=== PATIENT | female | born 1940 | race Caucasian/White ===

== ENCOUNTER → 2017-08-01 | Outpatient (CLI) | payer OTHER, MEDICARE ==
[~2017-08-01] MED LIST: ALPR-411 PO; AMB10 PO; FLUO10CA48 PO
--- NOTE | 2017-08-01 13:37 | DIAGNOSTIC IMAGING REPORT ---
L-SPINE MIN 4 VIEWS ROUTINE CLINICAL HISTORY: BACK PAIN COMPARISON STUDY: None FINDINGS: There are postsurgical changes of discectomies and interbody fusions at the L2-3, L3-4, and L4-5 levels. There is a grade 1 spondylolisthesis of L4 and L5. There is posterior pedicle screw fixation at the L2-3 level. No acute fractures are visualized. Posterior laminectomy defects are visualized. There is no pathologic bowel dilatation. There are surgical clips within the right upper quadrant consistent with a prior cholecystectomy. There are moderate degenerative changes within the lower thoracic spine. IMPRESSION: Postsurgical and degenerative change. No acute fractures identified. No destructive lesions are visualized on conventional radiographic imaging Electronically signed by: Ian Marte M.D. 08/01/2017 1:36 PM Dictated Date/Time: 08/01/2017 1:34 PM
== END | disposition home or self-care (01) ==
LOC: C.RADPV 13:13
PROVIDERS: ATTEND Family Medicine
DX: M54.9 Dorsalgia, unspecified (principal)

== ENCOUNTER → 2017-11-20 | Outpatient (CLI) | payer OTHER, MEDICARE ==
[~2017-11-20] MED LIST changes: -AMB10 PO; -FLUO10CA48 PO; +FLUT0.15 INTNAS; +GLC/500 PO; +OMEG10007 PO; +TRAM-453 PO; +TURMERIC PO
[2017-11-20 13:16] LABS: HEMATOCRIT 29.8 % (37-47); HEMOGLOBIN 9.5 g/dL (12.0-16.0)
== END | disposition home or self-care (01) ==
LOC: C.LABPVFM 09:49
PROVIDERS: ATTEND Orthopaedic Surgery Orthopaedic Surgery of the Spine
DX: M48.062 Spinal stenosis, lumbar region with neurogenic claudication (principal)

== ENCOUNTER 2020-03-31 06:29 | Inpatient (IN) ==
--- NOTE | 2020-03-16 13:53 | PAT Medication Instructions ---
Medication Instructions Date of Service March 16, 2020 Home Medications cyclobenzaprine 10 mg PO HS metformin 1,000 mg PO BID sertraline 50 mg PO HS insulin glargine [Basaglar KwikPen U-100 Insulin] 10 unit SUBCUT 1500 DO NOT take the morning of surgery metformin 1,000 mg PO BID Take evening before surgery cyclobenzaprine 10 mg PO HS metformin 1,000 mg PO BID sertraline 50 mg PO HS insulin glargine [Basaglar KwikPen U-100 Insulin] 10 unit SUBCUT 1500 Other Notes If you have any questions please call us at [phone] or [phone] or [phone] or [phone]
--- NOTE | 2020-03-17 11:08 | Anesthesiology Consultation ---
Date of Service March 17, 2020 Assessment & Plan (1) Encounter for pre-operative examination: - Per assessment on 03/17: Travel screen negative. No known COVID-19 positive contacts or current COVID-19 related symptoms. Surgeon arranging preop COVID testing. Awaiting results. - S/P Hardware removal L2-L3, decompression T12-L2, L5-S1, T10-S1 iliac bolts: 11/13/17: Grade view 1 with cricoid pressure, MAC#3, ETT 7.0 at [facility] - Check BSG AM DOS Chart Review Chart Review: Acceptable Risk for Surgery and Patient seen in Pre Admission Testing Teaching & Discussion Pre-Anesthesia Teaching/Discussion Notes: Instructed NPO after midnight before surgery,except medications with 15 cc of water. Medication instructions provided according to the PAT guidelines. History Surgery Operation Date: 03/31/20 07:45 Proposed Procedures p T8-T10 Decompression and Fusion, Spinal Cord Monitoring - Uri Sanford, Height/Weight Height: 5 ft 4 in Weight: 102.8 kg Allergies Allergy/AdvReac Type Severity Reaction Status Date / Time pseudoephedrine Allergy Intermediate hand, feet Verified 03/09/20 14:01 edema, skin peeling/redness hydromorphone AdvReac Severe delirium Verified 03/09/20 14:01 ketorolac [From Toradol] AdvReac delirium Verified 03/09/20 14:01 Medications Home Medications Medication Instructions Recorded Confirmed Last Taken cyclobenzaprine 10 mg PO HS 01/12/20 03/09/20 Unknown metformin 1,000 mg PO BID 01/12/20 03/09/20 Unknown sertraline 50 mg PO HS 01/12/20 03/09/20 Unknown insulin glargine [Basaglar KwikPen 10 unit SUBCUT 1500 03/09/20 03/09/20 Unknown U-100 Insulin] Past Medical History Medical History Anemia post-op several years ago Anxiety and depression Degenerative disc disease Diabetes IDDM Hx of pancreatitis 3+ years ago Obesity Osteoarthritis Exercise / Class Metabolic Activity III < 4 Walking/Shop/Light housework Past Family History Family History Mother Family history of diabetes mellitus Past Surgical History Surgical History Fusion of spine LUMBAR (TOTAL OF 3 SURGERIES), Hardware removal L2-L3, decompression T12-L2, L5-S1, T10-S1 iliac bolts: 11/13/17: Grade view 1 with cricoid pressure, MAC#3, ETT 7.0 at [facility] H/O knee surgery PARTIAL RIGHT KNEE REPLACEMENT History of cataract surgery BL History of colonoscopy History of herniorrhaphy UMBILICAL History of hysterectomy History of total knee replacement LEFT [place] teeth removed Past Anesthesia History No Family Hx of Anesthesia Complications and Other (post-op delirium after 2018 lumbar fusion (no similar issues with other surgeries/anesthesia)) History of PONV No Hx of PONV and No Hx of Motion Sickness Social History Smoking Status: Never smoker Do You Dip or Chew Tobacco: No Hx Alcohol Use: Yes Alcohol type: beer, wine and hard liquor alcohol intake frequency: a few times a month Hx Substance Use: No Review of Systems Patient denies chest pain, shortness of breath, fever, chills, cough, wheezing, palpitations. Physical Exam Vital Signs VITALS BP 150/88 P 90 TEMP 98.4 SP02 96%RA RESP 16 PHYSICAL Full neck and c-spine range of motion. Full TMJ range of motion. TMD 3 finger breaths Mallampati Score 3 Dentition: intact, several caps (including upper front) Lungs: clear throughout to auscultation Cardiac: regular rate and rhythm, no murmurs noted Spine: normal Carotid arteries: negative bruit Extremities: no edema Testing Laboratory Results 03/17/20 12:46 03/17/20 11:26 PT 10.7 Seconds (9.0-12.0) 03/17/20 12:46 INR 1.0 (0.9-1.1) 03/17/20 12:46 APTT 28.2 Seconds (21.0-31.0) 03/17/20 12:46 Hemoglobin A1c 7.6 % (4.5-5.6) H 03/17/20 12:46 Blood Type O Positive 03/17/20 12:46 Antibody Screen NEGATIVE 03/17/20 12:46 Electrocardiogram Date: 01/14/20 SR with first degree AVB at 81bpm. LAFB. NS STA. Chest X-Ray Date: 01/14/20 FINDINGS: The cardiac and mediastinal contours are normal. There is no evidence of focal pulmonary consolidation. There is no evidence of failure. No pleural effusions are visualized.[Postsurgical changes are present within the thoracolumbar spine. IMPRESSION: No active disease in the chest.
[2020-03-17 14:16] LABS: Estimated Average Glucose 171 mg/dl; Hemoglobin A1C 7.6 % (4.5-5.6)
[2020-03-17 14:17] LABS: Partial Thromboplastin Time 28.2 Seconds (21.0-31.0); Prothrombin Time 10.7 Seconds (9.0-12.0)
[2020-03-17 14:19] LABS: BUN Creatinine Ratio 17.3 (10-20); Calcium 9.9 mg/dl (8.5-10.1); Creatinine Clr Calc Pharmacy 67.1 ml/min
[2020-03-17 14:22] LABS: Basophils # (auto) 0.01 K/uL (0-0.2); Basophils % (auto) 0.2 %; Eosinophils # (auto) 0.09 K/uL (0-0.5); Eosinophils % (auto) 1.6 %; Hematocrit (blood only) 37.4 % (37-47); Immature Granulocytes # (auto) 0.01 K/uL (0.00-0.02); Immature Granulocytes % (auto) 0.2 %; Lymphocytes # (auto) 1.42 K/uL (1.2-3.4); Lymphocytes % (auto) 24.8 %; Mean Corpuscular Hemoglobin 29.2 pg (25-34); Mean Corpuscular Hgb Conc 32.1 g/dL (32-36); Mean Platelet Volume 11.2 fL (7.4-10.4); Monocytes # (auto) 0.31 K/uL (0.11-0.59); Monocytes % (auto) 5.4 %; Neutrophils # (auto) 3.89 K/uL (1.4-6.5); Neutrophils % (auto) 67.8 %; Platelet Count 182 K/uL (130-400); RDW Coefficient of Variation 14.4 % (11.5-14.5); RDW Standard Deviation 47.6 fL (36.4-46.3); Red Blood Count 4.11 M/uL (4.2-5.4); White Blood Count 5.73 K/uL (4.8-10.8)
[2020-03-19 18:12] LABS: Appearance Urine Clear (Clear); Bacteria Urine Automated Negative (Negative); Bilirubin Urine Negative (Negative); Blood Urine Negative (Negative); Color Urine Yellow; Epithelial Cell Urine Auto >30 /lpf (0-5); Glucose Urine UA Negative (Negative); Ketones Urine Negative (Negative); Leukocyte Esterase Urine 2+ (Negative); Nitrite Urine Negative (Negative); Protein Urine Negative (Negative); RBC Urine Automated 0-4 /hpf (0-4); Urobilinogen Urine Negative (Negative); WBC Urine Automated >30 /hpf (0-5)
[~2020-03-31 06:29] MED LIST changes: +ACETAMINOPHEN 500 MG TAB PO SCH; -ALPR-411 PO; +CeleBREX 200 MG CAP PO SCH; -FLUT0.15 INTNAS; +GABAPENTIN 300 MG CAP PO SCH; -GLC/500 PO; +LR 15ML/HR IV SCH; -OMEG10007 PO; -TRAM-453 PO; -TURMERIC PO; +ceFAZolin 2000MG 2,000 MG/15 ML SYR IV SCH
[2020-03-31] MEDS ORDERED: LIDOCAINE HCL 2% 2 ML VIAL/AMP(20MG/ML) INFIL ONE (06:37)
[2020-03-31] MEDS ORDERED: PROPOFOL IV EMULSION 10 MG/ML 20 ML VIAL IV ONE (06:37)
[2020-03-31] MEDS ORDERED: DEXAMETHASONE SOD INJ 4 MG/ML VIAL ONE (06:37)
[2020-03-31] MEDS ORDERED: ONDANSETRON INJ 2 MG/ML 2 ML VIAL ONE (06:37)
[2020-03-31] MEDS ORDERED: ROCURONIUM BROMIDE 10 MG/ML 5 ML VIAL IV ONE (06:37)
[2020-03-31] MEDS ORDERED: HYDROmorphone INJ 2 MG/ML SYR/VIAL ONE (06:38)
[2020-03-31] MEDS ORDERED: MIDAZOLAM HCL 1 MG/ML 2ML VIAL ONE (06:38)
[2020-03-31] MEDS ORDERED: KETAMINE 50 MG/5 ML SYRINGE ONE (06:42)
[2020-03-31] MEDS ORDERED: fentaNYL citrate 100 MCG/2 ML VIAL ONE ×2 (06:42→08:22)
[2020-03-31] MEDS ORDERED: BACITRACIN INJ 50,000 UNIT VIAL ONE (07:01)
[2020-03-31] MEDS ORDERED: BUPIVACAINE/EPINEPHRINE 0.5% MPF 1:200,000 30 ML VIAL ONE (07:34)
--- NOTE | 2020-03-31 07:42 | History & Physical Bridge Note ---
Date of Service March 31, 2020 History & Physical Bridge Note I have examined the patient, reviewed the History & Physical and in the interval since the performance of the History & Physical I have noted the following changes of clinical significance: no changes noted
--- NOTE | 2020-03-31 07:44 | History & Physical Report ---
Date of Service March 31, 2020 Assessment & Plan (1) Myelopathy 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 of thoracic region: Admission and Anticipated Discharge Date Admission Date: T8-T10 decompression fusion History of Present Illness Chief Complaint: Chronic back and leg pain Primary Care Provider: Bruce Dumont This is a 79-year-old female known to me the presents with worsening symptoms of myelopathy consistent with thoracic spinal stenosis. She is here for surgical invention. Allergies Allergy/AdvReac Type Severity Reaction Status Date / Time pseudoephedrine Allergy Intermediate hand, feet Verified 03/31/20 06:59 edema, skin peeling/redness hydromorphone AdvReac Severe delirium Verified 03/31/20 06:59 ketorolac [From Toradol] AdvReac delirium Verified 03/31/20 06:59 Home Medications Medication Instructions Recorded Confirmed Type cyclobenzaprine 10 mg PO HS 01/12/20 03/31/20 History metformin 1,000 mg PO BID 01/12/20 03/31/20 History sertraline 50 mg PO HS 01/12/20 03/31/20 History insulin glargine [Basaglar KwikPen 10 unit SUBCUT 1500 03/09/20 03/31/20 History U-100 Insulin] Past Med/Surg History Medical History Anemia post-op several years ago Anxiety and depression Degenerative disc disease Diabetes IDDM Hx of pancreatitis 3+ years ago Obesity Osteoarthritis Surgical History Fusion of spine LUMBAR (TOTAL OF 3 SURGERIES), Hardware removal L2-L3, decompression T12-L2, L5-S1, T10-S1 iliac bolts: 11/13/17: Grade view 1 with cricoid pressure, MAC#3, ETT 7.0 at [facility] H/O knee surgery PARTIAL RIGHT KNEE REPLACEMENT History of cataract surgery BL History of colonoscopy History of herniorrhaphy UMBILICAL History of hysterectomy History of total knee replacement LEFT [place] teeth removed Family History Mother Family history of diabetes mellitus Social History Smoking Status: Never smoker Second Hand Exposure: Yes (as a child); Do You Dip or Chew Tobacco: No; Hx Alcohol Use: Yes Alcohol type: beer, wine and hard liquor Hx Substance Use: No Preferred Language: Nigerien Communication Ability: Effective Instructor Painting Required: No Beliefs That Will Affect Care: None Current Living Situation: Spouse Feels Safe at Home: Yes Safety Concerns: Feels Safe At This Time Assistive Devices: Cane and Glasses Assistive Devices Comment: cane prn Physical Exam Physical Exam: Patient is alert and oriented Heart regular rate and rhythm Lungs clear to auscultation Results & Data ([facility]) Vital Signs (Past 12 Hours) Vital Signs Temp Pulse Resp BP Pulse Ox 03/31/20 06:56 37.4 C 100 H 20 163/110 H 97 03/31/20 06:50 185/134 H
[2020-03-31] MEDS ORDERED: PHENYLEPHRINE 100MCG/ML 5ML SYR IV PRN (07:47)
[2020-03-31] MEDS ORDERED: fentaNYL citrate 100 MCG/2 ML VIAL IV PRN (07:47)
[2020-03-31] MEDS ORDERED: ONDANSETRON INJ 2 MG/ML 2 ML VIAL IV PRN ×2 (07:47→11:10)
[2020-03-31] MEDS ORDERED: ePHEDrine sulfate 50 MG/ML SYR ONE (08:14)
[2020-03-31] MEDS ORDERED: PHENYLEPHRINE 100MCG/ML 5ML SYR ONE (08:14)
[2020-03-31] MEDS ORDERED: FLOSEAL HEMOSTATIC MATRIX 10ML TOP ONE (09:52)
[2020-03-31] MEDS ORDERED: NEOSTIGMINE METHYLSULFATE 1 MG/ML 10ML VIAL ONE (09:55)
[2020-03-31] MEDS ORDERED: GLYCOPYRROLATE 0.2 MG/ML VIAL ONE (09:55)
--- NOTE | 2020-03-31 10:01 | Operative Report ---
Post Operative Report Pre & Post Diagnosis Operation Date: 03/31/20 07:45 Pre-Op Diagnosis: Other Spondylosis with Myelopathy, Thoracic Post-Op Diagnosis: Other Spondylosis with Myelopathy, Thoracic I identified the patient and participated in the time-out.: Yes Procedure Operation Date: 03/31/20 07:45 Actual Procedures #1 thoracic decompression T8-T9 T9-T10. #2 posterior spinal fusion T8-T10 11. #3 placement posterior segmental instrumentation including globus shepherds hooks T8-T10. #4 placement locally harvested morselized autograft and posterior gutters. #5 placement infuse collagen sponge bone master graft in the posterior lateral gutters. Surgeon Uri Sanford, DO Retail Associate Gema Arriaza Estimated Blood Loss 150 Findings See Below The patient is 5 foot 4 just tall weighing over 103 kg with a BMI in excess of 39. Patient's body habitus did create increased technical difficulty adding at least 50% increase to the operative time. Specimens None Indications This is a 79-year-old female known to me the presents with above-mentioned diagnosis subsequently here for surgical intervention. Description of Procedure Patient was met with identified informed consent obtained. Patient was then taken to the operative suite underwent patient placed in a prone position the [facility] frame. All bony prominences well-padded eyes inspected to ensure no external pressure placed upon the. This point the thoracolumbar spine was prepped and draped no sterile fashion. Sharp dissection with the assistance of Bovie cautery performed down to and exposing the lamina and transverse processes of T8-T9-T10 and instrumentation at the 11 T12. I then performed a complete laminectomy of T9 and T8 addressing severe central lateral recess stenosis. Pedicle screws were then placed in T8-T9-T10 bilaterally with assistance of fluoroscopy and attached to the pre-existing instrumentation by way of globus shepherds hooks. All instrumentation was locked into place. The transverse processes and remaining lamina of T8 T9-T10-T11 and then burred to subcortical bleeding bone. Infuse collagen sponge mass graft local autograft was placed in the posterior gutters. 15 round MARY drain inserted. The incision was then closed with 1 Vicryl to fascia 2-0 Vicryl subcutaneously and 4 Monocryl for final skin closure. Steri-Strip sterile dressings placed. Patient will continue PACU stable condition we please note spinal cord biting visualized at the procedure no changes noted. Lastly Gema Arriaza was present at the entire surgery involved in patient positioning complex portions of the surgery and final skin closure. I attest to the content of the Intraoperative Record and any orders documented therein. Any exceptions are noted below.
--- NOTE | 2020-03-31 10:15 | Fluoroscopy Report ---
FL thoracic spine 2V HISTORY: 79 years-old Female T8-T10 DECOMP/FUSION COMPARISON: MRI thoracic spine 04/18/2019 TECHNIQUE: 2 spot fluoroscopic images of the thoracic spine were obtained utilizing 43.4 seconds fluo roscopy time FINDINGS: Posterior interbody hal and screw fusion of the thoracic spine is noted within the inferior extent of the hardware outside the [id number], exact numbering of the vertebral segments indeterminate seco ndary to magnified images. There is likely new hardware at what appears to be T8-T10. The imaged hard armstrong appears intact. There is satisfactory alignment of the vertebral bodies with multilevel disc spa ce narrowing and spondylitic spurring. IMPRESSION: Fluoroscopic assistance as above. Please see operative report for further details. ACT 112: Negative or not required by law. The above report was generated using voice recognition software. It may contain grammatical, syntax o r spelling errors. Electronically signed by: Gato Morgan M.D. 03/31/2020 10:13 AM
[2020-03-31] MEDS ORDERED: diphenhydrAMINE Capsule 25 MG CAP PO PRN (11:10)
[2020-03-31] MEDS ORDERED: PROMETHAZINE HCL 12.5 MG in SODIUM CHLORIDE 0.9% 50 ML IV PRN (11:10)
[2020-03-31] MEDS ORDERED: FAMOTIDINE 20 MG TAB PO PRN (11:10)
[2020-03-31] MEDS ORDERED: MoRPHine SULFATE 4 MG/ML 1 ML CARP\\VIAL IV PRN (11:10)
[2020-03-31] MEDS ORDERED: hydrOXYzine HCl 25 MG TAB PO PRN (11:10)
[2020-03-31] MEDS ORDERED: SOD PHOSPHATE/SOD BIPHOSPHATE ENEMA 132 ML BTL PR PRN (11:10)
[2020-03-31] MEDS ORDERED: ONDANSETRON 4 MG OD TAB PO PRN (11:10)
[2020-03-31] MEDS ORDERED: LORazepam 0.5 MG TAB PO PRN (11:10)
[2020-03-31] MEDS ORDERED: DO NOT ADMINISTER FLU VACCINE PRN (11:10)
[2020-03-31] MEDS ORDERED: bisacodyL 10 MG SUPP PR PRN (11:10)
[2020-03-31] MEDS ORDERED: MAGNESIUM HYDROXIDE SUSP 30 ML UDC PO PRN (11:10)
[2020-03-31] MEDS ORDERED: METOCLOPRAMIDE HCL INJ 5 MG/ML 2 ML VIAL IV PRN (11:10)
[2020-03-31] MEDS ORDERED: LORazepam 0.5 MG/1 ML VIAL IV PRN (11:10)
[2020-03-31] MEDS ORDERED: DO NOT ADMINISTER PNEUMOCOCCAL VACCINE PRN (11:10)
[2020-03-31] MEDS ORDERED: ALUMINUM/MAGNESIUM SUSP 30 ML UDC PO PRN (11:10)
[2020-03-31] MEDS ORDERED: NALOXONE HCL 0.4 MG/1 ML VIAL/CARP IV PRN (11:10)
[2020-03-31] MEDS ORDERED: LARYING-O-JET KIT (LTA) ONE (11:16)
[2020-03-31] MEDS ORDERED: PHARMACY GLYCEMIC MGMT CONSULT PRN (11:52)
[2020-03-31] MEDS: MoRPHine SULFATE 2 MG/ML CARP IV PRN ×2 (11:56→16:03)
[2020-03-31] MEDS: SODIUM CHLORIDE 0.9% 1000ML 1,000 ML IV SCH ×2 (11:56→21:42)
[2020-03-31] MEDS ORDERED: CARBOHYDRATES FOR HYPOGLYCEMIA PO PRN (12:00)
[2020-03-31] MEDS ORDERED: GLUCOSE 40% GEL 15 GM TUBE PO PRN (12:00)
[2020-03-31] MEDS ORDERED: DEXTROSE 50% 50 ML SYRINGE IV PRN (12:00)
[2020-03-31] MEDS ORDERED: GLUCAGON FOR INJ 1 MG VIAL IM PRN (12:00)
[2020-03-31] MEDS ORDERED: GLUCOSE 10 TABS/TUBE PO PRN (12:00)
[2020-03-31] MEDS ORDERED: INSULIN GLARGINE SOLOSTAR 100 UNITS/ML 3 ML PEN SC ONE (12:00)
[2020-03-31] MEDS: INSULIN ASPART 100 UNITS/ML 3 ML PEN SC SCH ×3 (12:50→21:30)
[2020-03-31] MEDS: oxyCODONE HCL IR 5 MG TAB (IMMEDIATE RELEASE) PO PRN (12:54)
[2020-03-31] MEDS: ACETAMINOPHEN 1,000 MG/100 ML VIAL IV PRN (13:32)
--- NOTE | 2020-03-31 14:49 | Consultation ---
Date of Consultation March 31, 2020 Assessment & Plan (1) Myelopathy 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 of thoracic region: s/p thoracic decompression T8-T9 T9-T10 and posterior spinal fusion T8- T10. Pain management, DVT proph, dispo per Dr Sanford's team. (2) Diabetes: Pharmacy was consulted by the primary orthopedic team for management. (3) Obesity: borderline morbid obesity with BMI 39 (4) DVT prophylaxis: SCDs chemical means contraindicated due to spinal surgery will f/u on CBC, BMP in am maintain bowel regimen History of Present Illness Requesting Physician: Herbie Sanford DO Reason for Consultation: post-op medical management Attending Physician: Uri Sanford DO History of Present Illness 79yo female with h/o 3 prior back surgeries, T2DM, and obesity who presented for decompression-fusion procedure of lower thoracic spine today by Dr Sanford. I saw her post-op on the orthopedic floor. She c/o back pain/soreness. No dyspnea, chest pain or abd pain. Tolerated small amount of lunch w/o nausea or emesis. Prior to surgery she only was having weakness of her legs and left leg pain. Otherwise she had been in her usual state of health. Checks sugars once daily at home. Recently they were <150. During my visit she asked to have O2 removed. 10 min after removing it sats were 92% or greater. Allergies Allergy/AdvReac Type Severity Reaction Status Date / Time pseudoephedrine Allergy Intermediate hand, feet Verified 03/31/20 06:59 edema, skin peeling/redness hydromorphone AdvReac Severe delirium Verified 03/31/20 06:59 ketorolac [From Toradol] AdvReac delirium Verified 03/31/20 06:59 Home Medications Medication Instructions Recorded Confirmed Type cyclobenzaprine 10 mg PO HS 01/12/20 03/31/20 History metformin 1,000 mg PO BID 01/12/20 03/31/20 History sertraline 50 mg PO HS 01/12/20 03/31/20 History insulin glargine [Basaglar KwikPen 10 unit SUBCUT 1500 03/09/20 03/31/20 History U-100 Insulin] oxycodone 5 mg PO Q6H PRN #30 tab 03/31/20 Rx Patient History Medical History (Updated 04/01/20 @ 07:53 by Magdiel Rodriguez) Anemia post-op several years ago Anxiety and depression Degenerative disc disease Diabetes IDDM Hx of pancreatitis 3+ years ago Obesity Obesity Osteoarthritis Surgical History Fusion of spine LUMBAR (TOTAL OF 3 SURGERIES), Hardware removal L2-L3, decompression T12-L2, L5-S1, T10-S1 iliac bolts: 11/13/17: Grade view 1 with cricoid pressure, MAC#3, ETT 7.0 at [facility] H/O knee surgery PARTIAL RIGHT KNEE REPLACEMENT History of cataract surgery BL History of colonoscopy History of herniorrhaphy UMBILICAL History of hysterectomy History of total knee replacement LEFT [place] teeth removed Family History Mother Family history of diabetes mellitus Father Family history of diabetes mellitus Pancreatic cancer Social History (Updated 03/31/20 @ 14:48 by Magdiel Rodriguez) Smoking Status: Never smoker Second Hand Exposure: Yes (as a child); Do You Dip or Chew Tobacco: No; Hx Alcohol Use: Yes Alcohol type: beer, wine and hard liquor Hx Substance Use: No Preferred Language: Armenian Communication Ability: Effective Plating Tank Operator Required: No Beliefs That Will Affect Care: None marital status: Current Living Situation: Spouse Current Living Situation Comment: Kiah Katz current occupational status: 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 [employer] How many Children do You have: 4 Feels Safe at Home: Yes Safety Concerns: Feels Safe At This Time Assistive Devices: None Assistive Devices Comment: cane prn Review of Systems Constitutional: no fever and no chills Eyes: no worsening vision Ear, Nose, Mouth, Throat: no loss of taste or smell Respiratory: no cough and no dyspnea Cardiovascular: no chest pain Gastrointestinal: no abdominal pain and no nausea Genitourinary: no dysuria Musculoskeletal: + back pain Integumentary: no rash Neurologic: + radiating pain (Left leg pre-op) Psychiatric: no depression Endocrine: takes insulin and metformin for DM Hematologic / Lymphatic: no easy bruising Physical Exam Constitutional: well developed, well nourished and + obese; no acute distress Eyes: PERRL ENMT: external ear and nose normal, oropharynx normal Neck: trachea midline, no thyromegaly Respiratory: normal respiratory effort, lungs clear to auscultation Auscultation: + diminished lung sounds (Bases) Cardiovascular: Rate/Rhythm: regular rate and regular rhythm Heart Sounds: normal S1 and normal S2; no murmur Extremities: + edema (<1+ b/l ) Gastrointestinal (Abdomen): Inspection/Auscultation: + abdomen distended Percussion/Palpation: abdomen nontender and no hepatosplenomegaly Musculoskeletal: drain in place - thoracic spine region Skin: no rashes, warm and dry Neurologic: moves all extremities Psychiatric: A+Ox3, euthymic affect Lymphatic: no cervical lymphadenopathy Results & Data ([facility]) Vital Signs (Past 12 Hours) Vital Signs Temp Pulse Pulse Resp BP Pulse Ox 03/31/20 13:23 84 18 163/87 H 100 03/31/20 12:18 36.8 C 78 18 155/86 H 98 03/31/20 11:40 36.8 C 79 20 162/87 H 98 03/31/20 11:16 36.3 C L 73 18 172/97 H 98 03/31/20 10:55 72 15 162/93 H 100 03/31/20 10:45 36.5 C 70 17 164/86 H 99 03/31/20 10:35 74 12 154/86 H 96 03/31/20 10:25 65 12 148/85 H 100 03/31/20 10:17 36.4 C L 71 16 163/79 H 99 03/31/20 06:56 37.4 C 100 H 20 163/110 H 97 03/31/20 06:50 185/134 H PG Care Time/CCT Total # of Minutes Spent Total Time Spent with Patient: Total time spent is greater than 50% in coordination of care (as documented) at patient's floor/unit and/or counseling patient: Coding Level of Care Code 28885 Subseq Hosp Care Lvl 2 Diagnoses Myelopathy 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 of thoracic region M48.04; G99.2 Diabetes E11.9 Obesity E66.9 DVT prophylaxis Z29.9
--- NOTE | 2020-03-31 14:50 | Pharmacy Report ---
Glycemic Control Consultation - Date of Service March 31, 2020 - Scope Scope: Glycemic Pharmacist consulted for glycemic control and to write orders per [facility] inpatient glycemic control protocol. - Objective Weight: 103.5 kg Accuchecks BSG (last 24hrs): 03/31/20 03/31/20 06:50 10:26 POC Glucose 121 H 180 H HbA1c: Hemoglobin A1c 7.6 % (4.5-5.6) H 03/17/20 12:46 - Recent Pertinent Medications Outpatient Anti-diabetic Regimen: * Basaglar 10 units daily * A1c = 7.6% on 03/17/20 Risk Factors for Insulin Resistance: * Steroids: Decadron 8 mg IV x 1 today AM * Infection: Ancef 2 gm IV Q8h x 2 doses * IVF: NS @ 100 ml/hr * Recent Surgery: Spinal decompression + fusion today * Diet: Clear liquid - Assessment & Plan Assessment & Plan: ASSESSMENT: * 79 y/o F admitted for spinal surgery. Patient with Type 2 diabetes managed at home with Basaglar insulin and Metformin oral meds. * Oral agents are not recommended for inpatient use d/t drug interactions, changing PO intake, and difficulty titrating for acute hyper/hypoglycemia. ADA recommends re-initiating outpatient oral agents 1-2 days prior to discharge if/when appropriate if they were held on admission. * Will hold oral agents for admission and utilize SQ basal bolus insulin regimen which is the recommended regimen for inpatient glycemic control. * Will initiate weight based insulin dosing and titrate based on BSG trends. * Since patient received Decadron 8 mg IV x 1 preop, I ordered 25 units of Lantus x 1 around noon today based on weight and stress factor of 3 to prevent steroid induced hyperglycemia. Patient normally takes Basaglar insulin 10 units daily in the afternoon. Last dose of this was yesterday afternoon. * Novolog dose ordered based on wt and stress factor of 3. PLAN FOR INPATIENT GLYCEMIC CONTROL: * Holding outpatient oral diabetes medications * Basal insulin * Lantus 25 units SQ x 1 * Bolus insulin * NovoLog per scale ACHS or Q6hrs while NPO * Goal Range: Low 110 mg/dL - High 140 mg/dL * Correction Factor: 15 mg/dL/unit * Nutritional / Prandial insulin per carb ratio of 1 unit per 6 grams CHO consumed * Please note that the plan above was derived based on current level of insulin resistance and hospital stress. These recommendations are appropriate for inpatient admission only. Plan of care upon discharge will need to be reassessed to avoid potential outpatient hypo/hyperglycemia. Thank you.
[2020-03-31] MEDS: ceFAZolin 2000MG 2,000 MG/15 ML SYR IV SCH (16:07)
--- NOTE | 2020-03-31 16:12 | Anesthesiology Progress Note ---
Date of Service March 31, 2020 Anesthesia Post Procedure Vital Signs Vital Signs: Temp Pulse Pulse Pulse Resp BP Pulse Ox 03/31/20 15:56 36.4 C L 83 16 146/80 H 95 03/31/20 13:23 84 18 163/87 H 100 03/31/20 12:18 36.8 C 78 18 155/86 H 98 03/31/20 11:40 36.8 C 79 20 162/87 H 98 03/31/20 11:16 36.3 C L 73 18 172/97 H 98 03/31/20 10:55 72 15 162/93 H 100 03/31/20 10:45 36.5 C 70 17 164/86 H 99 03/31/20 10:35 74 12 154/86 H 96 03/31/20 10:25 65 12 148/85 H 100 03/31/20 10:17 36.4 C L 71 16 163/79 H 99 03/31/20 06:56 37.4 C 100 H 20 163/110 H 97 03/31/20 06:50 185/134 H Pain Intensity Back: Pain Intensity: 3 Transfer of Care Handoff Completed per policy Notes Mental Status: alert / awake / arousable and participated in evaluation Patient Amnestic to Procedure: Yes Nausea / Vomiting: adequately controlled Pain: adequately controlled Airway Patency, RR, SpO2: stable & adequate BP & HR: stable & adequate Hydration State: stable & adequate Anesthetic Complications: no major complications apparent and Pt Satisfied with anesthetic care
[2020-03-31] MEDS: DOCUSATE SODIUM/SENNA 50/8.6MG TAB PO SCH (21:44)
[2020-03-31] MEDS: SERTRALINE HCL 50 MG TABLET PO SCH (21:44)
[2020-03-31] MEDS: CYCLOBENZAPRINE HCL 10 MG TAB PO SCH (21:44)
[2020-04-01] MEDS: INSULIN ASPART 100 UNITS/ML 3 ML PEN SC SCH ×6 (00:25→21:11)
[2020-04-01] MEDS: ceFAZolin 2000MG 2,000 MG/15 ML SYR IV SCH (00:27)
[2020-04-01] MEDS: POLYETHYLENE (MIRALAX) 17 GM PACK PO SCH ×4 (05:53→23:45)
[2020-04-01 06:07] LABS: Hematocrit (blood only) 29.2 % (37-47); Hemoglobin 9.5 g/dL (12.0-16.0); Immature Granulocytes # (auto) 0.02 K/uL (0.00-0.02); Immature Granulocytes % (auto) 0.2 %; Lymphocytes # (auto) 1.26 K/uL (1.2-3.4); Lymphocytes % (auto) 13.6 %; Mean Corpuscular Hemoglobin 29.6 pg (25-34); Mean Corpuscular Hgb Conc 32.5 g/dL (32-36); Mean Platelet Volume 9.5 fL (7.4-10.4); Monocytes # (auto) 0.69 K/uL (0.11-0.59); Monocytes % (auto) 7.4 %; Neutrophils % (auto) 78.8 %; Platelet Count 185 K/uL (130-400); RDW Coefficient of Variation 14.6 % (11.5-14.5); RDW Standard Deviation 48.8 fL (36.4-46.3); Red Blood Count 3.21 M/uL (4.2-5.4); White Blood Count 9.27 K/uL (4.8-10.8)
[2020-04-01 06:33] LABS: Calcium 9.1 mg/dl (8.5-10.1); Creatinine Clr Calc Pharmacy 75.6 ml/min; Est GFR (African American) 92.1; Est GFR (Non-African American) 79.4
[2020-04-01] MEDS ORDERED: INSULIN GLARGINE SOLOSTAR 100 UNITS/ML 3 ML PEN SC SCH (09:00)
--- NOTE | 2020-04-01 09:59 | Orthopedic Progress Note ---
Date of Service April 01, 2020 Assessment & Plan (1) Myelopathy 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 of thoracic region: Admission and Anticipated Discharge Date Admission Date: March 31, 2020 Patient will continue physical therapy monitor MARY operatively discharge home next few days. Subjective Patient's back pain is controlled leg symptoms improved. Physical Exam Physical Exam: Patient is in the chair at the bedside has good strength testing. Results & Data ([facility]) Vital Signs (Past 12 Hours) Vital Signs Temp Pulse Resp BP Pulse Ox 04/01/20 07:23 36.6 C 81 18 152/82 H 94 04/01/20 03:27 36.4 C L 75 16 134/81 92 03/31/20 23:00 36.4 C L 77 16 136/80 93
[2020-04-01] MEDS ORDERED: DEXAMETHASONE SOD PHOSPHATE 8 MG in SYRINGE 0 ML IV ONE (10:45)
[2020-04-01] MEDS: oxyCODONE HCL IR 5 MG TAB (IMMEDIATE RELEASE) PO PRN ×3 (10:48→21:28)
--- NOTE | 2020-04-01 10:50 | Pharmacy Report ---
Pharmacy Glycemic Short Note 2 - Date of Service April 01, 2020 - Glycemic Short BSG Results (Last 24 hours): 03/31/20 03/31/20 03/31/20 17:10 20:33 23:54 Glucose POC Glucose 266 H 251 H 177 H 04/01/20 04/01/20 04/01/20 04:21 05:47 08:05 Glucose 98 POC Glucose 112 H 101 H Outpatient Anti-diabetic Regimen: * Basaglar 10 units daily * A1c = 7.6% on 03/17/20 Risk Factors for Insulin Resistance: * Steroids: Decadron 8 mg IV x 1 03/31 AM, none 04/01, then 8 mg IV qAM staring 04/02 * Recent Surgery: POD 1 s/p spinal decompression + fusion today * Diet: T2DM ASSESSMENT: 04/01 * Steroids ordered to continue starting tomorrow (confirmed w Nathalia Carballo PA-C who spoke w Dr. Sanford - Dr. Sanford does not want steroids today) * AM fasting BSG good at 101 mg/dL. Lantus dose decreased slightly as anticipate effects of steroids yesterday to wear off. Tomorrow, will likely need to be adjusted again (and possibly use both Lantus and NPH) once steroids resume * Steroid effects dissipating and lunch BSG slightly low at 93 mg/dL. Will loosen Novolog parameters for now. However, will tighten back starting tomorrow when steroids resume 03/31 * 79 y/o F admitted for spinal surgery. Patient with Type 2 diabetes managed at home with Basaglar insulin and Metformin oral meds. * Oral agents are not recommended for inpatient use d/t drug interactions, changing PO intake, and difficulty titrating for acute hyper/hypoglycemia. ADA recommends re-initiating outpatient oral agents 1-2 days prior to discharge if/when appropriate if they were held on admission. * Will hold oral agents for admission and utilize SQ basal bolus insulin regimen which is the recommended regimen for inpatient glycemic control. * Will initiate weight based insulin dosing and titrate based on BSG trends. * Since patient received Decadron 8 mg IV x 1 preop, I ordered 25 units of Lantus x 1 around noon today based on weight and stress factor of 3 to prevent steroid induced hyperglycemia. Patient normally takes Basaglar insulin 10 units daily in the afternoon. Last dose of this was yesterday afternoon. * Novolog dose ordered based on wt and stress factor of 3. PLAN FOR INPATIENT GLYCEMIC CONTROL: * Hold outpatient oral diabetes medications * Basal insulin * Lantus 20 units SQ x1 this AM. Ongoing to be assessed tomorrow * Bolus insulin * NovoLog per scale ACHS or Q6hrs while NPO * Goal Range: Low 110 mg/dL - High 140 mg/dL * Correction Factor: 20 mg/dL/unit today, then tighten to 15 mg/dL/unit tomorrow * CHO ratio: 7 gCHO/unit today, then tighten to 6 gCHO/unit tomorrow
--- NOTE | 2020-04-01 11:28 | Hospitalist Progress Note ---
Date of Service April 01, 2020 Assessment & Plan (1) Myelopathy 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 of thoracic region: * POD #1 s/p thoracic decompression T8-T9 T9-T10 and posterior spinal fusion T8-T10. * H/h dropped to 9.5/29.2 -- acute blood loss from surgery and dilutional from IVF. EBL [id number]. Drain output 430cc. * Pain management, DVT proph, dispo per Dr Sanford's team. * CBC in AM (2) Diabetes: * Pharmacy was consulted by the primary orthopedic team for management. * On metformin 1000mg BID and Insulin 10U daily [employer] with reduction in A1c from 11 to 7.6 from December 2019 * Plans for dexamethasone starting tomorrow per Dr. Sanford * Continue to monitor (3) Obesity: * borderline morbid obesity with BMI 39 (4) DVT prophylaxis: * SCDs * chemical means contraindicated due to spinal surgery Plans for d/c on Sunday Thank you for allowing hospitalist service to participate in the care of Ms Martinez. Hospitalist service will sign off but chart check. Please call with any questions/concerns. Admission and Anticipated Discharge Date Admission Date: March 31, 2020 Subjective Patient evaluated this morning. Was up with therapy and having some pain following but manageable with current ordered medications. This is her fourth back surgery, all performed by Dr. Sanford. She has been eating/drinking without difficulty. Passing gas but no BM yet. Tentative discharge planned for Sunday per her discussion with Dr. Sanford. Review of Systems Review of Systems: All systems reviewed & are unremarkable except as noted in HPI & below Physical Exam Constitutional: well developed, well nourished and + obese; no acute distress Eyes: PERRL ENMT: external ear and nose normal, oropharynx normal Neck: trachea midline, no thyromegaly Respiratory: normal respiratory effort, lungs clear to auscultation Auscultation: + diminished lung sounds (Bases) Cardiovascular: Rate/Rhythm: regular rate and regular rhythm Heart Sounds: normal S1 and normal S2; no murmur Extremities: + edema (trace b/lLE) Gastrointestinal (Abdomen): Inspection/Auscultation: + abdomen distended Percussion/Palpation: abdomen nontender and no hepatosplenomegaly Musculoskeletal: drain in place - thoracic spine region Skin: no rashes, warm and dry Neurologic: moves all extremities Psychiatric: A+Ox3, euthymic affect Lymphatic: no cervical lymphadenopathy Results & Data Results & Data ([facility]) Vital Signs (Past 12 Hours) Vital Signs Temp Pulse Resp BP Pulse Ox 04/01/20 07:23 36.6 C 81 18 152/82 H 94 04/01/20 03:27 36.4 C L 75 16 134/81 92 Laboratory Results 04/01/20 04/01/20 04/01/20 Range/Units 08:05 05:47 05:47 WBC 9.27 (4.8-10.8) K/uL RBC 3.21 L (4.2-5.4) M/uL Hgb 9.5 L (12.0-16.0) g/dL Hct 29.2 L (37-47) % MCV 91.0 (80-100) fL MCH 29.6 (25-34) pg MCHC 32.5 (32-36) g/dL RDW Std Deviation 48.8 H (36.4-46.3) fL RDW Coeff of Jc 14.6 H (11.5-14.5) % Plt Count 185 (130-400) K/uL MPV 9.5 (7.4-10.4) fL Immature Gran % (Auto) 0.2 % Neut % (Auto) 78.8 % Lymph % (Auto) 13.6 % Glascock % (Auto) 7.4 % Eos % (Auto) 0.0 % Baso % (Auto) 0.0 % Neut # (Auto) 7.30 H (1.4-6.5) K/uL Lymph # (Auto) 1.26 (1.2-3.4) K/uL Glascock # (Auto) 0.69 H (0.11-0.59) K/uL Eos # (Auto) 0.00 (0-0.5) K/uL Baso # (Auto) 0.00 (0-0.2) K/uL Immature Gran # (Auto) 0.02 (0.00-0.02) K/uL Sodium 143 (136-145) mmol/L Potassium 4.0 (3.5-5.1) mmol/L Chloride 111 H (98-107) mmol/L Carbon Dioxide 28 (21-32) mmol/L Anion Gap 3.0 (3-11) BUN 15 (7-18) mg/dl Creatinine 0.73 (0.6-1.2) mg/dl Est Cr Clr Drug Dosing 75.6 ml/min Est GFR ( Amer) 92.1 Est GFR (Non-Af Amer) 79.4 BUN/Creatinine Ratio 21.0 H (10-20) Glucose 98 (70-99) mg/dl POC Glucose 101 H (70-99) mg/dl Calcium 9.1 (8.5-10.1) mg/dl 04/01/20 03/31/20 03/31/20 Range/Units 04:21 23:54 20:33 WBC (4.8-10.8) K/uL RBC (4.2-5.4) M/uL Hgb (12.0-16.0) g/dL Hct (37-47) % MCV (80-100) fL MCH (25-34) pg MCHC (32-36) g/dL RDW Std Deviation (36.4-46.3) fL RDW Coeff of Jc (11.5-14.5) % Plt Count (130-400) K/uL MPV (7.4-10.4) fL Immature Gran % (Auto) % Neut % (Auto) % Lymph % (Auto) % Glascock % (Auto) % Eos % (Auto) % Baso % (Auto) % Neut # (Auto) (1.4-6.5) K/uL Lymph # (Auto) (1.2-3.4) K/uL Glascock # (Auto) (0.11-0.59) K/uL Eos # (Auto) (0-0.5) K/uL Baso # (Auto) (0-0.2) K/uL Immature Gran # (Auto) (0.00-0.02) K/uL Sodium (136-145) mmol/L Potassium (3.5-5.1) mmol/L Chloride (98-107) mmol/L Carbon Dioxide (21-32) mmol/L Anion Gap (3-11) BUN (7-18) mg/dl Creatinine (0.6-1.2) mg/dl Est Cr Clr Drug Dosing ml/min Est GFR ( Amer) Est GFR (Non-Af Amer) BUN/Creatinine Ratio (10-20) Glucose (70-99) mg/dl POC Glucose 112 H 177 H 251 H (70-99) mg/dl Calcium (8.5-10.1) mg/dl 03/31/20 Range/Units 17:10 WBC (4.8-10.8) K/uL RBC (4.2-5.4) M/uL Hgb (12.0-16.0) g/dL Hct (37-47) % MCV (80-100) fL MCH (25-34) pg MCHC (32-36) g/dL RDW Std Deviation (36.4-46.3) fL RDW Coeff of Jc (11.5-14.5) % Plt Count (130-400) K/uL MPV (7.4-10.4) fL Immature Gran % (Auto) % Neut % (Auto) % Lymph % (Auto) % Glascock % (Auto) % Eos % (Auto) % Baso % (Auto) % Neut # (Auto) (1.4-6.5) K/uL Lymph # (Auto) (1.2-3.4) K/uL Glascock # (Auto) (0.11-0.59) K/uL Eos # (Auto) (0-0.5) K/uL Baso # (Auto) (0-0.2) K/uL Immature Gran # (Auto) (0.00-0.02) K/uL Sodium (136-145) mmol/L Potassium (3.5-5.1) mmol/L Chloride (98-107) mmol/L Carbon Dioxide (21-32) mmol/L Anion Gap (3-11) BUN (7-18) mg/dl Creatinine (0.6-1.2) mg/dl Est Cr Clr Drug Dosing ml/min Est GFR ( Amer) Est GFR (Non-Af Amer) BUN/Creatinine Ratio (10-20) Glucose (70-99) mg/dl POC Glucose 266 H (70-99) mg/dl Calcium (8.5-10.1) mg/dl PG Care Time/CCT Total # of Minutes Spent Total Time Spent with Patient: Total time spent is greater than 50% in coordination of care (as documented) at patient's floor/unit and/or counseling patient: Coding Level of Care Code 44120 Subseq Hosp Care Lvl 2 Diagnoses Myelopathy 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 of thoracic region M48.04; G99.2 Diabetes E11.9 Obesity E66.9 DVT prophylaxis Z29.9
[2020-04-01] MEDS: ACETAMINOPHEN 1,000 MG/100 ML VIAL IV PRN (11:45)
[2020-04-01] MEDS: ACETAMINOPHEN 500 MG TAB PO PRN (19:57)
[2020-04-01] MEDS: SERTRALINE HCL 50 MG TABLET PO SCH (19:58)
[2020-04-01] MEDS: CYCLOBENZAPRINE HCL 10 MG TAB PO SCH (19:58)
[2020-04-01] MEDS: DOCUSATE SODIUM/SENNA 50/8.6MG TAB PO SCH (19:58)
[2020-04-02] MEDS: oxyCODONE HCL IR 5 MG TAB (IMMEDIATE RELEASE) PO PRN ×2 (05:38→14:02)
[2020-04-02] MEDS: POLYETHYLENE (MIRALAX) 17 GM PACK PO SCH ×2 (05:39→13:26)
[2020-04-02 06:10] LABS: Hematocrit (blood only) 33.3 % (37-47); Hemoglobin 10.5 g/dL (12.0-16.0); Mean Corpuscular Hemoglobin 29.1 pg (25-34); Mean Corpuscular Hgb Conc 31.5 g/dL (32-36); Mean Corpuscular Volume 92.2 fL (80-100); Mean Platelet Volume 9.6 fL (7.4-10.4); Platelet Count 182 K/uL (130-400); RDW Coefficient of Variation 14.9 % (11.5-14.5); RDW Standard Deviation 50.9 fL (36.4-46.3); Red Blood Count 3.61 M/uL (4.2-5.4); White Blood Count 8.08 K/uL (4.8-10.8)
[2020-04-02 06:37] LABS: BUN Creatinine Ratio 20.6 (10-20); Calcium 9.4 mg/dl (8.5-10.1); Creatinine Clr Calc Pharmacy 63.4 ml/min; Est GFR (African American) 74.5; Est GFR (Non-African American) 64.3; Potassium 3.8 mmol/L (3.5-5.1)
[2020-04-02] MEDS: ACETAMINOPHEN 500 MG TAB PO PRN (07:45)
[2020-04-02] MEDS: INSULIN ASPART 100 UNITS/ML 3 ML PEN SC SCH ×2 (07:49→12:58)
[2020-04-02] MEDS ORDERED: INSULIN GLARGINE SOLOSTAR 100 UNITS/ML 3 ML PEN SC SCH (09:00)
[2020-04-02] MEDS ORDERED: DEXAMETHASONE SOD PHOSPHATE 8 MG in SYRINGE 0 ML IV SCH (09:00)
--- NOTE | 2020-04-02 10:45 | Pharmacy Report ---
Pharmacy Glycemic Short Note 2 - Date of Service April 02, 2020 - Glycemic Short BSG Results (Last 24 hours): 04/01/20 04/01/20 04/01/20 12:10 17:23 20:38 Glucose POC Glucose 93 77 113 H 04/02/20 04/02/20 05:57 06:27 Glucose 100 H POC Glucose 109 H Outpatient Anti-diabetic Regimen: * Basaglar 10 units daily * A1c = 7.6% on 03/17/20 Risk Factors for Insulin Resistance: * Steroids: Decadron 8 mg IV x 1 03/31 AM, none 04/01, then 8 mg IV qAM staring 04/02 * Recent Surgery: POD 2 s/p spinal decompression + fusion * Diet: T2DM ASSESSMENT: 04/02 * BSG's on the low side yesterday, but no hypoglycemic episodes noted. However, patient now resuming dexamethasone today so anticipate increased insulin resistance * Will therefore initiate NPH this AM (to be given with dexamethasone) as this will help to prevent post-prandial spikes in BSG * OK to continue Lantus as well, but will reduce dose by 50% (to home Basaglar dose) to prevent AM fasting hypoglycemia * Will slightly tighten Novolog parameters due to steroid initiation 04/01 * Steroids ordered to continue starting tomorrow (confirmed w Nathalia Carballo PA-C who spoke w Dr. Sanford - Dr. Sanford does not want steroids today) * AM fasting BSG good at 101 mg/dL. Lantus dose decreased slightly as anticipate effects of steroids yesterday to wear off. Tomorrow, will likely need to be adjusted again (and possibly use both Lantus and NPH) once steroids resume * Steroid effects dissipating and lunch BSG slightly low at 93 mg/dL. Will loosen Novolog parameters for now. However, will tighten back starting tomorrow when steroids resume 03/31 * 79 y/o F admitted for spinal surgery. Patient with Type 2 diabetes managed at home with Basaglar insulin and Metformin oral meds. * Oral agents are not recommended for inpatient use d/t drug interactions, changing PO intake, and difficulty titrating for acute hyper/hypoglycemia. ADA recommends re-initiating outpatient oral agents 1-2 days prior to discharge if/when appropriate if they were held on admission. * Will hold oral agents for admission and utilize SQ basal bolus insulin regimen which is the recommended regimen for inpatient glycemic control. * Will initiate weight based insulin dosing and titrate based on BSG trends. * Since patient received Decadron 8 mg IV x 1 preop, I ordered 25 units of Lantus x 1 around noon today based on weight and stress factor of 3 to prevent steroid induced hyperglycemia. Patient normally takes Basaglar insulin 10 units daily in the afternoon. Last dose of this was yesterday afternoon. * Novolog dose ordered based on wt and stress factor of 3. PLAN FOR INPATIENT GLYCEMIC CONTROL: * Hold outpatient oral diabetes medications * Basal insulin * Lantus 0-10 units SC qAM, based on BSG * Insulin NPH 20-30 units SC qAM, based on BSG * Bolus insulin * NovoLog per scale ACHS or Q6hrs while NPO * Goal Range: Low 110 mg/dL - High 140 mg/dL * Correction Factor: 15 mg/dL/unit * CHO ratio: 6 gCHO/unit
--- NOTE | 2020-04-02 10:54 | Discharge Summary ---
Date of Service April 02, 2020 Admission HPI Per Admitting Provider This is a 79-year-old female known to me the presents with worsening symptoms of myelopathy consistent with thoracic spinal stenosis. She is here for surgical invention. Principal Diagnosis Thoracic spinal stenosis with myelopathy Discharge Data Allergies Allergy/AdvReac Type Severity Reaction Status Date / Time pseudoephedrine Allergy Intermediate hand, feet Verified 03/31/20 06:59 edema, skin peeling/redness hydromorphone AdvReac Severe delirium Verified 03/31/20 06:59 ketorolac [From Toradol] AdvReac delirium Verified 03/31/20 06:59 Consultations 03/31/20 11:10 Consult Case Management - Discharge Planning Routine Consult Hospitalist Routine Procedures Performed Operation Date: 03/31/20 07:45 Actual Procedures p T8-T10 Decompression and Fusion, Spinal Cord Monitoring(Not Applicable) - Uri Sanford DO Ordered Studies 03/31/20 07:45 FL fluoroscopy <1hr Routine FL thoracic spine 2V Routine Hospital Course (1) Myelopathy 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 of thoracic region: Patient went thoracic decompression fusion tolerated this well was taken to the orthopedic floor postoperatively. Postop day 1 she was up and ambulating leg symptoms improved progressed the postop day #2. MARY drain decreasing appropriately. Strength intact. Subsequently discharged home. Discharge orders and instructions found in chart for further review. Total Time Total Time Spent Total Time Spent (In Minutes): 20 minutes Discharge Plan Discharge Items Patient Disposition: Home - Self-Care Reason For Visit: Other Spondylosis with Myelopathy, Thoracic Discharge Diagnosis: Thoracic spinal stenosis with myelopathy Activity: As commented below Non-emergency contact: Primary Care Provider Call non-emergency contact if: you have any medication questions Follow-up/Referrals: Bruce Dumont [Primary Care Provider] - Diet: Regular Addtl Attending Provider Instructions: ACTIVITY RECOMMENDATIONS: SELF CARE INSTRUCTIONS AFTER THORACIC/LUMBAR FUSIONS 1. You may walk to your tolerance. It is good exercise for your legs and back. Expect some back and intermittent leg aches and pains. 2. You may perform "counter-top" level activities (make a sandwich, stephen with a project, etc.). 3. No bending or lifting of more than 10 pounds or back twisting of any nature (roll like a log when turning in bed). 4. You may ride in a car for 20-30 minutes at a time. No driving until after your first visit with your doctor. 5. Frequent changes of position and restricting sitting to 30 minutes at a time will help limit the amount of back spasms and stiffness you may experience. 6. You may discontinue the use of ambulatory aids (cane, crutches, etc.) once your strength and confidence allow. 7. You may cleaner industrial the shower and let water strike your incision when you arrive home at least once daily. Do not take a tub bath, sit in a hot tub or go into a swimming pool until after your first recheck in the office. SPECIAL CARE INSTRUCTIONS: VERY IMPORTANT TO READ AND REVIEW A. Your surgical incision has been closed with a cosmetic suture under the skin that will dissolve in about 6 weeks. In 14 days, you can use a pair of clean scissors and cut the suture that is left outside of the skin at the ends of your incision. 1. The small skin tapes can be removed 7 days after surgery if they have not fallen off by that point. 2. You may keep the wound open to air as much as possible to promote healing after post-op day number 5 unless told otherwise by your doctor. 3. If you think the wound looks like it is becoming infected (redness or worsening drainage) and/or you are experiencing fever, chill or worsening back pain and muscle spasms, contact the office so that we may evaluate you as soon as possible. B. Complications are uncommon, but please contact us if you have any signs or symptoms of: 1. wound infection (fever higher than 102.5 degrees F, redness, separation of wound, drainage, or increasing pain from the incision) 2. blood clots in legs (pain, swelling, redness and warmth in legs) 3. urinary tract infection (fever higher than 102.5 degrees F, burning upon urination or increased frequency of urination) 4. nerve problems (inability to walk on your toes or heels, numbness, loss of bowel or bladder control) 5. any other symptoms that concern you C. Please call the office at if you have any concerns or questions about your operation or recovery. D. No smoking! Smoking drastically decreases the chance of a solid fusion. E. Do not take any anti-inflammatory medications (Indocin, Advil, Motrin, Aspirin, Naprosyn, etc.) as these may inhibit the chance of a solid fusion. Tylenol is okay to take for pain. MANAGING PAIN AFTER SPINAL SURGERY 1. Narcotic medication is intended for short-term use and will be provided for surgical pain. Surgical pain usually lasts for a period of 4-6 weeks. Narcotic medication includes Percocet, Vicodin, Darvocet, Tylenol #3 or Lortab. 2. Longer-term pain is more appropriately treated with non-narcotic medication such as Tylenol ES. 3. Muscle spasm is not appropriately treated with narcotics. Muscle relaxers such as Soma, Flexeril or Skelaxin can be used along with Tylenol ES. 4. Remember that we all live with some "aches and pains". This is not unusual or uncommon after an injury or as we get older. a. Back pain is expected and may include muscle spasms for 4 to 6 weeks after surgery. The pain should gradually improve. If the pain worsens for no apparent reason, please contact the office. b. Intermittent leg pain may also be experienced and should not be concerned about unless it worsens for no apparent reason. If so, please contact the office. 5. We will provide appropriate medication within the normal guidelines of their prescribed use. We will also be very cautious and aware of potential abuse and extended duration of patients' medication needs. a. Pain medications are for your comfort and to assist with sleep and rest so that the tissue can heal. They are not provided in order to return to normal activity and should not be used through the day. To do so or worsening pain at night can result from ongoing tissue damage and development of tolerance to the prescribed medicine. 6. Please allow 2-3 days to process refills. Prescriptions will not be mailed but must be picked up at the office. FOLLOW UP VISIT: Keep your scheduled follow-up appointment. Any questions, please call the office at . Pending Studies at Discharge: No Stand-Alone Forms: [employer], Smoking Cessation Medications and DC Order Prescriptions: New oxycodone 5 mg tablet 5 mg PO Q6H PRN (Reason: pain, severe) Qty: 30 RF: 0 Continued cyclobenzaprine 10 mg Tablet 10 mg PO HS RF: 0 metformin 500 mg Tablet 1,000 mg PO BID RF: 0 sertraline 50 mg Tablet 50 mg PO HS RF: 0 Basaglar KwikPen U-100 Insulin 100 unit/mL (3 mL) Insulin Pen 10 unit SUBCUT 1500 RF: 0 Discharge Orders: Discharge Order (Routine); Ordered 04/02/20 Ordered By: Uri Wilkins/Other Patient Handouts: Managing Type 2 Diabetes Admission Data Admit Date/Time: 03/31/20 10:21 Attending Provider: Uri Sanford Admit Provider: Uri Sanford Primary Care Provider: Bruce Dumont Other Providers: Trevor Vaca
[2020-04-03] MEDS ORDERED: INSULIN HUMAN NPH SC SCH ×2 (07:30)
== END 2020-04-02 14:35 | disposition home or self-care (01) | DRG 460 ==
LOC: ASU 06:29 → 3E 10:21

== ENCOUNTER 2021-06-09 08:07 | Inpatient (IN) ==
--- NOTE | 2021-06-09 08:40 | Emergency Department Note ---
History of Present Illness General Chief complaint: Weakness Stated complaint: C6 SPINAL COMPRESSION, UNABLE TO AMBULATE Time Seen by Provider: 06/09/21 08:25 Source: patient and family Mode of arrival: wheelchair Limitations: no limitations History of Present Illness Provider complaint: lower extremity weakness Onset (ago): unknown Maximum Pain Intensity: 7 This is a 81-year-old female presents emergency department complaining of worsening weakness and increased difficulty with ambulation. Patient has a history of back problems does follow with Dr. Sanford. She states she was originally scheduled to have surgery in January however this has been canceled and delayed due to Covid restrictions multiple times and her symptoms have continued to worsen. Patient states she has both upper and lower extremity weakness bilaterally however the lower extremities are worse. She does note altered sensation but has difficulty describing it. She denies any abdominal pain, fevers or chills, change in bowel or bladder function, or overt paresthesias. Patient states while she had been ambulating independently over the last several months she has now been using a walker and describes that she now has a shuffling gait as she can no longer lift her legs to take a full step. She is having increased difficulty getting up from a seated position. Pt seen during a time of high acuity and national emergency pandemic while wearing PPE. Home Medications Medication Instructions Recorded Confirmed Type metformin 500 mg tablet 500 mg PO QPM 01/12/20 06/09/21 History sertraline 50 mg tablet 50 mg PO HS 01/12/20 06/09/21 History insulin glargine 100 unit/mL (3 10 unit SUBCUT QAM 03/09/20 06/09/21 History mL) subcutaneous pen (Basaglar KwikPen U-100 Insulin) hydroxyzine HCl 10 mg tablet 10 mg PO TID PRN 06/09/21 06/09/21 History Allergies Allergy/AdvReac Type Severity Reaction Status Date / Time pseudoephedrine Allergy Intermediate hand, feet Verified 06/09/21 09:22 edema, skin peeling/redness hydromorphone AdvReac Severe delirium Verified 06/09/21 09:22 ketorolac [From Toradol] AdvReac Mild delirium Verified 06/09/21 09:22 Past Med/Surg History Medical History Anemia post-op several years ago per pt Anxiety and depression Pt reports stable and controlled, follows with PCP Degenerative disc disease Diabetes IDDM, A1c 7.1% 04/01/2021 Hx of pancreatitis 3+ years ago Obesity Osteoarthritis Surgical History Fusion of spine LUMBAR (TOTAL OF 3 SURGERIES), Hardware removal L2-L3, decompression T12-L2, L5-S1, T8-T10: Grade 1 view, Salazar#2, ETT#7.5 at [facility] T10-S1 iliac bolts: 11/13/17: Grade view 1 with cricoid pressure, MAC#3, ETT 7.0 at [facility]. No issues with either per both anesthesia postop progress notes. H/O knee surgery partial right knee replacement > 20 yrs ago History of appendectomy History of cataract surgery BL History of cholecystectomy History of colonoscopy History of herniorrhaphy UMBILICAL History of hysterectomy with bilateral oophorectomy History of total knee replacement LEFT [place] teeth removed Family History Mother Family history of diabetes mellitus Father Family history of diabetes mellitus Pancreatic cancer Social History Smoking Status: Former smoker Second Hand Exposure: No; Hx Alcohol Use: Yes Alcohol type: beer, wine and hard liquor Hx Substance Use: No Preferred Language: Mohawk Communication Ability: Effective Herd Tester Required: No Beliefs That Will Affect Care: None marital status: Current Living Situation: Spouse Current Living Situation Comment: Kiah Katz current occupational status: 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 [employer] How many Children do You have: 3 Other Information That Helps Us Care for You: No Feels Safe at Home: Yes Assistive Devices: Cane and Walker Review of Systems A total of 10 systems reviewed and were otherwise negative All systems reviewed & are unremarkable except as noted in HPI & below Physical Exam Vital Signs Vital Signs - 24 hr 06/09/21 08:16 06/09/21 10:20 06/09/21 11:33 Temperature 36.6 C Temperature Source Temporal Artery Scan Pulse Rate 76 Pulse Rate [Left Finger] 68 70 Pulse Rhythm Regular Pulse Rhythm [Left Finger] Regular Regular Pulse Strength Normal Pulse Strength [Left Finger] Normal Normal Respiratory Rate 20 20 17 Respiratory Effort / Characteristics Non-Labored Spontaneous Non-Labored Spontaneous Non-Labored Spontaneous Respiratory Depth Normal Normal Normal Respiratory Pattern Regular Regular Regular Blood Pressure 192/78 H Blood Pressure [Right Arm] 185/96 H Blood Pressure Mean 116 Blood Pressure Mean [Right Arm] 125 Blood Pressure Position Sitting Blood Pressure Position [Right Arm] Sitting Lying Pulse Oximetry 97 95 95 Oxygen Delivery Method Room Air Room Air Room Air Sepsis Recent Fever Within 48 Hours No Sepsis New/Unexplained Change in Mental Status No Sepsis Action Taken by Nursing No Action Required 06/09/21 11:35 Temperature Temperature Source Pulse Rate Pulse Rate [Left Finger] 73 Pulse Rhythm Pulse Rhythm [Left Finger] Regular Pulse Strength Pulse Strength [Left Finger] Normal Respiratory Rate 18 Respiratory Effort / Characteristics Non-Labored Spontaneous Respiratory Depth Normal Respiratory Pattern Blood Pressure Blood Pressure [Right Arm] 173/93 H Blood Pressure Mean Blood Pressure Mean [Right Arm] 119 Blood Pressure Position Blood Pressure Position [Right Arm] Sitting Pulse Oximetry 95 Oxygen Delivery Method Room Air Sepsis Recent Fever Within 48 Hours Sepsis New/Unexplained Change in Mental Status Sepsis Action Taken by Nursing GENERAL: alert, well appearing, well nourished, no distress, non-toxic EYE EXAM: normal conjunctiva, PERRL and EOM's grossly intact OROPHARYNX: no exudate, no erythema, lips, buccal mucosa, and tongue normal and mucous membranes are moist NECK: supple, no nuchal rigidity, no adenopathy, non-tender LUNGS: Clear to auscultation. Normal chest wall mechanics, no w/r/r HEART: no murmurs, S1 normal and S2 normal ABDOMEN: abdomen soft, non-tender, normo-active bowel sounds, no masses, no rebound or guarding. BACK: Back is symmetrical on inspection and there is no deformity, no midline tenderness, no CVA tenderness. SKIN: no rashes and no bruising UPPER EXTREMITIES: upper extremities are grossly normal. FROM, nml pulses b/l. LOWER EXTREMITIES: No pitting edema. FROM, nml pulses b/l. NEURO EXAM: Normal sensorium, cranial nerves II-XII grossly intact, normal speech, no gross weakness of arms, no gross weakness of legs however the easily fatigue Gross sensation intact. Course Course 0848: DIscussed with JESSICA Ribeiro with Dr. Sanford. Administered Medications Sodium Chloride (Nss 1000ml) 1,000 mls @ 75 mls/hr IV .[id number] SALTY Stop: 07/09/21 08:59 Last Admin: 06/09/21 11:37 Dose: 75 mls/hr Documented by: [id number] Discontinued Medications Metoprolol Tartrate (Metoprolol Tartrate 25 Mg Tab) 25 mg PO NOW STA Stop: 06/09/21 14:11 Last Admin: 06/09/21 14:19 Dose: 25 mg Documented by: [id number] Medical Decision Making Differential Diagnosis Differential Diagnosis includes but is not limited to dehydration, stroke, anemia, hypoglycemia, hyponatremia, hypernatremia, urinary tract infection, pneumonia, bronchitis, sepsis, gastroenteritis, additional abdominal pathology, metabolic abnormalities and infections. Medical Records Attestation: I reviewed the patient's medical records. Home Medications Current Medication List: was personally reviewed by me Laboratory Data Attestation: I reviewed the patient's lab results. Result diagrams: 06/09/21 08:30 06/09/21 08:30 Lab Results 06/09/21 06/09/21 06/09/21 Range/Units 08:30 08:30 08:30 WBC 5.75 (4.8-10.8) K/uL RBC 4.23 (4.2-5.4) M/uL Hgb 12.2 (12.0-16.0) g/dL Hct 37.8 (37-47) % MCV 89.4 (80-100) fL MCH 28.8 (25-34) pg MCHC 32.3 (32-36) g/dL RDW Std Deviation 47.3 H (36.4-46.3) fL RDW Coeff of Jc 14.6 H (11.5-14.5) % Plt Count 206 (130-400) K/uL MPV 10.4 (7.4-10.4) fL Immature Gran % (Auto) 0.2 % Neut % (Auto) 70.2 % Lymph % (Auto) 22.6 % [place] % (Auto) 5.0 % Eos % (Auto) 1.7 % Baso % (Auto) 0.3 % Neut # (Auto) 4.03 (1.4-6.5) K/uL Lymph # (Auto) 1.30 (1.2-3.4) K/uL [place] # (Auto) 0.29 (0.11-0.59) K/uL Eos # (Auto) 0.10 (0-0.5) K/uL Baso # (Auto) 0.02 (0-0.2) K/uL Immature Gran # (Auto) 0.01 (0.00-0.02) K/uL PT 9.9 (9.0-12.0) Seconds INR 1.0 (0.9-1.1) Sodium 140 (136-145) mmol/L Potassium 4.5 (3.5-5.1) mmol/L Chloride 105 (98-107) mmol/L Carbon Dioxide 29 (21-32) mmol/L Anion Gap 6 (3-11) BUN 18 (6-23) mg/dl Creatinine 0.78 (0.6-1.2) mg/dl Est Cr Clr Drug Dosing 65.2 ml/min Est GFR ( Amer) 83.8 ml/min Est GFR (Non-Af Amer) 72.3 ml/min BUN/Creatinine Ratio 23.1 H (10-20) Glucose 155 H (70-99(Fasting)) mg/dl Calcium 9.8 (8.5-10.1) mg/dl Total Bilirubin 0.4 (0.2-1.0) mg/dl AST 16 (13-39) U/L ALT 12 (7-52) U/L Alkaline Phosphatase 93 (34-104) U/L Total Protein 6.9 (6.0-8.3) gm/dl Albumin 3.8 (3.4-5.0) gm/dl Globulin 3.1 (2.5-4.0) gm/dl Albumin/Globulin Ratio 1.2 (0.9-2) SARS-CoV-2, RNA, NAAT (NEGATIVE) 06/09/21 Range/Units 09:08 WBC (4.8-10.8) K/uL RBC (4.2-5.4) M/uL Hgb (12.0-16.0) g/dL Hct (37-47) % MCV (80-100) fL MCH (25-34) pg MCHC (32-36) g/dL RDW Std Deviation (36.4-46.3) fL RDW Coeff of Jc (11.5-14.5) % Plt Count (130-400) K/uL MPV (7.4-10.4) fL Immature Gran % (Auto) % Neut % (Auto) % Lymph % (Auto) % [place] % (Auto) % Eos % (Auto) % Baso % (Auto) % Neut # (Auto) (1.4-6.5) K/uL Lymph # (Auto) (1.2-3.4) K/uL [place] # (Auto) (0.11-0.59) K/uL Eos # (Auto) (0-0.5) K/uL Baso # (Auto) (0-0.2) K/uL Immature Gran # (Auto) (0.00-0.02) K/uL PT (9.0-12.0) Seconds INR (0.9-1.1) Sodium (136-145) mmol/L Potassium (3.5-5.1) mmol/L Chloride (98-107) mmol/L Carbon Dioxide (21-32) mmol/L Anion Gap (3-11) BUN (6-23) mg/dl Creatinine (0.6-1.2) mg/dl Est Cr Clr Drug Dosing ml/min Est GFR ( Amer) ml/min Est GFR (Non-Af Amer) ml/min BUN/Creatinine Ratio (10-20) Glucose (70-99(Fasting)) mg/dl Calcium (8.5-10.1) mg/dl Total Bilirubin (0.2-1.0) mg/dl AST (13-39) U/L ALT (7-52) U/L Alkaline Phosphatase (34-104) U/L Total Protein (6.0-8.3) gm/dl Albumin (3.4-5.0) gm/dl Globulin (2.5-4.0) gm/dl Albumin/Globulin Ratio (0.9-2) SARS-CoV-2, RNA, NAAT NEGATIVE (NEGATIVE) MDM Narrative This is a 81-year-old female with extensive history and multiple surgeries by Dr. Sanford who presents due to concern for worsening extremity weakness and inability to safely ambulate and difficulty performing ADLs. Case discussed with Dr. Sanford's PA, Gema who states they were aware of the patient and her worsening symptoms. They will admit the patient for additional evaluation and possible intervention. Basic labs drawn and sent as well as Covid swab. Patient was hemodynamically stable. Based on slowly evolving symptoms I do not suspect acute cauda equina, epidural abscess or hematoma, acute discitis, or acute vascular pathology. An order was placed for continuous cardiac monitoring. The monitor shows a rate of _70_ with _normal sinus_ rhythm. Impression & Plan Bilateral leg weakness, Bilateral arm weakness Discharge Plan Visit Data Chief Complaint: Weakness Stated Complaint: C6 SPINAL COMPRESSION, UNABLE TO AMBULATE ED Provider: Sailaja Shelley Discharge Problem: Bilateral leg weakness, Bilateral arm weakness Patient Disposition: Admitted As Inpatient Discharge Instructions Interventions: ED Discharge Assessment Last Done: 06/09/21 14:26
[2021-06-09] MEDS ORDERED: oxyCODONE HCL IR 5 MG TAB (IMMEDIATE RELEASE) PO PRN (08:49)
[2021-06-09] MEDS ORDERED: METOCLOPRAMIDE HCL INJ 5 MG/ML 2 ML VIAL IV PRN (08:49)
[2021-06-09] MEDS ORDERED: PHARMACY GLYCEMIC MGMT CONSULT PRN (08:49)
[2021-06-09] MEDS ORDERED: ACETAMINOPHEN 500 MG TAB PO PRN (08:49)
[2021-06-09] MEDS ORDERED: HYDROmorphone INJ 0.5 MG/0.5 ML SYR IV PRN (08:49)
[2021-06-09] MEDS ORDERED: HYDROmorphone INJ 1 MG/ML SYRINGE IV PRN (08:49)
[2021-06-09] MEDS ORDERED: ONDANSETRON 4 MG OD TAB PO PRN (08:49)
[2021-06-09] MEDS ORDERED: NALOXONE HCL 0.4 MG/1 ML VIAL/CARP IV PRN (08:49)
[2021-06-09] MEDS ORDERED: LORazepam 0.5 MG TAB PO PRN (08:49)
[2021-06-09] MEDS ORDERED: ONDANSETRON INJ 2 MG/ML 2 ML VIAL IV PRN (08:49)
[2021-06-09] MEDS ORDERED: ACETAMINOPHEN 1,000 MG/100 ML VIAL IV PRN (08:49)
[2021-06-09] MEDS ORDERED: LORazepam 0.5 MG/1 ML VIAL IV PRN (08:49)
[2021-06-09] MEDS ORDERED: traMADol HCL 50 MG TABLET PO PRN (08:49)
[2021-06-09] MEDS ORDERED: PROMETHAZINE HCL 12.5 MG in SODIUM CHLORIDE 0.9% 50 ML IV PRN (08:49)
[2021-06-09 09:22] LABS: Basophils # (auto) 0.02 K/uL (0-0.2); Basophils % (auto) 0.3 %; Eosinophils % (auto) 1.7 %; Hematocrit (blood only) 37.8 % (37-47); Hemoglobin 12.2 g/dL (12.0-16.0); Immature Granulocytes # (auto) 0.01 K/uL (0.00-0.02); Immature Granulocytes % (auto) 0.2 %; Lymphocytes % (auto) 22.6 %; Mean Corpuscular Hemoglobin 28.8 pg (25-34); Mean Corpuscular Hgb Conc 32.3 g/dL (32-36); Mean Corpuscular Volume 89.4 fL (80-100); Mean Platelet Volume 10.4 fL (7.4-10.4); Monocytes # (auto) 0.29 K/uL (0.11-0.59); Neutrophils # (auto) 4.03 K/uL (1.4-6.5); Neutrophils % (auto) 70.2 %; Platelet Count 206 K/uL (130-400); RDW Coefficient of Variation 14.6 % (11.5-14.5); RDW Standard Deviation 47.3 fL (36.4-46.3); Red Blood Count 4.23 M/uL (4.2-5.4); White Blood Count 5.75 K/uL (4.8-10.8)
[2021-06-09 09:35] LABS: Prothrombin Time 9.9 Seconds (9.0-12.0)
[2021-06-09 09:53] LABS: Albumin Globulin Ratio 1.2 (0.9-2); Albumin Level 3.8 gm/dl (3.4-5.0); BUN Creatinine Ratio 23.1 (10-20); Bilirubin,Total 0.4 mg/dl (0.2-1.0); Calcium 9.8 mg/dl (8.5-10.1); Creatinine Clr Calc Pharmacy 65.2 ml/min; Est GFR (African American) 83.8 ml/min; Est GFR (Non-African American) 72.3 ml/min; Globulin 3.1 gm/dl (2.5-4.0); Potassium 4.5 mmol/L (3.5-5.1); Total Protein 6.9 gm/dl (6.0-8.3)
[2021-06-09] MEDS: SODIUM CHLORIDE 0.9% 1000ML 1,000 ML IV SCH (11:37)
--- NOTE | 2021-06-09 11:44 | History & Physical Report ---
Date of Service June 09, 2021 Assessment & Plan (1) Cervical myelopathy with cervical radiculopathy: Plan: Patient presents to the ER and is being admitted to Dr. Sanford service. She is progressively declining over the past couple weeks with worsening right upper extremity weakness and progressive balance changes. Will make her n.p.o. after midnight. Plan is to proceed with C6 corpectomy tomorrow morning by Dr. Sanford. All questions have been answered in detail. She reports that she saw her family physician for preoperative clearance at the end of March History of Present Illness Chief Complaint: Right greater than left upper extremity weakness and numbness with loss of balance Primary Care Provider: Bruce Dumont Is a 81-year-old female well-known to us. She presents to the ER with a progressively worsening complaint of upper extremity weakness with associated loss of balance. This is been ongoing since at least January but she has declined over the past several weeks. Her reports initially she started ambulating with him at her side. This is then progressed to a cane and now for the past few weeks she has been requiring a walker for assistance. She denies upper extremity pain but notes progressively worsening right greater than left upper extremity weakness and paresthesias. Denies bowel bladder changes. Allergies Allergy/AdvReac Type Severity Reaction Status Date / Time pseudoephedrine Allergy Intermediate hand, feet Verified 06/09/21 09:22 edema, skin peeling/redness hydromorphone AdvReac Severe delirium Verified 06/09/21 09:22 ketorolac [From Toradol] AdvReac Mild delirium Verified 06/09/21 09:22 Home Medications Medication Instructions Recorded Confirmed Type metformin 500 mg tablet 500 mg PO QPM 01/12/20 06/09/21 History sertraline 50 mg tablet 50 mg PO HS 01/12/20 06/09/21 History insulin glargine 100 unit/mL (3 10 unit SUBCUT QAM 03/09/20 06/09/21 History mL) subcutaneous pen (Basaglar KwikPen U-100 Insulin) hydroxyzine HCl 10 mg tablet 10 mg PO TID PRN 06/09/21 06/09/21 History Past Med/Surg History Medical History Anemia post-op several years ago per pt Anxiety and depression Pt reports stable and controlled, follows with PCP Degenerative disc disease Diabetes IDDM, A1c 7.1% 04/01/2021 Hx of pancreatitis 3+ years ago Obesity Osteoarthritis Surgical History Fusion of spine LUMBAR (TOTAL OF 3 SURGERIES), Hardware removal L2-L3, decompression T12-L2, L5-S1, T8-T10: Grade 1 view, Salazar#2, ETT#7.5 at [facility] T10-S1 iliac bolts: 11/13/17: Grade view 1 with cricoid pressure, MAC#3, ETT 7.0 at [facility]. No issues with either per both anesthesia postop progress notes. H/O knee surgery partial right knee replacement > 20 yrs ago History of appendectomy History of cataract surgery BL History of cholecystectomy History of colonoscopy History of herniorrhaphy UMBILICAL History of hysterectomy with bilateral oophorectomy History of total knee replacement LEFT [place] teeth removed Family History Mother Family history of diabetes mellitus Father Family history of diabetes mellitus Pancreatic cancer Social History Smoking Status: Former smoker Second Hand Exposure: No; Hx Alcohol Use: Yes Alcohol type: wine Hx Substance Use: No Preferred Language: Kuwaiti Communication Ability: Effective Title Clerk Automobile Required: No Beliefs That Will Affect Care: None marital status: Current Living Situation: Spouse Current Living Situation Comment: [place] current occupational status: 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 [employer] How many Children do You have: 4 Feels Safe at Home: Yes Assistive Devices: Cane and Glasses Review of Systems Review of Systems: All systems reviewed & are unremarkable except as noted in HPI & below Physical Exam Physical Exam: Seen in the ER in conjunction with her No acute distress She has positive Kandice sign bilaterally [place] weakness over the right deltoid and tricep Strength is otherwise 5 5 bilateral finger intrinsics, wrist extensors, wrist flexors, biceps bilaterally Limited range of motion of the cervical spine which reproduces pain Constitutional: well developed Eyes: normal visual agustin by confrontation ENMT: external ear and nose normal, oropharynx normal Neck: normal visual inspection Respiratory: normal respiratory effort and + respiratory distress Cardiovascular: Extremities: normal capillary refill Gastrointestinal (Abdomen): Inspection/Auscultation: abdomen normal to inspection Musculoskeletal: Spine: + limited cervical ROM Extremities: extremities normal to inspection and + abnormal strength Skin: normal turgor Neurologic: normal touch/pain/proprioception, moves all extremities and + focal motor deficit Psychiatric: A+Ox3, euthymic affect Eye Contact: good eye contact Results & Data Results & Data ([facility]) Vital Signs (Past 12 Hours) Vital Signs Temp Pulse Pulse Resp BP BP Pulse Ox 06/09/21 11:35 173/93 H 06/09/21 11:33 70 17 95 06/09/21 10:20 68 20 185/96 H 95 06/09/21 08:16 36.6 C 76 20 192/78 H 97 Code Status & VTE Plan VTE Prophylaxis Plan VTE Prophylaxis will be ordered: Yes
[2021-06-09] MEDS ORDERED: MoRPHine SULFATE 2 MG/ML CARP IV PRN (11:45)
[2021-06-09] MEDS ORDERED: METOPROLOL TARTRATE 25 MG TAB PO STA (14:10)
[2021-06-09] MEDS ORDERED: DEXTROSE 50% 50 ML SYRINGE IV PRN ×2 (14:47→15:00)
[2021-06-09] MEDS ORDERED: hydrOXYzine HCl 10 MG TAB PO PRN (14:53)
[2021-06-09] MEDS ORDERED: hydrALAZINE HCL 20 MG/ML VIAL IV PRN (14:58)
[2021-06-09] MEDS ORDERED: GLUCAGON FOR INJ 1 MG VIAL IM PRN (15:00)
[2021-06-09] MEDS ORDERED: GLUCOSE 10 TABS/TUBE PO PRN (15:00)
[2021-06-09] MEDS ORDERED: CARBOHYDRATES FOR HYPOGLYCEMIA PO PRN (15:00)
[2021-06-09] MEDS ORDERED: GLUCOSE 40% GEL 15 GM TUBE PO PRN (15:00)
[2021-06-09] MEDS ORDERED: INSULIN GLARGINE SOLOSTAR 100 UNITS/ML 3 ML PEN SQ ONE (15:00)
--- NOTE | 2021-06-09 15:06 | Pharmacy Report ---
Pharmacy Glycemic Short Note 2 - Date of Service June 09, 2021 - Glycemic Short BSG Results (Last 24 hours): 06/09/21 06/09/21 08:30 13:30 Glucose 155 H POC Glucose 155 H OUTPATIENT ANTIDIABETIC REGIMEN: * Lantus 10 units SC daily * Metformin 500 mg PO qPM * HbA1c: 7.1% (04/01/21) ASSESSMENT: * BC is a 81 year old female with cervical myelopathy w/ cervical radiculopathy admitted due to worsening right upper extremity weakness and numbness * Scheduled for C6 corpectomy tomorrow, NPO after midnight * Patient with reasonably well-controlled diabetes as an outpatient, based on A1c * Confirmed that patient did not administer Lantus this morning prior to ED. Will err on side of caution and give slightly reduced dose of Lantus today in light of NPO for surgery tomorrow PLAN FOR INPATIENT GLYCEMIC CONTROL: * Hold outpatient oral diabetes medications * Basal insulin * Lantus 8 units SC x 1 today * Bolus insulin * NovoLog per scale ACHS or Q6hrs while NPO * Goal Range: Low 110 mg/dL - High 140 mg/dL * Correction Factor: 25 mg/dL/unit * Nutritional / Prandial insulin per carb ratio of 1 unit per 8 grams CHO consumed PLAN FOR DISCHARGE: * HbA1c is reasonable for patient based on age, continue current home regimen at time of discharge
--- NOTE | 2021-06-09 15:44 | Hospitalist Consultation ---
Date of Consultation June 09, 2021 Assessment & Plan (1) Cervical myelopathy with cervical radiculopathy: Planned C6 corpectomy- chronic - Per primary service orthopaedics - Pain control per primary orthopaedics- tiered appropriate and does have rescue Narcan available. - IVF per orthopaedics - ABX per orthopaedics - VTE chemoprophylaxis per orthopaedics (2) Elevated blood pressure reading with diagnosis of hypertension: Follow while in house - Likely anxiety related at this time however does need controlled - Start with Metoprolol tartrate 25mg PO BID - follow HR - Monitor in conjunction with her pain medications/anxiety/antispasmodic medications - Hydralazine 5mg IV q3 prn for SBP >180 and/or DBP>100 - If becomes unable to control- transfer to monitored unit where able to monitor closer and have other agents available (3) Diabetes: HGB A1c last was 8.4% - Currently 1/2 dose of her basal insulin in the morning (5units) - sliding scale aspart insulin currently CF 20 with carb ration 1:12 - this likley will need to be adjusted depending on stress of surgery/steroid use - follow in AM - does have hypoglycemia protocol ordered (4) Anxiety: Anxiety with depression per chart review - Continue Sertraline - Previously patient was on Xanax as outpatient 2017ish - does have low dose ativan prn Supervising Physician Co-Signing Physician Notes Attending Attestation and Consult Note - Pt seen/examined, chart reviewed, care plan d/w HONEY [place]. I agree with the godinez components of his documentation. 81yo female with T2DM who was admitted earlier today with progressive weakness 2nd to cervical spine disease leading to myelopathy. During her ER stay her BPs have been noted to be very high. She denies any h/o pre-HTN or HTN. She has never been treated for HTN. Denies any recent chest pain or dyspnea. I ordered metoprolol tartrate 25mg po x 1 with good response to such. During my assessment she denies pain but is feeling anxious about her circumstances and need for surgery. PMH/PSH/allergies/meds/sochx/famhx - reviewed vitals - BPs very high, afebrile gen - NAD neck - no JVD mouth - MMM heart - RRR, s1 s2 lungs - CTA b/l abd - soft NT ext - no edema labs reviewed EKG reviewed A/P: Elevated blood pressure without formal dx of HTN. In light of the need for surgery, and given the severity of the readings, BP control is needed. Thus, will continue with metoprolol 25mg BID. Adjust the metoprolol as needed and ideally we aim for SBPs of 140-150 prior to surgery. Fortunately she is not symptomatic from the elevated blood pressures. Given the blood pressures and her pre-existing T2DM she is at least moderate cardiopulmonary risk for her upcoming surgery. Magdiel Rodriguez MD History of Present Illness Reason for Consultation: medical managment HTN Requesting Physician: Dr. Sanford Attending Physician: Uri Sanford DO History of Present Illness 81 YOF with past medical history of: Obesity, DMII (on insulin/Metformin), Depression, Lumbar spine fusion, lower extremity weakness with radiculopathy, elevated blood pressures without diagnosis of HTN. Patient is admitted under the orthopaedics service for plan of undergoing C6 corpectomy 06/10/21. The patient had her medical clearance performed by her PCP in April 19. Patient denies any changes to her cardio/pulmonary system, is limited in her activity secondary to her leg weakness. Her blood pressure was elevated throughout the admission process with SBP >190 up to 210s. Her review shows that she is normally in the 120-140 range, and during her previous hospitalization for her previous back surgery she was also noted to be in the 160-180 range. Patient denies any pain or discomfort leading to elevation in her BP, but does endorse some anxiety. Patient was given 25mg Lopressor tartrate with decrease in her BP to 170 range. Would like to keep her BP controlled through the preoperative and postoperative phase so will follow her BPs in conjunction with her pain medications, antianxiety medications, and muscle relaxers. Plan: Will start Metoprolol 25mg PO BID Hydralazine 5mg IV q3 PRN SBP >180 and/or DBP >100 Discontinued her Metformin Placed her Basal insulin dose to 50% (5units QAM) while she is NPO Aspart sliding scale with CF 20 and ratio 1:12 Allergies Allergy/AdvReac Type Severity Reaction Status Date / Time pseudoephedrine Allergy Intermediate hand, feet Verified 06/09/21 09:22 edema, skin peeling/redness hydromorphone AdvReac Severe delirium Verified 06/09/21 09:22 ketorolac [From Toradol] AdvReac Mild delirium Verified 06/09/21 09:22 Home Medications Medication Instructions Recorded Confirmed Type metformin 500 mg tablet 500 mg PO QPM 01/12/20 06/09/21 History sertraline 50 mg tablet 50 mg PO HS 01/12/20 06/09/21 History insulin glargine 100 unit/mL (3 10 unit SUBCUT QAM 03/09/20 06/09/21 History mL) subcutaneous pen (Basaglar KwikPen U-100 Insulin) hydroxyzine HCl 10 mg tablet 10 mg PO TID PRN 06/09/21 06/09/21 History Patient History Medical History Anemia post-op several years ago per pt Anxiety and depression Pt reports stable and controlled, follows with PCP Degenerative disc disease Diabetes IDDM, A1c 7.1% 04/01/2021 Hx of pancreatitis 3+ years ago Obesity Osteoarthritis Surgical History Fusion of spine LUMBAR (TOTAL OF 3 SURGERIES), Hardware removal L2-L3, decompression T12-L2, L5-S1, T8-T10: Grade 1 view, Salazar#2, ETT#7.5 at [facility] T10-S1 iliac bolts: 11/13/17: Grade view 1 with cricoid pressure, MAC#3, ETT 7.0 at [facility]. No issues with either per both anesthesia postop progress notes. H/O knee surgery partial right knee replacement > 20 yrs ago History of appendectomy History of cataract surgery BL History of cholecystectomy History of colonoscopy History of herniorrhaphy UMBILICAL History of hysterectomy with bilateral oophorectomy History of total knee replacement LEFT [place] teeth removed Family History Mother Family history of diabetes mellitus Father Family history of diabetes mellitus Pancreatic cancer Social History Smoking Status: Former smoker Second Hand Exposure: No; Hx Alcohol Use: Yes Alcohol type: beer, wine and hard liquor Hx Substance Use: No Preferred Language: Iranian Communication Ability: Effective 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 Required: No Beliefs That Will Affect Care: None marital status: Current Living Situation: Spouse Current Living Situation Comment: Kiah Katz current occupational status: 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 How many Children do You have: 3 Other Information That Helps Us Care for You: No Feels Safe at Home: Yes Assistive Devices: Cane and Walker Review of Systems Review of Systems: REVIEW OF SYSTEMS: Constitutional: No fever, sweats or chills Eyes: No diplopia, no worsening or blurred vision ENT: (+) bridge to front teeth, normal hearing, no trouble swallowing Respiratory: No cough, sputum, dyspnea at rest or on exertion Cardiovascular: No chest pain, tightness or palpitations Abdomen: No pain, nausea, vomiting, diarrhea or constipation Musculoskeletal: (+) neck and lower back joint pain, lower leg weakness, NO calf pain, swelling Neurologic: (+) bilateral leg weakness, or balance problems, NO numbness or tingling Psychiatric: (+) anxiety/depression Skin: No rash or itch Physical Exam Physical Exam: PHYSICAL EXAM: General: awake, alert, no apparent distress Head: Normocephalic, atraumatic ENT: PERRL, EOMI, no pharyngeal exudate, mucous membranes moist Neuro: AAO x 3, speech clear and appropriate, strength intact bilaterally 5/5 upper extremity, 4/5 right lower, 5/5 left lower, sensation intact and equal in upper and lower dermatomes Chest: equal rise and fall of the chest, no accessory muscle use, no heaves or thrills, Clear to auscultation, on room air, Cardiac: Regular rate and rhythm, NSR on ECG, skin warm dry, cap refill <3 seconds, peripheral pulses +2 no JVD, no murmur, trace lower extremity edema GI: NABS x 4 quadrants, soft, nontender to palpation, no rebound, guarding or tenderness : Spontaneously voiding, no pain or burning with urination, no CVA tenderness, Extremities: Normal inspection, no peripheral edema or erythema, calfs nontender to palpation Psych: Normal mood and affect Skin: no rash or erythema Results & Data Results & Data ([facility]) Vital Signs (Past 12 Hours) Vital Signs Temp Pulse Pulse Resp BP BP Pulse Ox 06/09/21 14:10 70 18 179/88 H 98 06/09/21 13:47 79 16 210/94 H 99 06/09/21 13:35 72 18 212/105 H 99 06/09/21 11:35 73 18 173/93 H 95 06/09/21 11:33 70 17 95 06/09/21 10:20 68 20 185/96 H 95 06/09/21 08:16 36.6 C 76 20 192/78 H 97 Laboratory Results Abnormal lab results 06/09/21 06/09/21 06/09/21 Range/Units 08:30 08:30 13:30 RDW Std Deviation 47.3 H (36.4-46.3) fL RDW Coeff of Jc 14.6 H (11.5-14.5) % BUN/Creatinine Ratio 23.1 H (10-20) Glucose 155 H (70-99(Fasting)) mg/dl POC Glucose 155 H (70-99) mg/dl Diagnostic Findings None performed on admission to review Medications Administered Home Medications metformin 500 mg tablet 500 mg PO QPM 01/12/20 [History Confirmed 06/09/21] sertraline 50 mg tablet 50 mg PO HS 01/12/20 [History Confirmed 06/09/21] insulin glargine 100 unit/mL (3 mL) subcutaneous pen (Basaglar KwikPen U-100 Insulin) 10 unit SUBCUT QAM 03/09/20 [History Confirmed 06/09/21] hydroxyzine HCl 10 mg tablet 10 mg PO TID PRN 06/09/21 [History Confirmed 06/09/21] Active Medications Acetaminophen (Acetaminophen 500 Mg Tab) 1,000 mg PO Q8H PRN PRN Reason: MILD Pain Scale 1,2,3 & Pre PT Stop: 07/09/21 08:48 Cyclobenzaprine HCl (Cyclobenzaprine Hcl 10 Mg Tab) 10 mg PO HS SALTY Stop: 07/09/21 20:59 Dextrose (Dextrose 50% 50 Ml Syringe) 25 - 50 ml IV UD PRN; Protocol PRN Reason: Hypoglycemia Protocol Stop: 07/09/21 14:59 Glucagon (Glucagon For Inj 1 Mg Vial) 1 mg IM UD PRN; Protocol PRN Reason: Hypoglycemia Protocol Stop: 07/09/21 14:59 Glucose (Glucose 40% Gel 15 Gm Tube) 15 - 30 gm PO UD PRN; Protocol PRN Reason: Hypoglycemia Protocol Stop: 07/09/21 14:59 Glucose (Glucose 10 Tabs/Tube) 4 - 8 tabs PO UD PRN; Protocol PRN Reason: Hypoglycemia Protocol Stop: 07/09/21 14:59 Hydralazine HCl (Hydralazine Hcl 20 Mg/Ml Vial) 5 mg IV Q3H PRN PRN Reason: SBP >180 and/or DBP >100 Stop: 07/09/21 14:57 Hydromorphone HCl (Hydromorphone Inj 0.5 Mg/0.5 Ml Syr) 0.5 mg IV Q3H PRN PRN Reason: MOD pain (scale 4-6) & Pre PT Stop: 06/23/21 08:48 Hydromorphone HCl (Hydromorphone Inj 1 Mg/Ml Syringe) 1 mg IV Q3H PRN PRN Reason: severe pain (scale 7-10) Stop: 06/23/21 08:48 Hydroxyzine HCl (Hydroxyzine Hcl 10 Mg Tab) 10 mg PO TID PRN PRN Reason: Anxiety Stop: 07/09/21 14:52 Cefazolin Sodium (Ancef 2000mg) 2,000 mg in 15 mls @ 3.75 mls/min IV PREOP SALTY; Protocol Stop: 06/11/21 05:59 Sodium Chloride (Nss 1000ml) 1,000 mls @ 75 mls/hr IV .[id number] SALTY Stop: 07/09/21 08:59 Last Admin: 06/09/21 11:37 Dose: 75 mls/hr Documented by: Promethazine HCl 12.5 mg/ (Sodium Chloride) 50.5 mls @ 202 mls/hr IV Q6H PRN PRN Reason: Nausea &/or Vomiting Stop: 07/09/21 08:48 Acetaminophen (Ofirmev) 1,000 mg in 100 mls @ 400 mls/hr IV Q8H PRN PRN Reason: Pain Rating 1-3 & Pre PT Stop: 06/10/21 08:50 Lorazepam (Ativan) 0.5 mg in 1 mls @ 1 mls/min IV Q8H PRN PRN Reason: Sedation/Anxiety Stop: 07/09/21 08:48 Insulin Aspart (Insulin Aspart Per Unit) 0 units SC ACHS SALTY Stop: 06/09/21 21:01 Insulin Aspart (Insulin Aspart Per Unit) 0 units SC Q6 SALTY Stop: 06/10/21 06:01 Lorazepam (Lorazepam 0.5 Mg Tab) 0.5 mg PO Q8H PRN PRN Reason: sedation/anxiety Stop: 07/09/21 08:48 Metoclopramide HCl (Metoclopramide Hcl Inj 5 Mg/Ml 2 Ml Vial) 10 mg IV Q6H PRN PRN Reason: Nausea &/or Vomiting Stop: 07/09/21 08:48 Metoprolol Tartrate (Metoprolol Tartrate 25 Mg Tab) 25 mg PO BID [facility] Stop: 07/09/21 20:59 Miscellaneous (Carbohydrates For Hypoglycemia ) 15 - 30 gm PO UD PRN PRN Reason: Hypoglycemia Treatment Stop: 07/09/21 14:59 Miscellaneous Information (Pharmacy Glycemic Mgmt Consult) 1 ea N/A UD PRN PRN Reason: Consult Stop: 07/09/21 08:48 Morphine Sulfate (Morphine Sulfate 2 Mg/Ml Carp) 1 mg IV Q3H PRN PRN Reason: Pain Stop: 06/23/21 11:44 Naloxone HCl (Naloxone Hcl 0.4 Mg/1 Ml Vial/Carp) 0.1 mg IV Q5M PRN PRN Reason: Oversedation/respiratory dep Stop: 07/09/21 08:48 Ondansetron HCl (Ondansetron Inj 2 Mg/Ml 2 Ml Vial) 4 mg IV Q6H PRN PRN Reason: Nausea &/or Vomiting Stop: 07/09/21 08:48 Ondansetron HCl (Ondansetron 4 Mg Od Tab) 4 mg PO Q6H PRN PRN Reason: Nausea Stop: 07/09/21 08:48 Oxycodone HCl (Oxycodone Hcl Ir 5 Mg Tab (Immediate Release)) 5 - 10 mg PO Q4H PRN PRN Reason: mod to severe pain Stop: 06/23/21 08:48 Sertraline HCl (Sertraline Hcl 50 Mg Tablet) 50 mg PO HS [facility] Stop: 07/09/21 20:59 Tramadol HCl (Tramadol Hcl 50 Mg Tablet) 50 - 100 mg PO Q4H PRN PRN Reason: Moderate-Severe pain & Pre PT Stop: 07/09/21 08:48 Sodium Chloride (Nss 1000ml) 1,000 mls @ 75 mls/hr IV .[id number] SALTY Stop: 07/09/21 08:59 Last Admin: 06/09/21 11:37 Dose: 75 mls/hr Documented by: [id number] Discontinued Medications Metoprolol Tartrate (Metoprolol Tartrate 25 Mg Tab) 25 mg PO NOW STA Stop: 06/09/21 14:11 Last Admin: 06/09/21 14:19 Dose: 25 mg Documented by: [id number] ECG Additional Comments: Normal sinus rhythm Left anterior fascicular block Septal infarct , age undetermined Abnormal ECG - No dynamic changes noted when compared to 01/17 PG Care Time/CCT Total # of Minutes Spent Total Time Spent with Patient: Total time spent is greater than 50% in coordination of care (as documented) at patient's floor/unit and/or counseling patient: Coding Level of Care Code 51289 Office/OBS Consult Lvl 3 Diagnoses Cervical myelopathy with cervical radiculopathy G95.9; M54.12 Elevated blood pressure reading with diagnosis of hypertension I10 Diabetes E11.9 Anxiety F41.9
[2021-06-09] MEDS: INSULIN ASPART PER UNIT SC SCH ×2 (17:22→20:51)
[2021-06-09] MEDS: CYCLOBENZAPRINE HCL 10 MG TAB PO SCH (21:15)
[2021-06-09] MEDS: METOPROLOL TARTRATE 25 MG TAB PO SCH (21:15)
[2021-06-09] MEDS: SERTRALINE HCL 50 MG TABLET PO SCH (21:15)
[2021-06-10] MEDS: SODIUM CHLORIDE 0.9% 1000ML 1,000 ML IV SCH ×3 (03:18→16:15)
[2021-06-10] MEDS: INSULIN ASPART PER UNIT SC SCH ×6 (05:38→23:49)
[2021-06-10] MEDS ORDERED: ceFAZolin 2000MG 2,000 MG/15 ML SYR IV SCH (06:00)
[2021-06-10] MEDS ORDERED: hydroCHLOROthiazide 25 MG TAB PO STA (07:31)
--- NOTE | 2021-06-10 07:36 | Hospitalist Progress Note ---
Date of Service June 10, 2021 Assessment & Plan (1) Cervical myelopathy with cervical radiculopathy: Plan: Most recently had thoracic decompression T8-T9 T9-T10 and posterior spinal fusion T8-T10 with Dr. Sanford on 03/31/2020 (was her 4th back surgery) s/p #1 anterior cervical corpectomy with bilateral foraminotomies C6. #2 intracervical arthrodesis C5-C7. #3 placement of 23 mm peek cage C5-C7. #4 placement locally harvested morselized autograft combined with I factor in the interbody cage. #5 application of villafana plate and screws from C5-C7 with Dr Sanford. EBL 100cc Cervical collar in place Pre-op h/h 12.2/37.8, monitor CBC in AM/MARY output --Plan of care per primary service, pain control, PT/OT, bowel regimen BPs had been running high, also could be component of anxiety, but was started on metoprolol 25mg BID, which will be continued. * BP still slightly elevated this morning and was going to give 12.5mg HCTZ, but patient having some pain and also anxious about procedure --> asked RN to call OR, anesthesia to have RN hold meds and can give IV if needed prior to procedure * --> given labetalol x 2 in PACU, BP remains elevated but in 8-01/07 pain reported with BP 175/89 * Hydralazine available prn but will also continue the metoprolol 25mg BID and monitor IVF/abx per primary service, DVT prophylaxis Labs in Am (2) HTN (hypertension) with goal to be determined: Plan: Not on BP meds at home Started metoprolol 25mg BID -- continued - Monitor in conjunction with her pain medications/anxiety/antispasmodic medications - If becomes unable to control- transfer to monitored unit where able to monitor closer and have other agents available Elevated currently post-op from pain, 175/89 - Hydralazine 5mg IV q3 prn for SBP >180 and/or DBP>100 (3) Diabetes: Plan: HGB A1c last was 8.4% (had gone from 11 --> 7.6 last admission) Pharmacy consulted for glycemic management as patient likely to be getting steroids with surgery/stress --> POC BSG this AM 143 Monitor (4) Anxiety: Plan: Anxiety with depression per chart review - Continue Sertraline - Previously patient was on Xanax as outpatient 2018ish - does have low dose ativan prn Plan: DVT prophylaxis -- SCDs/renata marye, chemical contraindicated in setting of back surgery hospitalist service will follow along Admission and Anticipated Discharge Date Admission Date: June 09, 2021 Subjective Patient evaluated this afternoon, doing alright. Having a bit of discomfort and thinks she would like something for pain. Confirmed dilaudid causes delirium and last time she got that and patient note they thought she had a stroke and was seeing snow on the ceiling. Asked RN to administer dose of morphine. BP up but no CP/SOB and discussed will treat pain first and then re-assess BP. She had received labetalol in PACU, BP came down, then back up, given labetalol again 13:15. Currently BP 175/89. No fever, chills, chest pain, shortness of breath. Still with numbness/tingling in arms but able to follow commands/squeeze hands, answer questions appropriately but still a little groggy from anesthesia. Mouth dry as well, no need for anything for sore throat but has yet to eat since returning from surgery. No abdominal pain, nausea, vomiting or dysuria at this time. Review of Systems Review of Systems: All systems reviewed & are unremarkable except as noted in HPI & below Physical Exam Physical Exam: PHYSICAL EXAM: WD, WN obese female sitting up in hospital bed, mild discomfort noted, [place] at bedside Head atraumatic, normocephalic ENT: cervical collar in place, expected swelling, no stridor, drain with scant bloody drainage, no crepitus Resp: CTA, diminshed in the bases, on 3L NC post-operatively, no cough/tachypnea CV: RRR, no m/r/g, on room air, pulses palpable GI: +BS, soft, nontender MSK/Neuro: AOx3, pleasant and cooperative groggy from anesthesia, answering questions appropriately/following commands. NVI with slight decreased sensation to light touch UE, 4/5 strength RLL, 5/5 LLE Skin: warm, dry Results & Data Results & Data ([facility]) Vital Signs (Past 12 Hours) Vital Signs Temp Pulse Resp BP Pulse Ox 06/10/21 05:34 36.3 C L 57 L 14 178/82 H 94 06/09/21 22:30 36.7 C 59 L 16 175/91 H 93 06/09/21 21:14 73 168/79 H Laboratory Results 06/10/21 06/09/21 06/09/21 Range/Units 05:35 20:31 17:04 WBC (4.8-10.8) K/uL RBC (4.2-5.4) M/uL Hgb (12.0-16.0) g/dL Hct (37-47) % MCV (80-100) fL MCH (25-34) pg MCHC (32-36) g/dL RDW Std Deviation (36.4-46.3) fL RDW Coeff of Jc (11.5-14.5) % Plt Count (130-400) K/uL MPV (7.4-10.4) fL Immature Gran % (Auto) % Neut % (Auto) % Lymph % (Auto) % Hall % (Auto) % Eos % (Auto) % Baso % (Auto) % Neut # (Auto) (1.4-6.5) K/uL Lymph # (Auto) (1.2-3.4) K/uL Hall # (Auto) (0.11-0.59) K/uL Eos # (Auto) (0-0.5) K/uL Baso # (Auto) (0-0.2) K/uL Immature Gran # (Auto) (0.00-0.02) K/uL PT (9.0-12.0) Seconds INR (0.9-1.1) Sodium (136-145) mmol/L Potassium (3.5-5.1) mmol/L Chloride (98-107) mmol/L Carbon Dioxide (21-32) mmol/L Anion Gap (3-11) BUN (6-23) mg/dl Creatinine (0.6-1.2) mg/dl Est Cr Clr Drug Dosing ml/min Est GFR ( Amer) ml/min Est GFR (Non-Af Amer) ml/min BUN/Creatinine Ratio (10-20) Glucose (70-99(Fasting)) mg/dl POC Glucose 143 H 110 H 140 H (70-99) mg/dl Calcium (8.5-10.1) mg/dl Total Bilirubin (0.2-1.0) mg/dl AST (13-39) U/L ALT (7-52) U/L Alkaline Phosphatase (34-104) U/L Total Protein (6.0-8.3) gm/dl Albumin (3.4-5.0) gm/dl Globulin (2.5-4.0) gm/dl Albumin/Globulin Ratio (0.9-2) SARS-CoV-2, RNA, NAAT (NEGATIVE) 06/09/21 06/09/21 06/09/21 Range/Units 13:30 09:08 08:30 WBC (4.8-10.8) K/uL RBC (4.2-5.4) M/uL Hgb (12.0-16.0) g/dL Hct (37-47) % MCV (80-100) fL MCH (25-34) pg MCHC (32-36) g/dL RDW Std Deviation (36.4-46.3) fL RDW Coeff of Jc (11.5-14.5) % Plt Count (130-400) K/uL MPV (7.4-10.4) fL Immature Gran % (Auto) % Neut % (Auto) % Lymph % (Auto) % Hall % (Auto) % Eos % (Auto) % Baso % (Auto) % Neut # (Auto) (1.4-6.5) K/uL Lymph # (Auto) (1.2-3.4) K/uL Hall # (Auto) (0.11-0.59) K/uL Eos # (Auto) (0-0.5) K/uL Baso # (Auto) (0-0.2) K/uL Immature Gran # (Auto) (0.00-0.02) K/uL PT (9.0-12.0) Seconds INR (0.9-1.1) Sodium 140 (136-145) mmol/L Potassium 4.5 (3.5-5.1) mmol/L Chloride 105 (98-107) mmol/L Carbon Dioxide 29 (21-32) mmol/L Anion Gap 6 (3-11) BUN 18 (6-23) mg/dl Creatinine 0.78 (0.6-1.2) mg/dl Est Cr Clr Drug Dosing 65.2 ml/min Est GFR ( Amer) 83.8 ml/min Est GFR (Non-Af Amer) 72.3 ml/min BUN/Creatinine Ratio 23.1 H (10-20) Glucose 155 H (70-99(Fasting)) mg/dl POC Glucose 155 H (70-99) mg/dl Calcium 9.8 (8.5-10.1) mg/dl Total Bilirubin 0.4 (0.2-1.0) mg/dl AST 16 (13-39) U/L ALT 12 (7-52) U/L Alkaline Phosphatase 93 (34-104) U/L Total Protein 6.9 (6.0-8.3) gm/dl Albumin 3.8 (3.4-5.0) gm/dl Globulin 3.1 (2.5-4.0) gm/dl Albumin/Globulin Ratio 1.2 (0.9-2) SARS-CoV-2, RNA, NAAT NEGATIVE (NEGATIVE) 06/09/21 06/09/21 Range/Units 08:30 08:30 WBC 5.75 (4.8-10.8) K/uL RBC 4.23 (4.2-5.4) M/uL Hgb 12.2 (12.0-16.0) g/dL Hct 37.8 (37-47) % MCV 89.4 (80-100) fL MCH 28.8 (25-34) pg MCHC 32.3 (32-36) g/dL RDW Std Deviation 47.3 H (36.4-46.3) fL RDW Coeff of Jc 14.6 H (11.5-14.5) % Plt Count 206 (130-400) K/uL MPV 10.4 (7.4-10.4) fL Immature Gran % (Auto) 0.2 % Neut % (Auto) 70.2 % Lymph % (Auto) 22.6 % Hall % (Auto) 5.0 % Eos % (Auto) 1.7 % Baso % (Auto) 0.3 % Neut # (Auto) 4.03 (1.4-6.5) K/uL Lymph # (Auto) 1.30 (1.2-3.4) K/uL Hall # (Auto) 0.29 (0.11-0.59) K/uL Eos # (Auto) 0.10 (0-0.5) K/uL Baso # (Auto) 0.02 (0-0.2) K/uL Immature Gran # (Auto) 0.01 (0.00-0.02) K/uL PT 9.9 (9.0-12.0) Seconds INR 1.0 (0.9-1.1) Sodium (136-145) mmol/L Potassium (3.5-5.1) mmol/L Chloride (98-107) mmol/L Carbon Dioxide (21-32) mmol/L Anion Gap (3-11) BUN (6-23) mg/dl Creatinine (0.6-1.2) mg/dl Est Cr Clr Drug Dosing ml/min Est GFR ( Amer) ml/min Est GFR (Non-Af Amer) ml/min BUN/Creatinine Ratio (10-20) Glucose (70-99(Fasting)) mg/dl POC Glucose (70-99) mg/dl Calcium (8.5-10.1) mg/dl Total Bilirubin (0.2-1.0) mg/dl AST (13-39) U/L ALT (7-52) U/L Alkaline Phosphatase (34-104) U/L Total Protein (6.0-8.3) gm/dl Albumin (3.4-5.0) gm/dl Globulin (2.5-4.0) gm/dl Albumin/Globulin Ratio (0.9-2) SARS-CoV-2, RNA, NAAT (NEGATIVE) PG Care Time/CCT Total # of Minutes Spent Total Time Spent with Patient: Total time spent is greater than 50% in coordination of care (as documented) at patient's floor/unit and/or counseling patient: Coding Level of Care Code 42673 Subseq Hosp Care Lvl 2 Diagnoses Cervical myelopathy with cervical radiculopathy G95.9; M54.12 Diabetes E11.9 Anxiety F41.9 HTN (hypertension) with goal to be determined I10
--- NOTE | 2021-06-10 07:54 | History & Physical Bridge Note ---
Date of Service June 10, 2021 History & Physical Bridge Note I have examined the patient, reviewed the History & Physical and in the interval since the performance of the History & Physical I have noted the following changes of clinical significance: Patient continues to present with gross cervical myelopathy and radiculopathy progressive in nature since I am recommending emergent decompression with a C6 corpectomy. This would hopefully prevent progressive deterioration and time with some resolution of her neuro deficit.
[2021-06-10] MEDS ORDERED: INSULIN GLARGINE SOLOSTAR 100 UNITS/ML 3 ML PEN SQ ONE (09:00)
--- NOTE | 2021-06-10 10:24 | Anesthesiology Consultation ---
Date of Service June 10, 2021 Assessment & Plan (1) Encounter for pre-operative examination: Chart Review Chart Review: Acceptable Risk for Surgery and Patient NOT seen in Pre Admission Testing History Surgery Operation Date: 06/10/21 07:00 Proposed Procedures p C6 Corpectomy, Spinal Cord Monitoring - Uri Sanford DO Height/Weight Height: 5 ft 3 in Weight: 120 kg Allergies Allergy/AdvReac Type Severity Reaction Status Date / Time pseudoephedrine Allergy Intermediate hand, feet Verified 06/09/21 09:22 edema, skin peeling/redness hydromorphone AdvReac Severe delirium Verified 06/09/21 09:22 ketorolac [From Toradol] AdvReac Mild delirium Verified 06/09/21 09:22 Medications Home Medications Medication Instructions Recorded Confirmed Last Taken metformin 500 mg tablet 500 mg PO QPM 01/12/20 06/09/21 03/30/20 18:00 sertraline 50 mg tablet 50 mg PO HS 01/12/20 06/09/21 03/29/20 21:00 insulin glargine 100 unit/mL (3 10 unit SUBCUT QAM 03/09/20 06/09/21 03/30/20 14:00 mL) subcutaneous pen (Basaglar KwikPen U-100 Insulin) hydroxyzine HCl 10 mg tablet 10 mg PO TID PRN 06/09/21 06/09/21 Unknown Active Medications Generic Name Dose Route Start Last Admin Trade Name Freq PRN Reason Stop Dose Admin Cyclobenzaprine HCl 10 mg 06/09/21 21:00 06/09/21 21:15 Cyclobenzaprine Hcl 10 Mg Tab PO 07/09/21 20:59 10 mg HS SALTY Administration Sodium Chloride 1,000 mls @ 75 mls/hr 06/09/21 09:00 06/10/21 09:30 Nss 1000ml IV 07/09/21 08:59 0 mls/hr .[id number] SALTY Infusion Insulin Aspart 0 units 06/10/21 06:00 06/10/21 05:38 Insulin Aspart Per Unit SC 07/10/21 05:59 Not Given Q6 SALTY Metoprolol Tartrate 25 mg 06/09/21 21:00 06/09/21 21:15 Metoprolol Tartrate 25 Mg Tab PO 07/09/21 20:59 25 mg BID SALTY Administration Sertraline HCl 50 mg 06/09/21 21:00 06/09/21 21:15 Sertraline Hcl 50 Mg Tablet PO 07/09/21 20:59 50 mg HS SALTY Administration NPO Date Last Intake of Fluids: 06/09/21 Time Last Intake of Fluids: 20:00 Date Last Intake of Solids: 06/09/21 Time Last Intake of Solids: 20:00 Past Medical History Medical History Anemia post-op several years ago per pt Anxiety and depression Pt reports stable and controlled, follows with PCP Bilateral arm weakness Bilateral leg weakness Degenerative disc disease Diabetes IDDM, A1c 7.1% 04/01/2021 Hx of pancreatitis 3+ years ago Obesity Osteoarthritis Past Family History Family History Mother Family history of diabetes mellitus Father Family history of diabetes mellitus Pancreatic cancer Past Surgical History Surgical History Fusion of spine LUMBAR (TOTAL OF 3 SURGERIES), Hardware removal L2-L3, decompression T12-L2, L5-S1, T8-T10: Grade 1 view, Salazar#2, ETT#7.[address] [facility] T10-S1 iliac bolts: 11/13/17: Grade view 1 with cricoid pressure, MAC#3, ETT [address] [facility]. No issues with either per both anesthesia postop progress notes. H/O knee surgery partial right knee replacement > 20 yrs ago History of appendectomy History of cataract surgery BL History of cholecystectomy History of colonoscopy History of herniorrhaphy UMBILICAL History of hysterectomy with bilateral oophorectomy History of total knee replacement LEFT [place] teeth removed Social History Smoking Status: Former smoker Hx Alcohol Use: Yes Alcohol type: beer, wine and hard liquor alcohol intake frequency: holidays/special occasions only Hx Substance Use: No substance use type: does not use Physical Exam Vital Signs Last Vital Signs Temp 36.5 C 06/10/21 09:31 Pulse 59 L 06/10/21 09:31 Resp 18 06/10/21 09:31 BP 194/87 H 06/10/21 09:31 Pulse Ox 96 06/10/21 09:31 Testing Laboratory Results 06/09/21 08:30 06/09/21 08:30 PT 9.9 Seconds (9.0-12.0) 06/09/21 08:30 INR 1.0 (0.9-1.1) 06/09/21 08:30 06/10/21 06/10/21 09:55 05:35 POC Glucose 117 H 143 H Electrocardiogram Date: 06/09/2109-Jun-2021 08:54:44 [facility]-EDSTAT ROUTINE RETRIEVAL Normal sinus rhythm Left anterior fascicular block Septal infarct , age undetermined Abnormal ECG When compared with ECG of 14-APR-2021 11:56, Septal infarct is now Present Chest X-Ray Date: 04/14/21 IMPRESSION: No acute chest disease.
[2021-06-10] MEDS ORDERED: ePHEDrine sulfate 50 MG/ML AMP IV PRN (10:26)
[2021-06-10] MEDS ORDERED: ATROPINE SULFATE 0.1 MG/ML 10ML SYR IV PRN (10:26)
[2021-06-10] MEDS ORDERED: ONDANSETRON INJ 2 MG/ML 2 ML VIAL IV PRN ×2 (10:26→14:28)
[2021-06-10] MEDS ORDERED: fentaNYL citrate 100 MCG/2 ML VIAL IV PRN (10:26)
[2021-06-10] MEDS ORDERED: ceFAZolin 330 MG/ML 1 GM VIAL ONE (10:31)
--- NOTE | 2021-06-10 12:28 | Operative Report ---
Post Operative Report Pre & Post Diagnosis Operation Date: 06/10/21 07:00 Pre-Op Diagnosis: Cervical myelopathy with cervical radiculopathy Post-Op Diagnosis: Cervical myelopathy with cervical radiculopathy I identified the patient and participated in the time-out.: Yes Procedure Operation Date: 06/10/21 07:00 Actual Procedures #1 anterior cervical corpectomy with bilateral foraminotomies C6. #2 intracervical arthrodesis C5-C7. #3 placement of 23 mm peek cage C5-C7. #4 placement locally harvested morselized autograft combined with I factor in the i nterbody cage. #5 application of villafana plate and screws from C5-C7. Surgeon Uri Sanford, Wall Insulation Sprayer Wes Bustamante Estimated Blood Loss 100 Findings Consistent with Post-Op Diagnosis Specimens None Indications Is a 81-year-old female who presents with marked decline in status with advanced cervical myelopathy and radiculopathy affecting both upper extremities and lower extremity balance and ambulation. Description of Procedure Patient met with identified informed consent obtained. Patient was then taken to the operative suite underwent ablation placed in spine position injectable head Blake lateral. All bony prominences well-padded eyes inspected to ensure no external pressure placed upon. This point the anterior cervical spine was prepped and draped in a sterile fashion. With assistance of fluoroscopy identified the C6 vertebral body and a transverse incision was placed along the right anterior aspect of the cervical spine overlying this region. Blunt dissection with the assistance of bipolar electrocautery was performed down to expose the anterior cervical spine from C5 to C7. Self-retaining retractor was placed. I then performed a complete discectomy of C5-C6 out to the uncovertebral's bilaterally followed by C6-C7. I then placed [place] distracting pins in C5 and C7 to distract across the C6 vertebral body. Complete corpectomy was then performed including removal of all posterior annular fibers longitudinal ligament bilateral foraminotomies to address severe stenosis. The endplates were then burred to subcortical bleeding bone and a 23 mm peek cage filled locally harvested morselized autograft and I factor tapped in position. Distracting apparatus was removed and a 5 complete and screws applied with the assistance of fluoroscopy. The incision was then copiously irrigated explored to ensure no damage to surrounding structures remaining bleeding. 10 round MARY drain inserted. The incision was then closed with 2 Vicryl in a fashion of 4 Monocryl for final skin closure. Steri-Strip sterile dressings placed. Patient will continue PACU stable condition. Please note spinal cord monitoring was utilized at the procedure no changes noted. Lastly Wes Bustamante was present at the entire surgery and while the patient positioning complex portions of the surgery and fascial closure. I attest to the content of the Intraoperative Record and any orders documented therein. Any exceptions are noted below.
[2021-06-10] MEDS ORDERED: FLOSEAL HEMOSTATIC MATRIX 10ML TOP ONE (12:29)
[2021-06-10] MEDS ORDERED: LABETALOL HCL IV 5 MG/ML 20ML IV STA (13:13)
--- NOTE | 2021-06-10 14:10 | Anesthesiology Progress Note ---
Date of Service June 10, 2021 Anesthesia Post Procedure Vital Signs Vital Signs: Temp Pulse Pulse Resp BP BP Pulse Ox 06/10/21 14:05 36.6 C 67 15 178/85 H 96 06/10/21 13:55 67 17 177/97 H 93 06/10/21 13:45 69 12 178/89 H 93 06/10/21 13:35 68 18 176/83 H 93 06/10/21 13:25 68 12 181/90 H 93 06/10/21 13:15 72 15 196/91 H 93 06/10/21 13:05 71 12 205/89 H 95 06/10/21 12:55 71 12 187/91 H 95 06/10/21 12:47 36.2 C L 80 18 177/81 H 93 06/10/21 09:31 36.5 C 59 L 18 194/87 H 96 06/10/21 07:41 36.4 C L 60 16 177/81 H 94 06/10/21 05:34 36.3 C L 57 L 14 178/82 H 94 06/09/21 22:30 36.7 C 59 L 16 175/91 H 93 06/09/21 21:14 73 168/79 H 06/09/21 14:59 36.8 C 66 20 175/93 H 96 06/09/21 14:10 70 18 179/88 H 98 Pain Intensity Anterior Neck: Pain Intensity: 4 Transfer of Care Handoff Completed per policy Notes Mental Status: alert / awake / arousable and participated in evaluation Patient Amnestic to Procedure: Yes Nausea / Vomiting: adequately controlled Pain: adequately controlled Airway Patency, RR, SpO2: stable & adequate BP & HR: stable & adequate Hydration State: stable & adequate Anesthetic Complications: no major complications apparent and Pt Satisfied with anesthetic care Notes: The patient is status post C6 corpectomy with Dr. Sanford. She was found to have hypertension on admission. Her blood pressures on the floor have been running in the 170s-200s systolic. She was just recently started on metoprolol on this admission. She received 10mg IV Labetalol on emergence from anesthesia and another 10mg IV labetalol in recovery for SBP 190s. Her BP improved to 176/83. She states her pain is well controlled. She will be transferred to the floor on continuous pulse oximetry for closer monitoring.
[2021-06-10] MEDS ORDERED: MoRPHine SULFATE 4 MG/ML 1 ML CARP\\VIAL IV PRN (14:28)
[2021-06-10] MEDS ORDERED: ACETAMINOPHEN 1,000 MG/100 ML VIAL IV PRN (14:28)
[2021-06-10] MEDS ORDERED: traMADol HCL 50 MG TABLET PO PRN (14:28)
[2021-06-10] MEDS ORDERED: ACETAMINOPHEN 500 MG TAB PO PRN (14:28)
[2021-06-10] MEDS ORDERED: hydrOXYzine HCl 10 MG TAB PO PRN (14:28)
[2021-06-10] MEDS ORDERED: ALUMINUM/MAGNESIUM SUSP 30 ML UDC PO PRN (14:28)
[2021-06-10] MEDS ORDERED: oxyCODONE HCL IR 5 MG TAB (IMMEDIATE RELEASE) PO PRN (14:28)
[2021-06-10] MEDS ORDERED: LORazepam 0.5 MG TAB PO PRN (14:28)
[2021-06-10] MEDS ORDERED: METOCLOPRAMIDE HCL INJ 5 MG/ML 2 ML VIAL IV PRN (14:28)
[2021-06-10] MEDS ORDERED: DO NOT ADMINISTER PNEUMOCOCCAL VACCINE PRN (14:28)
[2021-06-10] MEDS ORDERED: dexAMETHasone 8 MG in SYRINGE 0 ML IV PRN (14:28)
[2021-06-10] MEDS ORDERED: PROMETHAZINE HCL 12.5 MG in SODIUM CHLORIDE 0.9% 50 ML IV PRN (14:28)
[2021-06-10] MEDS ORDERED: MoRPHine SULFATE 2 MG/ML CARP IV PRN (14:28)
[2021-06-10] MEDS ORDERED: DO NOT ADMINISTER FLU VACCINE PRN (14:28)
[2021-06-10] MEDS ORDERED: hydrOXYzine HCl 25 MG TAB PO PRN (14:28)
[2021-06-10] MEDS ORDERED: bisacodyL 10 MG SUPP PR PRN (14:28)
[2021-06-10] MEDS ORDERED: ONDANSETRON 4 MG OD TAB PO PRN (14:28)
[2021-06-10] MEDS ORDERED: RACEPINEPHRINE 2.25% NEBU SOLN 0.5 ML VIAL INH PRN (14:28)
[2021-06-10] MEDS ORDERED: NALOXONE HCL 0.4 MG/1 ML VIAL/CARP IV PRN (14:28)
[2021-06-10] MEDS ORDERED: LORazepam 0.5 MG/1 ML VIAL IV PRN (14:28)
[2021-06-10] MEDS ORDERED: MAGNESIUM HYDROXIDE SUSP 30 ML UDC PO PRN (14:28)
[2021-06-10] MEDS ORDERED: SOD PHOSPHATE/SOD BIPHOSPHATE ENEMA 132 ML BTL PR PRN (14:28)
[2021-06-10] MEDS ORDERED: FAMOTIDINE 20 MG TAB PO PRN (14:28)
[2021-06-10] MEDS ORDERED: diphenhydrAMINE Capsule 25 MG CAP PO PRN (14:28)
--- NOTE | 2021-06-10 14:57 | Pharmacy Report ---
Pharmacy Glycemic Short Note 2 - Date of Service June 10, 2021 - Glycemic Short BSG Results (Last 24 hours): 06/09/21 06/09/21 06/10/21 17:04 20:31 05:35 POC Glucose 140 H 110 H 143 H 06/10/21 06/10/21 09:55 12:50 POC Glucose 117 H 157 H OUTPATIENT ANTIDIABETIC REGIMEN: * Lantus 10 units SC daily * Metformin 500 mg PO qPM * HbA1c: 7.1% (04/01/21) ASSESSMENT: 06/10/21 * Patient's BSGs yesterday were 155-140-110 mg/dL and fasting today is 143 mg/dL. * Patient underwent surgery today and received 8 mg of dexamethasone intraoperatively. She also is scheduled to receive 6 mg IV q8 hours scheduled x 3 doses. * Since patient was NPO this morning, gave Lantus 5 units (half of home dose). Give the remaining 5 units after surgery to complete home dose. * Per admission in 2019, patient is sensitive to steroids. Will give NPH 40 units (assisted between 0.4 units/kg of adjusted and actual body weight). * Novolog weight-based stress of 3 and overnight checks to ensure 24 hour coverage. Background * BC is a 81 year old female with cervical myelopathy w/ cervical radiculopathy admitted due to worsening right upper extremity weakness and numbness * Scheduled for C6 corpectomy tomorrow, NPO after midnight * Patient with reasonably well-controlled diabetes as an outpatient, based on A1c * Confirmed that patient did not administer Lantus this morning prior to ED. Will err on side of caution and give slightly reduced dose of Lantus today in light of NPO for surgery tomorrow PLAN FOR INPATIENT GLYCEMIC CONTROL: * Hold outpatient oral diabetes medications * Basal insulin * Lantus 10 units SC daily * NPH 40 units SQ x 1 * Bolus insulin * NovoLog per scale ACHS or Q6hrs while NPO * Goal Range: Low 110 mg/dL - High 140 mg/dL * Correction Factor: 15 mg/dL/unit * Nutritional / Prandial insulin per carb ratio of 1 unit per 5 grams CHO consumed PLAN FOR DISCHARGE: * HbA1c is reasonable for patient based on age, continue current home regimen at time of discharge
[2021-06-10] MEDS ORDERED: NovoLIN-N (NPH) PER UNIT CHARGE SQ ONE ×2 (15:00→15:15)
[2021-06-10] MEDS ORDERED: INSULIN GLARGINE SOLOSTAR 100 UNITS/ML 3 ML PEN SC ONE (15:00)
[2021-06-10] MEDS: METOPROLOL TARTRATE 25 MG TAB PO SCH ×2 (16:53→21:41)
[2021-06-10] MEDS: dexAMETHasone 6 MG in SYRINGE 0 ML IV SCH ×2 (16:59→23:32)
[2021-06-10] MEDS: ceFAZolin 2000MG 2,000 MG/15 ML SYR IV SCH (17:59)
[2021-06-10] MEDS ORDERED: DOCUSATE SODIUM/SENNA 50/8.6MG TAB PO SCH (21:00)
[2021-06-10] MEDS: CYCLOBENZAPRINE HCL 10 MG TAB PO SCH (21:41)
[2021-06-10] MEDS: SERTRALINE HCL 50 MG TABLET PO SCH (21:41)
--- NOTE | 2021-06-10 23:56 | Electrocardiogram Report ---
Test Reason : Blood Pressure : / mmHG Vent. Rate : 069 BPM Atrial Rate : 069 BPM P-R Int : 200 ms QRS Dur : 102 ms QT Int : 436 ms P-R-T Axes : 070 -60 011 degrees QTc Int : 467 ms Normal sinus rhythm Left anterior fascicular block Abnormal ECG When compared with ECG of 14-APR-2021 11:56, No significant change Confirmed by Zohaib Mckay ([id number]) on 06/10/2021 11:56:36 PM Referred By: REFERRED SELF Confirmed By:Zohaib Mckay
[2021-06-11] MEDS: ceFAZolin 2000MG 2,000 MG/15 ML SYR IV SCH (01:30)
[2021-06-11] MEDS: SODIUM CHLORIDE 0.9% 1000ML 1,000 ML IV SCH (03:19)
[2021-06-11] MEDS: INSULIN ASPART PER UNIT SC SCH ×3 (04:03→12:39)
[2021-06-11] MEDS: POLYETHYLENE (MIRALAX) 17 GM PACK PO SCH ×2 (05:28→12:40)
[2021-06-11] MEDS: dexAMETHasone 6 MG in SYRINGE 0 ML IV SCH (08:29)
[2021-06-11] MEDS: METOPROLOL TARTRATE 25 MG TAB PO SCH (08:32)
--- NOTE | 2021-06-11 08:46 | Hospitalist Progress Note ---
Date of Service June 11, 2021 Assessment & Plan (1) Cervical myelopathy with cervical radiculopathy: Plan: Most recently had thoracic decompression T8-T9 T9-T10 and posterior spinal fusion T8-T10 with Dr. Sanford on 03/31/2020 (was her 4th back surgery) POD1 s/p * #1 anterior cervical corpectomy with bilateral foraminotomies C6. #2 intracervical arthrodesis C5-C7. #3 placement of 23 mm peek cage C5-C7. #4 placement locally harvested morselized autograft combined with I factor in the interbody cage. #5 application of villafana plate and screws from C5-C7 with Dr Sanford. * EBL 100cc * Cervical collar in place * Pre-op h/h 12.2/37.8, monitor CBC this morning -- pending * MARY output 65cc Plan of care per primary service, regarding IVF/abx/pain management/bowel regimen/DVT prophylaxis BPs had been running high, also could be component of anxiety, but was started on metoprolol 25mg BID, which will be continued. * BP still slightly elevated this morning and was going to give 12.5mg HCTZ, but patient having some pain and also anxious about procedure --> asked RN to call OR, anesthesia to have RN hold meds and can give IV if needed prior to procedure * --> given labetalol x 2 in PACU, BP remains elevated but in 8-01/07 pain reported with BP 175/89. given HCTZ 12.5mg x 1 * Hydralazine available prn but will also continue the metoprolol 25mg BID and monitor -- currently BP 158/79 and acceptable -- labs pending from am (2) HTN (hypertension) with goal to be determined: Plan: Not on BP meds at home Started metoprolol 25mg BID -- continued - Monitor in conjunction with her pain medications/anxiety/antispasmodic medications - If becomes unable to control- transfer to monitored unit where able to monitor closer and have other agents available Elevated currently post-op from pain, 175/89 Hydralazine 5mg IV q3 prn for SBP >180 and/or DBP>100 (3) Diabetes: Plan: HGB A1c last was 8.4% (had gone from 11 --> 7.6 last admission) Pharmacy consulted for glycemic management as patient likely to be getting steroids with surgery/stress --> POC BSG this AM 123 Monitor (4) Anxiety: Plan: Anxiety with depression per chart review - Continue Sertraline - Previously patient was on Xanax as outpatient 2018ish - does have low dose ativan prn Plan: DVT prophylaxis -- SCDs/renata hose, chemical contraindicated in setting of back surgery hospitalist service will follow along Admission and Anticipated Discharge Date Admission Date: June 09, 2021 Results & Data Results & Data ([facility]) Vital Signs (Past 12 Hours) Vital Signs Temp Pulse Resp BP Pulse Ox 06/11/21 08:00 36.6 C 74 158/79 H 06/11/21 07:18 75 18 91 06/11/21 05:21 36.6 C 79 14 168/91 H 91 06/11/21 03:30 88 18 99 06/11/21 03:25 36.5 C 86 16 164/76 H 96 06/11/21 01:30 36.7 C 84 16 163/97 H 94 06/11/21 01:00 83 18 96 06/10/21 23:25 36.5 C 88 14 162/84 H 97 06/10/21 21:26 36.6 C 85 16 161/82 H 98 PG Care Time/CCT Total # of Minutes Spent Total Time Spent with Patient: Total time spent is greater than 50% in coordination of care (as documented) at patient's floor/unit and/or counseling patient: Coding Diagnoses Cervical myelopathy with cervical radiculopathy G95.9; M54.12 HTN (hypertension) with goal to be determined I10 Diabetes E11.9 Anxiety F41.9
[2021-06-11] MEDS ORDERED: NovoLIN-N (NPH) PER UNIT CHARGE SQ ONE (09:00)
[2021-06-11] MEDS ORDERED: INSULIN GLARGINE SOLOSTAR 100 UNITS/ML 3 ML PEN SC SCH (09:00)
--- NOTE | 2021-06-11 10:26 | Pharmacy Report ---
Pharmacy Glycemic Short Note 2 - Date of Service June 11, 2021 - Glycemic Short BSG Results (Last 24 hours): 06/10/21 06/10/21 06/10/21 12:50 17:40 20:52 POC Glucose 157 H 233 H 247 H 06/10/21 06/11/21 06/11/21 23:32 03:45 08:14 POC Glucose 230 H 179 H 123 H OUTPATIENT ANTIDIABETIC REGIMEN: * Lantus 10 units SC daily * Metformin 500 mg PO qPM * HbA1c: 7.1% (04/01/21) ASSESSMENT: 06/11/21 * Patient's BSGs yesterday were [phone] and overnight were 230-179 mg/dL. Fasting today is 123 mg/dL. * Patient received 66 units of insulin yesterday with 45 units of basal (10 units of Lantus and 35 units of NPH) and 21 units of bolus. * NPH not given until 1812 yesterday so that was cause of elevated HS BSGs. * Since patient receiving last dose of dexamethasone at 0800 today, give NPH 35 units x 1. Continue Lantus and Novolog. 06/10/21 * Patient's BSGs yesterday were 155-140-110 mg/dL and fasting today is 143 mg/dL. * Patient underwent surgery today and received 8 mg of dexamethasone i ntraoperatively. She also is scheduled to receive 6 mg IV q8 hours scheduled x 3 doses. * Since patient was NPO this morning, gave Lantus 5 units (half of home dose). Give the remaining 5 units after surgery to complete home dose. * Per admission in 2019, patient is sensitive to steroids. Will give NPH 40 units (chcf between 0.4 units/kg of adjusted and actual body weight). * Novolog weight-based stress of 3 and overnight checks to ensure 24 hour coverage. Background * BC is a 81 year old female with cervical myelopathy w/ cervical radiculopathy admitted due to worsening right upper extremity weakness and numbness * Scheduled for C6 corpectomy tomorrow, NPO after midnight * Patient with reasonably well-controlled diabetes as an outpatient, based on A1c * Confirmed that patient did not administer Lantus this morning prior to ED. Will err on side of caution and give slightly reduced dose of Lantus today in light of NPO for surgery tomorrow PLAN FOR INPATIENT GLYCEMIC CONTROL: * Hold outpatient oral diabetes medications * Basal insulin * Lantus 10 units SC daily * NPH 35 units SQ x 1 * Bolus insulin * NovoLog per scale ACHS or Q6hrs while NPO * Goal Range: Low 110 mg/dL - High 140 mg/dL * Correction Factor: 15 mg/dL/unit * Nutritional / Prandial insulin per carb ratio of 1 unit per 5 grams CHO consumed PLAN FOR DISCHARGE: * HbA1c is reasonable for patient based on age, continue current home regimen at time of discharge
--- NOTE | 2021-06-11 10:37 | Discharge Summary ---
Date of Service June 11, 2021 Principal Diagnosis Cervical myelopathy Discharge Data Allergies Allergy/AdvReac Type Severity Reaction Status Date / Time pseudoephedrine Allergy Intermediate hand, feet Verified 06/09/21 09:22 edema, skin peeling/redness hydromorphone AdvReac Severe delirium Verified 06/09/21 09:22 ketorolac [From Toradol] AdvReac Mild delirium Verified 06/09/21 09:22 Consultations 06/09/21 09:04 ED Decision to Admit Stat 06/09/21 11:48 Consult Hospitalist Stat Procedures Performed Operation Date: 06/10/21 07:00 Actual Procedures p C6 Corpectomy, Application of Bone Morphogenetic Protein and iFactor Bone Graft, Spinal Cord Monitoring(Not Applicable) - Uri Sanford DO Hospital Course (1) Cervical myelopathy with cervical radiculopathy: Patient was admitted secondary to worsening cervical myelopathy. She underwent surgery the following day tolerates well was taken to orthopedic floor. Postop day #1 she was swallowing well no hoarseness. Arm symptoms improved. Ambulating well with a walker. MARY drain decreasing appropriately. Subsequently discharged home. Discharge orders instructions found the chart for further review. Total Time Total Time Spent Total Time Spent (In Minutes): 20 minutes Discharge Plan Discharge Items Patient Disposition: Home - Self-Care Reason For Visit: CERVICAL STENOSIS WITH MYELOPATHY Discharge Diagnosis: Cervical spinal stenosis with myelopathy Activity: As commented below Non-emergency contact: Primary Care Provider Call non-emergency contact if: you have any medication questions Follow-up/Referrals: Bruce Dumont [Primary Care Provider] - Diet: Regular Addtl Attending Provider Instructions: ACTIVITY RECOMMENDATIONS: SELF CARE INSTRUCTIONS AFTER CERVICAL FUSIONS 1. No smoking. Smoking drastically decreases the chance of a solid fusion. 2. No bending, lifting more than 5 pounds, or twisting (roll like a log when turning in bed). 3. You may shower 3 days after surgery. Thoroughly dry wound. Do not soak in the tub. 4. Cervical collar: Must be worn at all times including sleeping. You may remove the brace only to bath, eat and if you are sitting in a recliner. 5. Please walk as much as you can for exercise. Gradually increase the distance that you walk as your endurance increases. SPECIAL CARE INSTRUCTIONS: VERY IMPORTANT TO READ AND REVIEW A. Do not take any anti-inflammatory medications (i.e. Indocin, Advil, Aspirin, Naprosyn, Aleve, Motrin, etc.) as these may inhibit the chance of a solid fusion. Tylenol is okay to take. B. Your surgical incision has been closed with a cosmetic suture under the skin that will dissolve in about 6 weeks. In 14 days, you can use a pair of clean scissors and cut the suture that is left outside of the skin at the ends of your incision. C. Complications are uncommon, but please contact us if you have any signs or symptoms of: 1. wound infection (fever higher than 102.5 degrees F, redness, separation of wound, drainage, or increasing pain from the incision) 2. blood clots in legs (pain, swelling, redness and warmth in legs) 3. urinary tract infection (fever higher than 102.5 degrees, burning upon urination or increased frequency of urination) 4. nerve problems (inability to walk on your toes or heels, numbness, loss of bowel or bladder control) 5. any other symptoms that concern you. D. Please call the office at if you have any concerns or questions about your operation or recovery. MANAGING PAIN AFTER SPINAL SURGERY 1. Narcotic medication is intended for short-term use and will be provided for surgical pain. Surgical pain usually lasts for a period of 4-6 weeks. Narcotic medication includes Percocet, Vicodin, Darvocet, Tylenol #3 or Lortab. 2. Longer-term pain is more appropriately treated with non-narcotic medication such as Tylenol ES. 3. Muscle spasm is not appropriately treated with narcotics. Muscle relaxers such as Soma, Flexeril or Skelaxin can be used along with Tylenol ES. 4. Remember that we all live with some "aches and pains". This is not unusual or uncommon after an injury or as we get older. 5. We will provide appropriate medication within the normal guidelines of their prescribed use. We will also be very cautious and aware of potential abuse and extended duration of patients' medication needs. 6. Please allow 2-3 days to process refills. Prescriptions will not be mailed but must be picked up at the office. FOLLOW UP VISIT: Keep your scheduled follow-up appointment. Any questions, please call the office at . Pending Studies at Discharge: No Stand-Alone Forms: My [facility], Smoking Cessation Medications and DC Order Prescriptions: New tramadol 50 mg tablet 50 mg PO Q6H PRN (Reason: pain, moderate) Qty: 20 RF: 0 oxycodone 5 mg tablet 5 mg PO Q6H PRN (Reason: pain, severe) Qty: 20 RF: 0 Continued metformin 500 mg Tablet 500 mg PO QPM RF: 0 sertraline 50 mg Tablet 50 mg PO HS RF: 0 Basaglar KwikPen U-100 Insulin 100 unit/mL (3 mL) Insulin Pen 10 unit SUBCUT QAM RF: 0 hydroxyzine HCl 10 mg tablet 10 mg PO TID PRN (Reason: Anxiety) RF: 0 Discharge Orders: Discharge Order (Routine); Ordered 06/11/21 Ordered By: Uri Sanford Admission Data Admit Date/Time: 06/09/21 11:53 Attending Provider: Uri Sanford Admit Provider: Uri Sanford Primary Care Provider: Bruce Dumont Other Providers: Glenn Pizarro ; Rahel Vidal ; Won Angulo ; Jeff Razo ; Elton Garcia ; [place] V. ; Nathalia Carballo ; Magdiel Rodriguez ; Castro Birch ; Trevor Vaca ; Min Olvera ; Raymundo Murray ; Ritchie Bailey ; Elisabeth Penny ; Flory George ; Arcelia Rodriguez ; Filiberto Lilly ; Cha Griffin ; Karen Meade ; Laureen Acosta ; Frandy Salazar ; Jamie Atwood ; Rupinder Haney ; Yaritza De Los Santos ; Josemanuel Crouch ; Nathalia Foley ; Hayden White ; Ervin Joshua ; Terence Silver ; Magdiel Paniagua ; Monster Gupta ; Radhika Lee ; Court Hamilton ; Pablo Dickinson ; Cha Lino ; Glenn Olson ; Joe Blanchard ; Christianne Villa ; Mona Duvall ; Harlan Kaye Other Interventions: Discharge Summary Assessment (RN) Last Done: 06/11/21 10:14
[2021-06-11 11:15] LABS: Hematocrit (blood only) 36.1 % (37-47); Hemoglobin 11.8 g/dL (12.0-16.0); Mean Corpuscular Hgb Conc 32.7 g/dL (32-36); Mean Corpuscular Volume 88.7 fL (80-100); Mean Platelet Volume 9.8 fL (7.4-10.4); Platelet Count 233 K/uL (130-400); RDW Coefficient of Variation 14.4 % (11.5-14.5); RDW Standard Deviation 47.1 fL (36.4-46.3); Red Blood Count 4.07 M/uL (4.2-5.4); White Blood Count 15.31 K/uL (4.8-10.8)
--- NOTE | 2021-06-11 11:19 | Communication Note ---
Date of Service: June 11, 2021 No medical issues per primary service to address today. BP improved. Did stop by to see patient, no O2, ambulating in the room, pain controlled, tolerated diet this morning. Discussed sent rx for metoprolol 25mg BID for at discharge but to get BP cuff to monitor at home. If low or symptomatic hold and contact PCP but suspect they can transition to s uccinate in follow up vs decrease dose if improvement as outpatient. BP currently 158/79 and no lightheadedness/dizziness reported. Hospitalist service signed off at this time. Updated Dr. Sanford. Plans for d/c this afternoon.
[2021-06-11 11:45] LABS: BUN Creatinine Ratio 23.8 (10-20); Calcium 10.1 mg/dl (8.5-10.1); Creatinine Clr Calc Pharmacy 68.1 ml/min; Est GFR (African American) 76.6 ml/min; Est GFR (Non-African American) 66.1 ml/min; Magnesium 1.7 mg/dl (1.7-2.4); Potassium 4.2 mmol/L (3.5-5.1)
== END 2021-06-11 14:59 | disposition home or self-care (01) | DRG 472 ==
LOC: ED 08:07 → 3W 11:53

== ENCOUNTER 2021-06-13 11:48 | Inpatient (IN) ==
--- NOTE | 2021-06-13 12:58 | Emergency Department Note ---
Impression & Plan Encephalopathy, Acute pain of left shoulder ED Provider Note Name: AARON BRAND Age: 81 Sex: F Arrives Via: Walk-In Informant: Patient ED Provider: Ck Fisher MD Chief Complaint: Confusion Impression: As per impressions above Medical Decision Makin-year-old female with history of diabetes, obesity, hypertension and anxiety/depression arrives for evaluation of worsening confusion since her found her this morning. Patient's course complicated by the fact that she had cervical anterior fusion done 4 days ago and discharged yesterday. Patient was doing well over night though on finding her this morning in her chair he noted the collar had been removed and was across the room but actually velcroed in place. She was complaining of left arm pain but was quite confused. called EMS who brought her for evaluation. On evaluation patient is somewhat encephalopathic though awake and answering some questions. Her dressing appears intact with only mild swelling of the neck consistent with recent anterior fusion. There is no clear evidence of mass-effect and while she periodically is coughing she appears to be tolerating her secretions well. She has no neurologic deficits on examination there was complaining of significant left shoulder pain. Chest x-ray and left shoulder x-rays reveal no acute fractures. A CT of the head and cervical spine is unremarkable other than postoperative changes as expected there is no evidence of a fluid collection at this time. Patient did seem to be slowly waking up and less confused though complaining more and more left shoulder pain. Given small dose of Dilaudid which worked well that she did have some hypoxia with this. She had many repetitive examinations throughout her stay and no evidence that her cervical fusion is developing a hematoma or any swelling that is obstructing her airway at this time. I did review her case with her surgeon who will monitor her if she is admitted and a hospitalist was consulted given she will require further work-up for her encephalopathy. I will note her blood pressure is moderately elevated throughout the stay though this does not seem high enough to be the cause of her encephalopathy. She does not have any clear findings of infection at this time his chest x-ray is without aspiration or pneumonia and there is no clear evidence of UTI. Her abdomen is soft and her incision area does not appear to have any sign of infection at this time either. Prior Medical Record and Triage/Nursing Notes reviewed by Me Additional history obtained from chart Differentials: Infection, hypoglycemia, electrolyte abnormalities, overdose, toxicologic, cardiac sources, intracerebral event, neurologic, trauma, as well as other pathologies. Vital Signs: reviewed and remarkable for HTN Interventions: dilaudid 0.5mg iv Labs:Reviewed and remarkable for no significant abnormalities Imaging:CT head and cervical spine, chest x-ray, shoulder x-rays as per radiologist EKG:Per My Interpretation: Indication Confusion: NSR 68 bpm, qtc 450. No Ectopy. No Ischemia. Compared to EKG 06/09/21, no significant changes. Cardiac/Tele Monitoring: Cardiac Monitoring: An Order was placed for continuous cardiac monitoring. The monitor shows a rate of 60 with a normal sinus rhythm. Consults:Dr Sanford Spine Surg, Dr Olson Hospitalist Plan: Disposition: Hospitalization Condition: fair History of Present Illness:81-year-old female arrives for evaluation of confusion. Patient was admitted on for a Sunday cervical fusion. She was discharged Sunday 2 days ago. She has been staying in the basement where there is a recliner and doing well. Last night she had a dose of her tramadol. This morning her checked on her for breakfast and said she was seemed confused. At some point she had removed her cervical collar and notes he found it across the room. He states patient was very confused this morning but has gradually improved though still not back to her baseline. Patient notes that she is feeling all right other than a little tired. She denies any neck pain sore throat or difficulty swallowing. She states she sometimes coughs up some phlegm. She denies any current headache, neck pain, sore throat, chest pain, shortness of breath, back pain, abdominal pain, nausea, vomiting, urinary/bowel symptoms, leg swelling, rashes, bleeding, bruising or other symptoms. Patient does note that she has a left shoulder soreness anteriorly which is new. It is worse with movement. She is unaware of any falls or injuries. She denies any medications this morning. She is not on any blood thinners currently. Nothing seems to make better or worse. She had no medication prior to arrival. ROS: See above HPI for pertinent positives & negatives. A total of 10 systems reviewed and were otherwise negative. Past Medical History:See Below Past Surgical History:See Below Family History:See Below Social History:See Below Home Medications:See Below Allergies:See Below Vitals:Blood Pressure: 150/83, Pulse 88, RR 18, T 37C, O2 98% on RA Physical Exam: GENERAL: Patient is tired appearing and in minimal distress. HEAD: Abrasion healing with mild bruising over top of head - reportedly happened during surgery per patient NECK: Cervical collar in place. Mild post op swelling lower neck without evidence hematoma nor mass effect. EYES: No scleral icterus, unremarkable pupils. ENT: Mucous membranes moist, no nasal congestion. RESPIRATORY: No dyspnea. Clear to auscultation and equal bilaterally. No wheeze, no rhonchi. CARDIOVASCULAR: Regular rate and rhythm.No murmurs, rubs, gallops appreciated. GASTROINTESTINAL: Abdomen soft, non-tender, no peritonitis.Bowel sounds positive.No masses appreciated. BACK: No midline tenderness, no CVA tenderness EXTREMITIES: TTP over left anterior shoulder. Otherwise normal motion all extremities, no cyanosis, no edema. NEUROLOGIC: Alert and oriented, no acute motor or sensory deficits, no focal weakness, cranial nerves grossly intact. SKIN: No rash, no jaundice, no diaphoresis. PSYCH: Appropriate GCS: 15 ED Course: Times/Reassessments: Multiple reevaluations of patient throughout the day with no clear evidence that she is having airway obstruction. Confusion mildly improving as the day went on however still too confused to go home. Ck Fisher MD Past Med/Surg History Medical History Anemia post-op several years ago per pt Anxiety and depression Pt reports stable and controlled, follows with PCP Bilateral arm weakness Bilateral leg weakness Degenerative disc disease Diabetes IDDM, A1c 7.1% 04/01/2021 Hx of pancreatitis 3+ years ago Obesity Osteoarthritis Surgical History Fusion of spine LUMBAR (TOTAL OF 3 SURGERIES), Hardware removal L2-L3, decompression T12-L2, L5-S1, T8-T10: Grade 1 view, Salazar#2, ETT#7.5 at [facility] T10-S1 iliac bolts: 11/13/17: Grade view 1 with cricoid pressure, MAC#3, ETT 7.0 at [facility]. No issues with either per both anesthesia postop progress notes. H/O knee surgery partial right knee replacement > 20 yrs ago History of appendectomy History of cataract surgery BL History of cholecystectomy History of colonoscopy History of herniorrhaphy UMBILICAL History of hysterectomy with bilateral oophorectomy History of total knee replacement LEFT [place] teeth removed Family History Mother Family history of diabetes mellitus Father Family history of diabetes mellitus Pancreatic cancer Social History Smoking Status: Former smoker Second Hand Exposure: No; Do You Dip or Chew Tobacco: No; Tobacco Cessation Education Requested by Patient: No Hx Alcohol Use: Yes Alcohol type: beer, wine and hard liquor Hx Substance Use: No Preferred Language: Bulgarian Communication Ability: Effective Spectral Scientist Required: No Beliefs That Will Affect Care: None marital status: Current Living Situation: Spouse Current Living Situation Comment: Kiah Katz current occupational status: 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 [place] How many Children do You have: 3 Other Information That Helps Us Care for You: No Feels Safe at Home: Yes Safety Concerns: Feels Safe At This Time Assistive Devices: Walker Allergies Allergies Allergy/AdvReac Type Severity Reaction Status Date / Time pseudoephedrine Allergy Intermediate hand, feet Verified 06/13/21 13:20 edema, skin peeling/redness hydromorphone AdvReac Severe delirium Verified 06/13/21 13:20 ketorolac [From Toradol] AdvReac Mild delirium Verified 06/13/21 13:20 Home Meds Home Medications Medication Instructions Recorded Confirmed metformin 500 mg tablet 500 mg PO QPM 01/12/20 06/13/21 sertraline 50 mg tablet 50 mg PO HS 01/12/20 06/13/21 insulin glargine 100 unit/mL (3 10 unit SUBCUT QAM 03/09/20 06/13/21 mL) subcutaneous pen (Basaglar KwikPen U-100 Insulin) hydroxyzine HCl 10 mg tablet 10 mg PO TID PRN 06/09/21 06/13/21 Previous Rx's Medication Instructions Recorded metoprolol tartrate 25 mg tablet 25 mg PO BID #60 tab 06/11/21 oxycodone 5 mg tablet 5 mg PO Q6H PRN #20 tab 06/11/21 tramadol 50 mg tablet 50 mg PO Q6H PRN #20 tab 06/11/21 Results & Data (ED) Vital Signs Vital Signs - 24 hr 06/13/21 11:48 06/13/21 14:42 06/13/21 15:20 Temperature 37 C Temperature Source Oral Pulse Rate 88 Pulse Rate [Radial] 72 Pulse Rate [Right Finger] 72 72 Respiratory Rate 18 20 18 Respiratory Effort / Characteristics Non-Labored Spontaneous Respiratory Depth Normal Normal Respiratory Pattern Regular Blood Pressure 195/83 H Blood Pressure [Right Arm] 193/103 H 189/78 H Blood Pressure Mean 120 Blood Pressure Mean [Right Arm] 133 115 Blood Pressure Position [Right Arm] Lying Pulse Oximetry 98 95 98 Oxygen Delivery Method Room Air Room Air Sepsis Recent Fever Within 48 Hours No Sepsis New/Unexplained Change in Mental Status N/A Sepsis Action Taken by Nursing No Action Required Laboratory Data Result diagrams: 06/14/21 05:32 06/14/21 05:32 Lab Results 06/13/21 06/13/21 06/13/21 Range/Units 12:50 12:53 12:53 WBC 10.69 (4.8-10.8) K/uL RBC 4.27 (4.2-5.4) M/uL Hgb 12.5 (12.0-16.0) g/dL Hct 38.6 (37-47) % MCV 90.4 (80-100) fL MCH 29.3 (25-34) pg MCHC 32.4 (32-36) g/dL RDW Std Deviation 49.2 H (36.4-46.3) fL RDW Coeff of Jc 14.8 H (11.5-14.5) % Plt Count 232 (130-400) K/uL MPV 10.4 (7.4-10.4) fL Immature Gran % (Auto) 0.2 % Neut % (Auto) 84.8 % Lymph % (Auto) 7.5 % [place] % (Auto) 7.3 % Eos % (Auto) 0.1 % Baso % (Auto) 0.1 % Neut # (Auto) 9.07 H (1.4-6.5) K/uL Lymph # (Auto) 0.80 L (1.2-3.4) K/uL [place] # (Auto) 0.78 H (0.11-0.59) K/uL Eos # (Auto) 0.01 (0-0.5) K/uL Baso # (Auto) 0.01 (0-0.2) K/uL Immature Gran # (Auto) 0.02 (0.00-0.02) K/uL Sodium 134 L (136-145) mmol/L Potassium (3.5-5.1) mmol/L Chloride 98 (98-107) mmol/L Carbon Dioxide 29 (21-32) mmol/L Anion Gap 7 (3-11) BUN 21 (6-23) mg/dl Creatinine 0.69 (0.6-1.2) mg/dl Est Cr Clr Drug Dosing 78.3 ml/min Est GFR ( Amer) 96.0 ml/min Est GFR (Non-Af Amer) 82.8 ml/min BUN/Creatinine Ratio 30.4 H (10-20) Glucose 177 H (70-99(Fasting)) mg/dl Calcium 10.0 (8.5-10.1) mg/dl Total Bilirubin 0.7 (0.2-1.0) mg/dl Direct Bilirubin (0-0.2) mg/dl AST (13-39) U/L ALT 11 (7-52) U/L Alkaline Phosphatase 90 (34-104) U/L Troponin I < 0.03 (0-0.04) ng/ml Total Protein 7.3 (6.0-8.3) gm/dl Albumin 3.8 (3.4-5.0) gm/dl Lipase 144 H (11-82) U/L Urine Color Yellow Urine Appearance Clear (Clear) Urine pH 5.5 (4.5-7.5) Ur Specific [place] 1.014 (1.000-1.030) Urine Protein Negative (Negative) Urine Glucose (UA) Negative (Negative) Urine Ketones 1+ H (Negative) Urine Blood Trace H (Negative) Urine Nitrite Negative (Negative) Urine Bilirubin Negative (Negative) Urine Urobilinogen Negative (Negative) Ur Leukocyte Esterase Negative (Negative) Urine WBC (Auto) 1-5 (0-5) /hpf Urine RBC (Auto) 0-4 (0-4) /hpf U Hyaline Cast (Auto) 1-5 (0-5) /lpf U Epithel Cells (Auto) 10-20 H (0-5) /lpf Urine Bacteria (Auto) Negative (Negative) SARS-CoV-2, RNA, NAAT (NEGATIVE) 06/13/21 06/13/21 Range/Units 14:10 16:13 WBC (4.8-10.8) K/uL RBC (4.2-5.4) M/uL Hgb (12.0-16.0) g/dL Hct (37-47) % MCV (80-100) fL MCH (25-34) pg MCHC (32-36) g/dL RDW Std Deviation (36.4-46.3) fL RDW Coeff of Jc (11.5-14.5) % Plt Count (130-400) K/uL MPV (7.4-10.4) fL Immature Gran % (Auto) % Neut % (Auto) % Lymph % (Auto) % [place] % (Auto) % Eos % (Auto) % Baso % (Auto) % Neut # (Auto) (1.4-6.5) K/uL Lymph # (Auto) (1.2-3.4) K/uL [place] # (Auto) (0.11-0.59) K/uL Eos # (Auto) (0-0.5) K/uL Baso # (Auto) (0-0.2) K/uL Immature Gran # (Auto) (0.00-0.02) K/uL Sodium (136-145) mmol/L Potassium (3.5-5.1) mmol/L Chloride (98-107) mmol/L Carbon Dioxide (21-32) mmol/L Anion Gap (3-11) BUN (6-23) mg/dl Creatinine (0.6-1.2) mg/dl Est Cr Clr Drug Dosing ml/min Est GFR ( Amer) ml/min Est GFR (Non-Af Amer) ml/min BUN/Creatinine Ratio (10-20) Glucose (70-99(Fasting)) mg/dl Calcium (8.5-10.1) mg/dl Total Bilirubin (0.2-1.0) mg/dl Direct Bilirubin (0-0.2) mg/dl AST (13-39) U/L ALT (7-52) U/L Alkaline Phosphatase (34-104) U/L Troponin I (0-0.04) ng/ml Total Protein (6.0-8.3) gm/dl Albumin (3.4-5.0) gm/dl Lipase (11-82) U/L Urine Color Urine Appearance (Clear) Urine pH (4.5-7.5) Ur Specific [place] (1.000-1.030) Urine Protein (Negative) Urine Glucose (UA) (Negative) Urine Ketones (Negative) Urine Blood (Negative) Urine Nitrite (Negative) Urine Bilirubin (Negative) Urine Urobilinogen (Negative) Ur Leukocyte Esterase (Negative) Urine WBC (Auto) (0-5) /hpf Urine RBC (Auto) (0-4) /hpf U Hyaline Cast (Auto) (0-5) /lpf U Epithel Cells (Auto) (0-5) /lpf Urine Bacteria (Auto) (Negative) SARS-CoV-2, RNA, NAAT NEGATIVE (NEGATIVE) Administered Medications Enoxaparin Sodium (Enoxaparin Inj 40 Mg/0.4 Ml Syr) 40 mg SQ Q24H SALTY Stop: 07/13/21 21:59 Last Admin: 06/13/21 22:39 Dose: 40 mg Documented by: [id number] Guaifenesin (Guaifenesin 600 Mg Tabcr) 1,200 mg PO Q12 SALTY Stop: 07/14/21 08:59 Last Admin: 06/14/21 09:08 Dose: 1,200 mg Documented by: [id number] Admin: 06/13/21 22:39 Dose: 1,200 mg Documented by: [id number] Insulin Aspart (Insulin Aspart Per Unit) 0 units SC ACHS SALTY Stop: 07/13/21 21:49 Last Admin: 06/14/21 09:05 Dose: 1 units Documented by: [id number] Cosigned by: [id number] Admin: 06/13/21 22:08 Dose: Not Given Documented by: [id number] Cosigned by: [id number] Insulin Glargine (Insulin Glargine Solostar 100 Units/Ml 3 Ml Pen) 10 units SQ QAM SALTY Stop: 07/14/21 08:59 Last Admin: 06/14/21 09:07 Dose: 10 units Documented by: [id number] Cosigned by: [id number] Metoprolol Tartrate (Metoprolol Tartrate 25 Mg Tab) 25 mg PO BID [facility] Stop: 07/13/21 21:49 Last Admin: 06/14/21 09:10 Dose: 25 mg Documented by: [id number] Admin: 06/13/21 22:40 Dose: 25 mg Documented by: [id number] Sertraline HCl (Sertraline Hcl 50 Mg Tablet) 50 mg PO HS [facility] Stop: 07/13/21 21:49 Last Admin: 06/13/21 22:40 Dose: 50 mg Documented by: [id number] Discontinued Medications Hydromorphone HCl (Hydromorphone Inj 0.5 Mg/0.5 Ml Syr) 0.5 mg IV NOW STA Stop: 06/13/21 15:29 Last Admin: 06/13/21 15:45 Dose: 0.5 mg Documented by: [id number] Metoprolol Tartrate (Metoprolol Tartrate 25 Mg Tab) 25 mg PO NOW STA Stop: 06/13/21 17:49 Last Admin: 06/13/21 19:19 Dose: 25 mg Documented by: [id number] Ondansetron HCl (Ondansetron Inj 2 Mg/Ml 2 Ml Vial) 4 mg IV NOW STA Stop: 06/13/21 15:29 Last Admin: 06/13/21 15:45 Dose: 4 mg Documented by: [id number] Discharge Plan Visit Data Chief Complaint: Confusion Stated Complaint: CONFUSION,LT SHOULDER PAIN ED Provider: Ck Fisher Discharge Problem: Encephalopathy, Acute pain of left shoulder Patient Disposition: Admitted As Inpatient Discharge Instructions Interventions: ED Discharge Assessment Last Done: 06/13/21 21:26
[2021-06-13 13:08] LABS: Basophils # (auto) 0.01 K/uL (0-0.2); Basophils % (auto) 0.1 %; Eosinophils # (auto) 0.01 K/uL (0-0.5); Eosinophils % (auto) 0.1 %; Hematocrit (blood only) 38.6 % (37-47); Hemoglobin 12.5 g/dL (12.0-16.0); Immature Granulocytes # (auto) 0.02 K/uL (0.00-0.02); Immature Granulocytes % (auto) 0.2 %; Lymphocytes % (auto) 7.5 %; Mean Corpuscular Hemoglobin 29.3 pg (25-34); Mean Corpuscular Hgb Conc 32.4 g/dL (32-36); Mean Corpuscular Volume 90.4 fL (80-100); Mean Platelet Volume 10.4 fL (7.4-10.4); Monocytes # (auto) 0.78 K/uL (0.11-0.59); Monocytes % (auto) 7.3 %; Neutrophils # (auto) 9.07 K/uL (1.4-6.5); Neutrophils % (auto) 84.8 %; Platelet Count 232 K/uL (130-400); RDW Coefficient of Variation 14.8 % (11.5-14.5); RDW Standard Deviation 49.2 fL (36.4-46.3); Red Blood Count 4.27 M/uL (4.2-5.4); White Blood Count 10.69 K/uL (4.8-10.8)
--- NOTE | 2021-06-13 13:15 | XRay Report ---
SINGLE VIEW CHEST CLINICAL HISTORY: Change in mental status. FINDINGS: An AP, portable, upright chest radiograph is compared to study dated 04/14/2021. Correlatio n is made with chest CT dated 11/16/2017. The heart appears mildly enlarged. The pulmonary vasculature is noncongested. There is mild bibasilar atelectasis. The lungs and pleural spaces are otherwise joey ar. No pneumothorax is seen. The skeletal structures are osteopenic. The bony thorax is grossly intac t. Fusion hardware is noted in the lower cervical spine. There is extensive fusion hardware at the th oracolumbar junction. IMPRESSION: No acute cardiopulmonary abnormality. ACT 112: Negative or not required by law. Electronically signed by: Ritchie Ybarra M.D. 06/13/2021 1:14 PM
--- NOTE | 2021-06-13 13:17 | XRay Report ---
LEFT SHOULDER 3 VIEWS CLINICAL HISTORY: Left shoulder pain. FINDINGS: 3 views of the left shoulder are obtained. No prior studies are available for comparison at the time of dictation. The skeletal structures are osteopenic. There is no radiographic evidence of fracture or dislocation. Productive degenerative change is noted at the acromioclavicular joint. Mild degenerative change is also seen at the glenohumeral articulation. The overlying soft tissues are no rmal as imaged. Fusion hardware is seen in the lower cervical spine and at the thoracolumbar junction . The left lung parenchyma is clear as imaged. IMPRESSION: No acute bony abnormality is identified. Electronically signed by: Ritchie Ybarra M.D. 06/13/2021 1:16 PM
[2021-06-13 13:35] LABS: Troponin I < 0.03 ng/ml (0-0.04)
[2021-06-13 13:50] LABS: Alanine Aminotransferase 11 U/L (7-52); Albumin Level 3.8 gm/dl (3.4-5.0); Alkaline Phosphatase 90 U/L (34-104); Anion Gap 7 (3-11); BUN Creatinine Ratio 30.4 (10-20); Bilirubin,Total 0.7 mg/dl (0.2-1.0); Blood Urea Nitrogen 21 mg/dl (6-23); Carbon Dioxide 29 mmol/L (21-32); Chloride 98 mmol/L (98-107); Creatinine Clr Calc Pharmacy 78.3 ml/min; Est GFR (Non-African American) 82.8 ml/min; Glucose 177 mg/dl (70-99(Fasting)); Lipase 144 U/L (11-82); Sodium 134 mmol/L (136-145); Total Protein 7.3 gm/dl (6.0-8.3)
[2021-06-13 13:56] LABS: Appearance Urine Clear (Clear); Bacteria Urine Automated Negative (Negative); Bilirubin Urine Negative (Negative); Blood Urine Trace (Negative); Color Urine Yellow; Glucose Urine UA Negative (Negative); Ketones Urine 1+ (Negative); Leukocyte Esterase Urine Negative (Negative); Nitrite Urine Negative (Negative); Protein Urine Negative (Negative); RBC Urine Automated 0-4 /hpf (0-4); Specific Gravity Urine 1.014 (1.000-1.030); Urobilinogen Urine Negative (Negative); pH Urine 5.5 (4.5-7.5)
--- NOTE | 2021-06-13 14:50 | CT Scan Report ---
CT head/brain wo con CLINICAL HISTORY: confusion post op COMPARISON STUDY: 11/16/2017 CT DOSE: 1647.88 mGycm TECHNIQUE: Standard CT of the Brain was performed without IV contrast. A dose lowering technique was utilized adhering to the principles of ALARA. FINDINGS: Extraaxial space: There is no evidence for subdural hematoma. There are no extra-axial fluid collecti ons. Ventricles and cisterns: The ventricles are normal in size and configuration. There is no evidence f or midline shift or mass effect. Parenchyma: There is no subarachnoid or intraparenchymal hemorrhage. There is no evidence for an acu te infarct or cerebral edema. There is mild cerebral cortical atrophy and decreased attenuation in th e periventricular white matter representing remote small vessel disease. There are no gross mass lesi ons. Osseous structures: There is no evidence for an acute fracture. The visualized paranasal sinuses are clear. The mastoid air cells are clear bilaterally. Soft tissues: There is no evidence for focal soft tissue swelling. IMPRESSION: No acute intracerebral pathology. Atrophy and remote small vessel disease. ACT 112: Negative or not required by law. Electronically signed by: Kamar Christopher M.D. 06/13/2021 2:49 PM
--- NOTE | 2021-06-13 15:11 | CT Scan Report ---
CT cervical spine wo con CT DOSE: 681.24 mGycm CLINICAL HISTORY: 81 years-old Female with post op neck surgery, left arm pain. Acute neck pain with recent cervical spine surgery COMPARISON: Fluoroscopic images of the cervical spine 06/10/2021 TECHNIQUE: Multiple axial CT images of the cervical spine were obtained without contrast. A dose low ering technique was utilized adhering to the principles of ALARA. FINDINGS: Status post C6 corpectomy with C5-C7 anterior plate and screw fusion with discectomy. The h ardware appears intact. There is mild multilevel intervertebral disc space narrowing with associated uncovertebral spurring and posterior disc osteophyte complex formations. Moderate to severe multileve l facet arthrosis. 3 mm anterolisthesis C4 on C5 with 2 mm anterolisthesis C7 on T1, likely on a dege nerative basis. Severe disc space narrowing with partial bony fusion at T1-T2 is partially imaged. No acute fracture, subluxation or endplate erosions. Mastoid air cells are clear. Neuroforamina and geraldine tral canal are better evaluated by MRI. Note is made of multilevel high-grade neural foraminal stenos is. Lung apices are clear without pneumothorax. Subcentimeter hyperattenuating foci are noted within the prevertebral soft tissues, notably at the level of C5 and also at C7-T1. The lower foci may be within the esophageal lumen. Subcentimeter right tracheoesophageal recess lymph nodes measure up to 9 mm. T here is a large amount of prevertebral/retropharyngeal edema which extends from C1-C2 through the upp er thoracic spine containing a few foci of deep tissue air. There is mild hypopharyngeal airway narro wing. IMPRESSION: 1. Status post C6 corpectomy with C5-C7 anterior plate and screw fusion. There is a considerable amou nt of prevertebral edema containing a few foci of deep tissue air which extends from C1-C2 through th e upper thoracic spine resulting in mild hypopharyngeal narrowing. These findings are likely expected postoperative changes. No drainable fluid collection identified at this time. 2. There are a few subcentimeter hyperdense foci within the prevertebral tissues which may represent bone fragments versus hyperdense material within the esophageal lumen. 3. Likely reactive tracheoesophageal recess lymph nodes. 4. No acute fracture identified. ACT 112: Negative or not required by law. The above report was generated using voice recognition software. It may contain grammatical, syntax o r spelling errors. Electronically signed by: Geo Morgan M.D. 06/13/2021 3:10 PM
[2021-06-13] MEDS ORDERED: ONDANSETRON INJ 2 MG/ML 2 ML VIAL IV STA (15:28)
[2021-06-13] MEDS ORDERED: HYDROmorphone INJ 0.5 MG/0.5 ML SYR IV STA (15:28)
--- NOTE | 2021-06-13 16:13 | History & Physical Report ---
Date of Service June 13, 2021 Assessment & Plan (1) Encephalopathy: Plan: -Differential includes medication induced versus hypertensive encephalopathy. Patient is on tramadol and oxycodone for pain, this is being managed by her and so it is unclear how many doses she has been receiving since discharge. SBP elevated in the 180s-190s in ED. BP was elevated during most recent admission for operation, patient was started on metoprolol tartrate 25 mg twice daily at that time. Patient has not taken her metoprolol today. Infection less likely, as she does not have a WBC count, UA unremarkable with 1+ ketones and trace blood. CXR does not show any acute pathology. Head CT showed no acute intracerebral pathology. -Patient received metoprolol tartrate 25 mg in ED, SBP now in 130s and patient is mentating better. -Continue to monitor, maintain SBP < 180. -PRN Hydralazine for refractory HTN with SBP > 180. (2) Cervical myelopathy with cervical radiculopathy: Plan: -POD #3 s/p C5-C7 cervical fusion. Incision site with dressing intact, no surrounding erythema or other signs of infection. -Discharged on tramadol and oxycodone. Patient's has been managing these medications, patient is unaware of how many doses she has received but states she has not been requiring it as often as it is prescribed. (3) Diabetes: Plan: -Glucose 177. -Hold Metformin. -Patient takes 10 units insulin glargine qAM. We will continue during hospitalization. -Accu-Cheks achs with sliding scale insulin. (4) Hypertension: Plan: -Patient is hypertensive in the ED, SBP in 180s-190s. This was also an issue during her previous admission on 06/09, in which metoprolol tartrate 25 mg twice daily was started. Unsure if patient has been taking this at home since her d/c on 06/11. -Patient received metoprolol tartrate 25 mg in ED, SBP now in 130s and patient is mentating better. -Continue metoprolol 25mg twice daily. -PRN Hydralazine for refractory HTN with SBP > 180. (5) Depression: Plan: -Continue sertraline 50 mg daily. (6) Anxiety: Plan: -Continue hydroxyzine 10mg 3 times daily as needed. (7) DVT prophylaxis: Plan: -SCDs ordered. -Lovenox 40 mg SQ daily. History of Present Illness Chief Complaint: Confusion Primary Care Provider: Bruce Dumont Patient is 81-year-old female with past medical history of hypertension, diabetes, anxiety and depression, s/p cervical fusion POD #3 who presents today from home due to increased confusion since this morning. History is primarily derived from chart review, as patient is confused upon my exam and has difficulty recalling historical information. Patient was admitted , 06/09, and underwent successful cervical fusion on Sunday with discharge home on Sunday, 06/11. This morning, patient states she woke up and started walking around and was dizzy and confused about where she was and proceeded to sit back down in her recliner. Per , when he came down this morning she was in her recliner without her c-collar on, as it was several feet away from patient. She does not recall taking this off, but does complain of left shoulder pain, although she has no memory of any falls. Additionally, she complains of some body chills this morning, but denies fever, weakness, syncopal episode, chest pain, palpitations, shortness of breath, new cough, nausea, vomiting, abdominal pain, increased urinary frequency, hesitancy, or dysuria. She has had a chronic cough for the past month and states it is unchanged. Patient was discharged with tramadol 50 mg Q6h for moderate pain and oxycodone 5mg q6h for severe pain. Patient states her pain has been well controlled, her has been managing her pain medications and she has not been requiring them as often as they have been prescribed. Patient is hypertensive today in the ED, with SBP in 180-190s. Was also hypertensive during last admission, and subsequently started on metoprolol tartrate 25 mg p.o. twice daily. It is unknown if patient has been taking this as prescribed since her discharge. Allergies Allergy/AdvReac Type Severity Reaction Status Date / Time pseudoephedrine Allergy Intermediate hand, feet Verified 06/13/21 13:20 edema, skin peeling/redness hydromorphone AdvReac Severe delirium Verified 06/13/21 13:20 ketorolac [From Toradol] AdvReac Mild delirium Verified 06/13/21 13:20 Home Medications Medication Instructions Recorded Confirmed Type metformin 500 mg tablet 500 mg PO QPM 01/12/20 06/13/21 History sertraline 50 mg tablet 50 mg PO HS 01/12/20 06/13/21 History insulin glargine 100 unit/mL (3 10 unit SUBCUT QAM 03/09/20 06/13/21 History mL) subcutaneous pen (Basaglar KwikPen U-100 Insulin) hydroxyzine HCl 10 mg tablet 10 mg PO TID PRN 06/09/21 06/13/21 History metoprolol tartrate 25 mg tablet 25 mg PO BID #60 tab 06/11/21 06/13/21 Rx oxycodone 5 mg tablet 5 mg PO Q6H PRN #20 tab 06/11/21 06/13/21 Rx tramadol 50 mg tablet 50 mg PO Q6H PRN #20 tab 06/11/21 06/13/21 Rx Past Med/Surg History Medical History Anemia post-op several years ago per pt Anxiety and depression Pt reports stable and controlled, follows with PCP Bilateral arm weakness Bilateral leg weakness Degenerative disc disease Diabetes IDDM, A1c 7.1% 04/01/2021 Hx of pancreatitis 3+ years ago Obesity Osteoarthritis Surgical History Fusion of spine LUMBAR (TOTAL OF 3 SURGERIES), Hardware removal L2-L3, decompression T12-L2, L5-S1, T8-T10: Grade 1 view, Salazar#2, ETT#7.5 at [facility] T10-S1 iliac bolts: 11/13/17: Grade view 1 with cricoid pressure, MAC#3, ETT 7.0 at [facility]. No issues with either per both anesthesia postop progress notes. H/O knee surgery partial right knee replacement > 20 yrs ago History of appendectomy History of cataract surgery BL History of cholecystectomy History of colonoscopy History of herniorrhaphy UMBILICAL History of hysterectomy with bilateral oophorectomy History of total knee replacement LEFT [place] teeth removed Family History Mother Family history of diabetes mellitus Father Family history of diabetes mellitus Pancreatic cancer Social History Smoking Status: Former smoker Second Hand Exposure: No; Hx Alcohol Use: Yes Alcohol type: beer, wine and hard liquor Hx Substance Use: No Preferred Language: Venezuelan Communication Ability: Effective Super[employer] Required: No Beliefs That Will Affect Care: None marital status: Current Living Situation: Spouse Current Living Situation Comment: spring current occupational status: 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 Eyes: No diplopia, no worsening or blurred vision ENT: normal hearing, no trouble swallowing Respiratory: Reports productive cough for the past month; no dyspnea at rest or on exertion Cardiovascular: No chest pain, tightness or palpitations Abdomen: No pain, nausea, vomiting, diarrhea or constipation Musculoskeletal: Reports left shoulder pain; no calf pain or swelling Neurologic: No weakness, numbness/tingling, or balance problems Psychiatric: No anxiety or depression Skin: No rash or itch Physical Exam Physical Exam: General: awake, alert, no apparent distress Head: Normocephalic, atraumatic ENT: PERRL, EOMI, no pharyngeal exudate, mucous membranes moist Chest: Clear to auscultation, on room air, no adventitious breath sounds Cardiac: Regular rate and rhythm, no murmur, no JVD, normal peripheral pulses, good capillary refill Abdominal: NABS x 4 quadrants, soft, nontender to palpation, no rebound, guarding or tenderness Extremities: Normal inspection, no peripheral edema or erythema, calfs nontender to palpation Psych: Normal mood and affect Neuro: AAO x 3, strength intact bilaterally and rated 5/5, no motor deficits, speech is clear, no peripheral sensory deficits Skin: no rash or erythema Results & Data Results & Data ([facility]) Vital Signs (Past 12 Hours) Vital Signs Temp Pulse Pulse Pulse Resp BP BP 06/13/21 15:20 72 72 18 189/78 H 06/13/21 14:42 72 20 193/103 H 06/13/21 11:48 37 C 88 18 195/83 H Pulse Ox 06/13/21 15:20 98 06/13/21 14:42 95 06/13/21 11:48 98 Laboratory Results Abnormal lab results 06/13/21 06/13/21 06/13/21 Range/Units 12:50 12:53 12:53 RDW Std Deviation 49.2 H (36.4-46.3) fL RDW Coeff of Jc 14.8 H (11.5-14.5) % Neut # (Auto) 9.07 H (1.4-6.5) K/uL Lymph # (Auto) 0.80 L (1.2-3.4) K/uL [place] # (Auto) 0.78 H (0.11-0.59) K/uL Sodium 134 L (136-145) mmol/L BUN/Creatinine Ratio 30.4 H (10-20) Glucose 177 H (70-99(Fasting)) mg/dl Lipase 144 H (11-82) U/L Urine Ketones 1+ H (Negative) Urine Blood Trace H (Negative) U Epithel Cells (Auto) 10-20 H (0-5) /lpf Diagnostic Findings Chest X-Ray 06/13/21 12:56 SINGLE VIEW CHEST CLINICAL HISTORY: Change in mental status. FINDINGS: An AP, portable, upright chest radiograph is compared to study dated 04/14/2021. Correlation is made with chest CT dated 11/16/2017. The heart appears mildly enlarged. The pulmonary vasculature is noncongested. There is mild bibas ilar atelectasis. The lungs and pleural spaces are otherwise clear. No pneumothorax is seen. The skeletal structures are osteopenic. The bony thorax is grossly intact. Fusion hardware is noted in the lower cervical spine. There is extensive fusion hardware at the thoracolumbar junction. IMPRESSION: No acute cardiopulmonary abnormality. ACT 112: Negative or not required by law. Electronically signed by: Ritchie Ybarra M.D. 06/13/2021 1:[address] 06/13/21 12:56 CT head/brain wo con CLINICAL HISTORY: confusion post op COMPARISON STUDY: 11/16/2017 CT DOSE: 1647.88 mGycm TECHNIQUE: Standard CT of the Brain was performed without IV contrast. A dose lowering technique was utilized adhering to the principles of ALARA. FINDINGS: Extraaxial space: There is no evidence for subdural hematoma. There are no extra-axial fluid collections. Ventricles and cisterns: The ventricles are normal in size and configuration. There is no evidence for midline shift or mass effect. Parenchyma: There is no subarachnoid or intraparenchymal hemorrhage. There is no evidence for an acute infarct or cerebral edema. There is mild cerebral cortical atrophy and decreased attenuation in the periventricular white matter representing remote small vessel disease. There are no gross mass lesions. Osseous structures: There is no evidence for an acute fracture. The visualized paranasal sinuses are clear. The mastoid air cells are clear bilaterally. Soft tissues: There is no evidence for focal soft tissue swelling. IMPRESSION: No acute intracerebral pathology. Atrophy and remote small vessel disease. ACT 112: Negative or not required by law. Electronically signed by: Kamar Christopher M.D. 06/13/2021 2:49 PM Shoulder X-Ray 06/13/21 12:58 LEFT SHOULDER 3 VIEWS CLINICAL HISTORY: Left shoulder pain. FINDINGS: 3 views of the left shoulder are obtained. No prior studies are available for comparison at the time of dictation. The skeletal structures are osteopenic. There is no radiographic evidence of fracture or dislocation. Productive degenerative change is noted at the acromioclavicular joint. Mild degenerative change is also seen at the glenohumeral articulation. The overlying soft tissues are normal as imaged. Fusion hardware is seen in the lower cervical spine and at the thoracolumbar junction. The left lung parenchyma is clear as imaged. IMPRESSION: No acute bony abnormality is identified. Cervical Spine CT 06/13/21 14:26 CT cervical spine wo con CT DOSE: 681.24 mGycm CLINICAL HISTORY: 81 years-old Female with post op neck surgery, left arm pain. Acute neck pain with recent cervical spine surgery COMPARISON: Fluoroscopic images of the cervical spine 06/10/2021 TECHNIQUE: Multiple axial CT images of the cervical spine were obtained without contrast. A dose lowering technique was utilized adhering to the principles of ALARA. FINDINGS: Status post C6 corpectomy with C5-C7 anterior plate and screw fusion with discectomy. The hardware appears intact. There is mild multilevel intervertebral disc space narrowing with associated uncovertebral spurring and posterior disc osteophyte complex formations. Moderate to severe multilevel facet arthrosis. 3 mm anterolisthesis C4 on C5 with 2 mm anterolisthesis C7 on T1, likely on a degenerative basis. Severe disc space narrowing with partial bony fusion at T1-T2 is partially imaged. No acute fracture, subluxation or endplate erosions. Mastoid air cells are clear. Neuroforamina and central canal are better evaluated by MRI. Note is made of multilevel high-grade neural foraminal stenosis. Lung apices are clear without pneumothorax. Subcentimeter hyperattenuating foci are noted within the prevertebral soft tissues, notably at the level of C5 and also at C7-T1. The lower foci may be within the esophageal lumen. Subcentimeter right tracheoesophageal recess lymph nodes measure up to 9 mm. There is a large amount of prevertebral/retropharyngeal edema which extends from C1-C2 through the upper thoracic spine containing a few foci of deep tissue air. There is mild hypopharyngeal airway narrowing. IMPRESSION: 1. Status post C6 corpectomy with C5-C7 anterior plate and screw fusion. There is a considerable amount of prevertebral edema containing a few foci of deep tissue air which extends from C1-C2 through the upper thoracic spine resulting in mild hypopharyngeal narrowing. These findings are likely expected postoperative changes. No drainable fluid collection identified at this time. 2. There are a few subcentimeter hyperdense foci within the prevertebral tissues which may represent bone fragments versus hyperdense material within the esophageal lumen. 3. Likely reactive tracheoesophageal recess lymph nodes. 4. No acute fracture identified. Medications Administered Current Medications ECG Additional Comments: Normal sinus rhythm Left axis deviation Moderate voltage criteria for LVH, may be normal variant Nonspecific ST abnormality Abnormal ECG When compared with ECG of 09-JUN-2021 08:54, Criteria for Septal infarct are no longer Present Code Status & VTE Plan Code Status Full Code VTE Prophylaxis Plan VTE Prophylaxis will be ordered: Yes Supervising Physician Co-Signing Physician Notes Patient seen and examined, chart reviewed, case discussed with Yaritza De Los Santos and I agree with the assessment and plan as above except as otherwise noted General: Awake, alert. Oriented to name and place. HEENT: Atraumatic, normocephalic. Vision/hearing grossly intact. Pulm: CTAB A&P. -wheezes, -rales, -rhonchi. Symmetrical chest rise. No increase in work of breathing. No respiratory distress. Cardiac: RRR, -mrg. Radial pulses intact and symmetrical. Abdominal: Nontender, nondistended, soft. BS present. Extremities: Moves all extremities equally, strength grossly intact, sensation intact in hands and feet without asymmetry. Labs and images reviewed 81-year-old female who presents with concerns for increased confusion,? Hypertensive encephalopathy versus toxic medication encephalopathy with chronic opiate use. Hypertension improved following administration of home metoprolol dose, normotensive on recheck with improving mentation. Continue to follow, antihypertensive control and if needed can consider hydralazine for refractory hypertension SBP greater than 180, or additional metoprolol if heart rate to lerating. No leukocytosis, no troponin elevation, creatinine is in normal baseline no focal neurologic defects, CT head without acute findings PG Care Time/CCT Total # of Minutes Spent Total Time Spent with Patient: Total time spent is greater than 50% in coordination of care (as documented) at patient's floor/unit and/or counseling patient: Coding Level of Care Code 80122 Initial Inpt Care Lvl 3 Diagnoses Diabetes E11.9 DVT prophylaxis Z29.9 Cervical myelopathy with cervical radiculopathy G95.9; M54.12 Depression F32.A Encephalopathy G93.40 Anxiety F41.9 Hypertension I10
[2021-06-13] MEDS ORDERED: METOPROLOL TARTRATE 25 MG TAB PO STA (17:48)
[2021-06-13] MEDS ORDERED: hydrALAZINE HCL 20 MG/ML VIAL IV PRN (17:50)
[2021-06-13] MEDS ORDERED: DEXTROSE 50% 50 ML SYRINGE IV PRN (21:50)
[2021-06-13] MEDS ORDERED: GLUCOSE 40% GEL 15 GM TUBE PO PRN (21:50)
[2021-06-13] MEDS ORDERED: ONDANSETRON INJ 2 MG/ML 2 ML VIAL IV PRN (21:50)
[2021-06-13] MEDS ORDERED: CARBOHYDRATES FOR HYPOGLYCEMIA PO PRN (21:50)
[2021-06-13] MEDS ORDERED: GLUCAGON FOR INJ 1 MG VIAL SQ PRN (21:50)
[2021-06-13] MEDS ORDERED: hydrOXYzine HCl 10 MG TAB PO PRN (21:50)
[2021-06-13] MEDS ORDERED: POLYETHYLENE (MIRALAX) 17 GM PACK PO PRN (21:50)
[2021-06-13] MEDS ORDERED: GLUCOSE 10 TABS/TUBE PO PRN (21:50)
[2021-06-13] MEDS: INSULIN ASPART PER UNIT SC SCH (22:08)
[2021-06-13] MEDS: ENOXAPARIN INJ 40 MG/0.4 ML SYR SQ SCH (22:39)
[2021-06-13] MEDS: guaiFENesin 600 MG TABCR PO SCH (22:39)
[2021-06-13] MEDS: SERTRALINE HCL 50 MG TABLET PO SCH (22:40)
[2021-06-13] MEDS: METOPROLOL TARTRATE 25 MG TAB PO SCH (22:40)
--- NOTE | 2021-06-13 23:05 | Electrocardiogram Report ---
Test Reason : Blood Pressure : / mmHG Vent. Rate : 068 BPM Atrial Rate : 068 BPM P-R Int : 184 ms QRS Dur : 102 ms QT Int : 424 ms P-R-T Axes : 046 -43 007 degrees QTc Int : 450 ms Normal sinus rhythm Left axis deviation Moderate voltage criteria for LVH, may be normal variant Nonspecific ST abnormality Abnormal ECG When compared with ECG of 09-JUN-2021 08:54, No significant change Confirmed by Bishnu Cohen ([id number]) on 06/13/2021 11:05:06 PM Referred By: Confirmed By:Bishnu Cohen
[2021-06-14 05:52] LABS: Basophils # (auto) 0.01 K/uL (0-0.2); Basophils % (auto) 0.1 %; Hematocrit (blood only) 35.3 % (37-47); Hemoglobin 11.5 g/dL (12.0-16.0); Immature Granulocytes # (auto) 0.03 K/uL (0.00-0.02); Immature Granulocytes % (auto) 0.3 %; Lymphocytes % (auto) 8.6 %; Mean Corpuscular Hgb Conc 32.6 g/dL (32-36); Mean Corpuscular Volume 89.1 fL (80-100); Monocytes # (auto) 0.77 K/uL (0.11-0.59); Monocytes % (auto) 7.3 %; Neutrophils # (auto) 8.79 K/uL (1.4-6.5); Neutrophils % (auto) 83.7 %; Platelet Count 214 K/uL (130-400); RDW Coefficient of Variation 14.3 % (11.5-14.5); RDW Standard Deviation 46.9 fL (36.4-46.3); Red Blood Count 3.96 M/uL (4.2-5.4)
[2021-06-14 06:15] LABS: BUN Creatinine Ratio 31.5 (10-20); Calcium 9.3 mg/dl (8.5-10.1); Creatinine Clr Calc Pharmacy 100.1 ml/min; Est GFR (Non-African American) 89.8 ml/min; Potassium 3.8 mmol/L (3.5-5.1)
--- NOTE | 2021-06-14 07:44 | Medical Student Progress Note ---
Date of Service June 14, 2021 Assessment & Plan (1) Encephalopathy: Plan: Patient is a 81 year old female with a recent history of hospitalization and cervical fusion (06/10/21) admitted for evaluation of altered mental status which is now improving. Encephalopathy, improving - acute-onset - workup included CXR, Head CT, Shoulder XR, and C-spine CT: all unremarkable - WBC wnl, electrolyes wnl, UA unremarkable - in setting of above, infection or metabolic causes unlikely - differential: medication induced versus hypertensive encephalopathy. * Received tramadol and oxycodone for post-op pain managed by * SBP elevated in the 180s-190s in ED - currently holding narcotics (patient receiving tylenol for pain control) and treating hypertension Hypertension - As above, SBP in 180s-190s on admission -this was issue during previous hospitalization; outpatient SBP 150-160 over last year - was prescribed metoprolol tartrate 25 mg BID s/p surgery, unclear if taken - PRN Hydralazine for refractory HTN with SBP > 180 - in setting of obesity, consider outpatient sleep study - Discontinued metoprolol, initiated lisinopril 10 mg Cervical myelopathy with cervical radiculopathy s/p C5-C7 cervical fusion - C5-C7 cervical fusion completed 06/10/2021 - Incision site with dressing intact, no surrounding erythema or other signs of infection. - PT/OT consulted for continued significant weakness - continue tylenol for pain control Diabetes - most recent A1c 7.1 (03/2021) - Hold home metformin - continue home glargine (10u qAM) - ACHS glucose checks with SSI Depression - Continue home sertraline Anxiety - Continue hydroxyzine 10mg TID PRN FEN/GI: DM2 DVT prophylaxis: Lovenox Code status: full code Dispo: Home tomorrow pending stability in mental status (2) Hypertension: (3) Cervical myelopathy with cervical radiculopathy: (4) Diabetes: Admission and Anticipated Discharge Date Admission Date: June 13, 2021 Supervising Attestation I personally examined the patient and verified all godinez points of history and exam, discussed case, and agree with decision making with Kiah De Los Santos MS4 apparently up and down through the day, but lucid when we see her this afternoon to the point of being able to give medical details with reasonable accuracy and 's phone number vitals noted nad heent nc at mmm hard collar in place no focal neuro deficits encephalopathy - far more likely pain med induced than hypertensive. doing well on APAP alone - will hold on narcotics/etc uncontrolled HTN - doubt hypertensive encephalopathy - numbers have been at/around this range prior stay and near this at frequent office visit recordings without mentation changes - but do suspect baseline uncontrolled HTN - as above otherwise as above Subjective This morning, Gracie's confusion has improved. She says that her pain is tolerable, and she still has her baseline weakness. She was unable to sleep last night. She denies nausea/vomiting, headache, changes in vision. She endorses some daytime sleepiness and attributes it to her pain regimen. Review of Systems Review of Systems: per HPI Physical Exam Constitutional: WD/WN, vitals as above Eyes: PERRL, conjunctivae normal, anicteric sclerae ENMT: external ear and nose normal, oropharynx normal Neck: wearing cervical collar Respiratory: normal respiratory effort, lungs clear to auscultation Cardiovascular: RRR, no murmur, no edema Musculoskeletal: incision site from recent surgery clean, dry, intact Results & Data ([facility]) Vital Signs (Past 12 Hours) Vital Signs Temp Pulse Pulse Resp BP Pulse Ox 06/14/21 07:35 36.7 C 77 16 173/83 H 95 06/14/21 03:49 36.3 C L 68 22 173/81 H 93 06/14/21 02:28 37.1 C 70 22 177/70 H 91 06/13/21 22:30 36.8 C 67 24 178/80 H 92 06/13/21 21:23 64 18 182/82 H 94 Resident Activity Tracking Resident Involvement: Resident Care Provided Care Provided: Adult Hospital Medicine
[2021-06-14] MEDS: INSULIN ASPART PER UNIT SC SCH ×4 (09:05→21:00)
[2021-06-14] MEDS: INSULIN GLARGINE SOLOSTAR 100 UNITS/ML 3 ML PEN SQ SCH (09:07)
[2021-06-14] MEDS: guaiFENesin 600 MG TABCR PO SCH ×2 (09:08→20:07)
[2021-06-14] MEDS: METOPROLOL TARTRATE 25 MG TAB PO SCH (09:10)
--- NOTE | 2021-06-14 17:53 | Billing Data ---
Date of Service June 14, 2021 Coding Level of Care Code 69034 Subseq Hosp Care Lvl 3
[2021-06-14] MEDS: ACETAMINOPHEN 325 MG TAB PO PRN (20:06)
[2021-06-14] MEDS: SERTRALINE HCL 50 MG TABLET PO SCH (20:07)
[2021-06-14] MEDS: ENOXAPARIN INJ 40 MG/0.4 ML SYR SQ SCH (21:00)
[2021-06-15 06:13] LABS: Basophils # (auto) 0.01 K/uL (0-0.2); Basophils % (auto) 0.1 %; Eosinophils # (auto) 0.04 K/uL (0-0.5); Eosinophils % (auto) 0.5 %; Hematocrit (blood only) 34.8 % (37-47); Hemoglobin 11.4 g/dL (12.0-16.0); Immature Granulocytes # (auto) 0.02 K/uL (0.00-0.02); Immature Granulocytes % (auto) 0.2 %; Lymphocytes # (auto) 1.04 K/uL (1.2-3.4); Lymphocytes % (auto) 12.5 %; Mean Corpuscular Hemoglobin 29.2 pg (25-34); Mean Corpuscular Hgb Conc 32.8 g/dL (32-36); Mean Platelet Volume 9.5 fL (7.4-10.4); Monocytes # (auto) 0.95 K/uL (0.11-0.59); Monocytes % (auto) 11.4 %; Neutrophils # (auto) 6.25 K/uL (1.4-6.5); Neutrophils % (auto) 75.3 %; Platelet Count 240 K/uL (130-400); RDW Coefficient of Variation 14.4 % (11.5-14.5); RDW Standard Deviation 46.9 fL (36.4-46.3); Red Blood Count 3.91 M/uL (4.2-5.4); White Blood Count 8.31 K/uL (4.8-10.8)
[2021-06-15 06:31] LABS: BUN Creatinine Ratio 24.6 (10-20); Calcium 9.6 mg/dl (8.5-10.1); Creatinine Clr Calc Pharmacy 88.6 ml/min; Est GFR (African American) 99.9 ml/min; Est GFR (Non-African American) 86.2 ml/min
[2021-06-15] MEDS: lisinopril 10 MG TAB PO SCH (08:48)
[2021-06-15] MEDS: guaiFENesin 600 MG TABCR PO SCH ×2 (08:48→21:41)
[2021-06-15] MEDS: INSULIN GLARGINE SOLOSTAR 100 UNITS/ML 3 ML PEN SQ SCH (08:49)
[2021-06-15] MEDS: INSULIN ASPART PER UNIT SC SCH ×4 (08:50→23:06)
[2021-06-15] MEDS: ACETAMINOPHEN 325 MG TAB PO PRN ×3 (08:54→21:45)
--- NOTE | 2021-06-15 10:21 | Hospitalist Progress Note ---
Date of Service June 15, 2021 Assessment & Plan (1) Encephalopathy: Plan: Patient is a 81 year old female with a recent history of hospitalization and cervical fusion (06/10/21) admitted for evaluation of altered mental status which is now improving. AMS/Encephalopathy, improving - acute-onset - workup included CXR, Head CT, Shoulder XR, and C-spine CT: all unremarkable - WBC wnl, electrolyes wnl, UA unremarkable - in setting of above, infection or metabolic causes unlikely - differential: medication induced versus hypertensive encephalopathy. * Received tramadol and oxycodone for post-op pain managed by . Most likely etiology of her AMS * SBP elevated in the 180s-190s in ED - currently holding narcotics (patient receiving tylenol for pain control) and treating hypertension -Waxing/waning cognition suggestive of hospital-induced delirium, continue frequent reorientation -Given age, deconditioning, delirium and her own preference, pt would benefit from inpatient rehab. Case management following. Hypertension - As above, SBP in 180s-190s on admission -this was an issue during previous hospitalization; outpatient SBP 150-160 over last year - was prescribed metoprolol tartrate 25 mg BID s/p surgery, unclear if taken - PRN Hydralazine for refractory HTN with SBP > 180 - in setting of obesity, consider outpatient sleep study - Discontinued metoprolol, initiated lisinopril 10 mg on 06/14 - SBP elevated to 190s on exam this morning while upright after struggling with moving, repeat BP of 130/80 when laying down/comfortable - Consider increasing lisinopril dose if SBPs consistently elevated Cervical myelopathy with cervical radiculopathy s/p C5-C7 cervical fusion - C5-C7 cervical fusion completed 06/10/2021 - Incision site with dressing intact, no surrounding erythema or other signs of infection. - PT/OT consulted for continued significant weakness - continue tylenol for pain control Diabetes - most recent A1c 7.1 (03/2021) - Hold home metformin - continue home glargine (10u qAM) - ACHS glucose checks with SSI Depression - Continue home sertraline Anxiety - Continue hydroxyzine 10mg TID PRN FEN/GI: DM2 DVT prophylaxis: Lovenox Code status: full code Dispo: Home tomorrow pending stability in mental status (2) Hypertension: (3) Cervical myelopathy with cervical radiculopathy: (4) Diabetes: Admission and Anticipated Discharge Date Admission Date: June 13, 2021 Supervising Physician Co-Signing Physician Notes I personally examined the patient and verified all godinez points of history and exam, discussed case, and agree with decision making with Dr Simms more delirious through the night, quite lucid today. vitals noted nad heent nc at mmm hard collar in place no focal neuro deficits encephalopathy - far more likely pain med induced than hypertensive (possible adverse effects of analgesic medication in the setting of post op pain control) now doing well on APAP alone - will hold on narcotics/etc uncontrolled HTN - doubt hypertensive encephalopathy - numbers have been at/around this range prior stay and near this at frequent office visit recordings without mentation changes - but do suspect baseline uncontrolled HTN - as above - BP with better trend today otherwise as above Subjective Overnight per nursing report, pt apparently was confused and hallucinating, attempted to get OOB a few times and remove collar, required several tries of reorientation. Pt states she also had some wheezes overnight but oxygen helped her. Pt aware she was confused overnight along with poor sleep and states she feels much more cogent right now. States she feels weak and would prefer to go to inpatient rehab instead of home. During evaluation, nurse was attempting to help patient move OOB and pt visibly struggled. BP measurement was 198/83. Pt was then laid back onto bed for repeat BP. Review of Systems Review of Systems: All systems reviewed & are unremarkable except as noted in Subjective Physical Exam Physical Exam: General: awake, alert, no apparent distress Head: Normocephalic, atraumatic ENT: EOMI, no pharyngeal exudate, moist mucous membranes, cervical collar in place Chest: CTAB, unlabored respirations, breathing comfortably on 2L NC Cardiac: Regular rate and rhythm, no murmur, no JVD, normal peripheral pulses, good capillary refill Abdominal: Soft, nondistended, nontender to palpation, no rebound or guarding Extremities: Normal inspection, no peripheral edema or erythema, calves nontender to palpation Neuro: AO x 3, no gross focal motor or sensory deficits Skin: no rash or erythema Results & Data Results & Data ([facility]) Vital Signs (Past 12 Hours) Vital Signs Temp Pulse Resp BP Pulse Ox 06/15/21 07:35 36.5 C 71 20 178/79 H 100 06/14/21 22:28 36.4 C L 78 22 154/85 H 96 Resident Activity Tracking Resident Involvement: Resident Care Provided Care Provided: Adult Hospital Medicine
--- NOTE | 2021-06-15 18:46 | Billing Data ---
Date of Service June 15, 2021 Coding Level of Care Code 04786 Subseq Hosp Care Lvl 2
[2021-06-15] MEDS: SERTRALINE HCL 50 MG TABLET PO SCH (21:40)
[2021-06-15] MEDS: ENOXAPARIN INJ 40 MG/0.4 ML SYR SQ SCH (21:43)
[2021-06-16] MEDS: ACETAMINOPHEN 325 MG TAB PO PRN ×3 (02:08→22:06)
[2021-06-16] MEDS: MELATONIN 3 MG TAB PO PRN (02:08)
[2021-06-16 06:13] LABS: Basophils # (auto) 0.01 K/uL (0-0.2); Basophils % (auto) 0.1 %; Eosinophils # (auto) 0.12 K/uL (0-0.5); Eosinophils % (auto) 1.6 %; Hematocrit (blood only) 31.7 % (37-47); Hemoglobin 10.3 g/dL (12.0-16.0); Immature Granulocytes # (auto) 0.02 K/uL (0.00-0.02); Immature Granulocytes % (auto) 0.3 %; Lymphocytes # (auto) 1.35 K/uL (1.2-3.4); Lymphocytes % (auto) 17.5 %; Mean Corpuscular Hemoglobin 29.3 pg (25-34); Mean Corpuscular Hgb Conc 32.5 g/dL (32-36); Mean Corpuscular Volume 90.3 fL (80-100); Mean Platelet Volume 9.9 fL (7.4-10.4); Monocytes % (auto) 10.4 %; Neutrophils % (auto) 70.1 %; Platelet Count 265 K/uL (130-400); RDW Coefficient of Variation 14.3 % (11.5-14.5); RDW Standard Deviation 47.4 fL (36.4-46.3); Red Blood Count 3.51 M/uL (4.2-5.4)
[2021-06-16 06:26] LABS: BUN Creatinine Ratio 25.4 (10-20); Calcium 9.4 mg/dl (8.5-10.1); Creatinine Clr Calc Pharmacy 76.1 ml/min; Est GFR (African American) 93.9 ml/min; Potassium 3.5 mmol/L (3.5-5.1)
[2021-06-16] MEDS: lisinopril 10 MG TAB PO SCH (08:37)
[2021-06-16] MEDS: INSULIN GLARGINE SOLOSTAR 100 UNITS/ML 3 ML PEN SQ SCH (08:37)
[2021-06-16] MEDS: guaiFENesin 600 MG TABCR PO SCH ×2 (08:37→20:51)
[2021-06-16] MEDS: INSULIN ASPART PER UNIT SC SCH ×4 (08:40→21:32)
--- NOTE | 2021-06-16 12:33 | Hospitalist Progress Note ---
Date of Service June 16, 2021 Assessment & Plan (1) Encephalopathy: Plan: Patient is a 81 year old female with a recent history of hospitalization and cervical fusion (06/10/21) admitted for evaluation of altered mental status which is now improving. AMS/Encephalopathy, resolved - acute-onset - workup included CXR, Head CT, Shoulder XR, and C-spine CT: all unremarkable - WBC wnl, electrolyes wnl, UA unremarkable - in setting of above, infection or metabolic causes unlikely - differential: medication induced versus hypertensive encephalopathy. * Received tramadol and oxycodone for post-op pain managed by . Most likely etiology of her AMS * SBP elevated in the 180s-190s in ED - currently holding narcotics (patient receiving tylenol for pain control) and treating hypertension -Waxing/waning cognition suggestive of hospital-induced delirium but this is improving, continue frequent reorientation -Given age, deconditioning, delirium and her own preference, pt would benefit from inpatient rehab. Case management following. Hypertension - As above, SBP in 180s-190s on admission -this was an issue during previous hospitalization; outpatient SBP 150-160 over last year - was prescribed metoprolol tartrate 25 mg BID s/p surgery, unclear if taken - PRN Hydralazine for refractory HTN with SBP > 180 - in setting of obesity, consider outpatient sleep study - Discontinued metoprolol, initiated lisinopril 10 mg on 06/14 - SBP elevated to 190s on 06/15 but normalizing BP trend today - Consider increasing lisinopril dose if SBPs consistently elevated Cervical myelopathy with cervical radiculopathy s/p C5-C7 cervical fusion - C5-C7 cervical fusion completed 06/10/2021 - Incision site with dressing intact, no surrounding erythema or other signs of infection. - PT/OT consulted for continued significant weakness - continue tylenol for pain control Diabetes - most recent A1c 7.1 (03/2021) - Hold home metformin - continue home glargine (10u qAM) - ACHS glucose checks with SSI Depression - Continue home sertraline Anxiety - Continue hydroxyzine 10mg TID PRN FEN/GI: DM2 DVT prophylaxis: Lovenox Code status: full code Dispo: Inpatient rehab, (2) Hypertension: (3) Cervical myelopathy with cervical radiculopathy: (4) Diabetes: Admission and Anticipated Discharge Date Admission Date: June 13, 2021 Supervising Physician Co-Signing Physician Notes I personally examined the patient and verified all godinez points of history and exam, discussed case, and agree with decision making with Dr Simms no confusion/delirium. does continue to waver on trying at home vs going to rehab. d/w case management vitals noted nad heent nc at mmm hard collar in place no focal neuro deficits encephalopathy - far more likely pain med induced than hypertensive (possible adverse effects of analgesic medication in the setting of post op pain control) now doing well on APAP alone - will hold on narcotics/etc - mentation has overall improved uncontrolled HTN - truly doubt hypertensive encephalopathy - numbers have been at/around this range prior stay and near this at frequent office visit recordings without mentation changes - but do suspect baseline uncontrolled HTN - as above - BP continues to overall trend better anticipate going to rehab - stable when bed/approval otherwise as above Subjective No acute events overnight, slept better with less coughing. Pt did not experience confusion overnight, reports feeling well this morning without acute concerns. Review of Systems Review of Systems: All systems reviewed & are unremarkable except as noted in Subjective Physical Exam Physical Exam: General: awake, alert, no apparent distress Head: Normocephalic, atraumatic ENT: EOMI, no pharyngeal exudate, moist mucous membranes, cervical collar in place Chest: Some minor transmitted upper airway sounds, unlabored respirations, breathing comfortably on RA Cardiac: Regular rate and rhythm, no murmur, no JVD, normal peripheral pulses, good capillary refill Abdominal: Soft, nondistended, nontender to palpation, no rebound or guarding Extremities: Normal inspection, no peripheral edema or erythema, calves nontender to palpation Neuro: AO x 3, no gross focal motor or sensory deficits Skin: no rash or erythema Results & Data Results & Data ([facility]) Vital Signs (Past 12 Hours) Vital Signs Temp Pulse Resp BP Pulse Ox 06/16/21 07:30 36.6 C 71 18 154/79 H 94 Resident Activity Tracking Resident Involvement: Resident Care Provided Care Provided: Adult Hospital Medicine
--- NOTE | 2021-06-16 18:17 | Billing Data ---
Date of Service June 16, 2021 Coding Level of Care Code 87952 Subseq Hosp Care Lvl 2
[2021-06-16] MEDS: SERTRALINE HCL 50 MG TABLET PO SCH (20:51)
[2021-06-16] MEDS: ENOXAPARIN INJ 40 MG/0.4 ML SYR SQ SCH (20:51)
[2021-06-17] MEDS: MELATONIN 3 MG TAB PO PRN (01:07)
[2021-06-17] MEDS: INSULIN ASPART PER UNIT SC SCH ×2 (08:58→12:39)
[2021-06-17] MEDS: INSULIN GLARGINE SOLOSTAR 100 UNITS/ML 3 ML PEN SQ SCH (08:58)
[2021-06-17] MEDS: lisinopril 10 MG TAB PO SCH (09:00)
[2021-06-17] MEDS: guaiFENesin 600 MG TABCR PO SCH (09:01)
--- NOTE | 2021-06-17 11:17 | Discharge Summary ---
Date of Service June 17, 2021 Admission HPI Per Admitting Provider Patient is 81-year-old female with past medical history of hypertension, diabetes, anxiety and depression, s/p cervical fusion POD #3 who presents today from home due to increased confusion since this morning. History is primarily derived from chart review, as patient is confused upon my exam and has difficulty recalling historical information. Patient was admitted , 06/09, and underwent successful cervical fusion on Sunday with discharge home on Sunday, 06/11. This morning, patient states she woke up and started walking around and was dizzy and confused about where she was and proceeded to sit back down in her recliner. Per , when he came down this morning she was in her recliner without her c-collar on, as it was several feet away from patient. She does not recall taking this off, but does complain of left shoulder pain, although she has no memory of any falls. Additionally, she complains of some body chills this morning, but denies fever, weakness, syncopal episode, chest pain, palpitations, shortness of breath, new cough, nausea, vomiting, abdominal pain, increased urinary frequency, hesitancy, or dysuria. She has had a chronic cough for the past month and states it is unchanged. Patient was discharged with tramadol 50 mg Q6h for moderate pain and oxycodone 5mg q6h for severe pain. Patient states her pain has been well controlled, her has been managing her pain medications and she has not been requiring them as often as they have been prescribed. Patient is hypertensive today in the ED, with SBP in 180-190s. Was also hypertensive during last admission, and subsequently started on metoprolol tartrate 25 mg p.o. twice daily. It is unknown if patient has been taking this as prescribed since her discharge. Admission Exam Per Admitting Provider Head: Normocephalic, atraumatic ENT: PERRL, EOMI, no pharyngeal exudate, mucous membranes moist Chest: Clear to auscultation, on room air, no adventitious breath sounds Cardiac: Regular rate and rhythm, no murmur, no JVD, normal peripheral pulses, good capillary refill Abdominal: NABS x 4 quadrants, soft, nontender to palpation, no rebound, guarding or tenderness Extremities: Normal inspection, no peripheral edema or erythema, calfs nontender to palpation Psych: Normal mood and affect Neuro: AAO x 3, strength intact bilaterally and rated 5/5, no motor deficits, speech is clear, no peripheral sensory deficits Skin: no rash or erythema Principal Diagnosis Altered mental status secondary to medication side effect Discharge Exam General: awake, alert, no apparent distress, slowly ambulating with difficulty while doing PT session Head: Normocephalic, atraumatic ENT: EOMI, no pharyngeal exudate, moist mucous membranes, cervical collar in place Chest: CTAB, unlabored respirations, breathing comfortably on RA Cardiac: Regular rate and rhythm, no murmur, no JVD, normal peripheral pulses, good capillary refill Abdominal: Soft, nondistended, nontender to palpation, no rebound or guarding Extremities: Normal inspection, no peripheral edema or erythema, calves nontender to palpation Neuro: AO x 3, no gross focal motor or sensory deficits Skin: no rash or erythema Discharge Data Allergies Allergy/AdvReac Type Severity Reaction Status Date / Time pseudoephedrine Allergy Intermediate hand, feet Verified 06/13/21 13:20 edema, skin peeling/redness hydromorphone AdvReac Severe delirium Verified 06/13/21 13:20 ketorolac [From Toradol] AdvReac Mild delirium Verified 06/13/21 13:20 Consultations 06/13/21 16:09 ED Decision to Admit Stat Ordered Studies 06/13/21 12:56 CT head/brain wo con Stat 06/13/21 14:26 CT cervical spine wo con Stat Hospital Course (1) Encephalopathy: Patient is a 81 year old female with a recent history of hospitalization and cervical fusion (06/10/21) admitted for evaluation of altered mental status. AMS/Encephalopathy, resolved - acute-onset - workup included CXR, Head CT, Shoulder XR, and C-spine CT: all unremarkable - WBC wnl, electrolyes wnl, UA unremarkable - in setting of above, infection or metabolic causes unlikely - differential: medication induced versus hypertensive encephalopathy. * Received tramadol and oxycodone for post-op pain managed by . Most likely etiology of her AMS * SBP elevated in the 180s-190s in ED -Waxing/waning cognition suggestive of hospital-induced delirium but has resolved -Given age, deconditioning, delirium and her own preference, pt would benefit from inpatient rehab. Discharged to [facility] on 06/17 Hypertension - As above, SBP in 180s-190s on admission -this was an issue during previous hospitalization; outpatient SBP 150-160 over last year - was prescribed metoprolol tartrate 25 mg BID s/p surgery, unclear if taken - PRN Hydralazine for refractory HTN with SBP > 180 - in setting of obesity, consider outpatient sleep study - Discontinued metoprolol, initiated lisinopril 10 mg on 06/14 - SBP elevated to 190s on 06/15 but normalizing BP trend afterward for duration of stay - Consider increasing lisinopril dose if SBPs consistently elevated, also BMP as outpatient Cervical myelopathy with cervical radiculopathy s/p C5-C7 cervical fusion - C5-C7 cervical fusion completed 06/10/2021 - Incision site with dressing intact, no surrounding erythema or other signs of infection. - PT/OT consulted for continued significant weakness secondary to deconditioning - Pain controlled with Tylenol Diabetes - most recent A1c 7.1 (03/2021) - BSGs stable in hospital (2) Hypertension: (3) Cervical myelopathy with cervical radiculopathy: (4) Diabetes: Total Time Total Time Spent Total Time Spent (In Minutes): <30 Discharge Plan Discharge Items Patient Disposition: Transfer Inpatient Rehab Fac Reason For Visit: ENCEPHALOPATHY Discharge Diagnosis: Altered mental status Activity: Per Instructions section Non-emergency contact: Primary Care Provider Call non-emergency contact if: you have any medication questions and your symptoms worsen Follow-up/Referrals: Bruce Dumont [Primary Care Provider] - Diet: Carb Consistent or DM2 Addtl Attending Provider Instructions: You were admitted to the hospital for confusion. Our workup ruled out several causes of this confusion, such as infection and stroke. Most likely, your confusion was due to side effects from the pain medication for your surgery. Your confusion resolved but you did lose some of your strength and mobility from being in the hospital, which inpatient rehab should help fix. A discharge summary will be sent to your primary care physician to ensure continuity of care. Please bring this discharge summary with you to your next office appointment so that your provider can review it at that time. Follow-up appointments: Make a follow-up appointment with your PCP, hopefully soon sometime after your stay at rehab. It is very important that you follow up with them shortly after discharge from the hospital. Medications: Your medication list has been reviewed and reconciled upon discharge to ensure accuracy and continuity of care. An updated list of all your medications is included with your hospital discharge paperwork. Please review this list closely, and make note of any changes. Take your medications as instructed; do not skip a dose of your medicines. Make sure all of your doctors know every medicine you are taking (including [id number] medicines, vitamins, and supplements). Call your primary care provider before taking any new medicines (including [id number]-visxiuo medicines, vitamins, and supplements), because some of these may interact with your current medications, or may make your symptoms worse. Tell your primary care provider if you cannot afford your medications. CONTACT YOUR PRIMARY CARE PROVIDER if you experience any of the following: Confusion Chills Headache Lightheadedness Poor sleep Difficulty eating, nausea or vomiting Difficulty following your treatment plan, or difficulty taking medications CALL 911 OR GO TO THE EMERGENCY DEPARTMENT if you experience any of the following: Sudden, severe abdominal pain or nausea/vomiting Severe chest pain, or chest pain that radiates (moves) to your jaw or arm Sudden, severe shortness of breath or difficulty breathing Thank you for allowing us to participate in your care. Pending Studies at Discharge: No Stand-Alone Forms: [facility], Smoking Cessation Skilled Items Patient informed of condition?: Yes DNR: No Discharge Level of Care: Acute rehab Communicable Disease: No Discharge Prognosis: Stable Lines: None Urinary Catheter: No Medications and DC Order Prescriptions: New lisinopril 10 mg Tablet 10 mg PO QAM Qty: 0 RF: 0 lisinopril 10 mg tablet 10 mg PO DAILY Qty: 30 RF: 1 Continued metformin 500 mg Tablet 500 mg PO QPM RF: 0 sertraline 50 mg Tablet 50 mg PO HS RF: 0 Basaglar KwikPen U-100 Insulin 100 unit/mL (3 mL) Insulin Pen 10 unit SUBCUT QAM RF: 0 hydroxyzine HCl 10 mg tablet 10 mg PO TID PRN (Reason: Anxiety) RF: 0 tramadol 50 mg tablet 50 mg PO Q6H PRN (Reason: pain, moderate) Qty: 20 RF: 0 oxycodone 5 mg tablet 5 mg PO Q6H PRN (Reason: pain, severe) Qty: 20 RF: 0 Discontinued metoprolol tartrate 25 mg Tablet 25 mg PO BID Qty: 60 RF: 0 Discharge Orders: Discharge Order (Routine); Ordered 06/17/21 Ordered By: David Simms Admission Data Admit Date/Time: 06/13/21 17:11 Attending Provider: Min Olvera Admit Provider: Glenn Olson Primary Care Provider: Bruce Dumont Other Providers: Glenn Olson ; [facility] ; [facility] Other Interventions: Discharge Summary Assessment (RN) Last Done: 06/17/21 13:55 Supervising Physician Co-Signing Physician Notes I personally examined the patient and verified all godinez points of history and exam, discussed case, and agree with decision making with Dr Simms feeling fine just waiting on rehab - can go today vitals noted nad heent nc at mmm hard collar in place no focal neuro deficits encephalopathy - far more likely pain med induced than hypertensive (possible adverse effects of analgesic medication in the setting of post op pain control) now doing well on APAP alone - will hold on narcotics/etc - mentation has overall improved, stable for rehab uncontrolled HTN - truly doubt hypertensive encephalopathy - numbers have been at/around this range prior stay and near this at frequent office visit recordings without mentation changes - but do suspect baseline uncontrolled HTN - as above stable for rehab otherwise as above Resident Activity Tracking Resident Involvement: Resident Care Provided Care Provided: Adult Hospital Medicine
[2021-06-17] MEDS: ACETAMINOPHEN 325 MG TAB PO PRN (12:02)
--- NOTE | 2021-06-17 17:51 | Billing Data ---
Date of Service June 17, 2021 Coding Level of Care Code D/C DAY MANAGEMENT <30 MINS
== END 2021-06-17 14:30 | DRG 92 ==
LOC: ED 11:48 → SUATTDRO 17:11 → 3E 17:11
DX: Z98.890 Other specified postprocedural states; Z98.1 Arthrodesis status; Z83.3 Family history of diabetes mellitus; M54.12 Radiculopathy, cervical region; E11.9 Type 2 diabetes mellitus without complications; Z88.5 Allergy status to narcotic agent; Z88.8 Allergy status to other drugs, medicaments and biological substances; G92.8 Other toxic encephalopathy; M50.00 Cervical disc disorder with myelopathy, unspecified cervical region; Y92.009 Unspecified place in unspecified non-institutional (private) residence as the place of occurrence of the external cause; T40.2X5A Adverse effect of other opioids, initial encounter; R44.3 Hallucinations, unspecified; M25.512 Pain in left shoulder; E66.9 Obesity, unspecified; Z79.891 Long term (current) use of opiate analgesic; Z79.4 Long term (current) use of insulin; Z68.41 Body mass index [BMI] 40.0-44.9, adult; I10 Essential (primary) hypertension; F41.8 Other specified anxiety disorders; Z87.891 Personal history of nicotine dependence

== ENCOUNTER 2022-09-19 06:40 | Inpatient (IN) ==
--- NOTE | 2022-08-31 13:10 | PAT Medication Instructions ---
Medication Instructions Date of Service August 31, 2022 Home Medications insulin glargine 100 unit/mL (3 mL) subcutaneous pen (Lantus Solostar U-100 Insulin) 10 unit subcut QPM sertraline 100 mg tablet 100 mg PO HS lisinopril 5 mg tablet 5 mg PO BID oxybutynin chloride 5 mg tablet,extended release 24 hr 5 mg PO QAM DO NOT take the morning of surgery lisinopril 5 mg tablet 5 mg PO BID oxybutynin chloride 5 mg tablet,extended release 24 hr 5 mg PO QAM Take evening before surgery insulin glargine 100 unit/mL (3 mL) subcutaneous pen (Lantus Solostar U-100 Insulin) 10 unit subcut QPM sertraline 100 mg tablet 100 mg PO HS lisinopril 5 mg tablet 5 mg PO BID OTHERWISE NOTHING TO EAT OR DRINK AFTER MIDNIGHT Other Notes If you have any questions please call us at [phone] or [phone] or [phone] or [phone]
--- NOTE | 2022-09-05 13:40 | Anesthesiology Consultation ---
Date of Service September 05, 2022 Assessment & Plan (1) Encounter for pre-operative examination: - pending BMP. - check BSG am DOS. Chart Review Chart Review: Pending: Refer to Additional Notes / Consult section and Patient seen in Pre Admission Testing Teaching & Discussion Pre-Anesthesia Teaching/Discussion Notes: Instructed NPO after midnight before surgery, except medications with 15 cc of water. Medication instructions provided according to the PAT guidelines. History Surgery Operation Date: 09/19/22 12:55 Proposed Procedures p C3-C5 Anterior Cervical Discectomy and Fusion, Spinal Cord Monitoring - Uri Sanford DO Height/Weight Height: 5 ft 3 in Weight: 104.326 kg Allergies Allergy/AdvReac Type Severity Reaction Status Date / Time pseudoephedrine Allergy Intermediate hand, feet Verified 08/29/22 10:49 edema, skin peeling/redness hydromorphone AdvReac Severe delirium Verified 08/29/22 10:49 ketorolac [From Toradol] AdvReac Severe delirium Verified 08/29/22 10:49 metoprolol Allergy Intermediate hallucinati Uncoded 09/04/22 10:28 on,confusio n Medications Home Medications Medication Instructions Recorded Confirmed Last Taken insulin glargine 100 unit/mL (3 10 unit subcut QPM 09/07/21 08/29/22 Unknown mL) subcutaneous pen (Lantus Solostar U-100 Insulin) sertraline 100 mg tablet 100 mg PO HS 09/07/21 08/29/22 Unknown oxybutynin chloride 5 mg 5 mg PO QAM 03/09/22 08/29/22 Unknown tablet,extended release 24 hr losartan 25 mg tablet mg PO 09/05/22 Unknown Additional Notes: Pt states is now on losartan, d/c lisinopril; unsure of dosing-plans to call office or notify OR morning of surgery of correct dose. Provided medication instructions were corrected to reflect this including to hold losartan DOS and to take evening dose as usual. They verbalized full understanding and agreement, denied additional medication changes, questions or concerns. Past Medical History Medical History Anemia hx of--post-op several years ago per pt Anxiety and depression Pt reports stable and controlled, follows with PCP Bilateral leg weakness pt states she is still experiencing this--uses walker to ambulate Degenerative disc disease Diabetes IDDM GERD (gastroesophageal reflux disease) rare, controlled, stable per pt History of adverse effect of anesthesia hallucinations, see allergy/adverse effect list Hx of pancreatitis 6+yrs ago Hypertension controlled, stable per pt Morbid obesity with BMI of 40.0-44.9, adult Nausea and vomiting after administration of anesthetic agent denies needing scop patch Sensorineural hearing loss (SNHL) of right ear with restricted hearing of left ear Patient denies h/o stroke, seizures, heart attack, heart failure, blood clots or blood transfusions. Exercise / Class Metabolic Activity III < 4 Walking/Shop/Light housework (ambulates with rolling walker, denies chest discomfort or shortness of breath usual activities) Past Family History Family History Mother Family history of diabetes mellitus Father Family history of diabetes mellitus Pancreatic cancer Brother No problems noted. Other No family history of adverse response to anesthesia No family history of bleeding disorder Past Surgical History Surgical History Fusion of spine LUMBAR (TOTAL OF 3 SURGERIES), Hardware removal L2-L3, decompression T12-L2, L5-S1, T8-T10: Grade 1 view, Salazar#2, ETT#7.5 at [facility] T10-S1 iliac bolts: 11/13/17: Grade view 1 with cricoid pressure, MAC#3, ETT 7.0 at [facility]. No issues with either per both anesthesia postop progress notes. H/O knee surgery partial right knee replacement > 20 yrs ago History of appendectomy History of cataract surgery BL History of cervical spinal surgery anterior cervical corpectomy with bilt foraminotomies Dr. Sanford @ [facility] 06/09/21 glidescope #3, "good view" ETT 7. Post-op progress note: "hypertension on admission. Her blood pressures on the floor have been r unning in the 170s-200s systolic. She was just recently started on metoprolol on this admission. She received 10mg IV Labetalol on emergence from anesthesia and another 10mg IV labetalol in recovery for SBP 190s. Her BP improved to 176/83." History of cholecystectomy History of colonoscopy History of herniorrhaphy UMBILICAL History of hysterectomy with bilateral oophorectomy History of total knee replacement LEFT [place] teeth removed Past Anesthesia History No Hx of Anesthesia Complications and No Family Hx of Anesthesia Complications History of PONV No Hx of Motion Sickness and History of PONV (denies needing scop patch) Social History Smoking Status: Never smoker Do You Dip or Chew Tobacco: No Hx Alcohol Use: Yes Alcohol type: beer, wine and hard liquor alcohol intake frequency: holidays/special occasions only Hx Substance Use: No substance use type: does not use Review of Systems Patient denies chest pain, shortness of breath, dyspnea on exertion, snoring, witnessed apneas, fever, chills, cough, wheezing, or palpitations. Physical Exam Vital Signs Vitals BP 152/91 P 69 TEMP 98.4 SP02 95% on RA RESP 17 Physical Full cervical extension range of motion without pain TMD 3.5 finger breadths Mallampati Score 3 Dentition: several caps/crowns, denies chipped or loose teeth, implants or bridges-pt reports dental procedure 09/06/22 and was instructed she needs to discuss if can have dental procedure ahead of this procedure with surgeon's office. She verbalized full understanding and agreement, denied questions or concerns. Lungs: normal respiratory effort. Clear throughout to auscultation, no adventitious breath sounds Cardiac: regular rate and rhythm, no murmurs noted Carotid arteries: negative bruit bilat Lab Results Anesthesia Preop Results Results Anesthesia Widget: WBC 6.11 K/ul (4.8-10.8) 09/05/22 Hgb 12.6 g/dl (12.0-16.0) 09/05/22 Hct 38.1 % (37.0-47.0) 09/05/22 Plt 153 K/uL (130-400) 09/05/22 PT 10.4 Seconds (9.0-12.0) 09/05/22 PTT 26.5 Seconds (21.0-31.0) 09/05/22 INR 0.9 (0.9-1.1) 09/05/22 Blood Type O Positive 09/05/22 Antibody Screen NEGATIVE 09/05/22 Testing Electrocardiogram Date: 09/06/22 Sinus rhythm with 1st degree AV block, rate 75 bpm Left anterior fascicular block Minimal voltage criteria for LVH, may be normal variant Chest X-Ray Date: 09/05/22 Cardiomediastinal and hilar silhouettes are unchanged. Lumbar discectomy ch anges. Cervical and thoracolumbar spinal fusion hardware again noted. No pneumothorax, pleural effusion, airspace consolidation or pulmonary edema. Cholecystectomy. Degenerative changes of the shoulders and spine. IMPRESSION: No acute process. Cervical Spine Date: 10/19/21 No fractures or subluxations are identified. Degenerative changes are noted in the cervical spine. Anterior cervical fixation hardware is seen. Prevertebral soft tissues are within normal limits. IMPRESSION: No evidence for acute fracture or subluxation. COVID-19 Risk Screen Screening Information COVID-19 Screen Date: 09/05/22 Exposure 21 Days Family/Household +COVID Last 21 Days: No Exposure 10 Days Any COVID Exposure Last 10 Days: No Symptoms Last 10 Days Experienced COVID Sx Last 10 Days: No + COVID 0-90 Days COVID + in Last 0-90 Days: No
--- NOTE | 2022-09-07 12:16 | Communication Note ---
Date of Service: September 07, 2022 - Patient was notified BMP could not be completed due to mechanical issue at lab. Testing not completed in interval patient had estimated at [facility] so upon con tacting her she reports thought EKG was needed. To chart review, EKG was duplicated in error by [facility]. [facility] was notified 09/06/22 EKG needs cancelled so patient is not billed twice. She is completing BMP at [facility] which is her preferred testing site in this situation.
[2022-09-19] MEDS ORDERED: DEXAMETHASONE SOD INJ 4 MG/ML VIAL ONE ×2 (07:19→08:24)
[2022-09-19] MEDS ORDERED: fentaNYL citrate PF 100 MCG/2 ML VIAL ONE ×3 (07:19→10:15)
[2022-09-19] MEDS ORDERED: LIDOCAINE 2% 2 ML VIAL/AMP(20MG/ML) INFIL ONE (07:19)
[2022-09-19] MEDS ORDERED: PROPOFOL IV EMULSION 10 MG/ML 20 ML VIAL IV ONE ×2 (07:19→08:53)
[2022-09-19] MEDS ORDERED: ROCURONIUM BROMIDE 10 MG/ML 5 ML VIAL IV ONE ×2 (07:19→08:28)
[2022-09-19] MEDS ORDERED: ATROPINE SULFATE 0.1 MG/ML 10ML SYR IV PRN (07:22)
[2022-09-19] MEDS ORDERED: ONDANSETRON INJ 2 MG/ML 2 ML VIAL IV PRN ×2 (07:22→11:27)
[2022-09-19] MEDS ORDERED: MoRPHine SULFATE 10 MG/ML CARP/VIAL IV PRN (07:22)
[2022-09-19] MEDS ORDERED: ceFAZolin 330 MG/ML 1 GM VIAL ONE (07:24)
--- NOTE | 2022-09-19 07:33 | History & Physical Bridge Note ---
Date of Service September 19, 2022 History & Physical Bridge Note I have examined the patient, reviewed the History & Physical and in the interval since the performance of the History & Physical I have noted the following changes of clinical significance: no changes noted
--- NOTE | 2022-09-19 07:34 | History & Physical Report ---
Date of Service September 19, 2022 Assessment & Plan (1) Myelopathy 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 of cervical region: Plan: C3-C5 anterior cervical discectomy and fusion History of Present Illness Chief Complaint: Neck and arm pain Primary Care Provider: Bruce Dumont This is an 82-year-old female well-known to me presents with evidence of myeloradiculopathy. She is here for surgical invention. Allergies Allergy/AdvReac Type Severity Reaction Status Date / Time pseudoephedrine Allergy Intermediate hand, feet Verified 08/29/22 10:49 edema, skin peeling/redness hydromorphone AdvReac Severe delirium Verified 08/29/22 10:49 ketorolac [From Toradol] AdvReac Severe delirium Verified 08/29/22 10:49 metoprolol Allergy Intermediate hallucinati Uncoded 09/04/22 10:28 on,confusio n Home Medications Medication Instructions Recorded Confirmed Type insulin glargine 100 unit/mL (3 10 unit subcut QPM 09/07/21 09/19/22 History mL) subcutaneous pen (Lantus Solostar U-100 Insulin) sertraline 100 mg tablet 100 mg PO HS 09/07/21 09/19/22 History oxybutynin chloride 5 mg 5 mg PO QAM 03/09/22 09/19/22 History tablet,extended release 24 hr losartan 25 mg tablet mg PO 09/05/22 History hydrochlorothiazide 12.5 mg capsule mg PO QAM 09/19/22 History Past Med/Surg History Medical History Anemia hx of--post-op several years ago per pt Anxiety and depression Pt reports stable and controlled, follows with PCP Bilateral leg weakness pt states she is still experiencing this--uses walker to ambulate Degenerative disc disease Diabetes IDDM GERD (gastroesophageal reflux disease) rare, controlled, stable per pt History of adverse effect of anesthesia hallucinations, see allergy/adverse effect list Hx of pancreatitis 6+yrs ago Hypertension controlled, stable per pt Morbid obesity with BMI of 40.0-44.9, adult Nausea and vomiting after administration of anesthetic agent denies needing scop patch Sensorineural hearing loss (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 No issues with either per both anesthesia postop progress notes. H/O knee surgery partial right knee replacement > 20 yrs ago History of appendectomy History of cataract surgery BL History of cervical spinal surgery anterior cervical corpectomy with bilt foraminotomies Dr. Sanford @ [facility] 06/09/21 glidescope #3, "good view" ETT 7. Post-op progress note: "hypertension on admission. Her blood pressures on the floor have been running in the 170s-200s systolic. She was just recently started on metoprolol on this admission. She received 10mg IV Labetalol on emergence from anesthesia and another 10mg IV labetalol in recovery for SBP 190s. Her BP improved to 176/83." History of cholecystectomy History of colonoscopy History of herniorrhaphy UMBILICAL History of hysterectomy with bilateral oophorectomy History of total knee replacement LEFT [place] teeth removed Family History Mother Family history of diabetes mellitus Father Family history of diabetes mellitus Pancreatic cancer Brother No problems noted. 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
[2022-09-19] MEDS ORDERED: ePHEDrine sulfate 50 MG/ML AMP ONE (08:24)
[2022-09-19] MEDS ORDERED: FLOSEAL HEMOSTATIC MATRIX 10ML TOP ONE (08:50)
[2022-09-19] MEDS ORDERED: ONDANSETRON INJ 2 MG/ML 2 ML VIAL ONE (09:23)
[2022-09-19] MEDS ORDERED: SUGAMMADEX SODIUM 200 MG/2 ML VIAL IV ONE (09:24)
--- NOTE | 2022-09-19 09:25 | Operative Report ---
Post Operative Report Pre & Post Diagnosis Operation Date: 09/19/22 07:45 Pre-Op Diagnosis: Myelopathy 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 of cervical region Morbid obesity Post-Op Diagnosis: Same I identified the patient and participated in the time-out.: Yes Procedure Operation Date: 09/19/22 07:45 Actual Procedures #1 anterior cervical discectomy with bilateral foraminotomies C3-C4 C4-C5. #2 anterior cervical arthrodesis C3-C4 C4-C5. #3 placement of globus coalition cage filled with I factor VII millimeters in height at C3-C4 and 8 mm in height at C4-C5. Surgeon Uri Sanford, DO Track Hoe Operator Gema Arriaza Estimated Blood Loss 10 Findings See Below The patient is 5 foot 3 weighing over 106 kg with a BMI in excess of 41. Patient's body habitus did contribute to significant technical difficulty with patient positioning and exposure. This at least 50% increased operative time. Specimens None Indications This is an 82-year-old female known to me who presents with evidence of gross myelopathy and is here for the above-mentioned surgery. Description of Procedure Patient met with identified informed consent obtained. Patient was then taken to the operative suite underwent a patient placed in supine position the Rene table at [facility]. All bony prominences well-padded eyes inspected to ensure no external pressure placed upon the bed at this point the anterior cervical spine was prepped and draped in a sterile fashion. The assistance of fluoroscopy identified the C4 vertebral body and a transverse incision was placed along the right anterior aspect of the cervical spine overlying this region. Blunt dissection with assistance of bipolar electrocautery was performed down to and exposing the anterior cervical spine from C3-C5. A self- retaining retractors placed. Then performed a complete discectomy of C3-C4 out to the uncovertebral joints bilaterally. [place] distracting pins were utilized to assist in visualization. Removed all posterior annular fibers longitudinal ligament bilateral foraminotomies performed and a 7 mm coalition cage filled I factor tapped in position and screwed into place with fluoroscopic visualization. Then proceeded to C4-C5. Again complete discectomy performed out to the uncovertebral's bilaterally. [place] distracting pins again utilized. Removed all posterior annular fibers longitudinal limit bilateral foraminotomies performed an 8 mm coalition cage filled with I factor tapped in position and screwed into place with fluoroscopic visualization. Distracting apparatus was removed and the incision copiously irrigated. Was then explored to ensure no damage to surrounding structures remaining bleeding. 10 round MARY drain inserted. The incision was then closed with 2 Vicryl in the fascia and 4 Monocryl for possible closure. Steri-Strip sterile dressing placed. Patient awakened and taken to PACU stable condition. Please note spinal cord monitoring was utilized at the procedure no changes noted. Lastly Gema Arriaza was present at the entire surgery involved in patient positioning complex portions of the surgery and final skin closure. I attest to the content of the Intraoperative Record and any orders documented therein. Any exceptions are noted below.
[2022-09-19] MEDS: fentaNYL citrate PF 100 MCG/2 ML VIAL IV PRN ×4 (10:16→10:31)
[2022-09-19] MEDS ORDERED: dexAMETHasone 8 MG in SYRINGE 0 ML IV PRN (11:27)
[2022-09-19] MEDS ORDERED: FAMOTIDINE 20 MG TAB PO PRN (11:27)
[2022-09-19] MEDS ORDERED: NALOXONE HCL 0.4 MG/1 ML VIAL/CARP IV PRN (11:27)
[2022-09-19] MEDS ORDERED: MAGNESIUM HYDROXIDE SUSP 30 ML UDC PO PRN (11:27)
[2022-09-19] MEDS ORDERED: RACEPINEPHRINE 2.25% NEBU SOLN 0.5 ML VIAL INH PRN (11:27)
[2022-09-19] MEDS ORDERED: PHARMACY GLYCEMIC MGMT CONSULT PRN (11:27)
[2022-09-19] MEDS ORDERED: SOD PHOSPHATE/SOD BIPHOSPHATE ENEMA 132 ML BTL PR PRN (11:27)
[2022-09-19] MEDS ORDERED: ONDANSETRON 4 MG OD TAB PO PRN (11:27)
[2022-09-19] MEDS ORDERED: bisacodyL 10 MG SUPP PR PRN (11:27)
[2022-09-19] MEDS ORDERED: PROMETHAZINE HCL 12.5 MG in SODIUM CHLORIDE 0.9% 50 ML IV PRN (11:27)
[2022-09-19] MEDS ORDERED: ALUMINUM/MAGNESIUM SUSP 30 ML UDC PO PRN (11:27)
[2022-09-19] MEDS ORDERED: diphenhydrAMINE Capsule 25 MG CAP PO PRN (11:27)
[2022-09-19] MEDS ORDERED: LORazepam 0.5 MG TAB PO PRN (11:27)
[2022-09-19] MEDS ORDERED: DO NOT ADMINISTER FLU VACCINE PRN (11:27)
[2022-09-19] MEDS ORDERED: traMADol HCL 50 MG TABLET PO PRN (11:27)
[2022-09-19] MEDS ORDERED: hydrOXYzine HCl 25 MG TAB PO PRN (11:27)
[2022-09-19] MEDS ORDERED: METOCLOPRAMIDE HCL INJ 5 MG/ML 2 ML VIAL IV PRN (11:27)
[2022-09-19] MEDS ORDERED: LORazepam 2 MG/1 ML VIAL IV PRN (11:27)
[2022-09-19] MEDS ORDERED: ACETAMINOPHEN 500 MG TAB PO PRN (11:27)
[2022-09-19] MEDS ORDERED: oxyCODONE HCL IR 5 MG TAB (IMMEDIATE RELEASE) PO PRN (11:27)
[2022-09-19] MEDS ORDERED: DO NOT ADMINISTER PNEUMOCOCCAL VACCINE PRN (11:27)
[2022-09-19] MEDS ORDERED: ACETAMINOPHEN 1,000 MG/100 ML VIAL IV PRN (11:27)
--- NOTE | 2022-09-19 11:30 | Anesthesiology Progress Note ---
Date of Service September 19, 2022 Anesthesia Post Procedure Vital Signs Vital Signs: Temp Pulse Pulse Resp BP BP Pulse Ox 09/19/22 11:13 36.4 C L 80 14 174/83 H 98 09/19/22 10:40 36.3 C L 77 13 169/92 H 96 09/19/22 10:30 77 17 178/82 H 96 09/19/22 10:10 76 17 192/82 H 97 09/19/22 10:00 77 20 187/90 H 97 09/19/22 10:20 80 22 173/88 H 98 09/19/22 09:50 36.2 C L 77 12 193/105 H 99 09/19/22 07:03 36.9 C 73 18 163/80 H 97 O2 Del Method O2 Flow Rate 09/19/22 11:13 Nasal Cannula 3 09/19/22 10:40 Nasal Cannula 4 09/19/22 10:30 Nasal Cannula 3 09/19/22 10:10 Nasal Cannula 3 09/19/22 10:00 Nasal Cannula 3 09/19/22 10:20 Nasal Cannula 3 09/19/22 09:50 Nasal Cannula 3 09/19/22 07:03 Room Air Pain Intensity Neck: Pain Intensity: 5 Transfer of Care Handoff Completed per policy Notes Mental Status: alert / awake / arousable Patient Amnestic to Procedure: Yes Nausea / Vomiting: adequately controlled Pain: adequately controlled Airway Patency, RR, SpO2: stable & adequate BP & HR: stable & adequate Hydration State: stable & adequate Anesthetic Complications: no major complications apparent
[2022-09-19] MEDS: SODIUM CHLORIDE 0.9% 1000ML 1,000 ML IV SCH ×2 (12:30→18:28)
[2022-09-19] MEDS: dexAMETHasone 6 MG in SYRINGE 0 ML IV SCH ×2 (12:31→18:41)
--- NOTE | 2022-09-19 12:49 | Fluoroscopy Report ---
FL cervical 2-3V CLINICAL HISTORY: ACDF C3-5 TECHNIQUE: 2 views were obtained with the C-arm in the OR with the above procedure. Total fluoroscopy time was 9 seconds. Radiation dose was 0.98 mGy. Comparison: Comparison is made to CT cervical spine 06/13/2021 FINDINGS/IMPRESSION: Intraoperative images were obtained of C3-C5 ACDF. Please correlate with intraoperative fluoroscopy and operative report. ACT 112: Negative or not required by law. Electronically signed by: Raymundo Weaver M.D. 09/19/2022 12:48 PM
[2022-09-19] MEDS ORDERED: GLUCOSE 40% GEL 15 GM TUBE PO PRN (13:30)
[2022-09-19] MEDS ORDERED: GLUCAGON FOR INJ 1 MG VIAL IM PRN (13:30)
[2022-09-19] MEDS ORDERED: CARBOHYDRATES FOR HYPOGLYCEMIA PO PRN (13:30)
[2022-09-19] MEDS ORDERED: DEXTROSE 50% 50 ML SYRINGE IV PRN (13:30)
[2022-09-19] MEDS ORDERED: GLUCOSE 10 TAB/TUBE PO PRN (13:30)
[2022-09-19] MEDS: INSULIN ASPART PER UNIT CHARGE SC SCH ×3 (13:39→22:28)
[2022-09-19] MEDS ORDERED: LANTUS PER UNIT CHARGE SC ONE (13:45)
--- NOTE | 2022-09-19 14:16 | Hospitalist Consultation ---
Date of Consultation September 19, 2022 Assessment & Plan (1) Myelopathy 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 of cervical region: C3-C5 anterior cervical discectomy and fusion post op day #0 (2) Hypertension: Home medications Losartan 25mg and HCTZ 12.5mg held currently for surgery BP currently is 130/77 Consider restarting Losartan and HCTZ in the AM Will get Labs in AM (3) Depression: Continue Zoloft 100mg daily (4) Diabetes: Pharmacy glycemic consult Diet - clear then full and then Carb consistent diet ordered (5) Obesity: patient follows with weight management clinic Plan Will add PPI daily scheduled to cover for any GI upset while on Celebrex and DVT prophylaxis. Also has Pepcid ordered as needed Supervising Physician Co-Signing Physician Notes Patient seen and examined, chart reviewed, case discussed with Katlin Garcia PA-C and I agree with the assessment and plan as above except as otherwise noted Labs and images reviewed Gracie is seen at the bedside postoperatively. She reports she feels well and has no complaints after surgery. Denies significant pain, and no extremity pain/numbness. She notes her presenting symptoms were more easy exercise limitation which then presented as dizziness with sustained ambulation. She has not been up walking enough to know if her symptoms are improved or not. Denies fever, chills, sweats, chest pain, chest pressure, shortness of breath. Has been using her incentive spirometer intermittently through the afternoon. Lungs are clear. Sensation in hands and feet intact and symmetrical. 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 Agree with assessment and management as above. PPI for GI prophylaxis History of Present Illness Reason for Consultation: medical management Requesting Physician: Dr Sanford Attending Physician: rUi Sanford DO History of Present Illness Gracie Martinez is a 82 year old female with a past medical history of HTN, Diabetes, obesity, anxiety and Degenerative disc disease and arthritis who presented to the hospital for elective surgery for myelopathy due to spinal stenosis of the cervical region. Today patient underwent C3-C5 anterior discectomy and fusion with Dr Sanford. She had intraoperative Ancef and Decadron. A hospitalist consult was placed for medical management. Patient has a hx of HTN and takes HCTZ 12.5mg and Losartan 25mg daily. She also has diabetes and had been on Metformin but had too many side effects and was changed to insulin therapy about 2 years ago and states her BS are doing well with Novolog insuin. Her last HgbA1C was February and was 8.2. Patient is post op day 0 and states she is feeling well. EBL 10 cc. She denies any chest pain, SOB, cough, dysphagia, abdominal pain or nausea. She had some clear liquids (jello) after surgery and tolerated. She denies any paresthesias or anesthesias. Patient tells me that she has had disc disease for many years and had a C5-C7 cervical fusion in 05/2021. Allergies Allergy/AdvReac Type Severity Reaction Status Date / Time pseudoephedrine Allergy Intermediate hand, feet Verified 08/29/22 10:49 edema, skin peeling/redness hydromorphone AdvReac Severe delirium Verified 08/29/22 10:49 ketorolac [From Toradol] AdvReac Severe delirium Verified 08/29/22 10:49 metoprolol Allergy Intermediate hallucinati Uncoded 09/04/22 10:28 on,confusio n Home Medications Medication Instructions Recorded Confirmed Type insulin glargine 100 unit/mL (3 10 unit subcut QPM 09/07/21 09/19/22 History mL) subcutaneous pen (Lantus Solostar U-100 Insulin) sertraline 100 mg tablet 100 mg PO HS 09/07/21 09/19/22 History oxybutynin chloride 5 mg 5 mg PO QAM 03/09/22 09/19/22 History tablet,extended release 24 hr losartan 25 mg tablet mg PO 09/05/22 History hydrochlorothiazide 12.5 mg capsule mg PO QAM 09/19/22 History oxycodone 5 mg tablet 5 mg PO Q6H PRN pain #30 tabs 09/19/22 Rx Patient History Medical History Anemia hx of--post-op several years ago per pt Anxiety and depression Pt reports stable and controlled, follows with PCP Bilateral leg weakness pt states she is still experiencing this--uses walker to ambulate Degenerative disc disease Diabetes IDDM GERD (gastroesophageal reflux disease) rare, controlled, stable per pt History of adverse effect of anesthesia hallucinations, see allergy/adverse effect list Hx of pancreatitis 6+yrs ago Hypertension controlled, stable per pt Morbid obesity with BMI of 40.0-44.9, adult Nausea and vomiting after administration of anesthetic agent denies needing scop patch Sensorineural hearing loss (SNHL) of right ear with restricted hearing of left ear Surgical History Fusion of spine LUMBAR (TOTAL OF 3 SURGERIES), Hardware removal L2-L3, decompression T12-L2, L5-S1, T8-T10: Grade 1 view, Salazar#2, ETT#7.5 at [facility] T10-S1 iliac bolts: 11/13/17: Grade view 1 with cricoid pressure, MAC#3, ETT 7.0 at [facility]. No issues with either per both anesthesia postop progress notes. H/O knee surgery partial right knee replacement > 20 yrs ago History of appendectomy History of cataract surgery BL History of cervical spinal surgery anterior cervical corpectomy with bilt foraminotomies Dr. Sanford @ [facility] 06/09/21 glidescope #3, "good view" ETT 7. Post-op progress note: "hyperte nsion on admission. Her blood pressures on the floor have been running in the 170s-200s systolic. She was just recently started on metoprolol on this admission. She received 10mg IV Labetalol on emergence from anesthesia and another 10mg IV labetalol in recovery for SBP 190s. Her BP improved to 176/83." History of cholecystectomy History of colonoscopy History of herniorrhaphy UMBILICAL History of hysterectomy with bilateral oophorectomy History of total knee replacement LEFT Honor teeth removed Family History Mother Family history of diabetes mellitus Father Family history of diabetes mellitus Pancreatic cancer Brother No problems noted. 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 Web Services Required: No Beliefs That Will Affect Care: None marital status: Current Living Situation: Spouse Current Living Situation Comment: Kiah Katz current occupational status: 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 How many Children do You have: 3 Other Information That Helps Us Care for You: No Feels Safe at Home: Yes Safety Concerns: Feels Safe At This Time Assistive Devices: Glasses and Walker Review of Systems Constitutional: + fatigue; no fever, no chills and no anorexia Ear, Nose, Mouth, Throat: no nasal congestion, no post nasal drip, no facial pain and no dysphagia Respiratory: no cough, no chest congestion, no dyspnea, no hemoptysis and no snoring Cardiovascular: no chest pain, no dyspnea, no syncope and no edema Gastrointestinal: no abdominal pain, no nausea and no vomiting Integumentary: no rash, no lesions and no new lesions Neurologic: + gait abnormality; no falls, no loss of sensation, no numbness and no paresthesia Psychiatric: + depression and + anxiety; no change in appetite, no confusion and no auditory hallucinations Physical Exam Constitutional: WD/WN, vitals as above Neck: cervical collar in place and MARY drain also in place Respiratory: normal respiratory effort, lungs clear to auscultation Cardiovascular: Rate/Rhythm: regular rate and regular rhythm Gastrointestinal (Abdomen): normal bowel sounds, soft, nontender, no hepatosplenomegaly Neurologic: PERRL, EOMI, accommodation nl, no face palsy, no dysarthria Psychiatric: A+Ox3, euthymic affect Results & Data Results & Data Vital Signs (Past 12 Hours) Vital Signs Temp Pulse Pulse Resp BP BP Pulse Ox 09/19/22 13:10 36.6 C 90 17 149/78 H 98 09/19/22 12:07 36.4 C L 84 14 148/79 H 100 09/19/22 12:00 82 16 99 09/19/22 11:39 36.4 C L 82 16 151/82 H 98 09/19/22 11:13 36.4 C L 80 14 174/83 H 98 09/19/22 10:40 36.3 C L 77 13 169/92 H 96 09/19/22 10:30 77 17 178/82 H 96 09/19/22 10:10 76 17 192/82 H 97 09/19/22 10:00 77 20 187/90 H 97 09/19/22 10:20 80 22 173/88 H 98 09/19/22 09:50 36.2 C L 77 12 193/105 H 99 09/19/22 07:03 36.9 C 73 18 163/80 H 97 O2 Del Method O2 Flow Rate 09/19/22 13:10 Nasal Cannula 3 09/19/22 12:07 Nasal Cannula 3 09/19/22 12:00 Nasal Cannula 4 09/19/22 11:39 Nasal Cannula 4 09/19/22 11:13 Nasal Cannula 3 09/19/22 10:40 Nasal Cannula 4 09/19/22 10:30 Nasal Cannula 3 09/19/22 10:10 Nasal Cannula 3 09/19/22 10:00 Nasal Cannula 3 09/19/22 10:20 Nasal Cannula 3 09/19/22 09:50 Nasal Cannula 3 09/19/22 07:03 Room Air Laboratory Results Abnormal lab results 09/19/22 09/19/22 09/19/22 Range/Units 06:59 06:59 09:53 POC Glucose 164 H 197 H (70-99) mg/dl Crossmatch See Detail 09/19/22 Range/Units 12:05 POC Glucose 238 H (70-99) mg/dl Crossmatch Diagnostic Findings Cervical Spine X-Ray 09/19/22 07:45 FL cervical 2-3V CLINICAL HISTORY: ACDF C3-5 TECHNIQUE: 2 views were obtained with the C-arm in the OR with the above procedure. Total fluoroscopy time was 9 seconds. Radiation dose was 0.98 mGy. Comparison: Comparison is made to CT cervical spine 06/13/2021 FINDINGS/IMPRESSION: Intraoperative images were obtained of C3-C5 ACDF. Please correlate with intraoperative fluoroscopy and operative report. ACT 112: Negative or not required by law. Electronically signed by: Raymundo Weaver M.D. 09/19/2022 12:48 PM PG Care Time/CCT Total # of Minutes Spent Total Time Spent with Patient: Total time spent is greater than 50% in coordination of care (as documented) at patient's floor/unit and/or counseling patient: Coding Level of Care Code 49078 IN/OBS CONSULT LVL 2,35M Diagnoses Myelopathy 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 of cervical region M48.02; G99.2 Hypertension I10 Depression F32.A Diabetes E11.9 Obesity E66.01; Z68.41 Body mass index: BMI 40.0-44.9 Obesity classification: adult class 3 (BMI >= 40) Obesity type: due to excess calories Serious obesity comorbidity presence: with serious comorbidity (5) Obesity Body mass index: BMI 40.0-44.9 Obesity classification: adult class 3 (BMI >= 40) Obesity type: due to excess calories Serious obesity comorbidity presence: with serious comorbidity Qualified Code(s): E66.01 - Morbid (severe) obesity due to excess calories; Z68.41 - Body mass index [BMI] 40.0-44.9, adult
--- NOTE | 2022-09-19 14:18 | Pharmacy Report ---
Pharmacy Glycemic Short Note 2 - Date of Service September 19, 2022 - Glycemic Short BSG Results (Last 24 hours): 09/19/22 09/19/22 09/19/22 06:59 09:53 12:05 POC Glucose 164 H 197 H 238 H OUTPATIENT ANTIDIABETIC REGIMEN: * Lantus 10 units daily HS ASSESSMENT: * 82 year old now s/p spinal surgery, POD 0 - pharmacy consulted for glycemic management. Patient received steroids intraoperatively and also ordered de xamethasone 6 mg iv q 8 hrs x 3 doses postop. Postop BSG in 200s, anticipate BSGs to rise with ongoing steroids * Will start Lantus full stress of 2 dosing, will have scale for HS and will utilize novolog stress of 3 with overnight checks PLAN FOR INPATIENT GLYCEMIC CONTROL: * Hold outpatient oral diabetes medications * Basal insulin * Lantus 35 units x 1 * Lantus 0-10 units HS if BSG >200 * Bolus insulin * NovoLog per scale ACHS or Q6hrs while NPO * Goal Range: Low 110 mg/dL - High 140 mg/dL * Correction Factor: 15 mg/dL/unit * Nutritional / Prandial insulin per carb ratio of 1 unit per 5 grams CHO consumed
[2022-09-19] MEDS ORDERED: MoRPHine SULFATE 2 MG/ML CARP IV PRN (15:00)
[2022-09-19] MEDS: ceFAZolin 2000MG 2,000 MG/15 ML SYR IV SCH (15:51)
[2022-09-19] MEDS ORDERED: DOCUSATE SODIUM/SENNA 50/8.6MG TAB PO SCH (21:00)
[2022-09-19] MEDS ORDERED: SERTRALINE HCL 100 MG TABLET PO SCH (21:00)
[2022-09-19] MEDS ORDERED: LANTUS PER UNIT CHARGE SC SCH (21:00)
[2022-09-20] MEDS: ceFAZolin 2000MG 2,000 MG/15 ML SYR IV SCH (00:29)
[2022-09-20] MEDS: INSULIN ASPART PER UNIT CHARGE SC SCH ×4 (01:10→12:47)
[2022-09-20] MEDS: SODIUM CHLORIDE 0.9% 1000ML 1,000 ML IV SCH ×2 (01:28→06:52)
[2022-09-20] MEDS: dexAMETHasone 6 MG in SYRINGE 0 ML IV SCH (03:36)
[2022-09-20] MEDS: POLYETHYLENE (MIRALAX) 17 GM PACK PO SCH ×3 (06:52→12:12)
[2022-09-20] MEDS ORDERED: OXYBUTYNIN CHLORIDE XL 5 MG TABCR PO SCH (09:00)
[2022-09-20] MEDS ORDERED: LOSARTAN POTASSIUM 25 MG TAB PO SCH (09:00)
[2022-09-20] MEDS ORDERED: PANTOprazole 40 MG TAB PO SCH (09:00)
--- NOTE | 2022-09-20 10:05 | Discharge Summary ---
Date of Service September 20, 2022 Admission HPI Per Admitting Provider This is an 82-year-old female well-known to me presents with evidence of myeloradiculopathy. She is here for surgical invention. Principal Diagnosis Cervical spinal stenosis with myelopathy Discharge Data Allergies Allergy/AdvReac Type Severity Reaction Status Date / Time pseudoephedrine Allergy Intermediate hand, feet Verified 08/29/22 10:49 edema, skin peeling/redness hydromorphone AdvReac Severe delirium Verified 08/29/22 10:49 ketorolac [From Toradol] AdvReac Severe delirium Verified 08/29/22 10:49 metoprolol Allergy Intermediate hallucinati Uncoded 09/04/22 10:28 on,confusio n Consultations 09/19/22 11:27 Consult Hospitalist Routine Procedures Performed Operation Date: 09/19/22 07:45 Actual Procedures p C3-C5 Anterior Cervical Discectomy and Fusion, Spinal Cord Monitoring(Not Applicable) - Uri Sanford DO Ordered Studies 09/19/22 07:45 FL cervical 2-3V Routine Hospital Course (1) Myelopathy 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 of cervical region: Patient went anterior cervical discectomy and fusion tolerated this well was taken orthopedic for postop labor postop day 1 she was swallowing well. Ambulating improved. No arm pain. MARY drain decreased appropriately. Pain well controlled. Subsequent discharge home. Discharge orders instructions found in chart for further review. Total Time Total Time Spent Total Time Spent (In Minutes): 20 minutes Discharge Plan Discharge Items Patient Disposition: Home - Self-Care Reason For Visit: POSTOP Discharge Diagnosis: Cervical stenosis with myelopathy Activity: As commented below Non-emergency contact: Primary Care Provider Call non-emergency contact if: you have any medication questions Follow-up/Referrals: Bruce Dumont [Primary Care Provider] - Diet: Regular Addtl Attending Provider Instructions: ACTIVITY RECOMMENDATIONS: SELF CARE INSTRUCTIONS AFTER THORACIC/LUMBAR FUSIONS 1. You may walk to your tolerance. It is good exercise for your legs and back. Expect some back and intermittent leg aches and pains. 2. You may perform "counter-top" level activities (make a sandwich, stephen with a project, etc.). 3. No bending or lifting of more than 10 pounds or back twisting of any nature (roll like a log when turning in bed). 4. You may ride in a car for 20-30 minutes at a time. No driving until after your first visit with your doctor. 5. Frequent changes of position and restricting sitting to 30 minutes at a time will help limit the amount of back spasms and stiffness you may experience. 6. You may discontinue the use of ambulatory aids (cane, crutches, etc.) once your strength and confidence allow. 7. You may advertising writer the shower and let water strike your incision when you arrive home at least once daily. Do not take a tub bath, sit in a hot tub or go into a swimming pool until after your first recheck in the office. SPECIAL CARE INSTRUCTIONS: VERY IMPORTANT TO READ AND REVIEW A. Your surgical incision has been closed with a cosmetic suture under the skin that will dissolve in about 6 weeks. In 14 days, you can use a pair of clean scissors and cut the suture that is left outside of the skin at the ends of your incision. 1. The small skin tapes can be removed 7 days after surgery if they have not fallen off by that point. 2. You may keep the wound open to air as much as possible to promote healing after post-op day number 5 unless told otherwise by your doctor. 3. If you think the wound looks like it is becoming infected (redness or worsening drainage) and/or you are experiencing fever, chill or worsening back pain and muscle spasms, contact the office so that we may evaluate you as soon as possible. B. Complications are uncommon, but please contact us if you have any signs or symptoms of: 1. wound infection (fever higher than 102.5 degrees F, redness, separation of wound, drainage, or increasing pain from the incision) 2. blood clots in legs (pain, swelling, redness and warmth in legs) 3. urinary tract infection (fever higher than 102.5 degrees F, burning upon urination or increased frequency of urination) 4. nerve problems (inability to walk on your toes or heels, numbness, loss of bowel or bladder control) 5. any other symptoms that concern you C. Please call the office at if you have any concerns or questions about your operation or recovery. D. No smoking! Smoking drastically decreases the chance of a solid fusion. E. Do not take any anti-inflammatory medications (Indocin, Advil, Motrin, Aspirin, Naprosyn, etc.) as these may inhibit the chance of a solid fusion. Tylenol is okay to take for pain. MANAGING PAIN AFTER SPINAL SURGERY 1. Narcotic medication is intended for short-term use and will be provided for surgical pain. Surgical pain usually lasts for a period of 4-6 weeks. Narcotic medication includes Percocet, Vicodin, Darvocet, Tylenol #3 or Lortab. 2. Longer-term pain is more appropriately treated with non-narcotic medication such as Tylenol ES. 3. Muscle spasm is not appropriately treated with narcotics. Muscle relaxers such as Soma, Flexeril or Skelaxin can be used along with Tylenol ES. 4. Remember that we all live with some "aches and pains". This is not unusual or uncommon after an injury or as we get older. a. Back pain is expected and may include muscle spasms for 4 to 6 weeks after surgery. The pain should gradually improve. If the pain worsens for no apparent reason, please contact the office. b. Intermittent leg pain may also be experienced and should not be concerned about unless it worsens for no apparent reason. If so, please contact the office. 5. We will provide appropriate medication within the normal guidelines of their prescribed use. We will also be very cautious and aware of potential abuse and extended duration of patients' medication needs. a. Pain medications are for your comfort and to assist with sleep and rest so that the tissue can heal. They are not provided in order to return to normal activity and should not be used through the day. To do so or worsening pain at night can result from ongoing tissue damage and development of tolerance to the prescribed medicine. 6. Please allow 2-3 days to process refills. Prescriptions will not be mailed but must be picked up at the office. FOLLOW UP VISIT: Keep your scheduled follow-up appointment. Any questions, please call the office at . Pending Studies at Discharge: No Stand-Alone Forms: My Zang, Smoking Cessation Medications and DC Order Prescriptions: New oxycodone 5 mg tablet 5 mg PO Q6H PRN (Reason: pain) Qty: 30 0RF Continued oxybutynin chloride 5 mg tablet extended release 24hr 5 mg PO QAM Lantus Solostar U-100 Insulin 100 unit/mL (3 mL) insulin pen 10 unit subcut QPM sertraline 100 mg tablet 100 mg PO HS losartan 25 mg Tablet PO hydrochlorothiazide 12.5 mg Capsule PO QAM Discharge Orders: Discharge Order (Routine); Ordered 09/20/22 Ordered By: Uri Sanford Admission Data Admit Date/Time: 09/19/22 09:28 Attending Provider: Uri Sanford Admit Provider: Uri Sanford Primary Care Provider: Bruce Dumont Other Providers: Trevor Vaca
== END 2022-09-20 14:12 | disposition home or self-care (01) | DRG 472 ==
LOC: ASU 06:40 → INTOOBSV 09:28 → 3E 09:28 → OBSVTOIN 09:28

== ENCOUNTER 2024-10-20 16:52 | Observation (INO) ==
[2024-10-20 18:30] LABS: Basophils # (auto) 0.03 K/uL (0.00-0.20); Basophils % (auto) 0.4 %; Eosinophils # (auto) 0.11 K/uL (0.00-0.50); Eosinophils % (auto) 1.6 %; Hematocrit (blood only) 36.8 % (37.0-47.0); Hemoglobin 11.8 g/dl (12.0-16.0); Immature Granulocytes # (auto) 0.02 K/uL (0.01-0.20); Immature Granulocytes % (auto) 0.3 %; Lymphocytes # (auto) 1.54 K/uL (1.20-3.40); Lymphocytes % (auto) 22.4 %; Mean Corpuscular Hemoglobin 29.1 pg (25.0-34.0); Mean Corpuscular Hgb Conc 32.1 g/dL (32.0-36.0); Mean Corpuscular Volume 90.9 fL (80.0-100.0); Mean Platelet Volume 11.1 fL (9.4-12.4); Monocytes # (auto) 0.51 K/uL (0.11-0.59); Monocytes % (auto) 7.4 %; Neutrophils # (auto) 4.65 K/uL (1.40-6.50); Neutrophils % (auto) 67.9 %; Platelet Count 172 K/uL (130-400); RDW Standard Deviation 46.5 fL (36.4-46.3); Red Blood Count 4.05 M/uL (4.20-5.40); White Blood Count 6.86 K/ul (4.8-10.8)
[2024-10-20 18:38] LABS: Albumin Level 3.8 gm/dl (3.4-5.0); Anion Gap 7 (3-11); Bilirubin,Total 0.4 mg/dl (0.2-1.0); Calcium 10.4 mg/dl (8.6-10.3); Carbon Dioxide 27 mmol/L (21-32); Chloride 107 mmol/L (98-107); Potassium 4.6 mmol/L (3.5-5.1); Sodium 141 mmol/L (136-145)
[2024-10-20] MEDS: ACETAMINOPHEN 1,000 MG/100 ML VIAL IV STA (18:39)
[2024-10-20] MEDS: KETOROLAC TROMETHAMINE 15 MG/ML VIAL IV ONE (18:40)
[2024-10-20 18:44] LABS: Alanine Aminotransferase 9 U/L (7-52); Albumin Globulin Ratio 1.2 (0.9-2); Alkaline Phosphatase 88 U/L (34-104); Aspartate Aminotransferase 13 U/L (13-39); BUN Creatinine Ratio 24.1 (10-20); Blood Urea Nitrogen 21 mg/dl (6-23); Globulin 3.3 gm/dl (2.5-4.0); Glucose 158 mg/dl (70-99(Fasting)); Total Protein 7.1 gm/dl (6.0-8.3)
--- NOTE | 2024-10-20 19:26 | Ultrasound Report ---
Examination: Doppler venous ultrasound of the lower extremity Comparison: None Technique: Grayscale evaluation with compression, spectral flow, and color Doppler assessment of the deep venous system of the leg, from the groin to the knee, as well as the lower leg Findings: The external iliac, common femoral, femoral, popliteal, peroneal and anterior and posterior tibial veins demonstrate normal compressibility and blood flow. Impression: No evidence for DVT of the bilateral lower extremity Electronically signed by Won Ahmadi 10-20-2024 7:25 PM
[2024-10-20 19:33] LABS: Adenovirus PCR Not Detected (NotDetected); Bordetella parapertussis PCR Not Detected (NotDetected); Bordetella pertussis PCR Not Detected (NotDetected); Chlamydia pneumoniae PCR Not Detected (NotDetected); Coronavirus 229E PCR Not Detected (NotDetected); Coronavirus CoV-2 (COVID19)PCR Not Detected (NotDetected); Coronavirus HKU1 PCR Not Detected (NotDetected); Coronavirus NL63 PCR Not Detected (NotDetected); Coronavirus OC43PCR Not Detected (NotDetected); Human Metapneumovirus PCR Not Detected (NotDetected); Influenza A PCR Not Detected (NotDetected); Influenza B PCR Not Detected (NotDetected); Mycoplasma pneumoniae PCR Not Detected (NotDetected); Parainfluenza Virus 1 PCR Not Detected (NotDetected); Parainfluenza Virus 2 PCR Not Detected (NotDetected); Parainfluenza Virus 3 PCR Not Detected (NotDetected); Parainfluenza Virus 4 PCR Not Detected (NotDetected); Respiratory Syncytial VirusPCR Not Detected (NotDetected); Rhinovirus/Enterovirus PCR Not Detected (NotDetected)
--- NOTE | 2024-10-20 19:35 | Emergency Department Note ---
ED DC CONDITION Conditon at Discharge Condition at Discharge: Fair Impression & Plan Bilateral edema of lower extremity ED Provider Note NAME: AARON BRAND AGE: 84 SEX: F : 1940 ARRIVES VIA: Ambulance INFORMANT: Patient, ED PROVIDER(S): Preeti Thomas MD CHIEF COMPLAINT: Low extremity pain HPI: This is a 84-year-old female with lower extremity pain/swelling. Patient notes that she has had increasing lower extremity swelling. This been going on acutely for the past 3 weeks. She has had swelling ongoing for over a year. She reports extreme pain to her lower extremities at this time. She reports history of back pain as well. She has had numerous spinal surgeries in the past as well. Reports no fever, chills, nausea or vomiting. No chest pain or shortness of breath. She has no difficulty with movement but she is more limited mobility due to the pain, swelling and weakness since leaving the hospital. ROS: See above HPI for pertinent positives & negatives. A total of 10 systems reviewed and were otherwise negative. PAST MEDICAL HISTORY: See Below PAST SURGICAL HISTORY: See Below FAMILY HISTORY: See Below SOCIAL HISTORY: See Below HOME MEDICATIONS: See Below ALLERGIES: See Below VITALS: See Below PHYSICAL EXAMINATION: General: resting comfortably in no acute distress Head: Normocephalic and atraumatic Eyes: Normal inspection, extraocular muscles intact Ear, nose, throat: Normal external exam Neck: Normal range of motion Respiratory: lungs clear to auscultation bilaterally Cardiovascular: Regular rate/rhythm, no murmur GI: soft, nontender, no guarding or rebound Extremities: 2+ pitting edema to bilateral extremities, 1+ pulses DP/PT Neuro: The patient awake and alert, appropriately conversive, no focal deficits, symmetric faces Skin: Warm, dry, and intact MEDICAL DECISION MAKING: This is an 84-year-old female sent for lower extremity pain/swelling. Patient has had bilateral lower extremity pulses with good perfusion. Low concern for arterial occlusion. She has no neurologic deficits. She does report pain, concern from swelling versus back pain. Will do screening DVT study as patient has been more bedbound does not take a blood thinner. Otherwise consider fluid overload especially etiology. - Bloodwork is reviewed showing no significant leukocytosis, anemia, electrolyte or creatinine abnormality -Patient ultrasound is negative for DVT -Patient having fluid overload, poor ambulatory status I will admit for further workup and diuresis Differential diagnosis: Lower extremity edema, DVT, arterial occlusion Independent History obtained from: Diagnostics interpreted by me: ECG: None Cardiac Monitoring: An order was placed for continuous cardiac monitoring. The monitor shows a rate of 90 with sinus rhythm. Past Med/Surg History Problem List (Updated 10/20/24 @ 22:05 by Preeit Thomas MD) Bilateral edema of lower extremity (Acute) Type 2 diabetes mellitus Anemia Ambulatory dysfunction Bilateral lower extremity pain Nephrolithiasis Gross hematuria Recurrent UTI Edema of lower extremity Sciatica Elevated C-reactive protein (CRP) Carpal tunnel syndrome on both sides Idiopathic polyneuropathy Hyperparathyroidism Recurrent falls Unsteady gait Vitamin D deficiency Poorly controlled type 2 diabetes mellitus Empty sella Myelopathy 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 of cervical region Hypertension Lumbar stenosis with neurogenic claudication Myelopathy 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 of thoracic region Obesity Depression Vertigo Right-sided tinnitus Degenerative disc disease Medical History GERD (gastroesophageal reflux disease) rare, controlled, stable per pt Sensorineural hearing loss (SNHL) of right ear with restricted hearing of left ear Bilateral leg weakness pt states she is still experiencing this--uses walker to ambulate Hx of pancreatitis Surgical History History of cervical spinal surgery anterior cervical corpectomy with bilt foraminotomies Dr. Sanford @ [facility] 06/09/21 glidescope #3, "good view" ETT 7. Post-op progress note: "hypertension on admission. Her blood pressures on the floor have been running in the 170s-200s systolic. She was just recently started on metoprolol on this admission. She received 10mg IV Labetalol on emergence from anesthesia and another 10mg IV labetalol in recovery for SBP 190s. Her BP improved to 176/83." History of hysterectomy with bilateral oophorectomy History of cholecystectomy History of appendectomy H/O knee surgery partial right knee replacement > 20 yrs ago History of total knee replacement LEFT Fusion of spine LUMBAR (TOTAL OF 3 SURGERIES), Hardware removal L2-L3, decompression T12-L2, L5-S1, T8-T10: Grade 1 view, Salazar#2, ETT#7.5 at [facility] T10-S1 iliac bolts: 11/13/17: Grade view 1 with cricoid pressure, MAC#3, ETT 7.0 at [facility]. No issues with either per both anesthesia postop progress notes. History of colonoscopy History of herniorrhaphy UMBILICAL [place] teeth removed History of cataract surgery BL Family History Mother Family history of diabetes mellitus Father Family history of diabetes mellitus Pancreatic cancer Brother No problems noted. 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 How many Children do You have: 3 Feels Safe at Home: Yes Diet: regular caffeine: Yes Dental Care, Regularly: Yes Physical Activity Frequency: 1-2 Times per Week Seatbelt Use: always Sunscreen Use: Yes Assistive Devices: Walker Allergies Allergies Allergy/AdvReac Type Severity Reaction Status Date / Time tramadol Allergy Severe confusion, Verified 10/20/24 15:29 stroke like symptoms pseudoephedrine Allergy Intermediate hand, feet Verified 10/20/24 15:29 edema, skin peeling/redness hydromorphone AdvReac Severe delirium Verified 10/20/24 15:29 ketorolac [From Toradol] AdvReac Severe delirium Verified 10/20/24 15:29 metoprolol AdvReac Intermediate hallucinati Verified 10/20/24 21:42 on/confusio n Home Meds Home Medications Medication Instructions Recorded Confirmed acetaminophen 500 mg tablet 1,000 mg PO DIRECTED PRN Pain 02/27/23 10/20/24 (Tylenol Extra Strength) insulin aspart See Rx Instructions subcut QAM 06/20/24 10/20/24 (niacinamide)(U-100) 100 unit/mL(3 mL) subcutaneous pen (Fiasp FlexTouch U-100 Insulin) insulin glargine 100 unit/mL (3 14 unit subcut QAM 09/12/24 10/20/24 mL) subcutaneous pen (Lantus Solostar U-100 Insulin) lisinopril 10 mg tablet 10 mg PO DAILY 09/25/24 10/20/24 Previous Rx's Medication Instructions Recorded pen needle, diabetic 32 gauge x #150 ea 11/08/23" (BD Ultra-Fine Olinda Pen Needle) buspirone 10 mg tablet 10 mg PO BID PRN anxiety #60 tabs 07/10/24 oxybutynin chloride 5 mg tablet 5 mg PO HS #30 tabs 08/15/24 blood-glucose sensor (FreeStyle #2 ea 09/15/24 Judy 3 Plus Sensor device) pantoprazole 40 mg tablet,delayed 40 mg PO DAILY #90 tabs 10/06/24 release Results & Data (ED) Vital Signs Vital Signs - 24 hr 10/20/24 16:51 10/20/24 18:37 10/20/24 19:34 Temperature 36.8 C Temperature Source Oral Pulse Rate 92 H 88 Pulse Rate [Right Finger] 110 H Pulse Rhythm Regular Pulse Rhythm [Right Finger] Pulse Strength Normal Pulse Strength [Right Finger] Respiratory Rate 20 20 Respiratory Effort / Characteristics Non-Labored Spontaneous Respiratory Depth Normal Respiratory Pattern Regular Blood Pressure 191/123 H Blood Pressure [Left Arm] 206/106 H Blood Pressure Mean 145 Blood Pressure Mean [Left Arm] 139 Blood Pressure Position Lying Blood Pressure Position [Left Arm] Pulse Oximetry 93 93 Oxygen Delivery Method Room Air Room Air Sepsis Recent Fever Within 48 Hours No Sepsis New/Unexplained Change in Mental Status No Sepsis Action Taken by Nursing No Action Required 10/20/24 20:00 Temperature Temperature Source Pulse Rate Pulse Rate [Right Finger] 92 H Pulse Rhythm Pulse Rhythm [Right Finger] Regular Pulse Strength Pulse Strength [Right Finger] Normal Respiratory Rate 18 Respiratory Effort / Characteristics Non-Labored Spontaneous Respiratory Depth Normal Respiratory Pattern Regular Blood Pressure Blood Pressure [Left Arm] 183/116 H Blood Pressure Mean Blood Pressure Mean [Left Arm] 138 Blood Pressure Position Blood Pressure Position [Left Arm] Sitting Pulse Oximetry 96 Oxygen Delivery Method Room Air Sepsis Recent Fever Within 48 Hours Sepsis New/Unexplained Change in Mental Status Sepsis Action Taken by Nursing Laboratory Data 10/20/24 17:10 10/20/24 17:10 Lab Results 10/20/24 10/20/24 Range/Units 17:10 18:30 WBC 6.86 (4.8-10.8) K/ul RBC 4.05 L (4.20-5.40) M/uL Hgb 11.8 L (12.0-16.0) g/dl Hct 36.8 L (37.0-47.0) % MCV 90.9 (80.0-100.0) fL MCH 29.1 (25.0-34.0) pg MCHC 32.1 (32.0-36.0) g/dL RDW Std Deviation 46.5 H (36.4-46.3) fL RDW Coeff of Jc 14.0 (11.5-14.5) % Plt Count 172 (130-400) K/uL MPV 11.1 (9.4-12.4) fL Immature Gran % (Auto) 0.3 % Neut % (Auto) 67.9 % Lymph % (Auto) 22.4 % Sawyer % (Auto) 7.4 % Eos % (Auto) 1.6 % Baso % (Auto) 0.4 % Neut # (Auto) 4.65 (1.40-6.50) K/uL Lymph # (Auto) 1.54 (1.20-3.40) K/uL Sawyer # (Auto) 0.51 (0.11-0.59) K/uL Eos # (Auto) 0.11 (0.00-0.50) K/uL Baso # (Auto) 0.03 (0.00-0.20) K/uL Immature Gran # (Auto) 0.02 (0.01-0.20) K/uL Sodium 141 (136-145) mmol/L Potassium 4.6 (3.5-5.1) mmol/L Chloride 107 (98-107) mmol/L Carbon Dioxide 27 (21-32) mmol/L Anion Gap 7 (3-11) BUN 21 (6-23) mg/dl Creatinine 0.87 (0.6-1.2) mg/dl Est Cr Clr Drug Dosing Not Reportable eGFR 66.48 BUN/Creatinine Ratio 24.1 H (10-20) Glucose 158 H (70-99(Fasting)) mg/dl Calcium 10.4 H (8.6-10.3) mg/dl Total Bilirubin 0.4 (0.2-1.0) mg/dl AST 13 (13-39) U/L ALT 9 (7-52) U/L Alkaline Phosphatase 88 (34-104) U/L B-Natriuretic Peptide 28 (0-100) pg/ml Total Protein 7.1 (6.0-8.3) gm/dl Albumin 3.8 (3.4-5.0) gm/dl Globulin 3.3 (2.5-4.0) gm/dl Albumin/Globulin Ratio 1.2 (0.9-2) Adenovirus (PCR) Not Detected (NotDetected) B. pertussis DNA (PCR) Not Detected (NotDetected) B.parapertussis DNA PCR Not Detected (NotDetected) C. pneumoniae DNA (PCR) Not Detected (NotDetected) Coronavirus OC43 (PCR) Not Detected (NotDetected) Coronavirus HKU1 (PCR) Not Detected (NotDetected) Coronavirus 229E (PCR) Not Detected (NotDetected) SARS-CoV-2 (PCR) Not Detected (NotDetected) Coronavirus NL63 (PCR) Not Detected (NotDetected) Human Metapneumovir PCR Not Detected (NotDetected) Influenza Type A (PCR) Not Detected (NotDetected) Influenza Type B (PCR) Not Detected (NotDetected) M. pneumoniae (PCR) Not Detected (NotDetected) Parainfluenza 1 (PCR) Not Detected (NotDetected) Parainfluenza 2 (PCR) Not Detected (NotDetected) Parainfluenza 3 (PCR) Not Detected (NotDetected) Parainfluenza 4 (PCR) Not Detected (NotDetected) RSV (PCR) Not Detected (NotDetected) Entero/Rhino (PCR) Not Detected (NotDetected) Administered Medications Discontinued Medications Acetaminophen (Ofirmev) 1,000 mg in 100 mls @ 400 mls/hr IV NOW STA Stop: 10/20/24 18:46 Last Admin: 10/20/24 18:39 Dose: 400 mls/hr Documented By: TDM Ketorolac Tromethamine (Ketorolac Tromethamine 15 Mg/Ml Vial) 15 mg IV NOW ONE Stop: 10/20/24 18:33 Last Admin: 10/20/24 18:40 Dose: 15 mg Documented By: TDM Imaging Data Radiologist's Impression: Venous Doppler Study 10/20/24 18:19 Examination: Doppler venous ultrasound of the lower extremity Comparison: None Technique: Grayscale evaluation with compression, spectral flow, and color Doppler assessment of the deep venous system of the leg, from the groin to the knee, as well as the lower leg Findings: The external iliac, common femoral, femoral, popliteal, peroneal and anterior and posterior tibial veins demonstrate normal compressibility and blood flow. Impression: No evidence for DVT of the bilateral lower extremity Electronically signed by Won Ahmadi 10-20-2024 7:25 PM Discharge Plan Visit Data Chief Complaint: Leg Injury/Pain ED Provider: Preeti Thomas Discharge Problem: Bilateral edema of lower extremity Patient Disposition: Admitted As Inpatient Condition: Fair Forms Stand Alone Forms: [facility] Prescriptions Prescriptions: No Action oxybutynin chloride 5 mg tablet 5 mg PO HS Qty: 30 1RF (DME) FreeStyle Judy 3 Plus Sensor Device See Rx Instructions .Route Qty: 2 5RF Rx Instructions: change every 15 days (DME) pen needle, diabetic [BD Ultra-Fine Olinda Pen Needle] 32 gauge x 5/32" needle See Rx Instructions miscellaneous .MEDSUPPLY Qty: 150 5RF Rx Instructions: As directed to use with insulin pens 4 times a day lisinopril 10 mg tablet 10 mg PO DAILY buspirone 10 mg tablet 10 mg PO BID PRN (Reason: anxiety) Qty: 60 2RF insulin glargine [Lantus Solostar U-100 Insulin] 100 unit/mL (3 mL) insulin pen 14 unit subcut QAM Fiasp FlexTouch U-100 Insulin 100 unit/mL (3 mL) insulin pen See Rx Instructions subcut QAM Rx Instructions: with sliding scale 70-130-0, 130-180-4,181-240-8,241-300-10,301-350-12,351-400-16,400-20 pantoprazole 40 mg tablet,delayed release (DR/EC) 40 mg PO DAILY Qty: 90 1RF acetaminophen [Tylenol Extra Strength] 500 mg Tablet 1,000 mg PO DIRECTED PRN (Reason: Pain) Referrals Referrals: Toshia Alarcon DO [Primary Care Provider] -
--- NOTE | 2024-10-20 20:58 | History & Physical Report ---
Date of Service October 20, 2024 Assessment & Plan (1) Bilateral lower extremity pain: (2) Ambulatory dysfunction: (3) Anemia: (4) Type 2 diabetes mellitus: Plan 84-year-old female PMHx recurrent UTI, lower extremity edema, sciatica, idiopathic polyneuropathy, hyperparathyroidism, unsteady gait, lumbar stenosis with neurogenic claudication, HTN, T2DM, depression, HLD presenting for evaluation of bilateral lower extremity pain and swelling worsening over the past 3 weeks. ED evaluation reveals no leukocytosis, H&H 11.8/38.6; CMP BUN/creatinine ratio 24.1, glucose 158, calcium 10.4; BioFire negative; bilateral venous Dopplers of LE negative for DVT; pending hip XR, lumbar spine XR.; Provided with acetaminophen 1 g IV in ED and ketorolac 15 mg IV. #BLE pain/Ambulatory dysfunction Presenting with 1 week worsening BLE pain, starting in anterior hips and spreading downward. No numbness or tingling, no weakness, no neurological deficits. No recent trauma. Has a history of cervical and thoracic DDD, multiple prior procedures for such. She has followed with vascular medicine in the past, and was recommended to have compression stockings but she did not attend her appointment for this. With significant history of neuropathy from prior spinal surgery, 5 total including fusion L5-S1, T10 and 4 cervical vertebrae as well. - CBC without infection; Ca 10.4; BNP 28 - CBC am - Lumbar XR no evidence of acute lumbar spine pathology - Bilateral hip XR no acute findings - Fall precautions, SCDs - Start Gabapentin 100mg po TID - [place] prn pain - CT lumbar spine + thoracic spine pending - PT/OT consulted - appreciate assistance - Consider ortho consult pending imaging #Anemia No current bleeding, labs appear near her baseline. -H&H 11.8/36.8 - Iron panel, B12, folate pending - Trend CBC #T2DM H/o DMT2; Home regimen includes use of insulin. Polyneuropathy. - Most recent A1C 08/2023 @ 7.8% - SSI with target BSG range 110-140mg/dL, CF 20, carb ratio 10 - BSG ACHS - Pharm glycemic management consult placed, appreciate assistance - Adjust regimen as needed #HTN- Lisinopril - continue #Depression- Follows with psych; Buspirone prn - continue #Urinary incontinence- Worsened with diuretic use so she does not use diuretics; Oxybutynin - continue #GERD- ? Pantoprazole - continue if on Dispo: Obs, med/sx VTE Prophylaxis: SCDs, add chemical prophylaxis if prolonged stay This document was dictated utilizing [employer]. Please excuse any grammatical errors that may be secondary to use of this software. Admission and Anticipated Discharge Date Admission Date: 10/20/2024 History of Present Illness Chief Complaint: BLE pain Primary Care Provider: Toshia Alarcon DO 84-year-old female PMHx recurrent UTI, lower extremity edema, sciatica, idiopathic polyneuropathy, hyperparathyroidism, unsteady gait, lumbar stenosis with neurogenic claudication, HTN, T2DM, depression, HLD presenting for evaluation of bilateral lower extremity pain and swelling worsening over the past 3 weeks. States that it has gotten so severe she is unable to walk herself. She is not having numbness/tingling or pain necessarily down the backs of her legs. The pain starts in her hip area/anterior thigh and then will radiate downward from there. She occasionally has low back pain as well, but this has been managed. She has been taking tylenol. States that she does not have bowel or bladder incontinence (does have some urinary incontinence at baseline, stable). No trauma to the area. No erythema or open wounds. The swelling is causing "12/10" pain when asked, stating that the sensation is in her upper legs, feeling like a sharp and "stabbing with a knife" pain. It is typically present at all times, occasionally decreasing in severity but never completely going away. Does not have SOB or cough. No F/C. No chest pain, palpitations, abdominal pain, N/V?D/C, numbness/tingling, URI symptoms, LUTS, weakness, or falls. No syncope. Did not take her medications today. Reports that she wants her at bedside, whom she has been with for 50+ years. Wants to move her legs around to try to make the pain better and not allow it to "build" in her legs. ED evaluation reveals no leukocytosis, H&H 11.8/38.6; CMP BUN/creatinine ratio 24.1, glucose 158, calcium 10.4; BioFire negative; bilateral venous Dopplers of LE negative for DVT; pending hip XR, lumbar spine XR.; Provided with acetaminophen 1 g IV in ED and ketorolac [address] see Dr[address] Rodriguez's attestation for adjustments/additions to treatment plan. Allergies Allergy/AdvReac Type Severity Reaction Status Date / Time tramadol Allergy Severe confusion, Verified 10/20/24 15:29 stroke like symptoms pseudoephedrine Allergy Intermediate hand, feet Verified 10/20/24 15:29 edema, skin peeling/redness hydromorphone AdvReac Severe delirium Verified 10/20/24 15:29 ketorolac [From Toradol] AdvReac Severe delirium Verified 10/20/24 15:29 metoprolol AdvReac Intermediate hallucinati Verified 10/20/24 21:42 on/confusio n Home Medications Medication Instructions Recorded Confirmed Type acetaminophen 500 mg tablet 1,000 mg PO DIRECTED PRN Pain 02/27/23 10/20/24 History (Tylenol Extra Strength) pen needle, diabetic 32 gauge x #150 ea 11/08/23 10/20/24 Rx 5/32" (BD Ultra-Fine Olinda Pen Needle) insulin aspart See Rx Instructions subcut QAM 06/20/24 10/20/24 History (niacinamide)(U-100) 100 unit/mL(3 mL) subcutaneous pen (Fiasp FlexTouch U-100 Insulin) buspirone 10 mg tablet 10 mg PO BID PRN anxiety #60 tabs 07/10/24 10/20/24 Rx oxybutynin chloride 5 mg tablet 5 mg PO HS #30 tabs 08/15/24 10/20/24 Rx insulin glargine 100 unit/mL (3 14 unit subcut QAM 09/12/24 10/20/24 History mL) subcutaneous pen (Lantus Solostar U-100 Insulin) blood-glucose sensor (FreeStyle #2 ea 09/15/24 10/20/24 Rx Judy 3 Plus Sensor device) lisinopril 10 mg tablet 10 mg PO DAILY 09/25/24 10/20/24 History pantoprazole 40 mg tablet,delayed 40 mg PO DAILY #90 tabs 10/06/24 10/20/24 Rx release Past Med/Surg History Problem List (Updated 10/20/24 @ 22:05 by Preeti Thomas MD) Bilateral edema of lower extremity (Acute) Type 2 diabetes mellitus Anemia Ambulatory dysfunction Bilateral lower extremity pain Nephrolithiasis Gross hematuria Recurrent UTI Edema of lower extremity Sciatica Elevated C-reactive protein (CRP) Carpal tunnel syndrome on both sides Idiopathic polyneuropathy Hyperparathyroidism Recurrent falls Unsteady gait Vitamin D deficiency Poorly controlled type 2 diabetes mellitus Empty sella Myelopathy 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 of cervical region Hypertension Lumbar stenosis with neurogenic claudication Myelopathy 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 of thoracic region Obesity Depression Vertigo Right-sided tinnitus Degenerative disc disease Medical History GERD (gastroesophageal reflux disease) rare, controlled, stable per pt Sensorineural hearing loss (SNHL) of right ear with restricted hearing of left ear Bilateral leg weakness pt states she is still experiencing this--uses walker to ambulate Hx of pancreatitis Surgical History History of cervical spinal surgery anterior cervical corpectomy with bilt foraminotomies Dr. Sanford @ [facility] 06/09/21 glidescope #3, "good view" ETT 7. Post-op progress note: "hypertension on admission. Her blood pressures on the floor have been running in the 170s-200s systolic. She was just recently started on metoprolol on this admission. She received 10mg IV Labetalol on emergence from anesthesia and another 10mg IV labetalol in recovery for SBP 190s. Her BP improved to 176/83." History of hysterectomy with bilateral oophorectomy History of cholecystectomy History of appendectomy H/O knee surgery partial right knee replacement > 20 yrs ago History of total knee replacement LEFT Fusion of spine LUMBAR (TOTAL OF 3 SURGERIES), Hardware removal L2-L3, decompression T12-L2, L5-S1, T8-T10: Grade 1 view, Salazar#2, ETT#7.5 at [facility] T10-S1 iliac bolts: 11/13/17: Grade view 1 with cricoid pressure, MAC#3, ETT 7.0 at [facility]. No issues with either per both anesthesia postop progress notes. History of colonoscopy History of herniorrhaphy UMBILICAL [place] teeth removed History of cataract surgery BL Family History Mother Family history of diabetes mellitus Father Family history of diabetes mellitus Pancreatic cancer Brother No problems noted. Other No family history of adverse response to anesthesia No family history of bleeding disorder Social History Smoking Status: Never smoker Second Hand Exposure: No; Do You Dip or Chew Tobacco: No; Tobacco Cessation Education Requested by Patient: No Hx Alcohol Use: Yes Alcohol type: beer, wine and hard liquor Hx Substance Use: No Preferred Language: Ukrainian Communication Ability: Effective Wire Mesh Filter Fabricator Required: No Beliefs That Will Affect Care: None marital status: Current Living Situation: Spouse Current Living Situation Comment: Kiah Katz current occupational status: 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 [employer] How many Children do You have: 3 Other Information That Helps Us Care for You: No Feels Safe at Home: Yes Safety Concerns: Feels Safe At This Time Diet: regular caffeine: Yes Dental Care, Regularly: Yes Physical Activity Frequency: 1-2 Times per Week Seatbelt Use: always Sunscreen Use: Yes Assistive Devices: Cane, Walker and Wheelchair Review of Systems Review of Systems: All systems reviewed & are unremarkable except as noted in Subjective Physical Exam Physical Exam: General: No acute distress, appears to be in mild pain Skin: Warm and dry; present bilateral knees, surgical Head: Normocephalic, atraumatic Eyes: PERRL, conjunctivae clear, sclera non-icteric ENT: External ear and ear canal without swelling; nose atraumatic; good dentitio n, tongue normal appearance, pharynx normal Neck: Supple, no LAD Cardio: RRR, no M/G/R, S1 and S2 normal Resp: No respiratory distress, Lungs CTA in all lobes bilaterally, no wheezes, rales, or rhonchi Abdomen: Soft, symmetric, nontender; No masses or hepatosplenomegaly; Bowel sounds normoactive MSK: Pain with ROM but no limitations to; no tenderness to palpation over bilateral hips; no deformities; pulses palpable and equal; bilateral lower extremity edema, trace pitting however it is definitely edema/at the level of the ankles. Neuro: Awake, alert; Sensation intact bilaterally; CN grossly intact Psych: Anxious, continues to ask why her is not here anymore. Results & Data Results & Data Vital Signs (Past 12 Hours) Vital Signs Temp Pulse Pulse Resp BP BP Pulse Ox 10/20/24 20:00 92 H 18 183/116 H 96 10/20/24 19:34 88 10/20/24 18:37 110 H 20 206/106 H 93 10/20/24 16:51 36.8 C 92 H 20 191/123 H 93 O2 Del Method 10/20/24 20:00 Room Air 10/20/24 19:34 10/20/24 18:37 Room Air 10/20/24 16:51 Room Air Laboratory Results 10/20/24 10/20/24 18:30 17:10 WBC 6.86 RBC 4.05 L Hgb 11.8 L Hct 36.8 L MCV 90.9 MCH 29.1 MCHC 32.1 RDW Std Deviation 46.5 H RDW Coeff of Jc 14.0 Plt Count 172 MPV 11.1 Immature Gran % (Auto) 0.3 Neut % (Auto) 67.9 Lymph % (Auto) 22.4 [place] % (Auto) 7.4 Eos % (Auto) 1.6 Baso % (Auto) 0.4 Neut # (Auto) 4.65 Lymph # (Auto) 1.54 [place] # (Auto) 0.51 Eos # (Auto) 0.11 Baso # (Auto) 0.03 Immature Gran # (Auto) 0.02 Sodium 141 Potassium 4.6 Chloride 107 Carbon Dioxide 27 Anion Gap 7 BUN 21 Creatinine 0.87 Est Cr Clr Drug Dosing Not Reportable eGFR 66.48 BUN/Creatinine Ratio 24.1 H Glucose 158 H Calcium 10.4 H Total Bilirubin 0.4 AST 13 ALT 9 Alkaline Phosphatase 88 B-Natriuretic Peptide 28 Total Protein 7.1 Albumin 3.8 Globulin 3.3 Albumin/Globulin Ratio 1.2 Adenovirus (PCR) Not Detected B. pertussis DNA (PCR) Not Detected B.parapertussis DNA PCR Not Detected C. pneumoniae DNA (PCR) Not Detected Coronavirus OC43 (PCR) Not Detected Coronavirus HKU1 (PCR) Not Detected Coronavirus 229E (PCR) Not Detected SARS-CoV-2 (PCR) Not Detected Coronavirus NL63 (PCR) Not Detected Human Metapneumovir PCR Not Detected Influenza Type A (PCR) Not Detected Influenza Type B (PCR) Not Detected M. pneumoniae (PCR) Not Detected Parainfluenza 1 (PCR) Not Detected Parainfluenza 2 (PCR) Not Detected Parainfluenza 3 (PCR) Not Detected Parainfluenza 4 (PCR) Not Detected RSV (PCR) Not Detected Entero/Rhino (PCR) Not Detected Diagnostic Findings Venous Doppler Study 10/20/24 18:19 Examination: Doppler venous ultrasound of the lower extremity Comparison: None Technique: Grayscale evaluation with compression, spectral flow, and color Doppler assessment of the deep venous system of the leg, from the groin to the knee, as well as the lower leg Findings: The external iliac, common femoral, femoral, popliteal, peroneal and anterior and posterior tibial veins demonstrate normal compressibility and blood flow. Impression: No evidence for DVT of the bilateral lower extremity Electronically signed by Won Ahmadi 10-20-2024 7:25 PM Medications Administered Ketorolac 15mg IV Acetaminophen 1g IV Supervising Physician Co-Signing Physician Notes Attending Attestation & Admit Note: Pt seen/examined, chart reviewed, admit care plan d/w JACQUI Poon. I agree w/ the godinez components of her admission documentation. 84yo female with h/o recurrent UTI, chronic lower extremity edema, idiopathic polyneuropathy, hyperparathyroidism, unsteady gait, lumbar stenosis with neurogenic claudication, HTN, T2DM, depression, and multiple extensive cervical/thoracic/lumbar spine surgery for evaluation of bilateral lower extremity pain and swelling worsening for 3+ weeks - RLE worse than LLE. She has had significant difficulty walking because of these pains. Pain travels from the proximal right leg down to the foot, mainly laterally. LLE pains are less severe. With respect to her edema she states it "comes and goes" but more often than not she has significant edema. At the end of my assessment patient's arrived. In addition to the above issues he asks if she can "be evaluated for dementia." Apparently she has had progressive memory & cognitive issues. PMH/PSH/allergies/meds/sochx - reviewed VSS, afebrile gen - lying in bed comfortably, NAD, poor historian neck - no JVD mouth - MMM heart - RRR, s1 s2, no murmur lungs - CTA b/l abd - soft NT ND BS+ ext - lymphedema of b/l legs, extending from feet to the knees; pulses b/l feet 2+ neuro - right hip flexion 4-5/5 strength; left hip flexion 4/5; distal strength b/l ankles/feet 4-5/5 musculo - log-rolling of b/l hips does not cause pain; passive flexion and extension of b/l hips does not cause pain labs reviewed imaging reviewed A/P: 1. chronic b/l LE edema - exam c/w lymphedema; she does not examine otherwise in CHF. b/l LE venous duplex study negative for DVT. check a TSH. only 1+ protein on most recent u/a thus no evidence of nephrotic syndrome causing edema. creatinine <1. no h/o liver disease. can consider diuretics, but best Rx option is compression/lymphedema treatments. 2. b/l LE pain, RLE >LLE - suspect this is lumbar radiculopathy b/l. b/l hip OA could be contributing but much less likely. start gabapentin 100mg TID for presumed neuropathic pain from radiculopathy. check lumbar spine x-rays and hip x-rays. suspect, however, we will need to perform more advanced imaging of her t-spine and l-spine given extensive back surgery in the past. consider Dr Sanford consult from orthopedics for his opinion. PT, OT 3. anemia - check nutritional labs including Fe studies, B12, folate. 4. memory impairment - recommend outpatient neuro evaluation for such. Check TSH, B12, etc. Magdiel Rodriguez MD PG Care Time/CCT Total # of Minutes Spent Total Time Spent with Patient: Total time spent is greater than 50% in coordination of care (as documented) at patient's floor/unit and/or counseling patient: Coding Level of Care Code 17007 INT INP/OBS CARE 2/55MIN Diagnoses Bilateral lower extremity pain M79.604; M79.605 Ambulatory dysfunction R26.2 Anemia D64.9 Type 2 diabetes mellitus E11.9
[2024-10-20] MEDS ORDERED: HYDROCODONE/ACETAMOPHEN 5/325MG TAB PO PRN ×2 (21:28→23:55)
[2024-10-20] MEDS: HYDROCODONE/ACETAMOPHEN 5/325MG TAB PO STA (22:08)
--- NOTE | 2024-10-20 23:18 | XRay Report ---
Exam(s): XR L SPINE, 2-3 views EXAM: XR Lumbosacral Spine, 2 or 3 Views CLINICAL HISTORY: Reason for exam: Pain. TECHNIQUE: Frontal and lateral views of the lumbar spine and sacrum. COMPARISON: No relevant prior studies available. FINDINGS: Vertebrae: Status post posterior decompression, posterior and interbody fusion of the thoracolumbar and sacral spine with transpedicular screws and connecting rods in place. No acute fracture. Normal alignment. Sacrum/coccyx: Unremarkable as visualized. No acute fracture. Disc spaces: No acute findings. No significant narrowing. Soft tissues: Unremarkable. IMPRESSION: No evidence of acute lumbar spine pathology. If there is continued clinical concern, a CT scan may be of benefit for further evaluation. Electronically signed by: Yaritza Ryan MD 10/20/24 23:17 PM
[2024-10-20] MEDS ORDERED: DEXTROSE 50% 50 ML SYRINGE IV PRN (23:55)
[2024-10-20] MEDS ORDERED: PHARMACY GLYCEMIC MGMT CONSULT PRN (23:55)
[2024-10-20] MEDS ORDERED: GLUCOSE 40% GEL 15 GM TUBE PO PRN (23:55)
[2024-10-20] MEDS ORDERED: GLUCAGON FOR INJ 1 MG VIAL SQ PRN (23:55)
[2024-10-20] MEDS ORDERED: ONDANSETRON INJ 2 MG/ML 2 ML VIAL IV PRN (23:55)
[2024-10-20] MEDS ORDERED: POLYETHYLENE (MIRALAX) 17 GM PACK PO PRN (23:55)
[2024-10-21] MEDS ORDERED: Patient's HEIGHT &/or WEIGHT Needed STA (00:10)
--- NOTE | 2024-10-21 00:27 | XRay Report ---
Exam(s): XR BILATERAL HIP + PELVIS, 2-3 views EXAM: XR Bilateral Hips With Pelvis When Performed, 2 or 3 Views CLINICAL HISTORY: Reason for exam: Pain. TECHNIQUE: Three or four views of the bilateral hips with pelvis when performed. COMPARISON: No relevant prior studies available. FINDINGS: Bones/joints: Postoperative changes lower lumbar spine and sacroiliac joints. Moderate degenerative changes of the left hip. No acute fracture. No dislocation. Soft tissues: Unremarkable. IMPRESSION: No acute findings in the bilateral hips. Electronically signed by: Min Almendarez MD 10/21/24 00:26 AM
[2024-10-21] MEDS: GABAPENTIN 100 MG CAP PO SCH (00:37)
[2024-10-21] MEDS: MELATONIN 3 MG TAB PO PRN (00:38)
[2024-10-21] MEDS: busPIRone 5 MG TAB PO PRN (00:38)
[2024-10-21] MEDS: INSULIN ASPART PER UNIT CHARGE SC SCH (01:00)
--- NOTE | 2024-10-21 01:39 | CT Scan Report ---
EXAM: CT lumbar spine wo con CLINICAL HISTORY: BLE pain, prior back sx TECHNIQUE: Multiple contiguous axial images were obtained through the lumbar spine without IV contrast. Sagittal and coronal reformatted images were obtained from the axial data. CT scan was performed according to ALARA (as low as reasonably achievable). COMPARISON: none FINDINGS: Bilateral tarnspedicular fixation screws seen at L1,L2,L3,L5 and S1 vertebral levels. Post laminectomy status at L4 level. Prosthetic disc seen at all lumbar intervertebral levels. Facetal ankylosis at all levels. Diffuse osteopenia is seen. The normal lordotic curvature of the lumbar spine is maintained. Lumbar vertebral bodies are maintained in height and alignment. No vertebral destructive changes are seen. Fatty atrophy of the posterior paraspinal muscles is noted. IMPRESSION: 1. Diffuse osteopenia is seen. 2. Bilateral tarnspedicular fixation screws seen at L1,L2,L3,L5 and S1 vertebral levels. 3. Post laminectomy status at L4 level. 4. Prosthetic disc seen at all lumbar intervertebral levels. 5. Facetal ankylosis at all levels. Electronically signed by Dillon Corbin 10-21-2024 01:39 AM
--- NOTE | 2024-10-21 01:50 | CT Scan Report ---
EXAM: CT thoracic spine wo con CLINICAL HISTORY: BLE pain, prior back sx TECHNIQUE: Multiple contiguous axial images were obtained through the thoracic spine without IV contrast. Sagittal and coronal reformatted images were obtained from the axial data. CT scan was performed according to ALARA (as low as reasonable achievable). COMPARISON: No FINDINGS: The alignment of the thoracic spine is maintained. Thoracic vertebral bodies are maintained in height and alignment. No vertebral destructive changes are seen. Fixation hal and screws in the lower thoracic vertebrae and in upper cervical vertebrae with no evidence of displacement. Generalized decrease in bone density. Multilevel marginal osteophytes, endplate irregularity and sclerosis. Paravertebral soft tissues are unremarkable. Visualized lung parenchyma appears unremarkable. IMPRESSION: 1. Thoracic spondylosis. 2. Fixation hal and screws in the lower thoracic vertebrae and in upper cervical vertebrae with no evidence of displacement. Electronically signed by Dillon Corbin 10-21-2024 01:49 AM
[2024-10-21] MEDS: HYDROCODONE/ACETAMOPHEN 5/325MG TAB PO PRN (02:08)
[2024-10-21 08:22] LABS: Estimated Average Glucose 160 mg/dl; Hemoglobin A1C 7.2 % (4.5-5.6)
[2024-10-21 08:23] LABS: Folate (Folic Acid),Ser orPlas 10.37 ng/ml (>5.38)
[2024-10-21 08:38] LABS: Iron 69 mcg/dl (35-150); Total Iron Binding Cap Calc 246 mcg/dl (250-450); Transferrin 199 mg/dl (200-360); Transferrin (FE) Percent Satur 28 % (15-50); Unsaturated Iron Binding Cap 177 mcg/dl (155-355)
[2024-10-21] MEDS: lisinopril 10 MG TAB PO SCH (08:40)
[2024-10-21] MEDS: LANTUS PER UNIT CHARGE SC SCH (08:49)
[2024-10-21] MEDS ORDERED: LANTUS PER UNIT CHARGE SC SCH (09:00)
--- NOTE | 2024-10-21 11:38 | Hospitalist Progress Note ---
Date of Service October 21, 2024 Assessment & Plan (1) Bilateral lower extremity pain: Plan: -Gabapentin 100mg po TID - [place] prn pain - CT lumbar spine + thoracic spine showing no acute pathlogy - PT/OT consulted - appreciate assistance -will order MRI T&L spine - Consider ortho consult pending imaging (2) Ambulatory dysfunction: Plan: history of cervical and thoracic DDD significant history of neuropathy from prior spinal surgery, 5 total including fusion L5-S1, T10 and 4 cervical vertebrae (3) Anemia: Plan: No current bleeding, labs appear near her baseline. (4) Type 2 diabetes mellitus: Plan: SSI with target BSG range 110-140mg/dL, CF 20, carb ratio 10 - BSG ACHS - Pharm glycemic management Plan 84-year-old female PMHx recurrent UTI, lower extremity edema, sciatica, idiopathic polyneuropathy, hyperparathyroidism, unsteady gait, lumbar stenosis with neurogenic claudication, HTN, T2DM, depression, HLD presenting for evaluation of bilateral lower extremity pain and swelling worsening over the pa st 3 weeks. ED evaluation reveals no leukocytosis, H&H 11.8/38.6; CMP BUN/creatinine ratio 24.1, glucose 158, calcium 10.4; BioFire negative; bilateral venous Dopplers of LE negative for DVT; pending hip XR, lumbar spine XR.; Provided with acetaminophen 1 g IV in ED and ketorolac 15 mg IV. Admission and Anticipated Discharge Date Admission Date: October 20, 2024 Subjective Pt still complaining of back pain. Review of Systems Review of Systems: CONST: Negative for fever, body aches and chills. HENT: Negative for neck pain/stiffness, headache, congestion, sore throat, swelling. EYES: Negative for discharge/pain or vision changes. RESP: Negative for cough/hemoptysis and shortness of breath. CV: Negative chest pain, difficulty breathing, palpitations. ABD: Negative pain, nausea, vomiting. : Negative increase frequency, dysuria, blood in urine or stool. MUSC: Negative for muscle aches, edema. SKIN: Negative rash, lesions/sores. NEURO: Negative headache, dizziness, weakness. Physical Exam Physical Exam: GENERAL APPEARANCE NAD, activity normal for age, well developed/ well nourished, no cyanosis, pallor, or diaphoresis. EYES lids/conjunctiva normal. EARS/NOSE/THROAT Mucous membranes moist, nares normal, lips/teeth normal uvula midline without oral pharyngeal erythema, exudate or swelling TMs normal bilaterally. No lymphangitis/lymphedema. HEAD/NECK normocephalic atraumatic, no facial trauma, neck is supple. RESPIRATORY respiratory effort normal, speaks in full sentences, no tripod position, no accessory muscle use. Lungs clear to auscultation without rhonchi, wheezes, rales CARDIAC Regular rate and rhythm, no edema. ABDOMINAL Soft, ND/NT. No evidence of fluid wave. No pulsatile masses on exam, rebound tenderness, Littlejohn sign or pain over Mcburney's point. MUSCLES/EXTREMITIES No abnormal range of motion, no swelling. SKIN Warm, pink and dry. No rashes, dermatoses, petechiae or lesions. NEUROLOGICAL Speech is clear and appropriate. Normal level of consciousness. Gait and coordination are normal. 5/5 strength in all extremities. PSYCH Normal mood and affect. Judgement/competence is appropriate Results & Data Results & Data Vital Signs (Past 12 Hours) Vital Signs Temp Pulse Resp BP Pulse Ox O2 Del Method 10/21/24 07:58 36.4 C L 71 18 148/79 H 93 Room Air 10/20/24 23:58 36.7 C 87 18 189/84 H 95 Room Air PG Care Time/CCT Total # of Minutes Spent Total Time Spent with Patient: Total time spent is greater than 50% in coordination of care (as documented) at patient's floor/unit and/or counseling patient: Coding Level of Care Code 60083 SUB INP/OBS CARE 2/35MIN Diagnoses Bilateral lower extremity pain M79.604; M79.605 Ambulatory dysfunction R26.2 Anemia D64.9 Type 2 diabetes mellitus E11.9
--- NOTE | 2024-10-21 12:17 | Pharmacy Report ---
Pharmacy Glycemic Short Note 2 - Date of Service October 21, 2024 - Glycemic Short BSG Results (Last 24 hours): 10/20/24 10/21/24 10/21/24 17:10 00:59 08:01 Glucose 158 H POC Glucose 123 H 133 H 10/21/24 11:20 Glucose POC Glucose 136 H OUTPATIENT ANTIDIABETIC REGIMEN: * glargine 14 units SQ QAM * aspart sliding scale (0-20 units depending on BSG) HbA1c: 7.2% on 10/21/24 ASSESSMENT: * Gracie is an 84 year old female who was admitted last evening for bilateral edema of the lower extremity. Pharmacy was consulted for glycemic management while she is admitted. * BSG on admit was 158mg/dL and 123mg/dL at bedtime. A weight based bolus insulin regimen with a stress of 2 was started at that time. * Fasting BSG was 133mg/dL this morning. Lantus 10 units SQ daily was ordered to start this morning. PLAN FOR INPATIENT GLYCEMIC CONTROL: * Hold outpatient diabetes medications * Basal insulin * Lantus 10 units SQ daily * Bolus insulin * NovoLog per scale ACHS or Q6hrs while NPO * Goal Range: Low 110 mg/dL - High 140 mg/dL * Correction Factor: 20 mg/dL/unit * Nutritional / Prandial insulin per carb ratio of 1 unit per 7 grams CHO consumed
[2024-10-21 19:38] VITALS: RESP 18
[2024-10-21] MEDS: oxyBUTYnin chloride 5 MG TAB PO SCH (19:57)
[2024-10-21] MEDS: CARBOHYDRATES FOR HYPOGLYCEMIA PO PRN (21:03)
[2024-10-21] MEDS: GLUCOSE 10 TAB/TUBE PO PRN (21:05)
[2024-10-22 07:10] VITALS: BP 139/80; PULSE 69; TEMP 97.9; O2SAT 94
--- NOTE | 2024-10-22 09:29 | Hospitalist Progress Note ---
Date of Service October 22, 2024 Assessment & Plan (1) Bilateral lower extremity pain: Plan: -Gabapentin 100mg po TID - [place] prn pain - CT lumbar spine + thoracic spine showing no acute pathology - PT/OT recommending rehab -Pt agreeing, will case management to discuss options (2) Ambulatory dysfunction: Plan: history of cervical and thoracic DDD significant history of neuropathy from prior spinal surgery, 5 total including fusion L5-S1, T10 and 4 cervical vertebrae (3) Anemia: Plan: No current bleeding, labs appear near her baseline. (4) Type 2 diabetes mellitus: Plan: SSI with target BSG range 110-140mg/dL, CF 20, carb ratio 10 - BSG ACHS - Pharm glycemic management Plan 84-year-old female PMHx recurrent UTI, lower extremity edema, sciatica, idiopathic polyneuropathy, hyperparathyroidism, unsteady gait, lumbar stenosis with neurogenic claudication, HTN, T2DM, depression, HLD presenting for evaluation of bilateral lower extremity pain and swelling worsening over the past 3 weeks. ED evaluation reveals no leukocytosis, H&H 11.8/38.6; CMP BUN/creatinine ratio 24.1, glucose 158, calcium 10.4; BioFire negative; bilateral venous Dopplers of LE negative for DVT; pending hip XR, lumbar spine XR.; Provided with acetaminophen 1 g IV in ED and ketorolac 15 mg IV. Admission and Anticipated Discharge Date Admission Date: October 20, 2024 Subjective Pt resting in bed, states her back pain has improved. Review of Systems Review of Systems: CONST: Negative for fever, body aches and chills. HENT: Negative for neck pain/stiffness, headache, congestion, sore throat, swelling. EYES: Negative for discharge/pain or vision changes. RESP: Negative for cough/hemoptysis and shortness of breath. CV: Negative chest pain, difficulty breathing, palpitations. ABD: Negative pain, nausea, vomiting. : Negative increase frequency, dysuria, blood in urine or stool. MUSC: Negative for muscle aches, edema. SKIN: Negative rash, lesions/sores. NEURO: Negative headache, dizziness, weakness. Physical Exam Physical Exam: GENERAL APPEARANCE NAD, activity normal for age, well developed/ well nourished, no cyanosis, pallor, or diaphoresis. EYES lids/conjunctiva normal. EARS/NOSE/THROAT Mucous membranes moist, nares normal, lips/teeth normal uvula midline without oral pharyngeal erythema, exudate or swelling TMs normal bilaterally. No lymphangitis/lymphedema. HEAD/NECK normocephalic atraumatic, no facial trauma, neck is supple. RESPIRATORY respiratory effort normal, speaks in full sentences, no tripod position, no accessory muscle use. Lungs clear to auscultation without rhonchi, wheezes, rales CARDIAC Regular rate and rhythm, no edema. ABDOMINAL Soft, ND/NT. No evidence of fluid wave. No pulsatile masses on exam, rebound tenderness, Littlejohn sign or pain over Mcburney's point. MUSCLES/EXTREMITIES No abnormal range of motion, no swelling. SKIN Warm, pink and dry. No rashes, dermatoses, petechiae or lesions. NEUROLOGICAL Speech is clear and appropriate. Normal level of consciousness. Gait and coordination are normal. 5/5 strength in all extremities. PSYCH Normal mood and affect. Judgement/competence is appropriate Results & Data Results & Data Vital Signs (Past 12 Hours) Vital Signs Temp Pulse Resp BP Pulse Ox O2 Del Method 10/22/24 07:09 36.6 C 69 18 139/80 94 Room Air PG Care Time/CCT Total # of Minutes Spent Total Time Spent with Patient: Total time spent is greater than 50% in coordination of care (as documented) at patient's floor/unit and/or counseling patient: Coding Level of Care Code 91381 SUB INP/OBS CARE 2/35MIN Diagnoses Bilateral lower extremity pain M79.604; M79.605 Ambulatory dysfunction R26.2 Anemia D64.9 Type 2 diabetes mellitus E11.9
--- NOTE | 2024-10-22 12:24 | Pharmacy Report ---
Pharmacy Glycemic Short Note 2 - Date of Service October 22, 2024 - Glycemic Short BSG Results (Last 24 hours): 10/21/24 10/21/24 10/21/24 16:23 20:41 20:43 POC Glucose 90 62 L* 62 L* 10/21/24 10/21/24 10/21/24 20:59 21:31 23:48 POC Glucose 60 L* 97 110 H 10/22/24 10/22/24 10/22/24 04:15 07:28 11:47 POC Glucose 106 H 120 H 152 H OUTPATIENT ANTIDIABETIC REGIMEN: * glargine 14 units SQ QAM * aspart sliding scale (0-20 units depending on BSG) HbA1c: 7.2% on 10/21/24 ASSESSMENT: 10/22 * Patient received total of 28 units of insulin yesterday, of which 10 units were basal insulin * Fasting BSG 120 - will continue same basal * BSGs dropping low however at HS last evening, will therefore loosen novolog coverage 10/21 * Gracie is an 84 year old female who was admitted last evening for bilateral edema of the lower extremity. Pharmacy was consulted for glycemic management while she is admitted. * BSG on admit was 158mg/dL and 123mg/dL at bedtime. A weight based bolus insulin regimen with a stress of 2 was started at that time. * Fasting BSG was 133mg/dL this morning. Lantus 10 units SQ daily was ordered to start this morning. PLAN FOR INPATIENT GLYCEMIC CONTROL: * Hold outpatient diabetes medications * Basal insulin * Lantus 10 units SQ daily * Bolus insulin * NovoLog per scale ACHS or Q6hrs while NPO * Goal Range: Low 110 mg/dL - High 140 mg/dL * Correction Factor: 30 mg/dL/unit * Nutritional / Prandial insulin per carb ratio of 1 unit per 15 grams CHO consumed
--- NOTE | 2024-10-22 12:39 | Discharge Summary ---
Discharge Summary Date of Service October 22, 2024 Principal Dx & Hospital Course #1 = Principal Diagnosis (1) Bilateral lower extremity pain: -Gabapentin 100mg po TID - [place] prn pain - CT lumbar spine + thoracic spine showing no acute pathology - PT/OT recommending rehab -Pt agreeing, will case management to discuss options (2) Ambulatory dysfunction: history of cervical and thoracic DDD significant history of neuropathy from prior spinal surgery, 5 total including fusion L5-S1, T10 and 4 cervical vertebrae (3) Anemia: No current bleeding, labs appear near her baseline. (4) Type 2 diabetes mellitus: SSI with target BSG range 110-140mg/dL, CF 20, carb ratio 10 - BSG ACHS - Pharm glycemic management Plan 84-year-old female PMHx recurrent UTI, lower extremity edema, sciatica, idiopathic polyneuropathy, hyperparathyroidism, unsteady gait, lumbar stenosis with neurogenic claudication, HTN, T2DM, depression, HLD presenting for evaluation of bilateral lower extremity pain and swelling worsening over the past 3 weeks. ED evaluation reveals no leukocytosis, H&H 11.8/38.6; CMP BUN/creatinine ratio 24.1, glucose 158, calcium 10.4; BioFire negative; bilateral venous Dopplers of LE negative for DVT; pending hip XR, lumbar spine XR.; Provided with acetaminophen 1 g IV in ED and ketorolac 15 mg IV. Admission HPI Per Admitting Provider 84-year-old female PMHx recurrent UTI, lower extremity edema, sciatica, idiopathic polyneuropathy, hyperparathyroidism, unsteady gait, lumbar stenosis with neurogenic claudication, HTN, T2DM, depression, HLD presenting for evaluation of bilateral lower extremity pain and swelling worsening over the past 3 weeks. States that it has gotten so severe she is unable to walk herself. She is not having numbness/tingling or pain necessarily down the backs of her legs. The pain starts in her hip area/anterior thigh and then will radiate downward from there. She occasionally has low back pain as well, but this has been managed. She has been taking tylenol. States that she does not have bowel or bladder incontinence (does have some urinary incontinence at baseline, stable). No trauma to the area. No erythema or open wounds. The swelling is causing "12/10" pain when asked, stating that the sensation is in her upper legs, feeling like a sharp and "stabbing with a knife" pain. It is typically present at all times, occasionally decreasing in severity but never completely going away. Does not have SOB or cough. No F/C. No chest pain, palpitations, abdominal pain, N/V?D/C, numbness/tingling, URI symptoms, LUTS, weakness, or falls. No syncope. Did not take her medications today. Reports that she wants her at bedside, whom she has been with for 50+ years. Wants to move her legs around to try to make the pain better and not allow it to "build" in her legs. ED evaluation reveals no leukocytosis, H&H 11.8/38.6; CMP BUN/creatinine ratio 24.1, glucose 158, calcium 10.4; BioFire negative; bilateral venous Dopplers of LE negative for DVT; pending hip XR, lumbar spine XR.; Provided with acetaminophen 1 g IV in ED and ketorolac [address] Rodriguez's attestation for adjustments/additions to treatment plan. Discharge Exam GENERAL APPEARANCE NAD, activity normal for age, well developed/ well nourished, no cyanosis, pallor, or diaphoresis. EYES lids/conjunctiva normal. EARS/NOSE/THROAT Mucous membranes moist, nares normal, lips/teeth normal uvula midline without oral pharyngeal erythema, exudate or swelling TMs normal bilaterally. No lymphangitis/lymphedema. HEAD/NECK normocephalic atraumatic, no facial trauma, neck is supple. RESPIRATORY respiratory effort normal, speaks in full sentences, no tripod position, no accessory muscle use. Lungs clear to auscultation without rhonchi, wheezes, rales CARDIAC Regular rate and rhythm, no edema. ABDOMINAL Soft, ND/NT. No evidence of fluid wave. No pulsatile masses on exam, rebound tenderness, Littlejohn sign or pain over Mcburney's point. MUSCLES/EXTREMITIES No abnormal range of motion, no swelling. SKIN Warm, pink and dry. No rashes, dermatoses, petechiae or lesions. NEUROLOGICAL Speech is clear and appropriate. Normal level of consciousness. Gait and coordination are normal. 5/5 strength in all extremities. PSYCH Normal mood and affect. Judgement/competence is appropriate Discharge Plan Discharge Items Patient Disposition: Transfer [facility] Reason For Visit: BLE PAIN, AMB DYSFUNCTION Discharge Diagnosis: ambulatory dsyfunction Condition on Discharge: Fair Activity: Resume your previous activity Non-emergency contact: Primary Care Provider Call non-emergency contact if: you have any medication questions Follow-up/Referrals: Toshia Alarcon DO [Primary Care Provider] - Diet: Carb Consistent or DM2 Addtl Attending Provider Instructions: Follow up with PMD in 2 weeks Pending Studies at Discharge: No Stand-Alone Forms: My [facility] Skilled Items Patient informed of condition?: Yes DNR: No Discharge Level of Care: Skilled Communicable Disease: No Discharge Prognosis: Stable Lines: None Urinary Catheter: No Medications and DC Order Prescriptions: New gabapentin 100 mg Capsule 100 mg PO TID Qty: 90 0RF Continued oxybutynin chloride 5 mg tablet 5 mg PO HS Qty: 30 1RF (DME) FreeStyle Judy 3 Plus Sensor Device See Rx Instructions .Route Qty: 2 5RF Rx Instructions: change every 15 days (DME) pen needle, diabetic [BD Ultra-Fine Olinda Pen Needle] 32 gauge x 5/32" needle See Rx Instructions miscellaneous .MEDSUPPLY Qty: 150 5RF Rx Instructions: As directed to use with insulin pens 4 times a day lisinopril 10 mg tablet 10 mg PO DAILY buspirone 10 mg tablet 10 mg PO BID PRN (Reason: anxiety) Qty: 60 2RF insulin glargine [Lantus Solostar U-100 Insulin] 100 unit/mL (3 mL) insulin pen 14 unit subcut QAM Fiasp FlexTouch U-100 Insulin 100 unit/mL (3 mL) insulin pen See Rx Instructions subcut QAM Rx Instructions: with sliding scale 70-130-0, 130-180-4,181-240-8,241-300-10,301-350-12,351-400-16,400-20 pantoprazole 40 mg tablet,delayed release (DR/EC) 40 mg PO DAILY Qty: 90 1RF acetaminophen [Tylenol Extra Strength] 500 mg Tablet 1,000 mg PO DIRECTED PRN (Reason: Pain) Discharge Orders: Discharge Order (Routine); Ordered 10/22/24 Ordered By: Adolph Wilkins/Other Patient Handouts: Managing Type 2 Diabetes Admission Data Admit Date/Time: 10/20/24 21:11 Attending Provider: dAolph Gregory Admit Provider: Magdiel Rodriguez Primary Care Provider: Toshia Alarcon Other Providers: Magdiel Rodriguez; [facility]; [facility] Stay Data Consultations 10/20/24 20:18 ED Decision to Admit Stat Diagnostic Imagining Performed 10/20/24 18:19 US venous duplex leg [US venous doppler LE BI] Stat 10/21/24 00:06 CT lumbar spine wo con Urgent CT thoracic spine wo con Urgent Pending Results Patient Have Any Pending Studies at Discharge: No Discharge Instructions Given to Patient (Per Discharging Provider) Follow up with PMD in 2 weeks Total Time Total Time Spent Total Time Spent (In Minutes): 50 Coding Level of Care Code 57762 INP/OBS DISCH >30 MIN Diagnoses Bilateral lower extremity pain M79.604; M79.605 Ambulatory dysfunction R26.2 Anemia D64.9 Type 2 diabetes mellitus E11.9
[2024-10-22 13:23] LABS: Appearance Urine Cloudy (Clear); Bacteria Urine Automated 4+ (None Seen); Bilirubin Urine Negative (Negative); Blood Urine 2+ (Negative); Cast Urine Automated 0-2 /lpf (0-2); Color Urine Yellow; Epithelial Cell Urine Auto 0-2 /hpf (0-2); Glucose Urine UA Negative (Negative); Ketones Urine Negative (Negative); Leukocyte Esterase Urine 3+ (Negative); Nitrite Urine Negative (Negative); Protein Urine Trace (Negative); Specific Gravity Urine 1.012 (1.000-1.030); Starch Talc Urine Present (None Prsent); Urobilinogen Urine Negative (Negative); WBC Urine Automated >50 /hpf (0-5)
[2024-10-22] MEDS: CEFDINIR 300 MG CAP PO SCH (14:27)
== END 2024-10-22 16:11 ==
LOC: 3N 16:52 → ED 16:52 → SUATTDRO 21:11 → 3N 23:06

== ENCOUNTER 2025-01-05 20:51 | Inpatient (IN) ==
[2025-01-05 21:59] LABS: Hematocrit (blood only) 38.3 % (37.0-47.0); Hemoglobin 12.4 g/dl (12.0-16.0); Immature Granulocytes # (auto) 0.03 K/uL (0.01-0.20); Immature Granulocytes % (auto) 0.3 %; Mean Corpuscular Hemoglobin 29.2 pg (25.0-34.0); Mean Corpuscular Volume 90.1 fL (80.0-100.0); Platelet Count 124 K/uL (130-400); RDW Standard Deviation 46.3 fL (36.4-46.3); Red Blood Count 4.25 M/uL (4.20-5.40); White Blood Count 9.21 K/ul (4.8-10.8)
[2025-01-05 22:13] LABS: Alanine Aminotransferase 9.0 U/L (7-52); Albumin Globulin Ratio 1.2 (0.9-2); Alkaline Phosphatase 73.0 U/L (34-104); Anion Gap 9.0 (3-11); Bilirubin,Total 0.6 mg/dl (0.2-1.0); Blood Urea Nitrogen 26.0 mg/dl (6-23); Calcium 10.6 mg/dl (8.6-10.3); Carbon Dioxide 28.0 mmol/L (21-32); Chloride 104.0 mmol/L (98-107); Creatine Kinase 53.0 U/L (26-192); Creatinine Clr Calc Pharmacy 56.9 ml/min; Globulin 3.3 gm/dl (2.5-4.0); Glucose 215.0 mg/dl (70-99(Fasting)); Magnesium 1.9 mg/dl (1.7-2.4); Potassium 4.2 mmol/L (3.5-5.1); Sodium 141.0 mmol/L (136-145); Total Protein 7.3 gm/dl (6.0-8.3)
--- NOTE | 2025-01-05 22:15 | XRay Report ---
Exam(s): XR CXR 1 VIEW EXAM: XR Chest, 1 View CLINICAL HISTORY: Reason for exam: weakness. TECHNIQUE: Frontal view of the chest. COMPARISON: 04/01/2023 FINDINGS: Lungs: No consolidation. Pleural space: No significant pleural effusion. No pneumothorax. Heart: No cardiomegaly or pulmonary vascular congestion. Bones/joints: Thoracolumbar fixation hardware as well as cervical fusion hardware. No acute osseous findings. IMPRESSION: No acute findings in the chest. Electronically signed by: Meng Darling M.D. 01/05/25 22:14 PM
[2025-01-05 22:28] LABS: Thyroid Stimulating Hormone 1.45 uIu/ml (0.300-4.500)
--- NOTE | 2025-01-05 23:01 | CT Scan Report ---
Exam(s): CT HEAD Without Contrast EXAM: CT Head Without Intravenous Contrast CLINICAL HISTORY: Reason for exam: weakness. TECHNIQUE: Axial computed tomography images of the head/brain without intravenous contrast. CTDI is 38.74 mGy and DLP is 703.85 mGy-cm. Automated exposure control was utilized for the study. A dose lowering technique was utilized adhering to the principles of ALARA. COMPARISON: No relevant prior studies available. FINDINGS: Brain: Generalized volume loss. Periventricular and deep cerebral white matter hypoattenuation suggesting chronic small vessel ischemic change. Silveira-white matter differentiation maintained. No hemorrhage, mass effect, parenchymal edema, or midline shift. Ventricles: No hydrocephalus. Bones/joints: No acute fracture. Soft tissues: Unremarkable. Vasculature: Intracranial atherosclerosis. Sinuses: Unremarkable as visualized. Mastoid air cells: No significant mastoid effusion. Orbits: Lens replacements. IMPRESSION: No acute intracranial process. Electronically signed by: Meng Darling M.D. 01/05/25 23:00 PM
--- NOTE | 2025-01-05 23:01 | XRay Report ---
Exam(s): XR LEFT KNEE, 3 views EXAM: XR Left Knee, 3 Views CLINICAL HISTORY: Reason for exam: fall, pain. TECHNIQUE: Three views of the left knee. COMPARISON: No relevant prior studies available. FINDINGS: Bones/joints: Uncomplicated total knee arthroplasty. No acute fracture or dislocation. Small to moderate joint effusion. Soft tissues: Unremarkable. IMPRESSION: No acute findings in the left knee. Electronically signed by: Meng Darling M.D. 01/05/25 23:01 PM
--- NOTE | 2025-01-05 23:02 | XRay Report ---
Exam(s): XR RIGHT KNEE, 3 views EXAM: XR Right Knee, 3 Views CLINICAL HISTORY: Reason for exam: fall, pain. TECHNIQUE: Three views of the right knee. COMPARISON: No relevant prior studies available. FINDINGS: Bones/joints: Medial unicompartmental arthroplasty without evidence of hardware complication. Chondrocalcinosis of the lateral meniscus. 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 No significant joint effusion. No acute fracture or dislocation. Soft tissues: Unremarkable. IMPRESSION: No acute findings in the right knee. Electronically signed by: Meng Darling M.D. 01/05/25 23:01 PM
[2025-01-05] MEDS: SODIUM CHLORIDE 0.9% 500 ML IV SCH (23:08)
[2025-01-05] MEDS: ACETAMINOPHEN 1,000 MG/100 ML VIAL IV STA (23:12)
--- NOTE | 2025-01-05 23:16 | Emergency Department Note ---
History of Present Illness General Chief complaint: Weakness Stated complaint: WEAKNESS, FALLx2 Time Seen by Provider: 01/05/25 21:29 History of Present Illness Maximum Pain Intensity: 8 This 84-year-old female presents to the ER for weakness. Patient states she is walking inside and took a step up and collapsed landing on both knees. Both knees have been replaced. She states she was too weak to get up. She states she is more weak than baseline. Patient denies chest pain, dyspnea, head injury, neck pain, back pain, abdominal pain, numbness, tingling, localized weakness. Home Medications Medication Instructions Recorded Confirmed Type acetaminophen 500 mg tablet 1,000 mg PO DIRECTED PRN Pain 02/27/23 01/05/25 History (Tylenol Extra Strength) pen needle, diabetic 32 gauge x #150 ea 11/08/23 01/05/25 Rx 5/32" (BD Ultra-Fine Olinda Pen Needle) oxybutynin chloride 5 mg tablet 5 mg PO HS #30 tabs 08/15/24 01/05/25 Rx insulin glargine 100 unit/mL (3 14 unit subcut QAM 09/12/24 01/05/25 History mL) subcutaneous pen (Lantus Solostar U-100 Insulin) blood-glucose sensor (FreeStyle #2 ea 09/15/24 01/05/25 Rx Judy 3 Plus Sensor device) pantoprazole 40 mg tablet,delayed 40 mg PO DAILY #90 tabs 10/06/24 01/05/25 Rx release gabapentin 100 mg capsule 100 mg PO HS #90 caps 11/11/24 01/05/25 Rx torsemide 10 mg tablet 10 mg PO DAILY #20 tabs 11/11/24 01/05/25 Rx buspirone 10 mg tablet 10 mg PO BID PRN anxiety #60 tabs 11/18/24 01/05/25 Rx duloxetine 30 mg capsule,delayed 30 mg PO DAILY #30 caps 12/03/24 01/05/25 Rx release insulin aspart See Rx Instructions subcut QAM #15 12/10/24 01/05/25 Rx (niacinamide)(U-100) 100 unit/mL(3 mL mL) subcutaneous pen (Fiasp FlexTouch U-100 Insulin) cholecalciferol (vitamin D3) 50 100 mcg PO DAILY 12/24/24 01/05/25 History mcg (2,000 unit) capsule duloxetine 60 mg capsule,delayed 60 mg PO DAILY #90 caps 01/05/25 01/05/25 Rx release lisinopril 10 mg tablet 10 mg PO DAILY #90 tabs 01/05/25 01/05/25 Rx Allergies Allergy/AdvReac Type Severity Reaction Status Date / Time tramadol Allergy Severe confusion, Verified 01/05/25 23:16 stroke like symptoms pseudoephedrine Allergy Intermediate hand, feet Verified 01/05/25 23:16 edema, skin peeling/redness hydromorphone AdvReac Severe delirium Verified 01/05/25 23:16 ketorolac [From Toradol] AdvReac Severe delirium Verified 01/05/25 23:16 metoprolol AdvReac Intermediate hallucinati Verified 01/05/25 23:16 on/confusio n Past Med/Surg History Problem List (Updated 01/05/25 @ 23:16 by Clotilde Poon PA-C) Elevated troponin (Acute) Weakness (Acute) B12 deficiency Diabetes type 2, controlled Anemia Ambulatory dysfunction Nephrolithiasis Hyperparathyroidism Empty sella Myelopathy 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 of cervical region Hypertension Myelopathy 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 of thoracic region Depression Vertigo Medical History Right-sided tinnitus Obesity Bilateral edema of lower extremity GERD (gastroesophageal reflux disease) Sensorineural hearing loss (SNHL) of right ear with restricted hearing of left ear Bilateral leg weakness Hx of pancreatitis Surgical History History of cervical spinal surgery History of hysterectomy with bilateral oophorectomy History of cholecystectomy History of appendectomy H/O knee surgery History of total knee replacement Fusion of spine History of colonoscopy History of herniorrhaphy [place] teeth removed History of cataract surgery Family History Mother Family history of diabetes mellitus Father Family history of diabetes mellitus Pancreatic cancer Brother No problems noted. Sister Breast cancer Other No family history of adverse response to anesthesia No family history of bleeding disorder Denies family history of Ovarian cancer Myocardial infarction Colorectal cancer Social History Smoking Status: Never smoker Second Hand Exposure: No; Do You Dip or Chew Tobacco: No; Hx Alcohol Use: Yes Alcohol type: beer, wine and hard liquor Hx Substance Use: No Preferred Language: Jordanian Communication Ability: Effective Button Sewer Required: No Beliefs That Will Affect Care: None marital status: Current Living Situation: Spouse Current Living Situation Comment: Kiah Katz current occupational status: 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 How many Children do You have: 3 Feels Safe at Home: Yes Childhood Exposure to Second-Hand Smoke: Yes Diet: regular caffeine: Yes Dental Care, Regularly: Yes Physical Activity Frequency: 1-2 Times per Week Seatbelt Use: never Sunscreen Use: No Assistive Devices: Cane, Walker and Wheelchair Review of Systems A total of 10 systems reviewed and were otherwise negative Physical Exam Vital Signs Vital Signs - 24 hr 01/05/25 21:12 01/05/25 21:41 01/05/25 22:23 Temperature 36.6 C Temperature Source Oral Pulse Rate 81 83 84 Pulse Rate [Apical] Respiratory Rate 20 Respiratory Effort / Characteristics Non-Labored Spontaneous Respiratory Depth Normal Respiratory Pattern Regular Blood Pressure 177/89 H Blood Pressure [Left Arm] Blood Pressure Mean 118 Blood Pressure Mean [Left Arm] Blood Pressure Position Semi-fowlers Blood Pressure Position [Left Arm] Pulse Oximetry 97 94 Oxygen Delivery Method Room Air Room Air Sepsis Recent Fever Within 48 Hours No Sepsis New/Unexplained Change in Mental Status N/A Sepsis Action Taken by Nursing No Action Required 01/05/25 23:15 Temperature Temperature Source Pulse Rate Pulse Rate [Apical] 85 Respiratory Rate 20 Respiratory Effort / Characteristics Non-Labored Spontaneous Respiratory Depth Normal Respiratory Pattern Regular Blood Pressure Blood Pressure [Left Arm] 192/99 H Blood Pressure Mean Blood Pressure Mean [Left Arm] 130 Blood Pressure Position Blood Pressure Position [Left Arm] Semi-fowlers Pulse Oximetry 96 Oxygen Delivery Method Room Air Sepsis Recent Fever Within 48 Hours Sepsis New/Unexplained Change in Mental Status Sepsis Action Taken by Nursing VITALS: Vitals are noted on the nurse's note and reviewed by myself. Vital signs stable. GENERAL: Pleasant female, in no acute distress, nondiaphoretic, well-developed well-nourished. SKIN: The skin was without rashes, erythema, edema, or bruising. There is no tenting of the skin. Capillary reflex less than 2 seconds. HEAD: Normocephalic atraumatic. EARS: External auditory canals clear EYES: Pupils equal round and reactive to light and accommodation. Conjunctivae without injection, sclerae without icterus. Extraocular movements intact. NOSE: Patent, no discharge. MOUTH: Mucous membranes moist. Pharynx without erythema or exudate. Uvula midline. Airway patent. Tongue does not deviate. NECK: Supple without nuchal rigidity. No lymphadenopathy. No thyromegaly. Cervical spine is nontender. No JVD. HEART: Regular rate and rhythm LUNGS: Clear to auscultation bilaterally without wheezes, rales or rhonchi. No retractions or accessory muscle use. ABDOMEN: Positive bowel sounds x 4. Normal tympanic percussion. Soft, nontender, without masses or organomegaly. Littlejohn sign negative. No guarding or rebound tenderness. No CVA tenderness MUSCULOSKELETAL: No muscle atrophy, erythema, or edema noted. Bilateral knees tender to palpation with full range of motion. All other extremities nontender to palpation. NEURO: Patient was alert and oriented to person place and time. Normal sensation to light and sharp touch. No focal neurological deficits. Course Administered Medications Discontinued Medications Sodium Chloride (Nss) 500 mls @ 999 mls/hr IV .Q31M SALTY Stop: 01/05/25 22:00 Last Infusion: 01/05/25 23:39 Dose: Infused Documented By: Admin: 01/05/25 23:08 Dose: 999 mls/hr Documented By: IJEOMA Acetaminophen (Ofirmev) 1,000 mg in 100 mls @ 400 mls/hr IV NOW STA Stop: 01/05/25 22:07 Last Infusion: 01/05/25 23:27 Dose: Infused Documented By: Admin: 01/05/25 23:12 Dose: 400 mls/hr Documented By: IJEOMA Medical Decision Making Medical Records Attestation: I reviewed the patient's medical records. Home Medications Current Medication List: was personally reviewed by me Laboratory Data Attestation: I reviewed the patient's lab results. 01/05/25 21:46 01/05/25 21:46 Lab Results 01/05/25 Range/Units 21:46 WBC 9.21 (4.8-10.8) K/ul RBC 4.25 (4.20-5.40) M/uL Hgb 12.4 (12.0-16.0) g/dl Hct 38.3 (37.0-47.0) % MCV 90.1 (80.0-100.0) fL MCH 29.2 (25.0-34.0) pg MCHC 32.4 (32.0-36.0) g/dL RDW Std Deviation 46.3 (36.4-46.3) fL RDW Coeff of Jc 14.1 (11.5-14.5) % Plt Count 124 L (130-400) K/uL MPV 10.7 (9.4-12.4) fL Immature Gran % (Auto) 0.3 % Neut % (Auto) 85.7 % Lymph % (Auto) 8.5 % Dooly % (Auto) 5.0 % Eos % (Auto) 0.2 % Baso % (Auto) 0.3 % Neut # (Auto) 7.89 H (1.40-6.50) K/uL Lymph # (Auto) 0.78 L (1.20-3.40) K/uL D[place]y # (Auto) 0.46 (0.11-0.59) K/uL Eos # (Auto) 0.02 (0.00-0.50) K/uL Baso # (Auto) 0.03 (0.00-0.20) K/uL Immature Gran # (Auto) 0.03 (0.01-0.20) K/uL Sodium 141 (136-145) mmol/L Potassium 4.2 (3.5-5.1) mmol/L Chloride 104 (98-107) mmol/L Carbon Dioxide 28 (21-32) mmol/L Anion Gap 9 (3-11) BUN 26 H (6-23) mg/dl Creatinine 0.92 (0.6-1.2) mg/dl Est Cr Clr Drug Dosing 56.9 ml/min eGFR 62.17 BUN/Creatinine Ratio 28.3 H (10-20) Glucose 215 H (70-99(Fasting)) mg/dl Calcium 10.6 H (8.6-10.3) mg/dl Magnesium 1.9 (1.7-2.4) mg/dl Total Bilirubin 0.6 (0.2-1.0) mg/dl AST 15 (13-39) U/L ALT 9 (7-52) U/L Alkaline Phosphatase 73 (34-104) U/L Total Creatine Kinase 53 (26-192) U/L Troponin I High Sens 18.2 H (0-14) pg/ml Total Protein 7.3 (6.0-8.3) gm/dl Albumin 4.0 (3.4-5.0) gm/dl Globulin 3.3 (2.5-4.0) gm/dl Albumin/Globulin Ratio 1.2 (0.9-2) TSH 1.450 (0.300-4.500) uIu/ml Imaging Data Attestation: I personally reviewed and interpreted this imaging study as follows: Radiologist's Impression: Chest X-Ray 01/05/25 21:30 Exam(s): XR CXR 1 VIEW EXAM: XR Chest, 1 View CLINICAL HISTORY: Reason for exam: weakness. TECHNIQUE: Frontal view of the chest. COMPARISON: 04/01/2023 FINDINGS: Lungs: No consolidation. Pleural space: No significant pleural effusion. No pneumothorax. Heart: No cardiomegaly or pulmonary vascular congestion. Bones/joints: Thoracolumbar fixation hardware as well as cervical fusion hardware. No acute osseous findings. IMPRESSION: No acute findings in the chest. Electronically signed by: Meng Darling M.D. 01/05/25 22:[address] 01/05/25 21:31 Exam(s): CT HEAD Without Contrast EXAM: CT Head Without Intravenous Contrast CLINICAL HISTORY: Reason for exam: weakness. TECHNIQUE: Axial computed tomography images of the head/brain without intravenous contrast. CTDI is 38.74 mGy and DLP is 703.85 mGy-cm. Automated exposure control was utilized for the study. A dose lowering technique was utilized adhering to the principles of ALARA. COMPARISON: No relevant prior studies available. FINDINGS: Brain: Generalized volume loss. Periventricular and deep cerebral white matter hypoattenuation suggesting chronic small vessel ischemic change. Silveira-white matter differentiation maintained. No hemorrhage, mass effect, parenchymal edema, or midline shift. Ventricles: No hydrocephalus. Bones/joints: No acute fracture. Soft tissues: Unremarkable. Vasculature: Intracranial atherosclerosis. Sinuses: Unremarkable as visualized. Mastoid air cells: No significant mastoid effusion. Orbits: Lens replacements. IMPRESSION: No acute intracranial process. Electronically signed by: Meng Darling M.D. 01/05/25 23:00 PM Knee X-Ray 01/05/25 21:53 Exam(s): XR LEFT KNEE, 3 views EXAM: XR Left Knee, 3 Views CLINICAL HISTORY: Reason for exam: fall, pain. TECHNIQUE: Three views of the left knee. COMPARISON: No relevant prior studies available. FINDINGS: Bones/joints: Uncomplicated total knee arthroplasty. No acute fracture or dislocation. Small to moderate joint effusion. Soft tissues: Unremarkable. IMPRESSION: No acute findings in the left knee. Electronically signed by: Meng Darling M.D. 01/05/25 23:01 PM Knee X-Ray 01/05/25 21:53 Exam(s): XR RIGHT KNEE, 3 views EXAM: XR Right Knee, 3 Views CLINICAL HISTORY: Reason for exam: fall, pain. TECHNIQUE: Three views of the right knee. COMPARISON: No relevant prior studies available. FINDINGS: Bones/joints: Medial unicompartmental arthroplasty without evidence of hardware complication. Chondrocalcinosis of the lateral meniscus. 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 No significant joint effusion. No acute fracture or dislocation. Soft tissues: Unremarkable. IMPRESSION: No acute findings in the right knee. Electronically signed by: Meng Darling M.D. 01/05/25 23:01 PM MDM Narrative Prior records/ancillary studies reviewed and summarized above. Nursing notes reviewed. Additional history obtained from nursing. The patient's history was concerning for increasing weakness. Differential diagnosis: Etiologies such as metabolic, infection, hypo/hyperglycemia, electrolyte abnormalities, cardiac sources, intracerebral event, toxicologic, neurologic, as well as others were entertained. Physical examination: As above. ER treatment provided: IV Lock An order was placed for continuous cardiac monitoring. The monitor shows a rate of 60-100 with a sinus rhythm per my interpretation. IV fluids and Tylenol were ordered Fentanyl was ordered On reassessment the patient felt better. Diagnostics interpretation by me: ECG: Ordered for weakness EKG: Poor baseline, normal sinus, no acute ST-T wave changes, left anterior fascicular block, incomplete right bundle, rate of 85. Impression normal sinus rhythm with a left anterior fascicular block incomplete right bundle branch block independently interpreted by myself The labs Independently Interpreted by myself revealed no worrisome leukocytosis, minimally elevated troponin and repeat was ordered Hyperglycemia without DKA Imaging studies: Imaging was reviewed and read by radiology Consultation: A consultation was placed with the hospitalist. The case was discussed and diagnostics were reviewed. The patient was evaluated in the ER for further treatment. Exam and history seem consistent with increasing weakness. Patient was too weak to ambulate. Imaging and labs were reviewed. EKG is nonischemic. Initial troponin minimally elevated. Most likely type II. Medicine was consulted case discussed. She will be evaluated for admission. Patient is agreeable. By the evaluation outlined above emergent etiologies such as infection, electrolyte abnormalities, intracerebral event, toxologic, metabolic, as well as others were deemed relatively unlikely. The pt informed about the findings as listed above. All questions were answered and pleased with the treatment. The chart was completed utilizing [employer] Speech voice recognition software. Grammatical errors, random word insertions, pronoun errors, and incomplete sentences are an occassional consequence of this system due to software limitations, ambient noise, and hardware issues. Any formal questions or concerns about the content, text, or information contained within the body of this dictation should be directly addressed to the physician assistant customer service manager for clarification. Impression & Plan Weakness, Elevated troponin Discharge Plan Visit Data Chief Complaint: Weakness Stated Complaint: WEAKNESS, FALLx2 ED Provider: Preeti Thomas ED Midlevel Provider: Clotilde Poon Discharge Problem: Weakness, Elevated troponin Patient Disposition: Admitted As Inpatient Condition: Fair Forms Stand Alone Forms: [facility] [employer] Prescriptions Prescriptions: No Action oxybutynin chloride 5 mg tablet 5 mg PO HS Qty: 30 1RF (DME) FreeStyle Judy 3 Plus Sensor Device See Rx Instructions .Route Qty: 2 5RF Rx Instructions: change every 15 days buspirone 10 mg tablet 10 mg PO BID PRN (Reason: anxiety) Qty: 60 2RF duloxetine 30 mg capsule,delayed release(DR/EC) 30 mg PO DAILY Qty: 30 2RF Fiasp FlexTouch U-100 Insulin 100 unit/mL (3 mL) insulin pen See Rx Instructions subcut QAM MDD 40 units Qty: 15 5RF Rx Instructions: Inject per sliding scale 70-130-0, 130-180-4,181-240-8,241-300-10,301-350-12,351-400-16,400-20 (DME) pen needle, diabetic [BD Ultra-Fine Olinda Pen Needle] 32 gauge x 5/32" needle See Rx Instructions miscellaneous .MEDSUPPLY Qty: 150 5RF Rx Instructions: As directed to use with insulin pens 4 times a day torsemide 10 mg tablet 10 mg PO DAILY Qty: 20 0RF gabapentin 100 mg capsule 100 mg PO HS Qty: 90 0RF insulin glargine [Lantus Solostar U-100 Insulin] 100 unit/mL (3 mL) insulin pen 14 unit subcut QAM pantoprazole 40 mg tablet,delayed release (DR/EC) 40 mg PO DAILY Qty: 90 1RF duloxetine 60 mg capsule,delayed release(DR/EC) 60 mg PO DAILY Qty: 90 2RF Rx Instructions: NEW ORDER 01/05/25. UNABLE TO VERIFY THIS DOSE, NO RECORD ON EXT MED HX. lisinopril 10 mg tablet 10 mg PO DAILY Qty: 90 3RF cholecalciferol (vitamin D3) 50 mcg (2,000 unit) capsule 100 mcg PO DAILY acetaminophen [Tylenol Extra Strength] 500 mg Tablet 1,000 mg PO DIRECTED PRN (Reason: Pain) Referrals Referrals: Toshia Alarcon DO [Primary Care Provider] -
--- NOTE | 2025-01-05 23:59 | History & Physical Report ---
Date of Service January 05, 2025 Assessment & Plan (1) Ambulatory dysfunction: (2) Myelopathy 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 of cervical region: (3) Myelopathy 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 of thoracic region: (4) Diabetes type 2, controlled: Plan The patient is a 84-year-old female with a past medical history including B12 deficiency, diabetes mellitus type 2, ambulatory dysfunction, hyperparathyroidism, empty sella syndrome, cervical and thoracic spinal stenosis and myelopathy, hypertension, and depression. She presents to the emergency department after her legs became so weak that she collapsed onto both knees earlier in the day. She has had issues with decreased ability to lift her feet, and which occasionally seem to drag. She has been to physical therapy and Occupational Therapy in the past with no significant improvement. Due to inab ility ambulate at home, she came to the emergency department, and was then referred for evaluation for admission to [facility]. Ambulatory dysfunction/thoracic and cervical spinal stenosis with myelopathy/peripheral neuropathy Patient collapsed to her knees earlier today due to generalized weakness that is progressing She does walk with a walker, but upon questioning, and based on her physical examination, has a decreased ability to dorsiflex Will consult PT/OT, and assess for possibility of improving her walking ability, and she including the possibility of leg braces She did have negative x-rays of right knee, and left knee Continue gabapentin May need inpatient rehab Diabetes mellitus- Continue insulin glargine 14 units subcu every morning Placed on Accu-Cheks with NovoLog SSI Chronic lower extremity edema/hypertension- Continue torsemide and lisinopril GERD- Continue pantoprazole Bladder spasms- Continue oxybutynin chloride Depression/anxiety- Continue duloxetine Hold her as needed buspirone medication Elevated troponin- Troponin 18.2 on admission Likely supply/demand mismatch Will recheck in the a.m. History of Present Illness Chief Complaint: The patient presents to the emergency department with complaint of generalized weakness, to the point that her legs feel so weak that they give out, and she collapsed landing on both knees earlier today. She does walk with a walker, and reports that she does have a problem with lifting her feet when she walks. Primary Care Provider: Toshia Alacron DO The patient is a 84-year-old female with a past medical history including B12 deficiency, diabetes mellitus type 2, ambulatory dysfunction, hyperparathyroidism, empty sella syndrome, cervical and thoracic spinal stenosis and myelopathy, hypertension, and depression. She presents to the emergency department after her legs became so weak that she collapsed onto both knees earlier in the day. She has had issues with decreased ability to lift her feet, and which occasionally seem to drag. She has been to physical therapy and Occupational Therapy in the past with no significant improvement. Due to inability ambulate at home, she came to the emergency department, and was then referred for evaluation for admission to [facility] Allergies Allergy/AdvReac Type Severity Reaction Status Date / Time tramadol Allergy Severe confusion, Verified 01/05/25 23:16 stroke like symptoms pseudoephedrine Allergy Intermediate hand, feet Verified 01/05/25 23:16 edema, skin peeling/redness hydromorphone AdvReac Severe delirium Verified 01/05/25 23:16 ketorolac [From Toradol] AdvReac Severe delirium Verified 01/05/25 23:16 metoprolol AdvReac Intermediate hallucinati Verified 01/05/25 23:16 on/confusio n Home Medications Medication Instructions Recorded Confirmed Type acetaminophen 500 mg tablet 1,000 mg PO DIRECTED PRN Pain 02/27/23 01/05/25 History (Tylenol Extra Strength) pen needle, diabetic 32 gauge x #150 ea 11/08/23 01/05/25 Rx 5/32" (BD Ultra-Fine [place] Pen Needle) oxybutynin chloride 5 mg tablet 5 mg PO HS #30 tabs 08/15/24 01/05/25 Rx insulin glargine 100 unit/mL (3 14 unit subcut QAM 09/12/24 01/05/25 History mL) subcutaneous pen (Lantus Solostar U-100 Insulin) blood-glucose sensor (FreeStyle #2 ea 09/15/24 01/05/25 Rx Judy 3 Plus Sensor device) pantoprazole 40 mg tablet,delayed 40 mg PO DAILY #90 tabs 10/06/24 01/05/25 Rx release gabapentin 100 mg capsule 100 mg PO HS #90 caps 11/11/24 01/05/25 Rx torsemide 10 mg tablet 10 mg PO DAILY #20 tabs 11/11/24 01/05/25 Rx buspirone 10 mg tablet 10 mg PO BID PRN anxiety #60 tabs 11/18/24 01/05/25 Rx insulin aspart See Rx Instructions subcut QAM #15 12/10/24 01/05/25 Rx (niacinamide)(U-100) 100 unit/mL(3 mL mL) subcutaneous pen (Fiasp FlexTouch U-100 Insulin) cholecalciferol (vitamin D3) 50 100 mcg PO DAILY 12/24/24 01/05/25 History mcg (2,000 unit) capsule duloxetine 60 mg capsule,delayed 60 mg PO DAILY #90 caps 01/05/25 01/05/25 Rx release lisinopril 10 mg tablet 10 mg PO DAILY #90 tabs 01/05/25 01/05/25 Rx Past Med/Surg History Problem List (Updated 01/05/25 @ 23:16 by Clotilde Poon PA-C) Elevated troponin (Acute) Weakness (Acute) B12 deficiency Diabetes type 2, controlled Anemia Ambulatory dysfunction Nephrolithiasis Hyperparathyroidism Empty sella Myelopathy 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 of cervical region Hypertension Myelopathy 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 of thoracic region Depression Vertigo Medical History Right-sided tinnitus Obesity Bilateral edema of lower extremity GERD (gastroesophageal reflux disease) Sensorineural hearing loss (SNHL) of right ear with restricted hearing of left ear Bilateral leg weakness Hx of pancreatitis Surgical History History of cervical spinal surgery History of hysterectomy with bilateral oophorectomy History of cholecystectomy History of appendectomy H/O knee surgery History of total knee replacement Fusion of spine History of colonoscopy History of herniorrhaphy [place] teeth removed History of cataract surgery Family History Mother Family history of diabetes mellitus Father Family history of diabetes mellitus Pancreatic cancer Brother No problems noted. Sister Breast cancer Other No family history of adverse response to anesthesia No family history of bleeding disorder Denies family history of Ovarian cancer Myocardial infarction Colorectal cancer Social History Smoking Status: Never smoker Second Hand Exposure: No; Do You Dip or Chew Tobacco: No; Hx Alcohol Use: Yes Alcohol type: beer, wine and hard liquor Hx Substance Use: No Preferred Language: Icelandic Communication Ability: Effective Flour Inspector Required: No Beliefs That Will Affect Care: None marital status: Current Living Situation: Spouse Current Living Situation Comment: Kiah schwab current occupational status: 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 How many Children do You have: 3 Other Information That Helps Us Care for You: No Feels Safe at Home: Yes Safety Concerns: Feels Safe At This Time Childhood Exposure to Second-Hand Smoke: Yes Diet: regular caffeine: Yes Dental Care, Regularly: Yes Physical Activity Frequency: 1-2 Times per Week Seatbelt Use: never Sunscreen Use: No Assistive Devices: Walker and Wheelchair Review of Systems Review of Systems: The patient denies chest pain, palpitations, cough, sore throat, fevers, chills, sweats, nausea, vomiting, diarrhea , constipation, abdominal pain, pelvic pain, blood in urine or stool, dysuria, urinary frequency or urgency, headache, memory loss, loss of consciousness, rash, abnormal bruising or bleeding, focal weakness, numbness or tingling in arms. The review of systems is otherwise negative other than for that already noted above, and at least 10 systems have been reviewed. Physical Exam Physical Exam: The patient is awake, alert and oriented 3, well developed and well nourished, normocephalic and atraumatic, lying in bed and in no acute distress. HEENT--PERRL, EOMI, mucous membranes and oropharynx normal Neck--supple. No JVD. No bruits. Thyroid normal, trachea midline, no adenopathy. Heart--normal S1 and S2. No murmurs, rubs or gallops. Lungs--clear bilaterally, no respiratory distress, no accessory muscle use. Abdomen--normal bowel sounds and soft. Nontender. Nondistended. Obese. Extremities-- 1+ bilateral pretibial pitting edema Dermatologic--normal skin turgor, normal color, no abnormal lymph nodes, no rash. Neurologic--cranial nerves II through XII grossly intact. Rheumatologic--limited by body habitus. Decreased ability to dorsiflex left worse than right Psychiatric--normal affect. Results & Data Results & Data Vital Signs (Past 12 Hours) Vital Signs Temp Pulse Pulse Resp BP BP Pulse Ox 01/05/25 23:15 85 20 192/99 H 96 01/05/25 22:23 84 94 01/05/25 21:41 83 01/05/25 21:12 36.6 C 81 20 177/89 H 97 O2 Del Method 01/05/25 23:15 Room Air 01/05/25 22:23 Room Air 01/05/25 21:41 01/05/25 21:12 Room Air Laboratory Results Laboratory Results WBC 9.21 K/ul (4.8-10.8) 01/05/25 21:46 RBC 4.25 M/uL (4.20-5.40) 01/05/25 21:46 Hgb 12.4 g/dl (12.0-16.0) 01/05/25 21:46 Hct 38.3 % (37.0-47.0) 01/05/25 21:46 MCV 90.1 fL (80.0-100.0) 01/05/25 21:46 MCH 29.2 pg (25.0-34.0) 01/05/25 21:46 MCHC 32.4 g/dL (32.0-36.0) 01/05/25 21:46 RDW Std Deviation 46.3 fL (36.4-46.3) 01/05/25 21:46 RDW Coeff of Jc 14.1 % (11.5-14.5) 01/05/25 21:46 Plt Count 124 K/uL (130-400) L 01/05/25 21:46 MPV 10.7 fL (9.4-12.4) 01/05/25 21:46 Immature Gran % (Auto) 0.3 % 01/05/25 21:46 Neut % (Auto) 85.7 % 01/05/25 21:46 Lymph % (Auto) 8.5 % 01/05/25 21:46 [place] % (Auto) 5.0 % 01/05/25 21:46 Eos % (Auto) 0.2 % 01/05/25 21:46 Baso % (Auto) 0.3 % 01/05/25 21:46 Neut # (Auto) 7.89 K/uL (1.40-6.50) H 01/05/25 21:46 Lymph # (Auto) 0.78 K/uL (1.20-3.40) L 01/05/25 21:46 [place] # (Auto) 0.46 K/uL (0.11-0.59) 01/05/25 21:46 Eos # (Auto) 0.02 K/uL (0.00-0.50) 01/05/25 21:46 Baso # (Auto) 0.03 K/uL (0.00-0.20) 01/05/25 21:46 Immature Gran # (Auto) 0.03 K/uL (0.01-0.20) 01/05/25 21:46 Sodium 141 mmol/L (136-145) 01/05/25 21:46 Potassium 4.2 mmol/L (3.5-5.1) 01/05/25 21:46 Chloride 104 mmol/L (98-107) 01/05/25 21:46 Carbon Dioxide 28 mmol/L (21-32) 01/05/25 21:46 Anion Gap 9 (3-11) 01/05/25 21:46 BUN 26 mg/dl (6-23) H 01/05/25 21:46 Creatinine 0.92 mg/dl (0.6-1.2) 01/05/25 21:46 Est Cr Clr Drug Dosing 56.9 ml/min 01/05/25 21:46 eGFR 62.17 01/05/25 21:46 BUN/Creatinine Ratio 28.3 (10-20) H 01/05/25 21:46 Glucose 215 mg/dl (70-99(Fasting)) H 01/05/25 21:46 Calcium 10.6 mg/dl (8.6-10.3) H 01/05/25 21:46 Magnesium 1.9 mg/dl (1.7-2.4) 01/05/25 21:46 Total Bilirubin 0.6 mg/dl (0.2-1.0) 01/05/25 21:46 AST 15 U/L (13-39) 01/05/25 21:46 ALT 9 U/L (7-52) 01/05/25 21:46 Alkaline Phosphatase 73 U/L (34-104) 01/05/25 21:46 Total Creatine Kinase 53 U/L (26-192) 01/05/25 21:46 Troponin I High Sens 18.2 pg/ml (0-14) H 01/05/25 21:46 Total Protein 7.3 gm/dl (6.0-8.3) 01/05/25 21:46 Albumin 4.0 gm/dl (3.4-5.0) 01/05/25 21:46 Globulin 3.3 gm/dl (2.5-4.0) 01/05/25 21:46 Albumin/Globulin Ratio 1.2 (0.9-2) 01/05/25 21:46 TSH 1.450 uIu/ml (0.300-4.500) 01/05/25 21:46 Impressions Chest X-Ray 01/05/25 21:30 Exam(s): XR CXR 1 VIEW EXAM: XR Chest, 1 View CLINICAL HISTORY: Reason for exam: weakness. TECHNIQUE: Frontal view of the chest. COMPARISON: 04/01/2023 FINDINGS: Lungs: No consolidation. Pleural space: No significant pleural effusion. No pneumothorax. Heart: No cardiomegaly or pulmonary vascular congestion. Bones/joints: Thoracolumbar fixation hardware as well as cervical fusion hardware. No acute osseous findings. IMPRESSION: No acute findings in the chest. Electronically signed by: Meng Darling M.D. 01/05/25 22:[address] 01/05/25 21:31 Exam(s): CT HEAD Without Contrast EXAM: CT Head Without Intravenous Contrast CLINICAL HISTORY: Reason for exam: weakness. TECHNIQUE: Axial computed tomography images of the head/brain without intravenous contrast. CTDI is 38.74 mGy and DLP is 703.85 mGy-cm. Automated exposure control was utilized for the study. A dose lowering technique was utilized adhering to the principles of ALARA. COMPARISON: No relevant prior studies available. FINDINGS: Brain: Generalized volume loss. Periventricular and deep cerebral white matter hypoattenuation suggesting chronic small vessel ischemic change. Silveira-white matter differentiation maintained. No hemorrhage, mass effect, parenchymal edema, or midline shift. Ventricles: No hydrocephalus. Bones/joints: No acute fracture. Soft tissues: Unremarkable. Vasculature: Intracranial atherosclerosis. Sinuses: Unremarkable as visualized. Mastoid air cells: No significant mastoid effusion. Orbits: Lens replacements. IMPRESSION: No acute intracranial process. Electronically signed by: Meng Darling M.D. 01/05/25 23:00 PM Knee X-Ray 01/05/25 21:53 Exam(s): XR RIGHT KNEE, 3 views EXAM: XR Right Knee, 3 Views CLINICAL HISTORY: Reason for exam: fall, pain. TECHNIQUE: Three views of the right knee. COMPARISON: No relevant prior studies available. FINDINGS: Bones/joints: Medial unicompartmental arthroplasty without evidence of hardware complication. Chondrocalcinosis of the lateral meniscus. 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 No significant joint effusion. No acute fracture or dislocation. Soft tissues: Unremarkable. IMPRESSION: No acute findings in the right knee. Electronically signed by: Meng Darling M.D. 01/05/25 23:01 PM Code Status & VTE Plan Code Status Full code VTE Prophylaxis Plan VTE Prophylaxis will be ordered: Yes PG Care Time/CCT Total # of Minutes Spent Total Time Spent with Patient: Total time spent is greater than 50% in coordination of care (as documented) at patient's floor/unit and/or counseling patient: Coding Level of Care Code 45711 INT INP/OBS CARE 3/75MIN Diagnoses Ambulatory dysfunction R26.2 Myelopathy 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 of cervical region M48.02; G99.2 Myelopathy 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 of thoracic region M48.04; G99.2 Diabetes type 2, controlled E11.9
[2025-01-06] MEDS ORDERED: DEXTROSE 50% 50 ML SYRINGE IV PRN (01:10)
[2025-01-06] MEDS ORDERED: ACETAMINOPHEN 500 MG TAB PO PRN (01:10)
[2025-01-06] MEDS ORDERED: GLUCAGON FOR INJ 1 MG VIAL SQ PRN (01:10)
[2025-01-06] MEDS ORDERED: GLUCOSE 40% GEL 15 GM TUBE PO PRN (01:10)
[2025-01-06] MEDS ORDERED: CARBOHYDRATES FOR HYPOGLYCEMIA PO PRN (01:10)
[2025-01-06] MEDS ORDERED: GLUCOSE 10 TAB/TUBE PO PRN (01:10)
[2025-01-06 04:40] LABS: Hematocrit (blood only) 32.1 % (37.0-47.0); Hemoglobin 11.1 g/dl (12.0-16.0); Immature Granulocytes # (auto) 0.03 K/uL (0.01-0.20); Immature Granulocytes % (auto) 0.4 %; Mean Corpuscular Hemoglobin 30.7 pg (25.0-34.0); Mean Corpuscular Volume 88.7 fL (80.0-100.0); Platelet Count 147 K/uL (130-400); RDW Standard Deviation 45.3 fL (36.4-46.3); Red Blood Count 3.62 M/uL (4.20-5.40); White Blood Count 7.69 K/ul (4.8-10.8)
[2025-01-06 04:54] LABS: Alanine Aminotransferase 7.0 U/L (7-52); Albumin Globulin Ratio 1.3 (0.9-2); Alkaline Phosphatase 58.0 U/L (34-104); Anion Gap 4.0 (3-11); Bilirubin,Total 0.6 mg/dl (0.2-1.0); Blood Urea Nitrogen 24.0 mg/dl (6-23); Calcium 9.7 mg/dl (8.6-10.3); Carbon Dioxide 27.0 mmol/L (21-32); Chloride 108.0 mmol/L (98-107); Creatinine Clr Calc Pharmacy 65.9 ml/min; Globulin 2.7 gm/dl (2.5-4.0); Glucose 163.0 mg/dl (70-99(Fasting)); Magnesium 1.9 mg/dl (1.7-2.4); Potassium 3.6 mmol/L (3.5-5.1); Sodium 139.0 mmol/L (136-145); Total Protein 6.1 gm/dl (6.0-8.3)
[2025-01-06 07:09] LABS: Hemoglobin A1C 7.0 % (4.5-5.6)
[2025-01-06] MEDS: CHOLECALCIFEROL 25 MCG (1000 UNITS) TAB PO SCH (08:56)
[2025-01-06] MEDS: TORSEMIDE 10 MG TAB PO SCH (08:57)
[2025-01-06] MEDS: INSULIN ASPART PER UNIT CHARGE SC SCH (09:36)
[2025-01-06] MEDS: LANTUS PER UNIT CHARGE SC SCH (10:05)
--- NOTE | 2025-01-06 12:28 | XRay Report ---
XR ankle LT min 3V routine CLINICAL HISTORY: fall,left ankle pain COMPARISON: None FINDINGS: There is diffuse soft tissue swelling at the ankle. There is an acute minimally displaced oblique fracture distal shaft metaphyseal junction of the fibula. There are chronic appearing calcifi cations adjacent to the malleoli bilaterally, likely sequela of old injury. There is a possible tiny acute nondisplaced fracture distal dorsal aspect of the talus on the lateral view versus artifact. No other fracture or dislocation seen at the left ankle. IMPRESSION: 1. Acute distal fibular fracture. 2. Possible nondisplaced fracture dorsal distal talus. ACT 112: Negative or not required by law. Electronically signed by: Jonnie Donaldson M.D. 01/06/2025 12:27 PM
--- NOTE | 2025-01-06 12:35 | Hospitalist Progress Note ---
Date of Service January 06, 2025 Assessment & Plan (1) Ambulatory dysfunction: (2) Fracture, fibula: (3) Myelopathy 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 of thoracic region: Plan The patient is a 84-year-old female with a past medical history including B12 deficiency, diabetes mellitus type 2, ambulatory dysfunction, hyperparathyroidism, empty sella syndrome, cervical and thoracic spinal stenosis and myelopathy, hypertension, and depression. She is admitted after having 2 falls from progressively worsening lumbar radiculopathy and suffered a left fibular fracture and possible talus fracture. #Fall/Left fibular and possible talus fracture -Consult orthopedic surgery - Will also check left tib-fib x-rays as she has pain at the lateral left knee as well - Increase acetaminophen to 1000 mg p.o. 3 times daily for pain control-she does not do well with opioids #Ambulatory dysfunction/thoracic and cervical spinal stenosis with myelopathy/peripheral neuropathy/Lumbar radiculopathy Patient collapsed to her knees earlier today due to generalized weakness that is progressing She does walk with a walker, but upon questioning, and based on her physical examination, has a decreased ability to dorsiflex and has worsening pain down her lower extremities for the last 2 months Will consult PT/OT, and assess for possibility of improving her walking ability, and she including the possibility of leg braces She did have negative x-rays of right knee, and left knee Continue gabapentin May need inpatient rehab Consult her orthopedic spine surgeon as she has had extensive prior surgery in the back #DMII w/ neuropathy Continue insulin glargine 14 units subcu every morning Placed on Accu-Cheks with NovoLog SSI #Chronic lower extremity edema/hypertension- Continue torsemide and lisinopril #GERD- Continue pantoprazole #Bladder spasms- Continue oxybutynin chloride #Depression/anxiety- Continue duloxetine Hold her as needed buspirone medication #Elevated troponin- Troponin 18.2 on admission Likely supply/demand mismatch Will recheck in the a.m. DVT Proph-add Lovenox SQ Dispo-continued stay, will likely need rehab Admission and Anticipated Discharge Date Admission Date: January 05, 2025 Subjective Pt c/o severe pain in left ankle. Reports she has been having increased pain aung n both lower extremities and getting progressively weaker for the last 2 months. No fevers/chills, no cold symptoms or recent illness. She was trying to walk up 3 steps when she fell on the day of admission. She then called EMS to help her get up as she could not due to her left ankle pain. She then was only able to walk 5 steps and fell again. No other new symptoms Physical Exam Constitutional: WD/WN, vitals as above + morbidly obese Respiratory: normal respiratory effort, lungs clear to auscultation Cardiovascular: Rate/Rhythm: regular rate and regular rhythm Heart Sounds: no murmur Extremities: + edema (chronic 3+ edema legs to thighs bilat) Gastrointestinal (Abdomen): normal bowel sounds, soft, nontender, no hepatosplenomegaly Musculoskeletal: Extremities: + limited ROM of extremities (pain with active nad passive ROM left ankle); + extremities abnormal to inspection (bilat knee TKA scars) +TTP over left lateral and anterior ankl e and distal leg +TTP over left proximal fibula No bruising; has chronic edema no worse than usual Neurologic: able to move bilat lower extremities Psychiatric: A+Ox3, euthymic affect Results & Data Results & Data Vital Signs (Past 12 Hours) Vital Signs Temp Pulse Resp BP Pulse Ox O2 Del Method 01/06/25 10:00 78 17 179/90 H 97 Room Air 01/06/25 06:39 76 18 156/77 H 94 Room Air 01/06/25 02:14 Room Air 01/06/25 02:14 36.5 C 81 18 162/76 H 95 Room Air Laboratory Results CBC, BMP, magnesium, A1C, TSH reviewed Diagnostic Findings Left ankle xrays reviewed by me personally and agree with following report: Ankle X-Ray 01/06/25 11:42 XR ankle LT min 3V routine CLINICAL HISTORY: fall,left ankle pain COMPARISON: None FINDINGS: There is diffuse soft tissue swelling at the ankle. There is an acute minimally displaced oblique fracture distal shaft metaphyseal junction of the fibula. There are chronic appearing calcifications adjacent to the malleoli bilaterally, likely sequela of old injury. There is a possible tiny acute nondisplaced fracture distal dorsal aspect of the talus on the lateral view versus artifact. No other fracture or dislocation seen at the left ankle. IMPRESSION: 1. Acute distal fibular fracture. 2. Possible nondisplaced fracture dorsal distal talus. PG Care Time/CCT Total # of Minutes Spent Total Time Spent with Patient: Total time spent is greater than 50% in coordination of care (as documented) at patient's floor/unit and/or counseling patient: Coding Level of Care Code 55774 SUB INP/OBS CARE 235MIN Diagnoses Ambulatory dysfunction R26.2 Fracture, fibula S82.409A Myelopathy 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 of thoracic region M48.04; G99.2
[2025-01-06] MEDS: ACETAMINOPHEN 500 MG TAB PO SCH (13:20)
--- NOTE | 2025-01-06 14:36 | Orthopedic Consultation ---
Date of Service January 06, 2025 Assessment & Plan (1) Closed fracture of left distal fibula: * Case/imaging reviewed and discussed with Dr Banda * Recommend closed management of left distal fibula fracture * Cam boot ordered * Weight bearing status: WBAT with cam boot * Spine evaluation with Dr. Sanford pending * Daily treatment: Physical Therapy/ Occupational Therapy per protocol * Pain control * Disposition: TBD * Remainder care per primary team * Recommend office follow-up for repeat x-rays in the coming weeks History of Present Illness Reason for Consultation: Left ankle pain Requesting Physician: . Attending Physician: Flory George MD . Patient is a 84y/o female with left ankle pain. PMH including DM2, HTN, vertigo, GERD, myelopathy with extensive spine surgery with Dr. Sanford. Presents to hospital with progressive generalized weakness and multiple falls, left ankle pain. Per patient patient had multiple falls over the weekend, including one where she fell directly onto her knees and twisted her legs awkwardly underneath her. Since then has had significant weakness and difficu lty ambulating and left ankle pain. Current workup including x-ray left ankle demonstrating acute distal fibula fracture. Orthopedics consulted for management recommendations. At time of exam patient lying calmly in bed, no acute distress. Endorses mild left ankle pain at rest that increases with attempted movement or ambulation. Denies tingling or numbness of the left lower extremity. Uses a w alker at baseline, limited ambulation. Allergies Allergy/AdvReac Type Severity Reaction Status Date / Time tramadol Allergy Severe confusion, Verified 01/05/25 23:16 stroke like symptoms pseudoephedrine Allergy Intermediate hand, feet Verified 01/05/25 23:16 edema, skin peeling/redness hydromorphone AdvReac Severe delirium Verified 01/05/25 23:16 ketorolac [From Toradol] AdvReac Severe delirium Verified 01/05/25 23:16 metoprolol AdvReac Intermediate hallucinati Verified 01/05/25 23:16 on/confusio n Home Medications Medication Instructions Recorded Confirmed Type acetaminophen 500 mg tablet 1,000 mg PO DIRECTED PRN Pain 02/27/23 01/05/25 History (Tylenol Extra Strength) pen needle, diabetic 32 gauge x #150 ea 11/08/23 01/05/25 Rx 5/32" (BD Ultra-Fine Olinda Pen Needle) oxybutynin chloride 5 mg tablet 5 mg PO HS #30 tabs 08/15/24 01/05/25 Rx insulin glargine 100 unit/mL (3 14 unit subcut QAM 09/12/24 01/05/25 History mL) subcutaneous pen (Lantus Solostar U-100 Insulin) blood-glucose sensor (FreeStyle #2 ea 09/15/24 01/05/25 Rx Judy 3 Plus Sensor device) pantoprazole 40 mg tablet,delayed 40 mg PO DAILY #90 tabs 10/06/24 01/05/25 Rx release gabapentin 100 mg capsule 100 mg PO HS #90 caps 11/11/24 01/05/25 Rx torsemide 10 mg tablet 10 mg PO DAILY #20 tabs 11/11/24 01/05/25 Rx buspirone 10 mg tablet 10 mg PO BID PRN anxiety #60 tabs 11/18/24 01/05/25 Rx insulin aspart See Rx Instructions subcut QAM #15 12/10/24 01/05/25 Rx (niacinamide)(U-100) 100 unit/mL(3 mL mL) subcutaneous pen (Fiasp FlexTouch U-100 Insulin) cholecalciferol (vitamin D3) 50 100 mcg PO DAILY 12/24/24 01/05/25 History mcg (2,000 unit) capsule duloxetine 60 mg capsule,delayed 60 mg PO DAILY #90 caps 01/05/25 01/05/25 Rx release lisinopril 10 mg tablet 10 mg PO DAILY #90 tabs 01/05/25 01/05/25 Rx Past Med/Surg History Problem List (Updated 01/06/25 @ 14:35 by Larry Stovall PA-C) Closed fracture of left distal fibula Fracture, fibula Elevated troponin (Acute) Weakness (Acute) B12 deficiency Diabetes type 2, controlled Anemia Ambulatory dysfunction Nephrolithiasis Hyperparathyroidism Empty sella Myelopathy 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 of cervical region Hypertension Myelopathy 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 of thoracic region Depression Vertigo Medical History Right-sided tinnitus Obesity Bilateral edema of lower extremity GERD (gastroesophageal reflux disease) Sensorineural hearing loss (SNHL) of right ear with restricted hearing of left ear Bilateral leg weakness Hx of pancreatitis Surgical History History of cervical spinal surgery History of hysterectomy with bilateral oophorectomy History of cholecystectomy History of appendectomy H/O knee surgery History of total knee replacement Fusion of spine History of colonoscopy History of herniorrhaphy [place] teeth removed History of cataract surgery Family History Mother Family history of diabetes mellitus Father Family history of diabetes mellitus Pancreatic cancer Brother No problems noted. 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 Beliefs That Will Affect Care: None marital status: Current Living Situation: Spouse Current Living Situation Comment: Kiah schwab current occupational status: 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 Physical Exam . * General: Alert and oriented, no acute distress * Constitutional: well-developed, well-nourished. * Respiratory: Normal respiratory effort, no distress * Gastrointestinal: No tenderness to palpation, no rigidity or guarding. * Skin: No rash or lesion. * Neurologic: Grossly normal * Musculoskeletal: Left ankle with no open wounds at fracture site. Mild venous stasis changes, significant soft tissue/pitting edema throughout the lower leg. TTP distal fibula at the fracture site. Otherwise no specific tenderness of the distal thigh, knee, lower leg, foot. AROM ankle dorsi/plantar flexion, toe flexion/extension intact. Sensation intact plantar/dorsal foot. Brisk capillary refill. Results & Data Results & Data Laboratory Results . Diagnostic Findings Ankle X-Ray 01/06/25 11:42 XR ankle LT min 3V routine CLINICAL HISTORY: fall,left ankle pain COMPARISON: None FINDINGS: There is diffuse soft tissue swelling at the ankle. There is an acute minimally displaced oblique fracture distal shaft metaphyseal junction of the fibula. There are chronic appearing calcifications adjacent to the malleoli bilaterally, likely sequela of old injury. There is a possible tiny acute nondisplaced fracture distal dorsal aspect of the talus on the lateral view versus artifact. No other fracture or dislocation seen at the left ankle. IMPRESSION: 1. Acute distal fibular fracture. 2. Possible nondisplaced fracture dorsal distal talus. ACT 112: Negative or not required by law. Electronically signed by: Jonnie Donaldson M.D. 01/06/2025 12:27 PM PG Care Time/CCT Total # of Minutes Spent Total Time Spent with Patient: Total time spent is greater than 50% in coordination of care (as documented) at patient's floor/unit and/or counseling patient: [place] [address] IN/OBS CONSULT LVL 3,45M Patient Type New History Problem Focused Exam Problem Focused Medical Decision Making Straight Forward Diagnoses Closed fracture of left distal fibula S82.832A
--- NOTE | 2025-01-06 14:49 | XRay Report ---
XR tibia fibula LT 2V CLINICAL HISTORY: left distal fibula fracture,left knee pain COMPARISON: Ankle earlier today FINDINGS: Acute fracture distally at the fibula remains nondisplaced. No other fracture or dislocati on seen at the tibia or fibula. Left knee prosthesis shows no hardware complication. IMPRESSION: Acute fracture distal fibula. No other fracture seen. ACT 112: Negative or not required by law. Electronically signed by: Jonnie Donaldson M.D. 01/06/2025 2:47 PM
[2025-01-06] MEDS: GABAPENTIN 100 MG CAP PO SCH (21:14)
[2025-01-06] MEDS: POLYETHYLENE (MIRALAX) 17 GM PACK PO SCH (21:28)
[2025-01-07] MEDS: ENOXAPARIN INJ 40 MG/0.4 ML SYR SQ SCH (08:55)
--- NOTE | 2025-01-07 09:53 | Orthopedic Consultation ---
Date of Consultation January 07, 2025 Assessment & Plan (1) Weakness: This time I have reviewed the CAT scans of the thoracic and lumbar spine. Instrumentation is in place to appropriate alignment with evidence of fusion. I would like to obtain an MRI of the thoracic spine to rule out any adjacent la teral cord compression that could be contributing to her weakness. Make further conditions upon review. History of Present Illness Reason for Consultation: The bilateral leg weakness with bilateral leg pain Attending Physician: Flory George MD History of Present Illness This is an 84-year-old female well-known to me the presents with marked decline in status. She has been diagnosed with a left fibular fracture. She states she has chronic leg pain and legs giving out intermittently. She has been progressive in nature. She has an extensive history of thoracolumbar decompression fusions. Allergies Allergy/AdvReac Type Severity Reaction Status Date / Time tramadol Allergy Severe confusion, Verified 01/05/25 23:16 stroke like symptoms pseudoephedrine Allergy Intermediate hand, feet Verified 01/05/25 23:16 edema, skin peeling/redness hydromorphone AdvReac Severe delirium Verified 01/05/25 23:16 ketorolac [From Toradol] AdvReac Severe delirium Verified 01/05/25 23:16 metoprolol AdvReac Intermediate hallucinati Verified 01/05/25 23:16 on/confusio n Home Medications Medication Instructions Recorded Confirmed Type acetaminophen 500 mg tablet 1,000 mg PO DIRECTED PRN Pain 02/27/23 01/05/25 History (Tylenol Extra Strength) pen needle, diabetic 32 gauge x #150 ea 11/08/23 01/05/25 Rx 5/32" (BD Ultra-Fine Olinda Pen Needle) oxybutynin chloride 5 mg tablet 5 mg PO HS #30 tabs 08/15/24 01/05/25 Rx insulin glargine 100 unit/mL (3 14 unit subcut QAM 09/12/24 01/05/25 History mL) subcutaneous pen (Lantus Solostar U-100 Insulin) blood-glucose sensor (FreeStyle #2 ea 09/15/24 01/05/25 Rx Judy 3 Plus Sensor device) pantoprazole 40 mg tablet,delayed 40 mg PO DAILY #90 tabs 10/06/24 01/05/25 Rx release gabapentin 100 mg capsule 100 mg PO HS #90 caps 11/11/24 01/05/25 Rx torsemide 10 mg tablet 10 mg PO DAILY #20 tabs 11/11/24 01/05/25 Rx buspirone 10 mg tablet 10 mg PO BID PRN anxiety #60 tabs 11/18/24 01/05/25 Rx insulin aspart See Rx Instructions subcut QAM #15 12/10/24 01/05/25 Rx (niacinamide)(U-100) 100 unit/mL(3 mL mL) subcutaneous pen (Fiasp FlexTouch U-100 Insulin) cholecalciferol (vitamin D3) 50 100 mcg PO DAILY 12/24/24 01/05/25 History mcg (2,000 unit) capsule duloxetine 60 mg capsule,delayed 60 mg PO DAILY #90 caps 01/05/25 01/05/25 Rx release lisinopril 10 mg tablet 10 mg PO DAILY #90 tabs 01/05/25 01/05/25 Rx Patient History Medical History Right-sided tinnitus Obesity Bilateral edema of lower extremity GERD (gastroesophageal reflux disease) Sensorineural hearing loss (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 She appears comfortable. She has a boot on the left ankle. The right leg is markedly tender to palpation. I have appreciate no clonus. She exhibits a 4/5 strength testing. Results & Data Vital Signs (Past 12 Hours) Vital Signs Temp Pulse Resp BP BP Pulse Ox O2 Del Method 01/07/25 07:20 36.5 C 67 18 151/78 H 94 Room Air 01/07/25 00:15 Room Air 01/06/25 22:56 36.8 C 67 18 158/70 H 92 Room Air
--- NOTE | 2025-01-07 14:32 | Magnetic Resonance Report ---
MRI OF THE THORACIC SPINE WITHOUT CONTRAST CLINICAL HISTORY: Myelopathy. COMPARISON: Thoracic spine MRI April 18, 2019. Thoracic spine CT October 21, 2024. TECHNIQUE: Utilizing a 1.5 Jannet magnet and dedicated coil, multiplanar, multiecho imaging of the th oracic spine was performed without IV contrast. FINDINGS: Thoracolumbar spine fusion is partially imaged on this exam. The fusion begins at the T8 le rupa. A 5.1 x 3.2 x 1.3 cm laminectomy bed fluid collection extends from the T8-9 through T10-11 level s likely represents a seroma. Thoracic cord signal suboptimally assessed due to artifact from hardwar e and motion. However, no definite thoracic cord signal abnormality is present. There are no thoracic spine fractures. There is no marrow replacement. There is increased fluid signal within the T6-T7 di sc with severe disc space narrowing. However, vacuum disc phenomenon was noted at this level on PET/C T of October 21, 2024. Adjacent endplate erosion is also similar to that exam. Therefore, the fluid with in the disc space is likely degenerative. There is no paravertebral edema. There is no intracanalicul ar mass or fluid collection. Postoperative findings within the cervical spine are suboptimally assess ed on shank cutter images. A disc bulge with central disc protrusion at T6-T7 results in mild central canal stenosis, suboptimally assessed due to artifact. Patent AP diameter canal is approximately 7 mm. Ther e is severe left and moderate severe right neural foraminal stenosis at this level. Otherwise, there is moderate multilevel neural foraminal stenosis within the thoracic spine, suboptimally assessed on this exam. IMPRESSION: 1. Thoracolumbar spine decompression and fusion, partially imaged on this exam. 5.1 x 3.2 x 1.3 cm la minectomy bed favors a seroma. No intracanalicular fluid collection or mass. 2. No thoracic spine fractures. 3. No severe central canal stenosis. Mild central canal narrowing at T6-T7 to the disc bulge with geraldine tral disc protrusion. No thoracic cord signal abnormality. 4. Severe left and moderate to severe right neural foraminal stenosis at T6-T7. Otherwise, moderate m ultilevel neural foraminal narrowing within the thoracic spine. 5. Severe disc space narrowing with increased fluid signal within the T6-T7 level which is likely deg enerative when correlating with CT of October 21, 2024. No paravertebral edema. ACT 112: Negative or not required by law. Electronically signed by: Joshua Penny M.D. 01/07/2025 2:30 PM
--- NOTE | 2025-01-07 14:40 | Hospitalist Progress Note ---
Date of Service January 07, 2025 Assessment & Plan (1) Ambulatory dysfunction: (2) Fracture, fibula: (3) Myelopathy 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 of thoracic region: (4) Dysphagia: Plan The patient is a 84-year-old female with a past medical history including B12 deficiency, diabetes mellitus type 2, ambulatory dysfunction, hyperparathyroidism, empty sella syndrome, cervical and thoracic spinal stenosis and myelopathy, hypertension, and depression. She is admitted after having 2 falls from progressively worsening lumbar radiculopathy and suffered a left fibular fracture and possible talus fracture. #Fall/Left fibular and possible talus fracture-left tibia/fibula x-rays performed and only show distal fibular fracture, nondisplaced -Consult orthopedic surgery appreciated-needs cam walking boot and can weight- bear as [id number] in 2 weeks in the office for repeat x-rays -Continue acetaminophen 1000 mg p.o. 3 times daily for pain control-she does not do well with opioids #Ambulatory dysfunction/thoracic and cervical spinal stenosis with myelopathy/peripheral neuropathy/Lumbar radiculopathy Patient collapsed to her knees due to generalized weakness and pain down her lower extremities that is progressing over the last 2 months She did have negative x-rays of right knee, and left knee Continue gabapentin Will need inpatient rehab Consult her orthopedic spine surgeon as she has had extensive prior surgery in the back-thoracic spine MRI ordered and awaiting results and further input from orthopedic spine surgery #DMII w/ neuropathy Continue insulin glargine 14 units subcu every morning Placed on Accu-Cheks with NovoLog SSI #Chronic lower extremity edema/hypertension- Continue torsemide and lisinopril #GERD/Dysphagia-c/o a "lump" in her throat with swallowing for several months, sometimes causes her to cough after eating Consult Speech therapy to assess swallow Continue pantoprazole #Bladder spasms- Continue oxybutynin chloride #Depression/anxiety- Continue duloxetine Resume as needed buspirone medication #Elevated troponin- Troponin 18.2 on admission and trended down on repeat check Likely supply/demand mismatch DVT Proph- Lovenox SQ Dispo-continued stay, will need rehab likely tomorrow if no orthopedic spine procedure planned Admission and Anticipated Discharge Date Admission Date: January 07, 2025 Subjective Patient reports some pain in the left ankle but otherwise somewhat improved. She is wearing the cam walking boot. She had an MRI of the thoracic spine today and is awaiting the results and discussion with Dr. Sanford. She is eating and drinking, moved her bowels and is urinating. Review of Systems Review of Systems: All systems reviewed & are unremarkable except as noted in HPI & below Complains of feeling a lump in her throat with swallowing for the last few months. She sometimes coughs after eating Physical Exam Constitutional: WD/WN, vitals as above + morbidly obese Respiratory: normal respiratory effort, lungs clear to auscultation Cardiovascular: Rate/Rhythm: regular rate and regular rhythm Heart Sounds: no murmur Extremities: + edema (chronic 3+ edema legs to thighs bilat) Gastrointestinal (Abdomen): normal bowel sounds, soft, nontender, no hepatosplenomegaly Musculoskeletal: Extremities: + limited ROM of extremities (Left foot and ankle in cam walking boot); + extremities abnormal to inspection (bilat knee TKA scars) Psychiatric: A+Ox3, euthymic affect Results & Data Results & Data Vital Signs (Past 12 Hours) Vital Signs Temp Pulse Resp BP Pulse Ox O2 Del Method 01/07/25 07:20 36.5 C 67 18 151/78 H 94 Room Air PG Care Time/CCT Total # of Minutes Spent Total Time Spent with Patient: Total time spent is greater than 50% in coordination of care (as documented) at patient's floor/unit and/or counseling patient: Coding Level of Care Code 75909 SUB INP/OBS CARE 2/35MIN Diagnoses Ambulatory dysfunction R26.2 Fracture, fibula S82.409A Myelopathy 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 of thoracic region M48.04; G99.2 Dysphagia R13.10
[2025-01-08 07:59] VITALS: BP 154/79; PULSE 67; RESP 16; TEMP 97.5; O2SAT 93
[2025-01-08] MEDS: busPIRone 5 MG TAB PO PRN (08:23)
--- NOTE | 2025-01-08 13:03 | Discharge Summary ---
Discharge Summary Date of Service January 08, 2025 Principal Dx & Hospital Course #1 = Principal Diagnosis (1) Ambulatory dysfunction: (2) Fracture, fibula: (3) Myelopathy 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 of thoracic region: (4) Dysphagia: Plan The patient is a 84-year-old female with a past medical history including B12 deficiency, diabetes mellitus type 2, ambulatory dysfunction, hyperparathyroidism, empty sella syndrome, cervical and thoracic spinal stenosis and myelopathy, hypertension, and depression. She is admitted after having 2 falls from progressively worsening lumbar radiculopathy and suffered a left fibular fracture and possible talus fracture. #Fall/Left fibular and possible talus fracture-left tibia/fibula x-rays performed and only show distal fibular fracture, nondisplaced -Consult orthopedic surgery appreciated-needs cam walking boot and can weight- bear as [id number] in 2 weeks in the office for repeat x-rays -Continue acetaminophen 1000 mg p.o. 3 times daily for pain control-she does not do well with opioids #Ambulatory dysfunction/thoracic and cervical spinal stenosis with myelopathy/peripheral neuropathy/Lumbar radiculopathy Patient collapsed to her knees due to generalized weakness and pain down her lower extremities that is progressing over the last 2 months She did have negative x-rays of right knee, and left knee which were negative for acute issues Continue gabapentin low-dose at bedtime Will need inpatient rehab Consulted her orthopedic spine surgeon as she has had extensive prior surgery in the back-thoracic spine MRI does show severe left and moderate to severe right neural foraminal stenosis at T6-T7, however orthopedic spine surgery compared to previous and said there was nothing new compressing and did not feel any surgical intervention was necessary. He recommended rehab #DMII w/ neuropathy Continue insulin glargine 14 units subcu every morning Continue supplemental insulin with meals #Chronic lower extremity edema/hypertension-no acute issues, BPs mostly controlled Continue torsemide and lisinopril #GERD/Dysphagia-c/o a "lump" in her throat with swallowing for several months, sometimes causes her to cough after eating Consult Speech therapy to assess swallow Continue pantoprazole #Bladder spasms- Continue oxybutynin chloride #Depression/anxiety- Continue duloxetine Continue as needed buspirone medication #Elevated troponin- Troponin 18.2 on admission and trended down on repeat check Likely supply/demand mismatch #Morbid obesity BMI 42.6/mild confusion-given significant obesity and confusion noted by typically in the mornings, question if she has underlying untreated sleep apnea with hypoxemia at night causing confusion in the mornings. - Recommend outpatient sleep study - Recommend overnight pulse oximetry at rehab prior to discharge to see if she at least qualifies for nocturnal supplemental O2 on discharge from rehab - Needs significant weight loss DVT Proph- Lovenox SQ Dispo-DC to [facility] acute rehab Notes For Next Care Provider Needs overnight pulse oximetry prior to discharge from rehab and outpatient sleep study Follow-up with orthopedic surgery for the left fibular fracture in 2 weeks with repeat x-rays Medication Changes From Visit Increased acetaminophen to 1000 mg p.o. 3 times daily scheduled Admission HPI Per Admitting Provider The patient is a 84-year-old female with a past medical history including B12 deficiency, diabetes mellitus type 2, ambulatory dysfunction, hyperparathyroidism, empty sella syndrome, cervical and thoracic spinal stenosis and myelopathy, hypertension, and depression. She presents to the emergency department after her legs became so weak that she collapsed onto both knees earlier in the day. She has had issues with decreased ability to lift her feet, and which occasionally seem to drag. She has been to physical therapy and Occupational Therapy in the past with no significant improvement. Due to inability ambulate at home, she came to the emergency department, and was then [facility] Discharge Exam Constitutional WD/WN, vitals as above + morbidly obese Respiratory normal respiratory effort, lungs clear to auscultation Cardiovascular Rate/Rhythm: regular rate and regular rhythm Heart Sounds: no murmur Extremities: + edema (chronic 3+ edema legs to thighs bilat) Gastrointestinal (Abdomen) normal bowel sounds, soft, nontender, no hepatosplenomegaly Musculoskeletal Extremities: + limited ROM of extremities (Left foot and ankle in cam walking boot); + extremities abnormal to inspection (bilat knee TKA scars) Psychiatric A+Ox3, euthymic affect Discharge Plan Discharge Items Patient Disposition: Transfer Inpatient Rehab Fac Reason For Visit: GENERAL WEAKNESS Discharge Diagnosis: Fall, lumbar radiculopathy Left fibular fracture Condition on Discharge: Fair Activity: As commented below Bathing: No limitations Weightbearing: Left weightbearing Weightbearing Comment: As tolerated with cam boot on left lower extremity Non-emergency contact: Primary Care Provider and Surgeon Call non-emergency contact if: you have any medication questions, your symptoms worsen and your pain is not controlled Follow-up/Referrals: Toshia Alarcon, [Primary Care Provider] - (Follow-up within 2 weeks after discharge from rehab) Diet: Carb Consistent or DM2 and Heart Healthy Addtl Attending Provider Instructions: You were admitted after having a fall and suffering a fracture of your left fibula and the ankle. You will have to wear a walking boot for this and follow- up with the orthopedic surgeon in 2 weeks for repeat x-rays. You can take Tylenol as needed for pain. You can weight-bear as tolerated while in the boot. You were also seen by Dr. Sanford for your ongoing back issues and there was nothing new that needed surgical attention. Please continue rehab with PT and OT for strengthening to improve your ability to ambulate. Due to some first morning confusion noted by your , it is recommended that you have a sleep study to check for sleep apnea as an outpatient. Prior to leaving the [facility], you should undergo an overnight pulse oximetry test to at least see if you qualify for oxygen at home at nighttime. Pending Studies at Discharge: No Stand-Alone Forms: [facility] Skilled Items Patient informed of condition?: Yes DNR: No Discharge Level of Care: Acute rehab Communicable Disease: No Discharge Prognosis: Improving Lines: None Urinary Catheter: No Medications and DC Order Prescriptions: Continued oxybutynin chloride 5 mg tablet 5 mg PO HS Qty: 30 1RF (DME) FreeStyle Judy 3 Plus Sensor Device See Rx Instructions .Route Qty: 2 5RF Rx Instructions: change every 15 days buspirone 10 mg tablet 10 mg PO BID PRN (Reason: anxiety) Qty: 60 2RF Fiasp FlexTouch U-100 Insulin 100 unit/mL (3 mL) insulin pen See Rx Instructions subcut QAM MDD 40 units Qty: 15 5RF Rx Instructions: Inject per sliding scale 70-130-0, 130-180-4,181-240-8,241-300-10,301-350-12,351-400-16,400-20 (DME) pen needle, diabetic [BD Ultra-Fine Olinda Pen Needle] 32 gauge x 5/32" needle See Rx Instructions miscellaneous .MEDSUPPLY Qty: 150 5RF Rx Instructions: As directed to use with insulin pens 4 times a day torsemide 10 mg tablet 10 mg PO DAILY Qty: 20 0RF gabapentin 100 mg capsule 100 mg PO HS Qty: 90 0RF insulin glargine [Lantus Solostar U-100 Insulin] 100 unit/mL (3 mL) insulin pen 14 unit subcut QAM pantoprazole 40 mg tablet,delayed release (DR/EC) 40 mg PO DAILY Qty: 90 1RF duloxetine 60 mg capsule,delayed release(DR/EC) 60 mg PO DAILY Qty: 90 2RF Rx Instructions: NEW ORDER 01/05/25. UNABLE TO VERIFY THIS DOSE, NO RECORD ON EXT MED HX. lisinopril 10 mg tablet 10 mg PO DAILY Qty: 90 3RF cholecalciferol (vitamin D3) 50 mcg (2,000 unit) capsule 100 mcg PO DAILY Changed acetaminophen [Tylenol Extra Strength] 500 mg Tablet 1,000 mg PO TID Qty: 60 0RF Discharge Orders: Discharge Order (Routine); Ordered 01/08/25 Ordered By: Flory Wilkins/Other Patient Handouts: Managing Type 2 Diabetes Admission Data Admit Date/Time: 01/07/25 13:54 Attending Provider: Flory George Admit Provider: Jeff Razo Primary Care Provider: Toshia Alarcon Other Providers: Jeff Razo; [facility]; Uri Sanford; Pieter Banda Hospital Stay Data Consultations 01/05/25 23:16 ED Decision to Admit Stat 01/06/25 12:28 Consult Orthopedic Spine Surgery Routine Consult Orthopedic Surgery Routine Diagnostic Imagining Performed 01/05/25 21:31 CT head/brain wo con Stat 01/07/25 07:40 MR thoracic spine wo con Routine Pending Results Patient Have Any Pending Studies at Discharge: No Discharge Instructions Given to Patient (Per Discharging Provider) You were admitted after having a fall and suffering a fracture of your left fibula and the ankle. You will have to wear a walking boot for this and follow- up with the orthopedic surgeon in 2 weeks for repeat x-rays. You can take Tylenol as needed for pain. You can weight-bear as tolerated while in the boot. You were also seen by Dr. Sanford for your ongoing back issues and there was nothing new that needed surgical attention. Please continue rehab with PT and OT for strengthening to improve your ability to ambulate. Due to some first morning confusion noted by your , it is recommended that you have a sleep study to check for sleep apnea as an outpatient. Prior to leaving the [facility], you should undergo an overnight pulse oximetry test to at least see if you qualify for oxygen at home at nighttime. Total Time Total Time Spent Total Time Spent (In Minutes): 35 minutes Total Time Includes: Examination of the Patient, Discharge Planning, Medication Reconciliation, Communication With Other Providers and Other (Called on the day of discharge) Coding Level of Care Code 39649 INP/OBS DISCH >30 MIN Diagnoses Ambulatory dysfunction R26.2 Fracture, fibula S82.409A Myelopathy 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 of thoracic region M48.04; G99.2 Dysphagia R13.10
== END 2025-01-08 14:18 | DRG 552 ==
LOC: ED 20:51 → EDINP 20:51 → SUATTDRO 23:58 → 3N 01-06 01:11
DX: E53.8 Deficiency of other specified B group vitamins; M54.16 Radiculopathy, lumbar region; Z79.4 Long term (current) use of insulin; G99.2 Myelopathy in diseases classified elsewhere; I10 Essential (primary) hypertension; I24.89 Other forms of acute ischemic heart disease; R53.1 Weakness; R29.6 Repeated falls; S92.192A Other fracture of left talus, initial encounter for closed fracture; Z96.653 Presence of artificial knee joint, bilateral; S82.402A Unspecified fracture of shaft of left fibula, initial encounter for closed fracture; Y92.009 Unspecified place in unspecified non-institutional (private) residence as the place of occurrence of the external cause; E21.3 Hyperparathyroidism, unspecified; E11.42 Type 2 diabetes mellitus with diabetic polyneuropathy; E66.01 Morbid (severe) obesity due to excess calories; Z68.41 Body mass index [BMI] 40.0-44.9, adult; M48.02 Spinal stenosis, cervical region; K21.9 Gastro-esophageal reflux disease without esophagitis; R13.10 Dysphagia, unspecified; Z83.3 Family history of diabetes mellitus; M48.04 Spinal stenosis, thoracic region; W18.30XA Fall on same level, unspecified, initial encounter; R26.9 Unspecified abnormalities of gait and mobility; N32.89 Other specified disorders of bladder

== ENCOUNTER 2025-03-06 18:38 | Inpatient (IN) ==
[2025-03-06 19:11] LABS: Base Excess VBG 0.6 mEq/L; HCO3 VBG 27 mmol/L; Oxygen Saturation VBG < 60.0 %; PCO2 VBG 52 mmHg (38-50); PO2 VBG 36 mmHg; pH VBG 7.33 (7.36-7.41)
[2025-03-06 19:18] LABS: Hematocrit (blood only) 36.6 % (37.0-47.0); Hemoglobin 12.2 g/dl (12.0-16.0); Immature Granulocytes # (auto) 0.01 K/uL (0.01-0.20); Immature Granulocytes % (auto) 0.2 %; Mean Corpuscular Hemoglobin 30.2 pg (25.0-34.0); Mean Corpuscular Volume 90.6 fL (80.0-100.0); Platelet Count 136 K/uL (130-400); RDW Standard Deviation 46.8 fL (36.4-46.3); Red Blood Count 4.04 M/uL (4.20-5.40); White Blood Count 4.12 K/ul (4.8-10.8)
[2025-03-06 19:34] LABS: Alanine Aminotransferase 8.0 U/L (7-52); Albumin Level 3.4 gm/dl (3.4-5.0); Alkaline Phosphatase 75.0 U/L (34-104); Anion Gap 10.0 (3-11); Bilirubin,Total 0.3 mg/dl (0.2-1.0); Blood Urea Nitrogen 32.0 mg/dl (6-23); Calcium 9.4 mg/dl (8.6-10.3); Carbon Dioxide 27.0 mmol/L (21-32); Chloride 101.0 mmol/L (98-107); Creatinine Clr Calc Pharmacy 32.1 ml/min; Glucose 192.0 mg/dl (70-99(Fasting)); Magnesium 1.8 mg/dl (1.7-2.4); Potassium 3.7 mmol/L (3.5-5.1); Sodium 138.0 mmol/L (136-145); Total Protein 6.6 gm/dl (6.0-8.3)
[2025-03-06 19:45] LABS: INR 1.0 (0.9-1.1); Partial Thromboplastin Time 27 Seconds (21-31); Prothrombin Time 10.8 Seconds (9.0-12.0)
[2025-03-06] MEDS: dexAMETHasone**PF** 10 MG/ML VIAL IV ONE (19:58)
[2025-03-06] MEDS: SODIUM CHLORIDE 0.9% 500 ML IV SCH (19:59)
--- NOTE | 2025-03-06 20:39 | XRay Report ---
Exam(s): XR CXR 1 VIEW EXAM: XR Chest, 1 View CLINICAL HISTORY: Reason for exam: Sepsis. TECHNIQUE: Frontal view of the chest. COMPARISON: 01/05/2025 FINDINGS: Lungs: Soft tissue artifact from large body habitus. No acute focal infiltrate or consolidation is identified. Pleural space: Unremarkable. No pneumothorax. Heart: The cardiac silhouette is borderline enlarged, unchanged. Mediastinum: Unremarkable. Normal mediastinal contour. Bones/joints: Previous multilevel fusion of the lower cervical spine and multilevel fusion instrumentation throughout the lower thoracic spine, similar to previous. Mild degenerative changes in the left shoulder. No acute fracture. IMPRESSION: 1. The cardiac silhouette is borderline enlarged, unchanged. 2. Soft tissue artifact from large body habitus. No acute focal infiltrate or consolidation is identified. Electronically signed by: Ash Acosta MD 03/06/25 20:38 PM
[2025-03-06] MEDS: SODIUM CHLORIDE 0.9% 1,000 ML IV SCH (21:46)
[2025-03-06] MEDS: OPTIRAY 320 125ml IV ONE (22:23)
--- NOTE | 2025-03-06 23:17 | CT Scan Report ---
Exam(s): CTA CHEST IV Amt: 115 ml [id number] EXAM: CT Angiography Chest With Intravenous Contrast CLINICAL HISTORY: Reason for exam: ro PE. TECHNIQUE: Axial computed tomographic angiography images of the chest with intravenous contrast. CTDI is 28.5 mGy and DLP is 801.55 mGy-cm. Automated exposure control was utilized for the study. A dose lowering technique was utilized adhering to the principles of ALARA. MIP reconstructed images were created and reviewed. COMPARISON: 11/16/2017 FINDINGS: Pulmonary arteries: The pulmonary arterial tree is well opacified with contrast. There is motion artifact blurring the lower lobe branches bilaterally. No pulmonary emboli are identified. Aorta: The thoracic aorta is mildly calcified but nondilated. There is no aneurysm or dissection. Lungs: Underinflated lungs with perihilar and bibasilar atelectasis versus edema, increased since previous. No lobar consolidation is seen. Pleural space: Unremarkable. No significant effusion. No pneumothorax. Heart: Heart is mildly enlarged. There is mild to moderate mitral calcification and mild coronary calcification. No pericardial effusion is seen. No evidence of RV dysfunction. Bones/joints: Moderate multilevel degenerative changes throughout the thoracic spine. Previous fusion and instrumentation extending from T8 inferiorly. No acute fracture or destructive bone lesion is seen. No dislocation. Soft tissues: Unremarkable. Lymph nodes: Unremarkable. No enlarged lymph nodes. IMPRESSION: 1. Underinflated lungs with perihilar and bibasilar atelectasis versus edema, increased since previous. No lobar consolidation is seen. 2. The pulmonary arterial tree is well opacified with contrast. There is motion artifact blurring the lower lobe branches bilaterally. No pulmonary emboli are identified. 3. The thoracic aorta is mildly calcified but nondilated. There is no aneurysm or dissection. Electronically signed by: Ash Acosta MD 03/06/25 23:16 PM
[2025-03-06 23:30] LABS: Appearance Urine Cloudy (Clear); Bacteria Urine Automated 4+ (None Seen); Glucose Urine UA Negative (Negative); WBC Urine Automated >50 /hpf (0-5)
--- NOTE | 2025-03-06 23:45 | History & Physical Report ---
Date of Service March 06, 2025 Assessment & Plan (1) COVID-19: (2) Hypoxia: (3) Syncope: (4) Weakness: (5) Diabetes type 2, controlled: (6) Hypertension: Plan 84yo female with DM, GERD presenting with Covid-19 infection, generalized weakness, syncopal event prior to arrival and generalized weakness. Patient reported to be hypoxic in [facility] ER at 88% on room air #Covid-19/Hypoxia/Generalized weakness - afebrile, HD stable, adequate oxygenation on 2L NC -Admit to medical with telemetry -Maintain isolation precautions -Continue Dexamethasone 6mg IV daily -Supplemental O2 as needed -Tylenol PRN -Zofran PRN -Lovenox 40mg BID #Syncope - likely secondary to acute illness -Telemetry monitoring for now #Diabetes -Lantus 7u BID with ISS -May need additional coverage while on steroids #Hypertension -Continue Lisinopril -Monitor #GERD -Continue Protonix #Depression/Anxiety -Continue Duloxetine -Continue Buspirone History of Present Illness Chief Complaint: Syncope Primary Care Provider: DO Gracie Barnes is an 84yo female presenting from her [facility] with Covid-19 infection, hypoxia and syncope. Patient was diagnosed with Covid-19 infection on Sunday03/02/25. She has been on Paxlovid. Has been feeling weak and short of breath. This evening she was on the commode and had a syncopal episode. She denies chest pain, palpitations, abdominal pain, nausea, vomiting at present. No additional complaints at this time. In the ER she was afebrile, reportedly hypoxic at 88% on RA, however not documented ER Course: Dexamethasone 6mg IV NSS Allergies Allergy/AdvReac Type Severity Reaction Status Date / Time tramadol Allergy Severe confusion, Verified 03/06/25 22:04 stroke like symptoms pseudoephedrine Allergy Intermediate hand, feet Verified 03/06/25 22:04 edema, skin peeling/redness hydromorphone AdvReac Severe delirium Verified 03/06/25 22:04 ketorolac [From Toradol] AdvReac Severe delirium Verified 03/06/25 22:04 metoprolol AdvReac Intermediate hallucinati Verified 03/06/25 22:04 on/confusio n Home Medications Medication Instructions Recorded Confirmed Type pen needle, diabetic 32 gauge x #150 ea 11/08/23 01/05/25 Rx 5/32" (BD Ultra-Fine Olinda Pen Needle) oxybutynin chloride 5 mg tablet 5 mg PO HS #30 tabs 08/15/24 03/06/25 Rx insulin glargine 100 unit/mL (3 14 unit subcut QAM 09/12/24 03/06/25 History mL) subcutaneous pen (Lantus Solostar U-100 Insulin) torsemide 10 mg tablet 10 mg PO DAILY #20 tabs 11/11/24 03/06/25 Rx buspirone 10 mg tablet 10 mg PO BID PRN anxiety #60 tabs 11/18/24 03/06/25 Rx cholecalciferol (vitamin D3) 50 100 mcg PO DAILY 12/24/24 03/06/25 History mcg (2,000 unit) capsule duloxetine 60 mg capsule,delayed 60 mg PO DAILY #90 caps 01/05/25 03/06/25 Rx release blood-glucose sensor (FreeStyle #2 ea 03/05/25 Rx Judy 3 Plus Sensor device) acetaminophen 500 mg tablet 1,000 mg PO Q8H Pain 03/06/25 03/06/25 History (Tylenol Extra Strength) lisinopril 40 mg tablet 40 mg PO DAILY 03/06/25 03/06/25 History menthol 5 % topical gel (Biofreeze 1 ea topical Q8H PRN LOWER BACK 03/06/25 03/06/25 History (menthol)) PAIN nirmatrelvir 150 mg (10)-ritonavir 1 ea PO BID 03/06/25 03/06/25 History 100 mg (10) tablets in a dose pack (Paxlovid) pantoprazole 40 mg tablet,delayed 40 mg PO DAILYBB 03/06/25 03/06/25 History release propylene glycol 1 %-glycerin 0.3 1 drp OPB QID 03/06/25 03/06/25 History % eye drops (Artificial Tears (glycerin-peg)) sennosides 8.6 mg tablet (senna) 8.6 mg PO DAILY 03/06/25 03/06/25 History Past Med/Surg History Problem List (Updated 03/07/25 @ 02:14 by Laureen Acosta DO) Syncope Hypoxia (Acute) COVID-19 (Acute) Dysphagia (01/05/25) Closed fracture of left distal fibula Acute distal fibular fracture and possible nondisplaced fracture dorsal distal talus from a fall Weakness (Acute) B12 deficiency Diabetes type 2, controlled Anemia Ambulatory dysfunction Nephrolithiasis Hyperparathyroidism Empty sella Myelopathy 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 of cervical region Hypertension Myelopathy 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 of thoracic region Depression Vertigo Medical History Right-sided tinnitus Obesity Bilateral edema of lower extremity GERD (gastroesophageal reflux disease) rare, controlled, stable per pt Sensorineural hearing loss (SNHL) of right ear with restricted hearing of left ear Bilateral leg weakness pt states she is still experiencing this--uses walker to ambulate Hx of pancreatitis Surgical History History of cervical spinal surgery anterior cervical corpectomy with bilt foraminotomies Dr. Sanford @ [facility] 06/09/21 glidescope #3, "good view" ETT 7. Post-op progress note: "hypertension on admission. Her blood pressures on the floor have been running in the 170s-200s systolic. She was just recently started on metoprolol on this admission. She received 10mg IV Labetalol on emergence from anesthesia and another 10mg IV labetalol in recovery for SBP 190s. Her BP improved to 176/83." History of hysterectomy with bilateral oophorectomy History of cholecystectomy History of appendectomy H/O knee surgery partial right knee replacement > 20 yrs ago History of total knee replacement LEFT Fusion of spine LUMBAR (TOTAL OF 3 SURGERIES), Hardware removal L2-L3, decompression T12-L2, L5-S1, T8-T10: Grade 1 view, Salazar#2, ETT#7.5 at [facility] T10-S1 iliac bolts: 11/13/17: Grade view 1 with cricoid pressure, MAC#3, ETT 7.0 at [facility]. No issues with either per both anesthesia postop progress notes. History of colonoscopy History of herniorrhaphy UMBILICAL [place] teeth removed History of cataract surgery BL Family History Mother Family history of diabetes mellitus Father Family history of diabetes mellitus Pancreatic cancer Brother No problems noted. Sister Breast cancer Other No family history of adverse response to anesthesia No family history of bleeding disorder Denies family history of Ovarian cancer Myocardial infarction Colorectal cancer Social History Smoking Status: Never smoker Second Hand Exposure: No; Do You Dip or Chew Tobacco: No; Hx Alcohol Use: Yes Alcohol type: beer, wine and hard liquor Hx Substance Use: No Preferred Language: Spanish Communication Ability: Effective Front Desk Host Required: No Beliefs That Will Affect Care: None marital status: Current Living Situation: Spouse Current Living Situation Comment: [facility] current occupational status: 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 [employer] How many Children do You have: 3 Feels Safe at Home: Yes Childhood Exposure to Second-Hand Smoke: Yes Diet: regular caffeine: Yes Dental Care, Regularly: Yes Physical Activity Frequency: 1-2 Times per Week Seatbelt Use: never Sunscreen Use: No Assistive Devices: Cane, Walker and Wheelchair Review of Systems Review of Systems: All systems reviewed & are unremarkable except as noted in HPI & below Physical Exam Physical Exam: General: patient resting comfortably, NAD, non-toxic in appearance, patient somewhat confused, answers some questions Skin: warm, dry, intact, no rashes or lesions HEENT: NC/AT, PERRL, EOMI, anicteric sclera, conjunctiva without injection, external ear normal to inspection and nontender, nares patent, moist mucus membranes, dentition intact, no oropharyngeal lesions, neck supple, trachea midline, no LAD, no thyromegaly, no JVD Heart: +S1/S2, regular, no m/r/g Lungs: equal air entry bilaterally, no rales/rhonchi/wheezes Abd: +BS, soft, NT/ND, no masses/organomegaly/ascites Ext: warm, 2+ pulses in UE/LE bilaterally, no clubbing/cyanosis or edema Neuro: nonfocal, speech intact, no facial droop, moving all extremities on command with equal strength 5/5 Results & Data Results & Data Vital Signs (Past 12 Hours) Vital Signs Temp Pulse Pulse Resp BP BP Pulse Ox 03/06/25 23:15 77 18 149/88 H 97 03/06/25 23:02 76 03/06/25 23:00 77 18 152/89 H 97 03/06/25 22:45 77 18 172/93 H 97 03/06/25 22:42 78 17 95 03/06/25 22:30 77 20 98 03/06/25 22:30 172/93 H 03/06/25 22:30 172/93 H 03/06/25 22:30 172/93 H 03/06/25 22:30 172/93 H 03/06/25 22:30 172/93 H 03/06/25 22:28 159/89 H 03/06/25 22:28 159/89 H 03/06/25 22:28 159/89 H 03/06/25 22:27 79 22 03/06/25 22:00 73 19 94 03/06/25 22:00 171/96 H 03/06/25 22:00 171/96 H 03/06/25 22:00 171/96 H 03/06/25 22:00 171/96 H 03/06/25 22:00 171/96 H 03/06/25 21:51 75 20 94 03/06/25 21:45 177/102 H 03/06/25 21:45 177/102 H 03/06/25 21:45 177/102 H 03/06/25 21:45 177/102 H 03/06/25 21:45 177/102 H 03/06/25 21:45 177/102 H 03/06/25 21:45 177/102 H 03/06/25 21:45 75 22 03/06/25 21:42 80 20 03/06/25 21:30 74 17 95 03/06/25 21:30 168/96 H 03/06/25 21:30 168/96 H 03/06/25 21:30 168/96 H 03/06/25 21:30 168/96 H 03/06/25 21:30 168/96 H 03/06/25 21:21 74 16 97 03/06/25 21:15 76 18 95 03/06/25 21:15 173/97 H 03/06/25 21:15 173/97 H 03/06/25 21:15 173/97 H 03/06/25 21:15 173/97 H 03/06/25 21:15 173/97 H 03/06/25 21:12 74 17 95 03/06/25 21:00 76 17 95 03/06/25 21:00 158/92 H 03/06/25 21:00 158/92 H 03/06/25 21:00 158/92 H 03/06/25 21:00 158/92 H 03/06/25 21:00 158/92 H 03/06/25 20:51 73 21 97 03/06/25 20:45 73 18 97 03/06/25 20:45 160/89 H 03/06/25 20:45 160/89 H 03/06/25 20:45 160/89 H 03/06/25 20:45 160/89 H 03/06/25 20:45 160/89 H 03/06/25 20:42 75 13 96 03/06/25 20:30 74 17 98 03/06/25 20:30 159/89 H 03/06/25 20:30 159/89 H 03/06/25 20:30 159/89 H 03/06/25 20:30 159/89 H 03/06/25 20:30 159/89 H 03/06/25 20:30 74 20 159/89 H 97 03/06/25 20:21 73 18 99 03/06/25 20:15 159/86 H 03/06/25 20:15 159/86 H 03/06/25 20:15 159/86 H 03/06/25 20:15 159/86 H 03/06/25 20:15 159/86 H 03/06/25 20:15 72 20 96 03/06/25 20:12 75 16 96 03/06/25 20:00 73 18 96 03/06/25 20:00 136/79 03/06/25 20:00 136/79 03/06/25 20:00 136/79 03/06/25 20:00 136/79 03/06/25 20:00 136/79 03/06/25 19:51 76 22 95 03/06/25 19:45 74 20 97 03/06/25 19:45 130/86 03/06/25 19:45 130/86 03/06/25 19:45 130/86 03/06/25 19:45 130/86 03/06/25 19:45 130/86 03/06/25 19:42 75 18 95 03/06/25 19:30 77 18 96 03/06/25 19:30 128/77 03/06/25 19:30 128/77 03/06/25 19:30 128/77 03/06/25 19:30 128/77 03/06/25 19:30 128/77 03/06/25 19:21 77 19 96 03/06/25 19:15 78 19 95 03/06/25 19:15 121/69 03/06/25 19:15 121/69 03/06/25 19:15 121/69 03/06/25 19:15 121/69 03/06/25 19:15 121/69 03/06/25 19:14 123/71 03/06/25 19:14 78 03/06/25 18:57 92 03/06/25 18:56 36.8 C 20 121/68 92 03/06/25 18:56 20 92 03/06/25 18:29 36.8 C 20 121/ 92 O2 Del Method O2 Flow Rate 03/06/25 23:15 Nasal Cannula 2 03/06/25 23:02 03/06/25 23:00 03/06/25 22:45 Room Air 03/06/25 22:42 03/06/25 22:30 03/06/25 22:30 03/06/25 22:30 03/06/25 22:30 03/06/25 22:30 03/06/25 22:30 03/06/25 22:28 03/06/25 22:28 03/06/25 22:28 03/06/25 22:27 03/06/25 22:00 03/06/25 22:00 03/06/25 22:00 03/06/25 22:00 03/06/25 22:00 03/06/25 22:00 03/06/25 21:51 03/06/25 21:45 03/06/25 21:45 03/06/25 21:45 03/06/25 21:45 03/06/25 21:45 03/06/25 21:45 03/06/25 21:45 03/06/25 21:45 03/06/25 21:42 03/06/25 21:30 03/06/25 21:30 03/06/25 21:30 03/06/25 21:30 03/06/25 21:30 03/06/25 21:30 03/06/25 21:21 03/06/25 21:15 03/06/25 21:15 03/06/25 21:15 03/06/25 21:15 03/06/25 21:15 03/06/25 21:15 03/06/25 21:12 03/06/25 21:00 03/06/25 21:00 03/06/25 21:00 03/06/25 21:00 03/06/25 21:00 03/06/25 21:00 03/06/25 20:51 03/06/25 20:45 03/06/25 20:45 03/06/25 20:45 03/06/25 20:45 03/06/25 20:45 03/06/25 20:45 03/06/25 20:42 03/06/25 20:30 03/06/25 20:30 03/06/25 20:30 03/06/25 20:30 03/06/25 20:30 03/06/25 20:30 03/06/25 20:30 Nasal Cannula 2 03/06/25 20:21 03/06/25 20:15 03/06/25 20:15 03/06/25 20:15 03/06/25 20:15 03/06/25 20:15 03/06/25 20:15 03/06/25 20:12 03/06/25 20:00 03/06/25 20:00 03/06/25 20:00 03/06/25 20:00 03/06/25 20:00 03/06/25 20:00 03/06/25 19:51 03/06/25 19:45 03/06/25 19:45 03/06/25 19:45 03/06/25 19:45 03/06/25 19:45 03/06/25 19:45 03/06/25 19:42 03/06/25 19:30 03/06/25 19:30 03/06/25 19:30 03/06/25 19:30 03/06/25 19:30 03/06/25 19:30 03/06/25 19:21 03/06/25 19:15 03/06/25 19:15 03/06/25 19:15 03/06/25 19:15 03/06/25 19:15 03/06/25 19:15 03/06/25 19:14 03/06/25 19:14 03/06/25 18:57 Nasal Cannula 2 03/06/25 18:56 Nasal Cannula 2 03/06/25 18:56 Nasal Cannula 2 03/06/25 18:29 Nasal Cannula 2 Laboratory Results Laboratory Results WBC 4.12 K/ul (4.8-10.8) L 03/06/25 19:00 RBC 4.04 M/uL (4.20-5.40) L 03/06/25 19:00 Hgb 12.2 g/dl (12.0-16.0) 03/06/25 19:00 POC Hgb 12.6 g/dl (12.0-16.0) 03/06/25 19:06 Hct 36.6 % (37.0-47.0) L 03/06/25 19:00 POC Hct 37 % (37-47) 03/06/25 19:06 MCV 90.6 fL (80.0-100.0) 03/06/25 19:00 MCH 30.2 pg (25.0-34.0) 03/06/25 19:00 MCHC 33.3 g/dL (32.0-36.0) 03/06/25 19:00 RDW Std Deviation 46.8 fL (36.4-46.3) H 03/06/25 19:00 RDW Coeff of Jc 14.0 % (11.5-14.5) 03/06/25 19:00 Plt Count 136 K/uL (130-400) 03/06/25 19:00 MPV 10.4 fL (9.4-12.4) 03/06/25 19:00 Immature Gran % (Auto) 0.2 % 03/06/25 19:00 Neut % (Auto) 52.2 % 03/06/25 19:00 Lymph % (Auto) 36.9 % 03/06/25 19:00 Todd % (Auto) 9.5 % 03/06/25 19:00 Eos % (Auto) 0.7 % 03/06/25 19:00 Baso % (Auto) 0.5 % 03/06/25 19:00 Neut # (Auto) 2.15 K/uL (1.40-6.50) 03/06/25 19:00 Lymph # (Auto) 1.52 K/uL (1.20-3.40) 03/06/25 19:00 Todd # (Auto) 0.39 K/uL (0.11-0.59) 03/06/25 19:00 Eos # (Auto) 0.03 K/uL (0.00-0.50) 03/06/25 19:00 Baso # (Auto) 0.02 K/uL (0.00-0.20) 03/06/25 19:00 Immature Gran # (Auto) 0.01 K/uL (0.01-0.20) 03/06/25 19:00 PT 10.8 Seconds (9.0-12.0) 03/06/25 19: INR 1.0 (0.9-1.1) 03/06/25 19: APTT 27 Seconds (21-31) 03/06/25 19: PTT Ratio 1.0 03/06/25 19:00 D-Dimer 2490 ug/L FEU (0-500) H* 03/06/25 19:00 VBG pH 7.33 (7.36-7.41) L 03/06/25 19:00 VBG pCO2 52 mmHg (38-50) H 03/06/25 19:00 VBG pO2 36 mmHg 03/06/25 19: VBG HCO3 27 mmol/L 03/06/25 19:00 VBG O2 Saturation < 60.0 % 03/06/25 19:00 VBG Base Excess 0.6 mEq/L 03/06/25 19:00 POC Sodium 138 mmol/L (135-144) 03/06/25 19:06 Sodium 138 mmol/L (136-145) 03/06/25 19:00 POC Potassium 3.7 mmol/L (3.3-5.0) 03/06/25 19:06 Potassium 3.7 mmol/L (3.5-5.1) 03/06/25 19:00 POC Chloride 99 mmol/L (101-112) L 03/06/25 19: Chloride 101 mmol/L (98-107) 03/06/25 19:00 Carbon Dioxide 27 mmol/L (21-32) 03/06/25 19:00 POC Total CO2 26 mmol/L (24-31) 03/06/25 19:06 Anion Gap 10 (3-11) 03/06/25 19:00 POC Anion Gap 18.0 mmol/L (16-25) 03/06/25 19:06 POC BUN 29 mg/dl (7-18) H 03/06/25 19:06 BUN 32 mg/dl (6-23) H 03/06/25 19:00 Creatinine 1.52 mg/dl (0.6-1.2) H 03/06/25 19:00 POC Creatinine 1.8 mg/dl (0.6-1.3) H 03/06/25 19: Est Cr Clr Drug Dosing 32.1 ml/min 03/06/25 19:00 eGFR 34.03 03/06/25 19:00 BUN/Creatinine Ratio 21.1 (10-20) H 03/06/25 19:00 Glucose 192 mg/dl (70-99(Fasting)) H 03/06/25 19:00 POC Glucose (other) 188 mg/dl (70-99) H 03/06/25 19:06 Lactate 1.4 mmol/L (0.4-2.0) 03/06/25 19:00 Calcium 9.4 mg/dl (8.6-10.3) 03/06/25 19:00 POC Ioniz Calcium [place] 1.21 mmol/l (1.12-1.32) 03/06/25 19:06 Magnesium 1.8 mg/dl (1.7-2.4) 03/06/25 19:00 Total Bilirubin 0.3 mg/dl (0.2-1.0) 03/06/25 19:00 Direct Bilirubin 0.0 mg/dl (0-0.2) 03/06/25 19:00 AST 16 U/L (13-39) 03/06/25 19:00 ALT 8 U/L (7-52) 03/06/25 19:00 Alkaline Phosphatase 75 U/L (34-104) 03/06/25 19:00 Troponin I High Sens 7.9 pg/ml (0-14) 03/06/25 19:00 Total Protein 6.6 gm/dl (6.0-8.3) 03/06/25 19:00 Albumin 3.4 gm/dl (3.4-5.0) 03/06/25 19:00 Procalcitonin 0.06 ng/ml (0-0.5) 03/06/25 19:00 Urine Color Yellow 03/06/25 22:57 Urine Appearance Cloudy (Clear) A 03/06/25 22:57 Urine pH 5.5 (4.5-7.5) 03/06/25 22:57 Ur Specific [place] 1.016 (1.000-1.030) 03/06/25 22:57 Urine Protein 1+ (Negative) H 03/06/25 22:57 Urine Glucose (UA) Negative (Negative) 03/06/25 22:57 Urine Ketones Negative (Negative) 03/06/25 22:57 Urine Blood 2+ (Negative) H 03/06/25 22:57 Urine Nitrite Positive (Negative) A 03/06/25 22:57 Urine Bilirubin Negative (Negative) 03/06/25 22:57 Urine Urobilinogen Negative (Negative) 03/06/25 22:57 Ur Leukocyte Esterase 3+ (Negative) H 03/06/25 22:57 Urine WBC (Auto) >50 /hpf (0-5) H 03/06/25 22:57 Urine RBC (Auto) 3-5 /hpf (0-2) H 03/06/25 22:57 U Hyaline Cast (Auto) 11-20 /lpf (0-2) H 03/06/25 22:57 U Epithel Cells (Auto) 6-10 /hpf (0-2) H 03/06/25 22:57 Urine Bacteria (Auto) 4+ (None Seen) H 03/06/25 22:57 Urine Yeast Present (None Prsent) A 03/06/25 22:57 Urine Comment 03/06/25 22:57 SARS-CoV-2, RNA, NAAT POSITIVE (NEGATIVE) A 03/06/25 22:54 Impressions Chest X-Ray 03/06/25 18:56 Exam(s): XR CXR 1 VIEW EXAM: XR Chest, 1 View CLINICAL HISTORY: Reason for exam: Sepsis. TECHNIQUE: Frontal view of the chest. COMPARISON: 01/05/2025 FINDINGS: Lungs: Soft tissue artifact from large body habitus. No acute focal infiltrate or consolidation is identified. Pleural space: Unremarkable. No pneumothorax. Heart: The cardiac silhouette is borderline enlarged, unchanged. Mediastinum: Unremarkable. Normal mediastinal contour. Bones/joints: Previous multilevel fusion of the lower cervical spine and multilevel fusion instrumentation throughout the lower thoracic spine, similar to previous. Mild degenerative changes in the left shoulder. No acute fracture. IMPRESSION: 1. The cardiac silhouette is borderline enlarged, unchanged. 2. Soft tissue artifact from large body habitus. No acute focal infiltrate or consolidation is identified. Electronically signed by: Ash Acosta MD 03/06/25 20:38 PM Chest CTA 03/06/25 21:18 Exam(s): CTA CHEST IV Amt: 115 ml [id number] EXAM: CT Angiography Chest With Intravenous Contrast CLINICAL HISTORY: Reason for exam: ro PE. TECHNIQUE: Axial computed tomographic angiography images of the chest with intravenous contrast. CTDI is 28.5 mGy and DLP is 801.55 mGy-cm. Automated exposure control was utilized for the study. A dose lowering technique was utilized adhering to the principles of ALARA. MIP reconstructed images were created and reviewed. COMPARISON: 11/16/2017 FINDINGS: Pulmonary arteries: The pulmonary arterial tree is well opacified with contrast. There is motion artifact blurring the lower lobe branches bilaterally. No pulmonary emboli are identified. Aorta: The thoracic aorta is mildly calcified but nondilated. There is no aneurysm or dissection. Lungs: Underinflated lungs with perihilar and bibasilar atelectasis versus edema, increased since previous. No lobar consolidation is seen. Pleural space: Unremarkable. No significant effusion. No pneumothorax. Heart: Heart is mildly enlarged. There is mild to moderate mitral calcification and mild coronary calcification. No pericardial effusion is seen. No evidence of RV dysfunction. Bones/joints: Moderate multilevel degenerative changes throughout the thoracic spine. Previous fusion and instrumentation extending from T8 inferiorly. No acute fracture or destructive bone lesion is seen. No dislocation. Soft tissues: Unremarkable. Lymph nodes: Unremarkable. No enlarged lymph nodes. IMPRESSION: 1. Underinflated lungs with perihilar and bibasilar atelectasis versus edema, increased since previous. No lobar consolidation is seen. 2. The pulmonary arterial tree is well opacified with contrast. There is motion artifact blurring the lower lobe branches bilaterally. No pulmonary emboli are identified. 3. The thoracic aorta is mildly calcified but nondilated. There is no aneurysm or dissection. Electronically signed by: Ash Acosta MD 03/06/25 23:16 PM Code Status & VTE Plan VTE Prophylaxis Plan VTE Prophylaxis will be ordered: Yes PG Care Time/CCT Total # of Minutes Spent Total Time Spent with Patient: Total time spent is greater than 50% in coordination of care (as documented) at patient's floor/unit and/or counseling patient: Coding Level of Care Code 16931 INT INP/OBS CARE 3/75MIN Diagnoses COVID-19 U07.1 Hypoxia R09.02 Syncope R55 Weakness R53.1 Diabetes type 2, controlled E11.9 Hypertension I10
--- NOTE | 2025-03-07 00:03 | Emergency Department Note ---
History of Present Illness General Chief complaint: Syncope Stated complaint: SYNCOPE, HYPOXIA Time Seen by Provider: 03/06/25 18:50 History of Present Illness Provider complaint: Syncope hypoxia COVID 84-year-old [place] presents to the emergency department for COVID hypoxia and syncope. Patient was diagnosed with COVID on Sunday. She has been feeling increasingly weak and short of breath. Patient was on the toilet earlier today and had a syncopal episode. Staff caught the patient she did not fall or hit her head. Patient ports feeling very weak. Home Medications Medication Instructions Recorded Confirmed Type pen needle, diabetic 32 gauge x #150 ea 11/08/23 01/05/25 Rx 5/32" (BD Ultra-Fine Olinda Pen Needle) oxybutynin chloride 5 mg tablet 5 mg PO HS #30 tabs 08/15/24 03/06/25 Rx insulin glargine 100 unit/mL (3 14 unit subcut QAM 09/12/24 03/06/25 History mL) subcutaneous pen (Lantus Solostar U-100 Insulin) torsemide 10 mg tablet 10 mg PO DAILY #20 tabs 11/11/24 03/06/25 Rx buspirone 10 mg tablet 10 mg PO BID PRN anxiety #60 tabs 11/18/24 03/06/25 Rx cholecalciferol (vitamin D3) 50 100 mcg PO DAILY 12/24/24 03/06/25 History mcg (2,000 unit) capsule duloxetine 60 mg capsule,delayed 60 mg PO DAILY #90 caps 01/05/25 03/06/25 Rx release blood-glucose sensor (FreeStyle #2 ea 03/05/25 Rx Judy 3 Plus Sensor device) acetaminophen 500 mg tablet 1,000 mg PO Q8H Pain 03/06/25 03/06/25 History (Tylenol Extra Strength) lisinopril 40 mg tablet 40 mg PO DAILY 03/06/25 03/06/25 History menthol 5 % topical gel (Biofreeze 1 ea topical Q8H PRN LOWER BACK 03/06/25 03/06/25 History (menthol)) PAIN nirmatrelvir 150 mg (10)-ritonavir 1 ea PO BID 03/06/25 03/06/25 History 100 mg (10) tablets in a dose pack (Paxlovid) pantoprazole 40 mg tablet,delayed 40 mg PO DAILYBB 03/06/25 03/06/25 History release propylene glycol 1 %-glycerin 0.3 1 drp OPB QID 03/06/25 03/06/25 History % eye drops (Artificial Tears (glycerin-peg)) sennosides 8.6 mg tablet (senna) 8.6 mg PO DAILY 03/06/25 03/06/25 History Allergies Allergy/AdvReac Type Severity Reaction Status Date / Time tramadol Allergy Severe confusion, Verified 03/06/25 22:04 stroke like symptoms pseudoephedrine Allergy Intermediate hand, feet Verified 03/06/25 22:04 edema, skin peeling/redness hydromorphone AdvReac Severe delirium Verified 03/06/25 22:04 ketorolac [From Toradol] AdvReac Severe delirium Verified 03/06/25 22:04 metoprolol AdvReac Intermediate hallucinati Verified 03/06/25 22:04 on/confusio n Past Med/Surg History Problem List (Updated 03/07/25 @ 00:08 by Moose Dee MD) Hypoxia (Acute) COVID-19 (Acute) Dysphagia (01/05/25) Closed fracture of left distal fibula Acute distal fibular fracture and possible nondisplaced fracture dorsal distal talus from a fall Weakness (Acute) B12 deficiency Diabetes type 2, controlled Anemia Ambulatory dysfunction Nephrolithiasis Hyperparathyroidism Empty sella Myelopathy 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 of cervical region Hypertension Myelopathy 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 of thoracic region Depression Vertigo Medical History Right-sided tinnitus Obesity Bilateral edema of lower extremity GERD (gastroesophageal reflux disease) rare, controlled, stable per pt Sensorineural hearing loss (SNHL) of right ear with restricted hearing of left ear Bilateral leg weakness pt states she is still experiencing this--uses walker to ambulate Hx of pancreatitis Surgical History History of cervical spinal surgery anterior cervical corpectomy with bilt foraminotomies Dr. Sanford @ [facility] 06/09/21 glidescope #3, "good view" ETT 7. Post-op progress note: "hypertension on admission. Her blood pressures on the floor have been running in the 170s-200s systolic. She was just recently started on metoprolol on this admission. She received 10mg IV Labetalol on emergence from anesthesia and another 10mg IV labetalol in recovery for SBP 190s. Her BP improved to 176/83." History of hysterectomy with bilateral oophorectomy History of cholecystectomy History of appendectomy H/O knee surgery partial right knee replacement > 20 yrs ago History of total knee replacement LEFT Fusion of spine LUMBAR (TOTAL OF 3 SURGERIES), Hardware removal L2-L3, decompression T12-L2, L5-S1, T8-T10: Grade 1 view, Salazar#2, ETT#7.5 at [facility] T10-S1 iliac bolts: 11/13/17: Grade view 1 with cricoid pressure, MAC#3, ETT 7.0 at [facility]. No issues with either per both anesthesia postop progress notes. History of colonoscopy History of herniorrhaphy UMBILICAL [place] teeth removed History of cataract surgery BL Family History Mother Family history of diabetes mellitus Father Family history of diabetes mellitus Pancreatic cancer Brother No problems noted. Sister Breast cancer Other No family history of adverse response to anesthesia No family history of bleeding disorder Denies family history of Ovarian cancer Myocardial infarction Colorectal cancer Social History Smoking Status: Never smoker Second Hand Exposure: No; Do You Dip or Chew Tobacco: No; Hx Alcohol Use: Yes Alcohol type: beer, wine and hard liquor Hx Substance Use: No Preferred Language: Pashto Communication Ability: Effective Manager Of Information Required: No Beliefs That Will Affect Care: None marital status: Current Living Situation: Spouse Current Living Situation Comment: [place] current occupational status: 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 How many Children do You have: 3 Feels Safe at Home: Yes Childhood Exposure to Second-Hand Smoke: Yes Diet: regular caffeine: Yes Dental Care, Regularly: Yes Physical Activity Frequency: 1-2 Times per Week Seatbelt Use: never Sunscreen Use: No Assistive Devices: Cane, Walker and Wheelchair Physical Exam Vital Signs Vital Signs - 24 hr 03/06/25 18:29 03/06/25 18:56 03/06/25 18:56 Temperature 36.8 C 36.8 C Temperature Source Oral Oral Pulse Rate Pulse Rate [Left Finger] Pulse Rate from SpO2 Sensor Respiratory Rate 20 20 20 Blood Pressure 121/68 Blood Pressure [Left Arm] 121/68 Blood Pressure Mean 85 Blood Pressure Mean [Left Arm] 85 Pulse Oximetry 92 92 92 Oxygen Delivery Method Nasal Cannula Nasal Cannula Nasal Cannula Oxygen Flow Rate 2 2 2 Sepsis Recent Fever Within 48 Hours No Sepsis New/Unexplained Change in Mental Status No Sepsis Action Taken by Nursing No Action Required 03/06/25 18:57 03/06/25 19:14 03/06/25 19:14 Temperature Temperature Source Pulse Rate 78 Pulse Rate [Left Finger] Pulse Rate from SpO2 Sensor Respiratory Rate Blood Pressure 123/71 Blood Pressure [Left Arm] Blood Pressure Mean 82 Blood Pressure Mean [Left Arm] Pulse Oximetry 92 Oxygen Delivery Method Nasal Cannula Oxygen Flow Rate 2 Sepsis Recent Fever Within 48 Hours Sepsis New/Unexplained Change in Mental Status Sepsis Action Taken by Nursing 03/06/25 19:15 03/06/25 19:15 03/06/25 19:15 Temperature Temperature Source Pulse Rate Pulse Rate [Left Finger] Pulse Rate from SpO2 Sensor Respiratory Rate Blood Pressure 121/69 121/69 121/69 Blood Pressure [Left Arm] Blood Pressure Mean 84 84 84 Blood Pressure Mean [Left Arm] Pulse Oximetry Oxygen Delivery Method Oxygen Flow Rate Sepsis Recent Fever Within 48 Hours Sepsis New/Unexplained Change in Mental Status Sepsis Action Taken by Nursing 03/06/25 19:15 03/06/25 19:15 03/06/25 19:15 Temperature Temperature Source Pulse Rate 78 Pulse Rate [Left Finger] Pulse Rate from SpO2 Sensor 78 Respiratory Rate 19 Blood Pressure 121/69 121/69 Blood Pressure [Left Arm] Blood Pressure Mean 84 84 Blood Pressure Mean [Left Arm] Pulse Oximetry 95 Oxygen Delivery Method Oxygen Flow Rate Sepsis Recent Fever Within 48 Hours Sepsis New/Unexplained Change in Mental Status Sepsis Action Taken by Nursing 03/06/25 19:21 03/06/25 19:30 03/06/25 19:30 Temperature Temperature Source Pulse Rate 77 Pulse Rate [Left Finger] Pulse Rate from SpO2 Sensor 77 Respiratory Rate 19 Blood Pressure 128/77 128/77 Blood Pressure [Left Arm] Blood Pressure Mean 90 90 Blood Pressure Mean [Left Arm] Pulse Oximetry 96 Oxygen Delivery Method Oxygen Flow Rate Sepsis Recent Fever Within 48 Hours Sepsis New/Unexplained Change in Mental Status Sepsis Action Taken by Nursing 03/06/25 19:30 03/06/25 19:30 03/06/25 19:30 Temperature Temperature Source Pulse Rate Pulse Rate [Left Finger] Pulse Rate from SpO2 Sensor Respiratory Rate Blood Pressure 128/77 128/77 128/77 Blood Pressure [Left Arm] Blood Pressure Mean 90 90 90 Blood Pressure Mean [Left Arm] Pulse Oximetry Oxygen Delivery Method Oxygen Flow Rate Sepsis Recent Fever Within 48 Hours Sepsis New/Unexplained Change in Mental Status Sepsis Action Taken by Nursing 03/06/25 19:30 03/06/25 19:42 03/06/25 19:45 Temperature Temperature Source Pulse Rate 77 75 Pulse Rate [Left Finger] Pulse Rate from SpO2 Sensor 77 76 Respiratory Rate 18 18 Blood Pressure 130/86 Blood Pressure [Left Arm] Blood Pressure Mean 100 Blood Pressure Mean [Left Arm] Pulse Oximetry 96 95 Oxygen Delivery Method Oxygen Flow Rate Sepsis Recent Fever Within 48 Hours Sepsis New/Unexplained Change in Mental Status Sepsis Action Taken by Nursing 03/06/25 19:45 03/06/25 19:45 03/06/25 19:45 Temperature Temperature Source Pulse Rate Pulse Rate [Left Finger] Pulse Rate from SpO2 Sensor Respiratory Rate Blood Pressure 130/86 130/86 130/86 Blood Pressure [Left Arm] Blood Pressure Mean 100 100 100 Blood Pressure Mean [Left Arm] Pulse Oximetry Oxygen Delivery Method Oxygen Flow Rate Sepsis Recent Fever Within 48 Hours Sepsis New/Unexplained Change in Mental Status Sepsis Action Taken by Nursing 03/06/25 19:45 03/06/25 19:45 03/06/25 19:51 Temperature Temperature Source Pulse Rate 74 76 Pulse Rate [Left Finger] Pulse Rate from SpO2 Sensor 74 76 Respiratory Rate 20 22 Blood Pressure 130/86 Blood Pressure [Left Arm] Blood Pressure Mean 100 Blood Pressure Mean [Left Arm] Pulse Oximetry 97 95 Oxygen Delivery Method Oxygen Flow Rate Sepsis Recent Fever Within 48 Hours Sepsis New/Unexplained Change in Mental Status Sepsis Action Taken by Nursing 03/06/25 20:00 03/06/25 20:00 03/06/25 20:00 Temperature Temperature Source Pulse Rate Pulse Rate [Left Finger] Pulse Rate from SpO2 Sensor Respiratory Rate Blood Pressure 136/79 136/79 136/79 Blood Pressure [Left Arm] Blood Pressure Mean 96 96 96 Blood Pressure Mean [Left Arm] Pulse Oximetry Oxygen Delivery Method Oxygen Flow Rate Sepsis Recent Fever Within 48 Hours Sepsis New/Unexplained Change in Mental Status Sepsis Action Taken by Nursing 03/06/25 20:00 03/06/25 20:00 03/06/25 20:00 Temperature Temperature Source Pulse Rate 73 Pulse Rate [Left Finger] Pulse Rate from SpO2 Sensor 73 Respiratory Rate 18 Blood Pressure 136/79 136/79 Blood Pressure [Left Arm] Blood Pressure Mean 96 96 Blood Pressure Mean [Left Arm] Pulse Oximetry 96 Oxygen Delivery Method Oxygen Flow Rate Sepsis Recent Fever Within 48 Hours Sepsis New/Unexplained Change in Mental Status Sepsis Action Taken by Nursing 03/06/25 20:12 03/06/25 20:15 03/06/25 20:15 Temperature Temperature Source Pulse Rate 75 72 Pulse Rate [Left Finger] Pulse Rate from SpO2 Sensor 75 72 Respiratory Rate 16 20 Blood Pressure 159/86 H Blood Pressure [Left Arm] Blood Pressure Mean 129 Blood Pressure Mean [Left Arm] Pulse Oximetry 96 96 Oxygen Delivery Method Oxygen Flow Rate Sepsis Recent Fever Within 48 Hours Sepsis New/Unexplained Change in Mental Status Sepsis Action Taken by Nursing 03/06/25 20:15 03/06/25 20:15 03/06/25 20:15 Temperature Temperature Source Pulse Rate Pulse Rate [Left Finger] Pulse Rate from SpO2 Sensor Respiratory Rate Blood Pressure 159/86 H 159/86 H 159/86 H Blood Pressure [Left Arm] Blood Pressure Mean 129 129 129 Blood Pressure Mean [Left Arm] Pulse Oximetry Oxygen Delivery Method Oxygen Flow Rate Sepsis Recent Fever Within 48 Hours Sepsis New/Unexplained Change in Mental Status Sepsis Action Taken by Nursing 03/06/25 20:15 03/06/25 20:21 03/06/25 20:30 Temperature Temperature Source Pulse Rate 73 Pulse Rate [Left Finger] 74 Pulse Rate from SpO2 Sensor 73 Respiratory Rate 18 20 Blood Pressure 159/86 H Blood Pressure [Left Arm] 159/89 H Blood Pressure Mean 129 Blood Pressure Mean [Left Arm] 112 Pulse Oximetry 99 97 Oxygen Delivery Method Nasal Cannula Oxygen Flow Rate 2 Sepsis Recent Fever Within 48 Hours Sepsis New/Unexplained Change in Mental Status Sepsis Action Taken by Nursing 03/06/25 20:30 03/06/25 20:30 03/06/25 20:30 Temperature Temperature Source Pulse Rate Pulse Rate [Left Finger] Pulse Rate from SpO2 Sensor Respiratory Rate Blood Pressure 159/89 H 159/89 H 159/89 H Blood Pressure [Left Arm] Blood Pressure Mean 105 105 105 Blood Pressure Mean [Left Arm] Pulse Oximetry Oxygen Delivery Method Oxygen Flow Rate Sepsis Recent Fever Within 48 Hours Sepsis New/Unexplained Change in Mental Status Sepsis Action Taken by Nursing 03/06/25 20:30 03/06/25 20:30 03/06/25 20:30 Temperature Temperature Source Pulse Rate 74 Pulse Rate [Left Finger] Pulse Rate from SpO2 Sensor 76 Respiratory Rate 17 Blood Pressure 159/89 H 159/89 H Blood Pressure [Left Arm] Blood Pressure Mean 105 105 Blood Pressure Mean [Left Arm] Pulse Oximetry 98 Oxygen Delivery Method Oxygen Flow Rate Sepsis Recent Fever Within 48 Hours Sepsis New/Unexplained Change in Mental Status Sepsis Action Taken by Nursing 03/06/25 20:42 03/06/25 20:45 03/06/25 20:45 Temperature Temperature Source Pulse Rate 75 Pulse Rate [Left Finger] Pulse Rate from SpO2 Sensor 75 Respiratory Rate 13 Blood Pressure 160/89 H 160/89 H Blood Pressure [Left Arm] Blood Pressure Mean 116 116 Blood Pressure Mean [Left Arm] Pulse Oximetry 96 Oxygen Delivery Method Oxygen Flow Rate Sepsis Recent Fever Within 48 Hours Sepsis New/Unexplained Change in Mental Status Sepsis Action Taken by Nursing 03/06/25 20:45 03/06/25 20:45 03/06/25 20:45 Temperature Temperature Source Pulse Rate Pulse Rate [Left Finger] Pulse Rate from SpO2 Sensor Respiratory Rate Blood Pressure 160/89 H 160/89 H 160/89 H Blood Pressure [Left Arm] Blood Pressure Mean 116 116 116 Blood Pressure Mean [Left Arm] Pulse Oximetry Oxygen Delivery Method Oxygen Flow Rate Sepsis Recent Fever Within 48 Hours Sepsis New/Unexplained Change in Mental Status Sepsis Action Taken by Nursing 03/06/25 20:45 03/06/25 20:51 03/06/25 21:00 Temperature Temperature Source Pulse Rate 73 73 Pulse Rate [Left Finger] Pulse Rate from SpO2 Sensor 73 74 Respiratory Rate 18 21 Blood Pressure 158/92 H Blood Pressure [Left Arm] Blood Pressure Mean 111 Blood Pressure Mean [Left Arm] Pulse Oximetry 97 97 Oxygen Delivery Method Oxygen Flow Rate Sepsis Recent Fever Within 48 Hours Sepsis New/Unexplained Change in Mental Status Sepsis Action Taken by Nursing 03/06/25 21:00 03/06/25 21:00 03/06/25 21:00 Temperature Temperature Source Pulse Rate Pulse Rate [Left Finger] Pulse Rate from SpO2 Sensor Respiratory Rate Blood Pressure 158/92 H 158/92 H 158/92 H Blood Pressure [Left Arm] Blood Pressure Mean 111 111 111 Blood Pressure Mean [Left Arm] Pulse Oximetry Oxygen Delivery Method Oxygen Flow Rate Sepsis Recent Fever Within 48 Hours Sepsis New/Unexplained Change in Mental Status Sepsis Action Taken by Nursing 03/06/25 21:00 03/06/25 21:00 03/06/25 21:12 Temperature Temperature Source Pulse Rate 76 74 Pulse Rate [Left Finger] Pulse Rate from SpO2 Sensor 76 74 Respiratory Rate 17 17 Blood Pressure 158/92 H Blood Pressure [Left Arm] Blood Pressure Mean 111 Blood Pressure Mean [Left Arm] Pulse Oximetry 95 95 Oxygen Delivery Method Oxygen Flow Rate Sepsis Recent Fever Within 48 Hours Sepsis New/Unexplained Change in Mental Status Sepsis Action Taken by Nursing 03/06/25 21:15 03/06/25 21:15 03/06/25 21:15 Temperature Temperature Source Pulse Rate Pulse Rate [Left Finger] Pulse Rate from SpO2 Sensor Respiratory Rate Blood Pressure 173/97 H 173/97 H 173/97 H Blood Pressure [Left Arm] Blood Pressure Mean 128 128 128 Blood Pressure Mean [Left Arm] Pulse Oximetry Oxygen Delivery Method Oxygen Flow Rate Sepsis Recent Fever Within 48 Hours Sepsis New/Unexplained Change in Mental Status Sepsis Action Taken by Nursing 03/06/25 21:15 03/06/25 21:15 03/06/25 21:15 Temperature Temperature Source Pulse Rate 76 Pulse Rate [Left Finger] Pulse Rate from SpO2 Sensor 76 Respiratory Rate 18 Blood Pressure 173/97 H 173/97 H Blood Pressure [Left Arm] Blood Pressure Mean 128 128 Blood Pressure Mean [Left Arm] Pulse Oximetry 95 Oxygen Delivery Method Oxygen Flow Rate Sepsis Recent Fever Within 48 Hours Sepsis New/Unexplained Change in Mental Status Sepsis Action Taken by Nursing 03/06/25 21:21 03/06/25 21:30 03/06/25 21:30 Temperature Temperature Source Pulse Rate 74 Pulse Rate [Left Finger] Pulse Rate from SpO2 Sensor 74 Respiratory Rate 16 Blood Pressure 168/96 H 168/96 H Blood Pressure [Left Arm] Blood Pressure Mean 109 109 Blood Pressure Mean [Left Arm] Pulse Oximetry 97 Oxygen Delivery Method Oxygen Flow Rate Sepsis Recent Fever Within 48 Hours Sepsis New/Unexplained Change in Mental Status Sepsis Action Taken by Nursing 03/06/25 21:30 03/06/25 21:30 03/06/25 21:30 Temperature Temperature Source Pulse Rate Pulse Rate [Left Finger] Pulse Rate from SpO2 Sensor Respiratory Rate Blood Pressure 168/96 H 168/96 H 168/96 H Blood Pressure [Left Arm] Blood Pressure Mean 109 109 109 Blood Pressure Mean [Left Arm] Pulse Oximetry Oxygen Delivery Method Oxygen Flow Rate Sepsis Recent Fever Within 48 Hours Sepsis New/Unexplained Change in Mental Status Sepsis Action Taken by Nursing 03/06/25 21:30 03/06/25 21:42 03/06/25 21:45 Temperature Temperature Source Pulse Rate 74 80 75 Pulse Rate [Left Finger] Pulse Rate from SpO2 Sensor 75 Respiratory Rate 17 20 22 Blood Pressure Blood Pressure [Left Arm] Blood Pressure Mean Blood Pressure Mean [Left Arm] Pulse Oximetry 95 Oxygen Delivery Method Oxygen Flow Rate Sepsis Recent Fever Within 48 Hours Sepsis New/Unexplained Change in Mental Status Sepsis Action Taken by Nursing 03/06/25 21:45 03/06/25 21:45 03/06/25 21:45 Temperature Temperature Source Pulse Rate Pulse Rate [Left Finger] Pulse Rate from SpO2 Sensor Respiratory Rate Blood Pressure 177/102 H 177/102 H 177/102 H Blood Pressure [Left Arm] Blood Pressure Mean 143 143 143 Blood Pressure Mean [Left Arm] Pulse Oximetry Oxygen Delivery Method Oxygen Flow Rate Sepsis Recent Fever Within 48 Hours Sepsis New/Unexplained Change in Mental Status Sepsis Action Taken by Nursing 03/06/25 21:45 03/06/25 21:45 03/06/25 21:45 Temperature Temperature Source Pulse Rate Pulse Rate [Left Finger] Pulse Rate from SpO2 Sensor Respiratory Rate Blood Pressure 177/102 H 177/102 H 177/102 H Blood Pressure [Left Arm] Blood Pressure Mean 143 143 143 Blood Pressure Mean [Left Arm] Pulse Oximetry Oxygen Delivery Method Oxygen Flow Rate Sepsis Recent Fever Within 48 Hours Sepsis New/Unexplained Change in Mental Status Sepsis Action Taken by Nursing 03/06/25 21:45 03/06/25 21:51 03/06/25 22:00 Temperature Temperature Source Pulse Rate 75 Pulse Rate [Left Finger] Pulse Rate from SpO2 Sensor 75 Respiratory Rate 20 Blood Pressure 177/102 H 171/96 H Blood Pressure [Left Arm] Blood Pressure Mean 143 141 Blood Pressure Mean [Left Arm] Pulse Oximetry 94 Oxygen Delivery Method Oxygen Flow Rate Sepsis Recent Fever Within 48 Hours Sepsis New/Unexplained Change in Mental Status Sepsis Action Taken by Nursing 03/06/25 22:00 03/06/25 22:00 03/06/25 22:00 Temperature Temperature Source Pulse Rate Pulse Rate [Left Finger] Pulse Rate from SpO2 Sensor Respiratory Rate Blood Pressure 171/96 H 171/96 H 171/96 H Blood Pressure [Left Arm] Blood Pressure Mean 141 141 141 Blood Pressure Mean [Left Arm] Pulse Oximetry Oxygen Delivery Method Oxygen Flow Rate Sepsis Recent Fever Within 48 Hours Sepsis New/Unexplained Change in Mental Status Sepsis Action Taken by Nursing 03/06/25 22:00 03/06/25 22:00 03/06/25 22:27 Temperature Temperature Source Pulse Rate 73 79 Pulse Rate [Left Finger] Pulse Rate from SpO2 Sensor 73 Respiratory Rate 19 22 Blood Pressure 171/96 H Blood Pressure [Left Arm] Blood Pressure Mean 141 Blood Pressure Mean [Left Arm] Pulse Oximetry 94 Oxygen Delivery Method Oxygen Flow Rate Sepsis Recent Fever Within 48 Hours Sepsis New/Unexplained Change in Mental Status Sepsis Action Taken by Nursing 03/06/25 22:28 03/06/25 22:28 03/06/25 22:28 Temperature Temperature Source Pulse Rate Pulse Rate [Left Finger] Pulse Rate from SpO2 Sensor Respiratory Rate Blood Pressure 159/89 H 159/89 H 159/89 H Blood Pressure [Left Arm] Blood Pressure Mean 101 101 101 Blood Pressure Mean [Left Arm] Pulse Oximetry Oxygen Delivery Method Oxygen Flow Rate Sepsis Recent Fever Within 48 Hours Sepsis New/Unexplained Change in Mental Status Sepsis Action Taken by Nursing 03/06/25 22:30 03/06/25 22:30 03/06/25 22:30 Temperature Temperature Source Pulse Rate Pulse Rate [Left Finger] Pulse Rate from SpO2 Sensor Respiratory Rate Blood Pressure 172/93 H 172/93 H 172/93 H Blood Pressure [Left Arm] Blood Pressure Mean 135 135 135 Blood Pressure Mean [Left Arm] Pulse Oximetry Oxygen Delivery Method Oxygen Flow Rate Sepsis Recent Fever Within 48 Hours Sepsis New/Unexplained Change in Mental Status Sepsis Action Taken by Nursing 03/06/25 22:30 03/06/25 22:30 03/06/25 22:30 Temperature Temperature Source Pulse Rate 77 Pulse Rate [Left Finger] Pulse Rate from SpO2 Sensor 77 Respiratory Rate 20 Blood Pressure 172/93 H 172/93 H Blood Pressure [Left Arm] Blood Pressure Mean 135 135 Blood Pressure Mean [Left Arm] Pulse Oximetry 98 Oxygen Delivery Method Oxygen Flow Rate Sepsis Recent Fever Within 48 Hours Sepsis New/Unexplained Change in Mental Status Sepsis Action Taken by Nursing 03/06/25 22:42 03/06/25 22:45 03/06/25 23:00 Temperature Temperature Source Pulse Rate 78 Pulse Rate [Left Finger] 77 77 Pulse Rate from SpO2 Sensor 77 Respiratory Rate 17 18 18 Blood Pressure Blood Pressure [Left Arm] 172/93 H 152/89 H Blood Pressure Mean Blood Pressure Mean [Left Arm] 119 110 Pulse Oximetry 95 97 97 Oxygen Delivery Method Room Air Oxygen Flow Rate Sepsis Recent Fever Within 48 Hours Sepsis New/Unexplained Change in Mental Status Sepsis Action Taken by Nursing 03/06/25 23:02 03/06/25 23:15 Temperature Temperature Source Pulse Rate 76 Pulse Rate [Left Finger] 77 Pulse Rate from SpO2 Sensor Respiratory Rate 18 Blood Pressure Blood Pressure [Left Arm] 149/88 H Blood Pressure Mean Blood Pressure Mean [Left Arm] 108 Pulse Oximetry 97 Oxygen Delivery Method Nasal Cannula Oxygen Flow Rate 2 Sepsis Recent Fever Within 48 Hours Sepsis New/Unexplained Change in Mental Status Sepsis Action Taken by Nursing Physical Exam GENERAL: oriented to person, place, and time. appears well-developed and well- nourished. HENT: Exam performed. - Head: Normocephalic and atraumatic. EYES: Conjunctivae and EOM are normal. Right eye exhibits no discharge. Left eye exhibits no discharge. No scleral icterus. NECK: Normal range of motion. Neck supple. No JVD present. CV: Normal rate, regular rhythm, normal heart sounds and intact distal pulses. There is no peripheral edema. Palpable radial pulses bue. PULM/CHEST: Rhonchi bilaterally. ABD: The abdomen is soft. There is no tenderness. NEURO: Motor and sensation grossly intact. SKIN: Skin is warm and dry. He is not diaphoretic. PSYCH: normal mood and affect. Behavior is normal. Judgment and thought content normal. Course Course 1849: The patient was evaluated in room B2. A complete history and physical exam was performed Cardiac monitoring: An order was placed for continuous cardiac monitoring. The monitor shows a rate of 80 with sinus rhythm interpreted by me Patient hypoxic on room air. Supplemental oxygen was applied via nasal cannula which improved the patient's oxygen saturation. Patient be treated with Decadron 6 mg IV given her hypoxia and COVID. 2015: Vital signs stable supplemental oxygen via nasal cannula. Labs show an elevated D-dimer. VBG within normal limits. CBC within normal limits. Slight increase of patient's creatinine at 1.52. Will obtain CTA of the chest rule out PE. 2234: Vital signs stable on supplemental oxygen. CTA of the chest negative for PE. [facility]. Administered Medications Sodium Chloride (Nss) 1,000 mls @ 125 mls/hr IV .Q8H [facility] [facility] Stop: 03/09/25 19:29 Last Admin: 03/06/25 21:46 Dose: 125 mls/hr Documented By: ned Discontinued Medications Dexamethasone Sodium Phosphate (DexamethasonePf 10 Mg/Ml Vial) 6 mg IV NOW ONE Stop: 03/06/25 18:57 Last Admin: 03/06/25 19:58 Dose: 6 mg Documented By: reta Sodium Chloride (Nss) 500 mls @ 999 mls/hr IV .Q31M SALTY Stop: 03/06/25 19:30 Last Infusion: 03/06/25 20:34 Dose: Infused Documented By: ned Admin: 03/06/25 19:59 Dose: 999 mls/hr Documented By: reta Ioversol (Optiray 320 125ml) 115 ml IV ONCE ONE Stop: 03/06/25 22:24 Last Admin: 03/06/25 22:23 Dose: 115 ml Documented By: FISH Medical Decision Making Laboratory Data Attestation: I reviewed the patient's lab results. 03/06/25 19:00 03/06/25 19:00 Lab Results 03/06/25 03/06/25 03/06/25 Range/Units 19:00 19:06 22:54 WBC 4.12 L (4.8-10.8) K/ul RBC 4.04 L (4.20-5.40) M/uL Hgb 12.2 (12.0-16.0) g/dl POC Hgb 12.6 (12.0-16.0) g/dl Hct 36.6 L (37.0-47.0) % POC Hct 37 (37-47) % MCV 90.6 (80.0-100.0) fL MCH 30.2 (25.0-34.0) pg MCHC 33.3 (32.0-36.0) g/dL RDW Std Deviation 46.8 H (36.4-46.3) fL RDW Coeff of Jc 14.0 (11.5-14.5) % Plt Count 136 (130-400) K/uL MPV 10.4 (9.4-12.4) fL Immature Gran % (Auto) 0.2 % Neut % (Auto) 52.2 % Lymph % (Auto) 36.9 % [place] % (Auto) 9.5 % Eos % (Auto) 0.7 % Baso % (Auto) 0.5 % Neut # (Auto) 2.15 (1.40-6.50) K/uL Lymph # (Auto) 1.52 (1.20-3.40) K/uL [place] # (Auto) 0.39 (0.11-0.59) K/uL Eos # (Auto) 0.03 (0.00-0.50) K/uL Baso # (Auto) 0.02 (0.00-0.20) K/uL Immature Gran # (Auto) 0.01 (0.01-0.20) K/uL PT 10.8 (9.0-12.0) Seconds INR 1.0 (0.9-1.1) APTT 27 (21-31) Seconds PTT Ratio 1.0 D-Dimer 2490 H* (0-500) ug/L FEU VBG pH 7.33 L (7.36-7.41) VBG pCO2 52 H (38-50) mmHg VBG pO2 36 mmHg VBG HCO3 27 mmol/L VBG O2 Saturation < 60.0 % VBG Base Excess 0.6 mEq/L POC Sodium 138 (135-144) mmol/L Sodium 138 (136-145) mmol/L POC Potassium 3.7 (3.3-5.0) mmol/L Potassium 3.7 (3.5-5.1) mmol/L POC Chloride 99 L (101-112) mmol/L Chloride 101 (98-107) mmol/L Carbon Dioxide 27 (21-32) mmol/L POC Total CO2 26 (24-31) mmol/L Anion Gap 10 (3-11) POC Anion Gap 18.0 (16-25) mmol/L POC BUN 29 H (7-18) mg/dl BUN 32 H (6-23) mg/dl Creatinine 1.52 H (0.6-1.2) mg/dl POC Creatinine 1.8 H (0.6-1.3) mg/dl Est Cr Clr Drug Dosing 32.1 ml/min eGFR 34.03 BUN/Creatinine Ratio 21.1 H (10-20) Glucose 192 H (70-99(Fasting)) mg/dl POC Glucose (other) 188 H (70-99) mg/dl Lactate 1.4 (0.4-2.0) mmol/L Calcium 9.4 (8.6-10.3) mg/dl POC Ioniz Calcium Shalonda 1.21 (1.12-1.32) mmol/l Magnesium 1.8 (1.7-2.4) mg/dl Total Bilirubin 0.3 (0.2-1.0) mg/dl Direct Bilirubin 0.0 (0-0.2) mg/dl AST 16 (13-39) U/L ALT 8 (7-52) U/L Alkaline Phosphatase 75 (34-104) U/L Troponin I High Sens 7.9 (0-14) pg/ml Total Protein 6.6 (6.0-8.3) gm/dl Albumin 3.4 (3.4-5.0) gm/dl Procalcitonin 0.06 (0-0.5) ng/ml Urine Color Urine Appearance (Clear) Urine pH (4.5-7.5) Ur Specific [place] (1.000-1.030) Urine Protein (Negative) Urine Glucose (UA) (Negative) Urine Ketones (Negative) Urine Blood (Negative) Urine Nitrite (Negative) Urine Bilirubin (Negative) Urine Urobilinogen (Negative) Ur Leukocyte Esterase (Negative) Urine WBC (Auto) (0-5) /hpf Urine RBC (Auto) (0-2) /hpf U Hyaline Cast (Auto) (0-2) /lpf U Epithel Cells (Auto) (0-2) /hpf Urine Bacteria (Auto) (None Seen) Urine Yeast (None Prsent) Urine Comment SARS-CoV-2, RNA, NAAT POSITIVE A (NEGATIVE) 03/06/25 Range/Units 22:57 WBC (4.8-10.8) K/ul RBC (4.20-5.40) M/uL Hgb (12.0-16.0) g/dl POC Hgb (12.0-16.0) g/dl Hct (37.0-47.0) % POC Hct (37-47) % MCV (80.0-100.0) fL MCH (25.0-34.0) pg MCHC (32.0-36.0) g/dL RDW Std Deviation (36.4-46.3) fL RDW Coeff of Jc (11.5-14.5) % Plt Count (130-400) K/uL MPV (9.4-12.4) fL Immature Gran % (Auto) % Neut % (Auto) % Lymph % (Auto) % [place] % (Auto) % Eos % (Auto) % Baso % (Auto) % Neut # (Auto) (1.40-6.50) K/uL Lymph # (Auto) (1.20-3.40) K/uL [place] # (Auto) (0.11-0.59) K/uL Eos # (Auto) (0.00-0.50) K/uL Baso # (Auto) (0.00-0.20) K/uL Immature Gran # (Auto) (0.01-0.20) K/uL PT (9.0-12.0) Seconds INR (0.9-1.1) APTT (21-31) Seconds PTT Ratio D-Dimer (0-500) ug/L FEU VBG pH (7.36-7.41) VBG pCO2 (38-50) mmHg VBG pO2 mmHg VBG HCO3 mmol/L VBG O2 Saturation % VBG Base Excess mEq/L POC Sodium (135-144) mmol/L Sodium (136-145) mmol/L POC Potassium (3.3-5.0) mmol/L Potassium (3.5-5.1) mmol/L POC Chloride (101-112) mmol/L Chloride (98-107) mmol/L Carbon Dioxide (21-32) mmol/L POC Total CO2 (24-31) mmol/L Anion Gap (3-11) POC Anion Gap (16-25) mmol/L POC BUN (7-18) mg/dl BUN (6-23) mg/dl Creatinine (0.6-1.2) mg/dl POC Creatinine (0.6-1.3) mg/dl Est Cr Clr Drug Dosing ml/min eGFR BUN/Creatinine Ratio (10-20) Glucose (70-99(Fasting)) mg/dl POC Glucose (other) (70-99) mg/dl Lactate (0.4-2.0) mmol/L Calcium (8.6-10.3) mg/dl POC Ioniz Calcium Shalonda (1.12-1.32) mmol/l Magnesium (1.7-2.4) mg/dl Total Bilirubin (0.2-1.0) mg/dl Direct Bilirubin (0-0.2) mg/dl AST (13-39) U/L ALT (7-52) U/L Alkaline Phosphatase (34-104) U/L Troponin I High Sens (0-14) pg/ml Total Protein (6.0-8.3) gm/dl Albumin (3.4-5.0) gm/dl Procalcitonin (0-0.5) ng/ml Urine Color Yellow Urine Appearance Cloudy A (Clear) Urine pH 5.5 (4.5-7.5) Ur Specific [place] 1.016 (1.000-1.030) Urine Protein 1+ H (Negative) Urine Glucose (UA) Negative (Negative) Urine Ketones Negative (Negative) Urine Blood 2+ H (Negative) Urine Nitrite Positive A (Negative) Urine Bilirubin Negative (Negative) Urine Urobilinogen Negative (Negative) Ur Leukocyte Esterase 3+ H (Negative) Urine WBC (Auto) >50 H (0-5) /hpf Urine RBC (Auto) 3-5 H (0-2) /hpf U Hyaline Cast (Auto) 11-20 H (0-2) /lpf U Epithel Cells (Auto) 6-10 H (0-2) /hpf Urine Bacteria (Auto) 4+ H (None Seen) Urine Yeast Present A (None Prsent) Urine Comment SARS-CoV-2, RNA, NAAT (NEGATIVE) Imaging Data Attestation: I personally reviewed and interpreted this imaging study as follows: My Impression: Chest x-ray negative. Airway clear. No pneumothorax. No consolidation. No cardiomegaly or cephalization.. No free air under the diaphragm. No fractures of the skeletal structures. Radiologist's Impression: Chest X-Ray 03/06/25 18:56 Exam(s): XR CXR 1 VIEW EXAM: XR Chest, 1 View CLINICAL HISTORY: Reason for exam: Sepsis. TECHNIQUE: Frontal view of the chest. COMPARISON: 01/05/2025 FINDINGS: Lungs: Soft tissue artifact from large body habitus. No acute focal infiltrate or consolidation is identified. Pleural space: Unremarkable. No pneumothorax. Heart: The cardiac silhouette is borderline enlarged, unchanged. Mediastinum: Unremarkable. Normal mediastinal contour. Bones/joints: Previous multilevel fusion of the lower cervical spine and multilevel fusion instrumentation throughout the lower thoracic spine, similar to previous. Mild degenerative changes in the left shoulder. No acute fracture. IMPRESSION: 1. The cardiac silhouette is borderline enlarged, unchanged. 2. Soft tissue artifact from large body habitus. No acute focal infiltrate or consolidation is identified. Electronically signed by: Ash Acosta MD 03/06/25 20:38 PM Chest CTA 03/06/25 21:18 Exam(s): CTA CHEST IV Amt: 115 ml [id number] EXAM: CT Angiography Chest With Intravenous Contrast CLINICAL HISTORY: Reason for exam: ro PE. TECHNIQUE: Axial computed tomographic angiography images of the chest with intravenous contrast. CTDI is 28.5 mGy and DLP is 801.55 mGy-cm. Automated exposure control was utilized for the study. A dose lowering technique was utilized adhering to the principles of ALARA. MIP reconstructed images were created and reviewed. COMPARISON: 11/16/2017 FINDINGS: Pulmonary arteries: The pulmonary arterial tree is well opacified with contrast. There is motion artifact blurring the lower lobe branches bilaterally. No pulmonary emboli are identified. Aorta: The thoracic aorta is mildly calcified but nondilated. There is no aneurysm or dissection. Lungs: Underinflated lungs with perihilar and bibasilar atelectasis versus edema, increased since previous. No lobar consolidation is seen. Pleural space: Unremarkable. No significant effusion. No pneumothorax. Heart: Heart is mildly enlarged. There is mild to moderate mitral calcification and mild coronary calcification. No pericardial effusion is seen. No evidence of RV dysfunction. Bones/joints: Moderate multilevel degenerative changes throughout the thoracic spine. Previous fusion and instrumentation extending from T8 inferiorly. No acute fracture or destructive bone lesion is seen. No dislocation. Soft tissues: Unremarkable. Lymph nodes: Unremarkable. No enlarged lymph nodes. IMPRESSION: 1. Underinflated lungs with perihilar and bibasilar atelectasis versus edema, increased since previous. No lobar consolidation is seen. 2. The pulmonary arterial tree is well opacified with contrast. There is motion artifact blurring the lower lobe branches bilaterally. No pulmonary emboli are identified. 3. The thoracic aorta is mildly calcified but nondilated. There is no aneurysm or dissection. Electronically signed by: Ash Acosta MD 03/06/25 23:16 PM ECG Data Attestation: I personally reviewed and interpreted this ECG as follows: Rate (beats per minute): 78 Rhythm: + normal sinus ECG Intervals/blocks: + First degree AV block, + Normal QRS and + Normal QT-c ECG ST segments: + Normal ST segments [facility] Narrative 1849: The patient was evaluated in room B2. A complete history and physical exam was performed Cardiac monitoring: An order was placed for continuous cardiac monitoring. The monitor shows a rate of 80 with sinus rhythm interpreted by me Patient hypoxic on room air. Supplemental oxygen was applied via nasal cannula which improved the patient's oxygen saturation. Patient be treated with Decadron 6 mg IV given her hypoxia and COVID. 2014: Vital signs stable supplemental oxygen via nasal cannula. Labs show an elevated D-dimer. VBG within normal limits. CBC within normal limits. Slight increase of patient's creatinine at 1.52. Will obtain CTA of the chest rule out PE. 2234: Vital signs stable on supplemental oxygen. CTA of the chest negative for PE. Patient be admitted to the [facility] hospitalist team. Impression & Plan COVID-19, Hypoxia Discharge Plan Visit Data Chief Complaint: Syncope Stated Complaint: SYNCOPE, HYPOXIA ED Provider: [place] Discharge Problem: COVID-19, Hypoxia Patient Disposition: Admitted As Inpatient Condition: Serious Forms Stand Alone Forms: My [facility] Prescriptions Prescriptions: No Action oxybutynin chloride 5 mg tablet 5 mg PO HS Qty: 30 1RF buspirone 10 mg tablet 10 mg PO BID PRN (Reason: anxiety) Qty: 60 2RF (DME) FreeStyle Judy 3 Plus Sensor Device See Rx Instructions .Route Qty: 2 5RF Rx Instructions: change every 15 days (DME) pen needle, diabetic [BD Ultra-Fine Olinda Pen Needle] 32 gauge x 5/32" needle See Rx Instructions miscellaneous .MEDSUPPLY Qty: 150 5RF Rx Instructions: As directed to use with insulin pens 4 times a day torsemide 10 mg tablet 10 mg PO DAILY Qty: 20 0RF insulin glargine [Lantus Solostar U-100 Insulin] 100 unit/mL (3 mL) insulin pen 14 unit subcut QAM duloxetine 60 mg capsule,delayed release(DR/EC) 60 mg PO DAILY Qty: 90 2RF cholecalciferol (vitamin D3) 50 mcg (2,000 unit) capsule 100 mcg PO DAILY sennosides [senna] 8.6 mg Tablet 8.6 mg PO DAILY lisinopril 40 mg Tablet 40 mg PO DAILY Artificial Tears(glycerin-peg) 1-0.3 % Drops 1 drp OPB QID Rx Instructions: MAY USE PRN NEEDED FOR DRY EYES, IN ADDITION TO QID DOSE. Biofreeze (menthol) 5 % Gel 1 ea TOPICAL Q8H PRN (Reason: LOWER BACK PAIN) Paxlovid 150 mg (10)- 100 mg (10) tablets,dose pack 1 ea PO BID Rx Instructions: STARTED 03/05/25 FOR 5 DAYS acetaminophen [Tylenol Extra Strength] 500 mg tablet 1,000 mg PO Q8H pantoprazole 40 mg tablet,delayed release (DR/EC) 40 mg PO DAILYBB Referrals Referrals: Toshia Alarcon DO [Primary Care Provider] -
[2025-03-07] MEDS ORDERED: GLUCOSE 10 TAB/TUBE PO PRN (02:00)
[2025-03-07] MEDS ORDERED: ONDANSETRON INJ 2 MG/ML 2 ML VIAL IV PRN (02:00)
[2025-03-07] MEDS ORDERED: CARBOHYDRATES FOR HYPOGLYCEMIA PO PRN (02:00)
[2025-03-07] MEDS ORDERED: GLUCOSE 40% GEL 15 GM TUBE PO PRN (02:00)
[2025-03-07] MEDS ORDERED: GLUCAGON FOR INJ 1 MG VIAL SQ PRN (02:00)
[2025-03-07] MEDS ORDERED: DEXTROSE 50% 50 ML SYRINGE IV PRN (02:00)
[2025-03-07] MEDS ORDERED: ACETAMINOPHEN 1,000 MG/100 ML VIAL IV PRN (02:46)
[2025-03-07] MEDS ORDERED: ACETAMINOPHEN 500 MG TAB PO SCH (03:00)
[2025-03-07 06:20] LABS: Hematocrit (blood only) 40.8 % (37.0-47.0); Hemoglobin 13.4 g/dl (12.0-16.0); Mean Corpuscular Hemoglobin 29.6 pg (25.0-34.0); Mean Corpuscular Volume 90.1 fL (80.0-100.0); Platelet Count 123 K/uL (130-400); RDW Standard Deviation 45.8 fL (36.4-46.3); Red Blood Count 4.53 M/uL (4.20-5.40); White Blood Count 2.46 K/ul (4.8-10.8)
[2025-03-07 06:40] LABS: Anion Gap 9.0 (3-11); Blood Urea Nitrogen 27.0 mg/dl (6-23); Carbon Dioxide 27.0 mmol/L (21-32); Chloride 102.0 mmol/L (98-107); Creatinine Clr Calc Pharmacy 39.5 ml/min; Glucose 241.0 mg/dl (70-99(Fasting)); Potassium 4.5 mmol/L (3.5-5.1); Sodium 138.0 mmol/L (136-145)
[2025-03-07 07:49] LABS: Calcium 9.5 mg/dl (8.6-10.3)
[2025-03-07] MEDS: CHOLECALCIFEROL 25 MCG (1000 UNITS) TAB PO SCH (09:20)
[2025-03-07] MEDS: SENNA 8.6 MG TAB PO SCH (09:20)
[2025-03-07] MEDS: LANTUS PER UNIT CHARGE SQ SCH (09:20)
[2025-03-07] MEDS: INSULIN ASPART PER UNIT CHARGE SC SCH (09:20)
[2025-03-07] MEDS: PANTOprazole 40 MG/10 ML SYR IV SCH (09:20)
[2025-03-07] MEDS: dexAMETHasone 6 MG in SYRINGE 0 ML IV SCH (09:20)
[2025-03-07] MEDS: ENOXAPARIN INJ 40 MG/0.4 ML SYR SQ SCH (09:20)
--- NOTE | 2025-03-07 12:46 | Hospitalist Progress Note ---
Date of Service March 07, 2025 Assessment & Plan (1) COVID-19: (2) Hypoxia: (3) Syncope: (4) Weakness: (5) Diabetes type 2, controlled: (6) Hypertension: Plan 84yo female with DM, GERD presenting with Covid-19 infection, generalized weakness, syncopal event prior to arrival and generalized weakness. Patient reported to be hypoxic in [facility] ER at 88% on room air #Covid-19/Hypoxia/Generalized weakness - Afebrile Remains on 2 L nasal cannula. She does not have a home oxygen requirement Continue isolation Continue dexamethasone 6 mg daily, anticipate 10-day total course -Tylenol PRN -Zofran PRN -Lovenox 40mg BID CTA shows no evidence of lobar pneumonia, no evidence of PE #Syncope Likely due to COVID and acute illness D-dimer is elevated in the setting of COVID, CTA does not show Tawny of PE or lobar pneumonia EKG: QT prolonged at 492. Sinus rhythm with first-degree AV block. Nonspecific ST changes. No territorial ST segment changes or territorial T wave inversions Creatinine downtrending, volume status improving High sensitive troponin normal. Clinically without chest pain Last echo 04/2024: LVEF 55%. No regional wall motion abnormalities. RV SF normal. AV sclerosis without stenosis. Moderate mitral calcification. No acute events on telemetry PT/OT pending #Diabetes - Goal BSG 230397 Glargine 7 units twice daily SSI #Hypertension -Continue Lisinopril #GERD -Continue Protonix #Depression/Anxiety -Continue Duloxetine -Continue Buspirone Patient with tearful affect, reports feeling overwhelmed. Denies SI/HI. Reports she might want to talk to a psych liaison/counselor "later "or maybe after leaving the hospital but declines this at time of visit DVT prophylaxis: High risk with COVID/acute illness. Lovenox continued Disposition: [place] on increased oxygen requirement. She continues to feel very weak. PT/OT evals are pending. She has not had recurrent syncopal events Admission and Anticipated Discharge Date Admission Date: March 06, 2025 Lalita Bowman is seen at the bedside this morning. She reports she is not short of breath and does not have difficulty breathing. She is tearful and she reports that she is overwhelmed by "everything ". She reports she feels very stressed. Offered to talk to a counselor for depression/anxiety she reports "later", reports she does not wish to talk to anyone currently but may in the future. She denies SI/HI. Endorses cough. No dyspnea or chest pain at time of assessment Physical Exam Physical Exam: General: Alert and oriented to name, place. Tearful affect. Slight psychomotor slowing and slow speech prosody HEENT: Atraumatic, normocephalic. Vision and hearing grossly intact Pulm: Diminished, scattered crackles but no overt rales. Symmetrical chest rise. No increase in work of breathing. No respiratory distress. Cardiac: RRR, -mrg. Radial pulses intact and symmetrical. Results & Data Results & Data Vital Signs (Past 12 Hours) Vital Signs Temp Pulse Pulse Resp BP BP Pulse Ox 03/07/25 12:17 36.3 C L 64 12 158/91 H 97 03/07/25 09:20 03/07/25 08:08 36.1 C L 71 12 180/97 H 96 03/07/25 06:45 74 03/07/25 02:05 73 03/07/25 01:45 03/07/25 01:45 36.4 C L 67 18 183/97 H 96 03/07/25 01:15 74 18 175/101 H 97 03/07/25 01:00 143/88 H 03/07/25 01:00 143/88 H 03/07/25 01:00 143/88 H 03/07/25 01:00 143/88 H 03/07/25 01:00 77 17 96 03/07/25 00:51 76 16 97 03/07/25 00:45 151/97 H 03/07/25 00:45 151/97 H 03/07/25 00:45 151/97 H 03/07/25 00:45 151/97 H 03/07/25 00:45 151/97 H 03/07/25 00:45 78 16 97 03/07/25 00:42 77 17 97 O2 Del Method O2 Flow Rate 03/07/25 12:17 Nasal Cannula 03/07/25 09:20 Nasal Cannula 2 03/07/25 08:08 Nasal Cannula 03/07/25 06:45 03/07/25 02:05 03/07/25 01:45 Nasal Cannula 2 03/07/25 01:45 Nasal Cannula 2 03/07/25 01:15 Nasal Cannula 2 03/07/25 01:00 03/07/25 01:00 03/07/25 01:00 03/07/25 01:00 03/07/25 01:00 03/07/25 00:51 03/07/25 00:45 03/07/25 00:45 03/07/25 00:45 03/07/25 00:45 03/07/25 00:45 03/07/25 00:45 03/07/25 00:42 PG Care Time/CCT Total # of Minutes Spent Total Time Spent with Patient: Total time spent is greater than 50% in coordination of care (as documented) at patient's floor/unit and/or counseling patient: Coding Level of Care Code 14515 SUB INP/OBS CARE 3/50MIN Diagnoses COVID-19 U07.1 Hypoxia R09.02 Syncope R55 Weakness R53.1 Diabetes type 2, controlled E11.9 Hypertension I10
[2025-03-07] MEDS: busPIRone 5 MG TAB PO PRN (13:40)
[2025-03-08 07:17] LABS: Hematocrit (blood only) 34.5 % (37.0-47.0); Hemoglobin 11.9 g/dl (12.0-16.0); Immature Granulocytes # (auto) 0.03 K/uL (0.01-0.20); Immature Granulocytes % (auto) 0.4 %; Mean Corpuscular Hemoglobin 30.4 pg (25.0-34.0); Mean Corpuscular Volume 88.2 fL (80.0-100.0); Platelet Count 160 K/uL (130-400); RDW Standard Deviation 43.5 fL (36.4-46.3); Red Blood Count 3.91 M/uL (4.20-5.40); White Blood Count 7.26 K/ul (4.8-10.8)
[2025-03-08 07:37] LABS: Anion Gap 8.0 (3-11); Blood Urea Nitrogen 31.0 mg/dl (6-23); Calcium 9.7 mg/dl (8.6-10.3); Carbon Dioxide 27.0 mmol/L (21-32); Chloride 104.0 mmol/L (98-107); Creatinine Clr Calc Pharmacy 51.0 ml/min; Glucose 182.0 mg/dl (70-99(Fasting)); Potassium 4.1 mmol/L (3.5-5.1); Sodium 139.0 mmol/L (136-145)
--- NOTE | 2025-03-08 15:01 | Hospitalist Progress Note ---
Date of Service March 08, 2025 Assessment & Plan (1) COVID-19: (2) Hypoxia: (3) Syncope: (4) Weakness: (5) Diabetes type 2, controlled: (6) Hypertension: Plan 84yo female with DM, GERD presenting with Covid-19 infection, generalized weakness, syncopal event prior to arrival and generalized weakness. Patient reported to be hypoxic in [facility] ER at 88% on room air #Covid-19/Hypoxia/Generalized weakness - Afebrile Weaned to room air this morning Continue dexamethasone 6 mg daily, anticipate 10-day total course -Tylenol PRN -Zofran PRN -Lovenox 40mg BID CTA shows no evidence of lobar pneumonia, no evidence of PE Ambulatory dysfunction Patient has been weaned to room air 03/08; clinically progressing PT/OT pending. On attempted ambulation to chair this morning required significant assistance and has had some waxing and waning confusion suspicious for delirium versus metabolic encephalopathy. #Syncope Likely due to COVID and acute illness D-dimer is elevated in the setting of COVID, CTA does not show Tawny of PE or lobar pneumonia EKG: QT prolonged at 492. Sinus rhythm with first-degree AV block. Nonspecific ST changes. No territorial ST segment changes or territorial T wave inversions Creatinine downtrending, volume status improving High sensitive troponin normal. Clinically without chest pain Last echo 04/2024: LVEF 55%. No regional wall motion abnormalities. RV SF normal. AV sclerosis without stenosis. Moderate mitral calcification. No acute events on telemetry #Diabetes - Goal BSG 223476 Glargine 7 units twice daily SSI #Hypertension -Continue Lisinopril #GERD -Continue Protonix #Depression/Anxiety -Continue Duloxetine -Continue Buspirone DVT prophylaxis: High risk with COVID/acute illness. Lovenox continued Disposition: Oxygen weaned. PT/OT pending. Weak with some waxing waning delirium versus infectious metabolic encephalopathy Admission and Anticipated Discharge Date Admission Date: March 06, 2025 Subjective Breathing improved and weaned to room air, is intermittently confused and is oriented to name/place only. Was having some hallucinations earlier. Initially suspected patient may have been seeing [employer] workers outside of her window however had some intermittent confusion of her family being in her room overnight. No chest pain/chest pressure/shortness of breath. Still with a with drawn affect Physical Exam Physical Exam: General: Alert and oriented to name, hospital tearful affect. Some psychomotor slowing and withdrawn affect. Denies SI. Not responding to internal stimuli at time of visit HEENT: Atraumatic, normocephalic. Vision and hearing grossly intact Pulm: Diminished, scattered crackles Symmetrical chest rise. No increase in work of breathing. No respiratory distress. Cardiac: RRR, -mrg. Radial pulses intact and symmetrical. Results & Data Results & Data Vital Signs (Past 12 Hours) Vital Signs Temp Pulse Pulse Pulse Resp BP BP 03/08/25 14:15 57 L 03/08/25 11:10 36.3 C L 73 18 171/90 H 03/08/25 09:56 03/08/25 08:00 36.2 C L 52 L 18 149/69 H 03/08/25 07:39 50 L 03/08/25 03:17 36.5 C 62 18 154/73 H Pulse Ox O2 Del Method O2 Flow Rate 03/08/25 14:15 03/08/25 11:10 94 Room Air 03/08/25 09:56 Room Air 03/08/25 08:00 95 Room Air 03/08/25 07:39 03/08/25 03:17 93 Nasal Cannula 1 PG Care Time/CCT Total # of Minutes Spent Total Time Spent with Patient: Total time spent is greater than 50% in coordination of care (as documented) at patient's floor/unit and/or counseling patient: Coding Level of Care Code 04923 SUB INP/OBS CARE 2/35MIN Diagnoses COVID-19 U07.1 Hypoxia R09.02 Syncope R55 Weakness R53.1 Diabetes type 2, controlled E11.9 Hypertension I10
[2025-03-09 07:01] LABS: Hematocrit (blood only) 36.8 % (37.0-47.0); Hemoglobin 12.2 g/dl (12.0-16.0); Immature Granulocytes # (auto) 0.06 K/uL (0.01-0.20); Immature Granulocytes % (auto) 0.7 %; Mean Corpuscular Hemoglobin 29.4 pg (25.0-34.0); Mean Corpuscular Volume 88.7 fL (80.0-100.0); Platelet Count 157 K/uL (130-400); RDW Standard Deviation 43.9 fL (36.4-46.3); Red Blood Count 4.15 M/uL (4.20-5.40); White Blood Count 8.24 K/ul (4.8-10.8)
[2025-03-09 07:15] LABS: Anion Gap 9.0 (3-11); Blood Urea Nitrogen 39.0 mg/dl (6-23); Calcium 10.1 mg/dl (8.6-10.3); Carbon Dioxide 28.0 mmol/L (21-32); Chloride 103.0 mmol/L (98-107); Creatinine Clr Calc Pharmacy 50.3 ml/min; Glucose 151.0 mg/dl (70-99(Fasting)); Potassium 4.1 mmol/L (3.5-5.1); Sodium 140.0 mmol/L (136-145)
--- NOTE | 2025-03-09 12:34 | Hospitalist Progress Note ---
Date of Service March 09, 2025 Assessment & Plan (1) COVID-19: (2) Hypoxia: (3) Syncope: (4) Weakness: (5) Diabetes type 2, controlled: (6) Hypertension: Plan 84 year old female with DM, GERD presenting with Covid-19 infection, generalized weakness, syncopal event prior to arrival and generalized weakness. Patient reported to be hypoxic in the ER at 88% on room air. #Covid-19/Hypoxia/Generalized weakness -Afebrile -O2 saturations in mid 90s on RA -continue dexamethasone 6 mg daily, anticipate 10-day total course -Tylenol PRN -Zofran PRN -Lovenox 40mg BID -CTA shows no evidence of lobar pneumonia, no evidence of PE ##Ambulatory dysfunction -currently at [facility] for STR -completed course of IRF at [facility] post left fibular fracture, with noted hx of cervical and thoracic spinal stenosis and myelopathy-->>see HPI -OT/PT consults pending #Syncope Likely due to COVID and acute illness D-dimer is elevated in the setting of COVID, CTA does not show Tawny of PE or lobar pneumonia EKG: QT prolonged at 492. Sinus rhythm with first-degree AV block. Nonspecific ST changes. No territorial ST segment changes or territorial T wave inversions Cr 1.00 High sensitive troponin normal Last echo 04/2024: LVEF 55%. No regional wall motion abnormalities. RV SF normal. AV sclerosis without stenosis. Moderate mitral calcification. No acute events on telemetry with underlying rhythm SB 50s #Diabetes -Goal BSG 434253 Glargine 7 units twice daily SSI #Hypertension -Continue Lisinopril #GERD -Continue Protonix #Depression/Anxiety -Continue Duloxetine -Continue Buspirone #Morbid obesity BMI 41.1 -Recommended outpatient sleep study during last hospitalization -Recommend overnight pulse oximetry at [facility] for follow up as with chart review unclear of this was completed -weight loss treatment adjunct options as follow-up outpatient DVT prophylaxis: Lovenox BID Diet: CC Disposition: d/c back to [facility] for STR Admission and Anticipated Discharge Date Admission Date: March 06, 2025 Supervising Physician Co-Signing Physician Notes Attending Attestation - Chart reviewed, care plan d/w HONEY Naik. I agree with the godinez components of her documentation. Magdiel Rodriguez MD Subjective Patient seen this am sitting in chair. Reports her breathing has improved over the course of the past 48 hours. +cough with no production. Appetite fair and verbalizes she is drinking adequately. Denies concerns related to bladder or bowel function. She is currently alert and oriented to person, place and year. Denies hallucinations. She denies any additional syncopal events since [employer] episode. Reports living at home with her parents/, however is currently at [facility] secondary to need for STR r/t left fibular fracture she sustained post fall (hospitalized at [facility] from 01/05/25-01/08/25). She did go to [facility] post fall for IRF on 01/09/25 and was discharged on 01/28/25. She was seen by Dr. Robles on 01/14/25 for ortho follow up with conservative recommended management secondary to co-morbids posing a risk for surgical recommendation~patient to be NWB X 6w with boot. Per chart review, patient decided to to try WBAT while at [facility]. She is to continue to f/u with ortho as scheduled. Review of Systems Review of Systems: All systems reviewed & are unremarkable except as noted in Subjective Physical Exam Physical Exam: GENERAL APPEARANCE: A&O. Sitting in chair. NAD. SKIN: Normal color without rashes or lesions. Normal turgor. HEENT: Head AT/NC. Buccal mucosa is moist and pink. NECK: No jugular venous distention. No thyroid enlargement. There is no lymphadenopathy. HEART: RRR without m/g/r LUNGS: Normal inspiratory effort. CTA without w/r/r. ABDOMEN: No guarding or rigidity. Normoactive BS in all four quadrants. Abdomen soft and NT. MSK: No bony gross/deformities throughout. ROM intact. EXTREMITIES: No edema, No peripheral cyanosis. Neuro: CN 2-12 grossly intact. No focal neuro deficits PSYCHIATRIC: Normal affect. Eye contact is good. Speech is normal rate and content. Responses are appropriate. Results & Data Results & Data Vital Signs (Past 12 Hours) Vital Signs Temp Pulse Pulse Resp BP BP Pulse Ox 03/09/25 11: 36.5 C 60 20 166/83 H 95 03/09/25 09:40 03/09/25 08:16 36.5 C 52 L 16 189/70 H 95 03/09/25 07:08 46 L 03/09/25 04:28 184/74 H 03/09/25 04:18 36.6 C 49 L 20 185/121 H 91 O2 Del Method 03/09/25 11:25 Room Air 03/09/25 09:40 Room Air 03/09/25 08:16 Room Air 03/09/25 07:08 03/09/25 04:28 03/09/25 04:18 Room Air PG Care Time/CCT Total # of Minutes Spent Total Time Spent with Patient: Total time spent is greater than 50% in coordination of care (as documented) at patient's floor/unit and/or counseling patient: Coding Level of Care Code 66908 SUB INP/OBS CARE 3/50MIN Diagnoses COVID-19 U07.1 Hypoxia R09.02 Syncope R55 Weakness R53.1 Diabetes type 2, controlled E11.9 Hypertension I10
[2025-03-09] MEDS: ACETAMINOPHEN 500 MG TAB PO PRN (21:23)
[2025-03-10 04:35] VITALS: TEMP 97.2
[2025-03-10 06:59] VITALS: RESP 18
[2025-03-10 07:29] LABS: Hematocrit (blood only) 37.5 % (37.0-47.0); Hemoglobin 13.0 g/dl (12.0-16.0); Immature Granulocytes # (auto) 0.03 K/uL (0.01-0.20); Immature Granulocytes % (auto) 0.5 %; Mean Corpuscular Hemoglobin 30.3 pg (25.0-34.0); Mean Corpuscular Volume 87.4 fL (80.0-100.0); Platelet Count 176 K/uL (130-400); RDW Standard Deviation 42.5 fL (36.4-46.3); Red Blood Count 4.29 M/uL (4.20-5.40); White Blood Count 6.47 K/ul (4.8-10.8)
[2025-03-10 07:46] LABS: Anion Gap 7.0 (3-11); Blood Urea Nitrogen 43.0 mg/dl (6-23); Calcium 10.1 mg/dl (8.6-10.3); Carbon Dioxide 29.0 mmol/L (21-32); Chloride 102.0 mmol/L (98-107); Creatinine Clr Calc Pharmacy 56.8 ml/min; Glucose 176.0 mg/dl (70-99(Fasting)); Potassium 4.2 mmol/L (3.5-5.1); Sodium 138.0 mmol/L (136-145)
--- NOTE | 2025-03-10 09:47 | Electrocardiogram Report ---
Test Reason : Blood Pressure : */* mmHG Vent. Rate : 78 BPM Atrial Rate : 78 BPM P-R Int : 242 ms QRS Dur : 108 ms QT Int : 432 ms P-R-T Axes : 38 -46 1 degrees QTcB Int : 492 ms Sinus rhythm with 1st degree A-V block Left anterior fascicular block Minimal voltage criteria for LVH, may be normal variant ( Vin product ) Nonspecific ST and T wave abnormality Abnormal ECG When compared with ECG of 01-Apr-2023 13:44, MT interval has increased Confirmed by Bishnu Cohen ([id number]) on 03/10/2025 9:47:31 AM Referred By: Sarah morales [facility] Confirmed By: Bishnu Cohen
[2025-03-10 11:26] VITALS: PULSE 47; O2SAT 92
[2025-03-10 13:43] VITALS: BP 182/82
--- NOTE | 2025-03-10 17:06 | Discharge Summary ---
Discharge Summary Date of Service March 10, 2025 Principal Dx & Hospital Course #1 = Principal Diagnosis (1) COVID-19: (2) Hypoxia: (3) Syncope: (4) Weakness: (5) Diabetes type 2, controlled: (6) Hypertension: Plan 84 year old female with DM, GERD presenting with Covid-19 infection, generalized weakness, syncopal event prior to arrival and generalized weakness. Patient reported to be hypoxic in the ER at 88% on room air. Patient completed 5 day course of dexamethasone IV during hospitalization for management of respiratory symptoms with subsequent success of being weaned onto room air with favorable SPO2 saturations in the mid 90s from 03/08/25-03/10/25. She had no additional syncopal events while hospitalized with no appreciated cardiac arrhythmia noted on telemetry. Patient oriented to person, place, and year on discharge with no active hallucinations or delirium. She has no acute respiratory complaints. She is agreeable to d/c back to [facility]. #Covid-19/Hypoxia/Generalized weakness -Afebrile -O2 saturations in mid 90s on RA -continue dexamethasone 6 mg daily, anticipate 10-day total course -Tylenol PRN -Zofran PRN -Lovenox 40mg BID -CTA shows no evidence of lobar pneumonia, no evidence of PE -d/c on dexamethasone 6mg po daily X 5d ##Ambulatory dysfunction -currently at [facility] for STR -completed course of IRF at [facility] post left fibular fracture, with noted hx of cervical and thoracic spinal stenosis and myelopathy -OT/PT consult with recommendation to transfer to SNF where she is currently being treated for PT #Syncope Likely due to COVID and acute illness D-dimer is elevated in the setting of COVID, CTA does not show Tawny of PE or lobar pneumonia EKG: QT prolonged at 492. Sinus rhythm with first-degree AV block. Nonspecific ST changes. No territorial ST segment changes or territorial T wave inversions Cr WNL High sensitive troponin normal Last echo 04/2024: LVEF 55%. No regional wall motion abnormalities. RV SF normal. AV sclerosis without stenosis. Moderate mitral calcification. 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 -transition to NovoLog SSI on d/c to [facility] during remainder of oral dexamethas one course (sliding scale parameters included in d/c instructions) #Hypertension -Continue Lisinopril, cont torsemide on d/c #GERD -Continue Protonix #Depression/Anxiety -Continue Duloxetine -Continue Buspirone #Morbid obesity BMI 41.1 -Recommended outpatient sleep study during last hospitalization -Recommend overnight pulse oximetry at [facility] for follow up as with chart review unclear of this was completed -weight loss treatment adjunct options as follow-up outpatient Diet: CC Disposition: d/c to [facility] SNF Admission HPI Per Admitting Provider Gracie Martinez is an 84yo female presenting from her halfway with Covid-19 infection, hypoxia and syncope. Patient was diagnosed with Covid-19 infection on Sunday03/02/25. She has been on Paxlovid. Has been feeling weak and short of breath. This evening she was on the commode and had a syncopal episode. She denies chest pain, palpitations, abdominal pain, nausea, vomiting at present. No additional complaints at this time. In the ER she was afebrile, reportedly hypoxic at 88% on RA, however not documented ER Course: Dexamethasone 6mg IV NSS Discharge Exam GENERAL APPEARANCE: A&O to person, place and year. Lying in bed. NAD. SKIN: Normal color without rashes or lesions. Normal turgor. HEENT: Head AT/NC. Buccal mucosa is moist and pink. NECK: No jugular venous distention. No thyroid enlargement. There is no lymphadenopathy. HEART: RRR without m/g/r LUNGS: Normal inspiratory effort. CTA without w/r/r. ABDOMEN: No guarding or rigidity. Normoactive BS in all four quadrants. Abdomen soft and NT. MSK: No bony gross/deformities throughout. ROM intact. EXTREMITIES: No edema, No peripheral cyanosis. Neuro: CN 2-12 grossly intact. No focal neuro deficits. PSYCHIATRIC: Normal affect. Eye contact is good. Speech is normal rate and content. Responses are appropriate. Discharge Plan Discharge Items Patient Disposition: Transfer Correction Fac Reason For Visit: COVID-19, WEAKNESS Discharge Diagnosis: COVID-19 Condition on Discharge: Fair Activity: Resume your previous activity Bathing: No limitations Weightbearing: Full weightbearing Weightbearing Comment: 2 person assist standard walker Non-emergency contact: Primary Care Provider Call non-emergency contact if: you have any medication questions, your symptoms worsen, your pain is not controlled, your pain is concerning for you and you have a fever Follow-up/Referrals: Toshia Alarcon, [Primary Care Provider] - Diet: Carb Consistent or DM2 Addtl Attending Provider Instructions: Medications: Your medication list has been reviewed and reconciled upon discharge to ensure accuracy and continuity of care. An updated list of all your medications is included with your hospital discharge paperwork. Please review this list closely, and make note of any changes. We sent a new medication called Dexamethasone to your pharmacy. Take Dexamethasone once per day for the next 5 days. You will also be prescribed short acting insulin called NovoLog to manage your blood sugar only while on the steroid (Dexamethasone). You will continue your routine daily Lantus dose at 14 units SQ daily. The sliding scale protocol to be implemented to cover your blood sugar levels with NovoLog insulin while on Dexamethasone is as follows with BS checks ACHS: BG<150 mg/dL: 0 units NovoLog SQ BG 151-200 mg/dL: 2 units NovoLog SQ BG 201-250 mg/dL: 4 units NovoLog SQ BG 251-300 mg/dL: 6 units NovoLog SQ BG>300 mg/dL: 8 units NovoLog SQ and notify provider Please ensure patient follows up with a two step walking test to ensure her oxygenation is normal after her finished course of treatment for COVID-19. It is also recommended that she follow up with an outpatient sleep study to evaluate for sleep apnea. Take your medications as instructed; do not skip a dose of your medicines. Make sure all of your doctors know every medicine you are taking (including [id number] medicines, vitamins, and supplements). Call your primary care provider before taking any new medicines (including over- the-counter medicines, vitamins, and supplements), because some of these may interact with your current medications, or may make your symptoms worse. Tell your primary care provider if you cannot afford your medications. Activity: You can do normal everyday activities as your body allows. Take rest breaks if you feel tired. Do not overexert. Stop activity if you have pain, shortness of breath or feel dizzy. Continue to work with PT at [facility] for strengthening and conditioning. Follow-up appointments: Make an appointment with your primary care physician within one week of discharge. A copy of this summary will be sent to them. Every time you see your primary care physician, or any other doctor, bring your medication list, and a list of questions. CONTACT YOUR PRIMARY CARE PROVIDER if you experience any of the following: Shortness of breath or difficulty breathing Fevers or chills Feeling tired with normal activity or experiencing dizziness or fainting Difficulty following your treatment plan, or difficulty taking medications CALL 911 OR GO TO THE EMERGENCY DEPARTMENT if you experience any of the following: Severe abdominal pain or nausea/vomiting Severe chest pain, or chest pain that radiates (moves) to your jaw or arm Sudden, severe shortness of breath or difficulty breathing Thank you for allowing us to participate in your care. Pending Studies at Discharge: No Stand-Alone Forms: My New [facility] Skilled Items Patient informed of condition?: Yes DNR: Yes Discharge Level of Care: Skilled Communicable Disease: Yes Discharge Prognosis: Improving Lines: None Urinary Catheter: No Medications and DC Order Prescriptions: New insulin aspart U-100 [Novolog U-100 Insulin aspart] 100 unit/mL solution 1 sliding scale dose subcut USEASDIRECTD Qty: 10 0RF Rx Instructions: Sliding scale coverage as follows: BG <150 mg/dL: 0 units BG 151-200 mg/dL: 2 units BG 201-250 mg/dL: 4 units BG 251-300 mg/dL: 6 units BG >300: 8 units and notify provider Continued oxybutynin chloride 5 mg tablet 5 mg PO HS Qty: 30 1RF buspirone 10 mg tablet 10 mg PO BID PRN (Reason: anxiety) Qty: 60 2RF (DME) FreeStyle Judy 3 Plus Sensor Device See Rx Instructions .Route Qty: 2 5RF Rx Instructions: change every 15 days (DME) pen needle, diabetic [BD Ultra-Fine Olinda Pen Needle] 32 gauge x 5/32" needle See Rx Instructions miscellaneous .MEDSUPPLY Qty: 150 5RF Rx Instructions: As directed to use with insulin pens 4 times a day torsemide 10 mg tablet 10 mg PO DAILY Qty: 20 0RF insulin glargine [Lantus Solostar U-100 Insulin] 100 unit/mL (3 mL) insulin pen 14 unit subcut QAM duloxetine 60 mg capsule,delayed release(DR/EC) 60 mg PO DAILY Qty: 90 2RF cholecalciferol (vitamin D3) 50 mcg (2,000 unit) capsule 100 mcg PO DAILY sennosides [senna] 8.6 mg Tablet 8.6 mg PO DAILY lisinopril 40 mg Tablet 40 mg PO DAILY Artificial Tears(glycerin-peg) 1-0.3 % Drops 1 drp OPB QID Rx Instructions: MAY USE PRN NEEDED FOR DRY EYES, IN ADDITION TO QID DOSE. Biofreeze (menthol) 5 % Gel 1 ea TOPICAL Q8H PRN (Reason: LOWER BACK PAIN) acetaminophen [Tylenol Extra Strength] 500 mg tablet 1,000 mg PO Q8H pantoprazole 40 mg tablet,delayed release (DR/EC) 40 mg PO DAILYBB Discontinued Paxlovid 150 mg (10)- 100 mg (10) tablets,dose pack 1 ea PO BID Rx Instructions: STARTED 03/05/25 FOR 5 DAYS Discharge Orders: Discharge Order (Routine); Ordered 03/10/25 Ordered By: Josey Wilkins/Other Patient Handouts: 2019 Novel Coronavirus, COVID-19 Home Care Admission Data Admit Date/Time: 03/06/25 23:44 Attending Provider: Magdiel Rodriguez Admit Provider: Laureen Acosta Primary Care Provider: Toshia Alarcon Other Providers: Sarah Greer Mcconnell Other Interventions: Discharge Summary Assessment (RN) Last Done: 03/10/25 13:42 Hospital Stay Data Consultations 03/06/25 23:36 ED Decision to Admit Stat Diagnostic Imagining Performed 03/06/25 21:18 CT angio chest PE protocol Stat Pending Results Patient Have Any Pending Studies at Discharge: No Discharge Instructions Given to Patient (Per Discharging Provider) Medications: Your medication list has been reviewed and reconciled upon discharge to ensure accuracy and continuity of care. An updated list of all your medications is included with your hospital discharge paperwork. Please review this list closely, and make note of any changes. We sent a new medication called Dexamethasone to your pharmacy. Take Dexamethasone once per day for the next 5 days. You will also be prescribed short acting insulin called NovoLog to manage your blood sugar only while on the steroid (Dexamethasone). You will continue your routine daily Lantus dose at 14 units SQ daily. The sliding scale protocol to be implemented to cover your blood sugar levels with NovoLog insulin while on Dexamethasone is as follows with BS checks ACHS: BG<150 mg/dL: 0 units NovoLog SQ BG 151-200 mg/dL: 2 units NovoLog SQ BG 201-250 mg/dL: 4 units NovoLog SQ BG 251-300 mg/dL: 6 units NovoLog SQ BG>300 mg/dL: 8 units NovoLog SQ and notify provider Please ensure patient follows up with a two step walking test to ensure her oxygenation is normal after her finished course of treatment for COVID-19. It is also recommended that she follow up with an outpatient sleep study to evaluate for sleep apnea. Take your medications as instructed; do not skip a dose of your medicines. Make sure all of your doctors know every medicine you are taking (including rzqw-nkx-nfewtea medicines, vitamins, and supplements). Call your primary care provider before taking any new medicines (including over- the-counter medicines, vitamins, and supplements), because some of these may interact with your current medications, or may make your symptoms worse. Tell your primary care provider if you cannot afford your medications. Activity: You can do normal everyday activities as your body allows. Take rest breaks if you feel tired. Do not overexert. Stop activity if you have pain, shortness of breath or feel dizzy. Continue to work with PT at [facility] for strengthening and conditioning. Follow-up appointments: Make an appointment with your primary care physician within one week of discharge. A copy of this summary will be sent to them. Every time you see your primary care physician, or any other doctor, bring your medication list, and a list of questions. CONTACT YOUR PRIMARY CARE PROVIDER if you experience any of the following: Shortness of breath or difficulty breathing Fevers or chills Feeling tired with normal activity or experiencing dizziness or fainting Difficulty following your treatment plan, or difficulty taking medications CALL 911 OR GO TO THE EMERGENCY DEPARTMENT if you experience any of the following: Severe abdominal pain or nausea/vomiting Severe chest pain, or chest pain that radiates (moves) to your jaw or arm Sudden, severe shortness of breath or difficulty breathing Thank you for allowing us to participate in your care. Supervising Physician Co-Signing Physician Notes Attending Attestation and Discharge Note: Chart reviewed, discharge care plan d/w HONEY Naik. I agree with the godinez components of her discharge documentation. Of note - I did not perform a bedside visit or exam on day of discharge. 84yo female with T2DM, HTN, morbid obesity (BMI 40-41), GERD presenting with generalized weakness and a syncopal event prior to ER arrival. By report was hypoxic at 88% in room air. She had known COVID-19, having been dx at [facility] on 03/02/25. She took Paxlovid prior to this admission. CTA chest without PE but b/l perihilar infiltrates were noted. During her stay she received 5 days dexamethasone IV. O2 was weaned off by 03/08/25. She will complete 5 more days of dexamethasone upon discharge. With respect to the syncopal event leading up to this admission -- -EKG was wnl with no ischemic changes -BPs were low-normal thus the event may have been precipitated by such -had echo in 04/2024 showing intact LV function; echo was not repeated while here Patient had sinus bradycardia while hospitalized. I cannot fully exclude that pepe-arrhythmia contributed to her syncope. Of note - she is not on any AV danny agent at this time. Consider outpatient 30-day event monitor to exclude arrhythmia leading to syncopal event. Magdiel Rodriguez MD Total Time Total Time Spent Total Time Spent (In Minutes): I spent a total of 50 minutes on the date of service in review of patient's record, and previously obtained information in person and appropriate medical visit, discussion and education of plan, with patient and/or caregiver, placing orders for tests/referral/procedures as medically necessary and documentation of pertinent clinical information in patient's medical records for their visit today. Coding Level of Care Code 93984 INP/OBS DISCH >30 MIN Diagnoses COVID-19 U07.1 Hypoxia R09.02 Syncope R55 Weakness R53.1 Diabetes type 2, controlled E11.9 Hypertension I10
--- NOTE | 2025-03-12 06:46 | Coding Query ---
To promote full compliance with coding requirements relating to patient care, provider participation is requested in all cases of body wirer uncertainty. Please assist us with the question(s) below: Coding Question(s): The diagnosis(es) below was documented in the 03/08 Progress Note, then subsequently fell off all further documentation. Please indicate if it is still a possible diagnosis or ruled out. Physician's Response(s): waxing and waning confusion suspicious for delirium versus metabolic encephalopathy ( ) Diagnosed and POA ( ) Diagnosed and not POA ( ) Ruled out ( x ) Other (please specify) Ruled out as patient had no delirious symptoms on further documentation [facility]
== END 2025-03-10 17:01 | DRG 178 ==
LOC: ED 18:38 → 2W 23:44 → SUATTDRO 23:44 → 2W 03-07 02:59